=== PATIENT | male | born 1955 | race Caucasian/White ===

== ENCOUNTER → 2016-07-26 | Outpatient (CLI) | payer BC ==
[~2016-07-26] MED LIST: ALPR1TAB3 PO; ALPR2TAB2 PO; ASPCH81X PO; CHOL200027 PO; CHOL4POW6 PO; CLON2TAB3 PO; CYAN10005 SL; CYM60 PO; DIPH-416 PO; DONE1TAB11 PO; FLM4 PO; FLV400 PO; GLUCTAB18 PO; METO25TA3 PO; MULTLIQ26 PO; NXM/40 PO; ONDA8TAB7 PO; OXYC20TA50 PO; POTA1080 PO; PRAZ1CAP10 PO; PRAZ5CAP2 PO; PROM25TA9 PO; ROPI0.5T15 PO; SRQ300 PO; THIA250T3 PO; URC10 PO
--- NOTE | 2016-07-26 12:18 | DIAGNOSTIC IMAGING REPORT ---
KUB CLINICAL HISTORY: Nephrolithiasis FINDINGS: 2 AP supine abdominal radiographs are compared to study dated 07/27/2015 and correlated with abdominal CT dated 01/03/2014. There is a nonobstructed abdominal bowel gas pattern noting mild to moderate colonic fecal retention. Suture material is seen throughout the left upper quadrant. A tiny calculus is suggested projecting over the left kidney. No additional calculi are identified. Atherosclerotic calcification is noted in the abdominal aorta. The skeletal structures are osteopenic. Lumbosacral spondylosis is observed. The bony pelvis appears intact. The heart is enlarged and pacemaker leads are identified. IMPRESSION: 1. Question a tiny nonobstructing left renal calculus. No additional renal calculi are identified on today's examination. 2. Additional findings as above. Electronically signed by: Harman Escudero M.D. 07/26/2016 12:16 PM Dictated Date/Time: 07/26/2016 12:14 PM
== END ==
LOC: C.RAD 11:31
PROVIDERS: ATTEND Urology
DX: N40.1 Benign prostatic hyperplasia with lower urinary tract symptoms (principal); Z12.5 Encounter for screening for malignant neoplasm of prostate; N20.0 Calculus of kidney

== ENCOUNTER → 2016-10-10 | Outpatient (CLI) | payer BC | END | disposition home or self-care (01) | LOC: C.RDSM 16:53 | PROVIDERS: ATTEND Physical Medicine & Rehabilitation Sports Medicine | DX: S89.92XA Unspecified injury of left lower leg, initial encounter (principal); X58.XXXA Exposure to other specified factors, initial encounter ==

== ENCOUNTER 2016-11-27 17:04 | Inpatient (IN) | payer BC, OTHER ==
[~2016-11-27] VITALS: Ht 177.8 cm; Wt 107.6 kg
[~2016-11-27 17:04] MED LIST changes: -CLON2TAB3 PO; -CYM60 PO; -PRAZ5CAP2 PO; -SRQ300 PO; -THIA250T3 PO; -URC10 PO
[2016-11-27] MEDS ORDERED: SODIUM CHLORIDE 0.9% 1000ML 1,000 ML IV STA (17:23)
[2016-11-27 18:01] LABS: BASO % 0.2 %; BASO ABS # 0.04 K/uL (0-0.2); COMPLETE YES; EOS % 1.1 %; HEMATOCRIT 45.2 % (42-52); IG% 0.3 %; LYMPH % 20.9 %; MEAN CELL VOLUME 100.4 fL (80-100); MEAN CORPUSCULAR HEMOGLOBIN 34.4 pg (25-34); MEAN CORPUSCULAR HGB CONC 34.3 g/dl (32-36); MEAN PLATELET VOLUME 9.4 fL (7.4-10.4); MONO % 9.2 %; NEUT % 68.3 %; PLATELET COUNT 231 K/uL (130-400); WHITE BLOOD COUNT 17.25 K/uL (4.8-10.8)
--- NOTE | 2016-11-27 18:05 | DIAGNOSTIC IMAGING REPORT ---
CHEST ONE VIEW PORTABLE CLINICAL HISTORY: 61 years-old Male presenting with EVALUATE WEAKNESS. TECHNIQUE: Portable upright AP view of the chest was obtained. COMPARISON: 01/02/2014. FINDINGS: Left-sided pacer with leads to the right atrium and right ventricular apex. Atherosclerosis of aortic arch. Cardiac silhouette normal in size. Lungs and pleural spaces clear. Deformity of the right lateral seventh rib system with old fracture. Upper abdomen normal. IMPRESSION: 1. No acute cardiopulmonary disease. Electronically signed by: Brooks Granado M.D. 11/27/2016 6:04 PM Dictated Date/Time: 11/27/2016 6:03 PM
[2016-11-27 18:10] LABS: PROTHROMBIN TIME (PATIENT) 11.1 SECONDS (9.0-12.0)
[2016-11-27] MEDS ORDERED: CYM60 PO (18:15)
[2016-11-27] MEDS ORDERED: URC10 PO (18:15)
[2016-11-27] MEDS ORDERED: PRAZ5CAP2 PO (18:15)
[2016-11-27] MEDS ORDERED: THIA250T3 PO (18:16)
[2016-11-27] MEDS ORDERED: CLON2TAB3 PO (18:16)
[2016-11-27] MEDS ORDERED: SRQ300 PO (18:17)
[2016-11-27] MEDS ORDERED: ONDANSETRON 8 MG/54 ML D5W IV STA (18:24)
[2016-11-27] MEDS ORDERED: FENTANYL CITRATE INJ 50 MCG/1 ML 2 ML VIAL IV STA (18:24)
[2016-11-27 18:26] LABS: ALT/SGPT 22 U/L (12-78); BLOOD UREA NITROGEN 31 mg/dl (7-18); BUN/CREATININE RATIO 20.5 (10-20); CALCIUM 9.1 mg/dl (8.5-10.1); CARBON DIOXIDE 26 mmol/L (21-32); CHLORIDE 103 mmol/L (98-107); GLUCOSE 165 mg/dl (70-99); POTASSIUM 4.8 mmol/L (3.5-5.1); SODIUM 136 mmol/L (136-145)
[2016-11-27 18:37] LABS: ALKALINE PHOSPHATASE 102 U/L (45-117); AST/SGOT 17 U/L (15-37)
[2016-11-27 19:11] LABS: URINE APPEARANCE CLEAR (CLEAR); URINE BILIRUBIN NEG (NEG); URINE COLOR DK YELLOW; URINE EPITHELIAL CELL AUTO >30 /lpf (0-5); URINE NITRITE NEG (NEG); URINE SPECIFIC GRAVITY 1.026 (1.000-1.030); UROBILINOGEN NEG (NEG)
[2016-11-27 19:13] LABS: MANUAL MICROSCOPIC REQUIRED? NO; REVIEW REQ? YES
[2016-11-27] MEDS ORDERED: OPTIRAY 320 IV PRN (19:30)
--- NOTE | 2016-11-27 19:33 | DIAGNOSTIC IMAGING REPORT ---
(CHEST FOR PE) ANGIO WITH CLINICAL HISTORY: 61 years-old Male presenting with chest pain, recent travel, hypotensive. TECHNIQUE: Multidetector CT angiography of the chest was performed after administration of intravenous contrast. 3-D volumetric and/or maximum intensity projection (MIP) images were subsequently reconstructed for review. IV contrast: 102 mL of Optiray 320. A dose lowering technique was used consistent with the principles of ALARA (as low as reasonably achievable). COMPARISON: None. CT DOSE (mGy.cm): The estimated cumulative dose is 543.39 mGy.cm. 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 Pulmonary vasculature: The study is adequate for assessment of the pulmonary vascular tree. No filling defect within the pulmonary arteries to suggest embolus. Main pulmonary artery is not enlarged. No flattening of the interventricular septum. No intracardiac intracardiac filling defect. No reflux of contrast into the hepatic veins. Remaining chest: On soft tissue windows, normal thyroid and thoracic inlet. No axillary, supraclavicular, hilar, or mediastinal lymphadenopathy. Atherosclerosis of aortic arch. Normal heart size. Coronary artery calcification. No pericardial or pleural effusion. Intraluminal hyperattenuation at the fundus of the stomach and within the antrum and visualized portion of the duodenal bulb most consistent with intraluminal hemorrhage. Postsurgical changes of Blaine-en-Y gastric bypass noted. On lung windows, minimal bandlike opacities at the lung bases likely atelectasis. Two adjacent solid 3 mm subpleural nodules noted in the right lower lobe (series 4 images 117 and 124). Paraseptal emphysematous suggested along the anterior right upper lobe near the apex. Airways patent. On bone windows, degenerative changes of the thoracic spine. IMPRESSION: 1. No evidence of pulmonary embolus. 2. High density intraluminal contents within the stomach are most concerning for intraluminal hemorrhage. Correlation with nasogastric aspiration could be considered. This may indicate a bleeding ulcer among other etiologies. 3. Two solid 3 mm subpleural nodules in the right lower lobe. Follow-up per Emily Society 2017 recommendations below. Findings were discussed with Dr. Humberto Aguilar at 7:45 PM on 11/27/[address] Granado. Please refer to below summary of Fleischner Society 2017 recommendations for follow-up of incidental CT nodules (H Sonia et al. Guidelines for management of incidental pulmonary nodules detected on CT images: From the Fleischner Society 2017. Radiology 2017; 284: 228-243.) SOLID NODULES Single nodule; size < 6 mm * Low risk patients: No routine follow-up * High risk patients: Optional CT at 12 months Single nodule; size 6-8 mm * Low risk patients: CT at 6-12 months, then consider CT at 18-24 months * High risk patients: CT at 6-12 months, then at 18-24 months Single nodule; size > 8 mm * Either low or high risk patients: Considered CT at 3 months, PET/CT, or tissue sampling Multiple nodules; size < 6 mm * Low risk patients: No routine follow up * High risk patients: Optional CT at 12 months Multiple nodules; size 6-8 mm * Low risk patients: CT at 3-6 months, then consider CT at 18-24 months * High risk patients: CT at 3-6 months, then at 18-24 months Multiple nodules; size > 8 mm * Low risk patients: CT at 3-6 months, then consider at 18-24 months * High risk patients: CT at 3-6 months, then at 18-24 months Note: These guidelines apply to incidental nodules. These guidelines do not apply to patients younger than 35 years, immunocompromised patients, or patients with cancer. * Low risk patients: Minimal or absent history of smoking and/or other known risk factors * High risk patients: History of smoking, exposure to other carcinogens, emphysema, fibrosis, upper lobe location, family history of lung cancer, etc. * If a nodule up to 8 mm is partly solid or is ground glass, further follow-up is required after 24 months to exclude possible slow growing adenocarcinoma. SUBSOLID NODULES Single ground-glass nodule * Nodule size < 6 mm: No routine follow-up * Nodule size > or = 6 mm: CT at 6-12 months to confirm persistence, then CT every 2 years until 5 years Single part-solid nodule * Nodule size < 6 mm: No routine follow-up * Nodules size > or = 6 mm: CT at 3-6 months to confirm persistence. If unchanged and solid component remains < 6 mm, annual CT should be performed for 5 years Multiple nodules * Nodule size < 6 mm: CT at 3-6 months. If stable, consider CT at 2 and 4 years. * Nodules size > or = 6 mm: CT at 3-6 months. Subsequent management based on the most suspicious nodule(s) Electronically signed by: Brooks Granado M.D. 11/27/2016 7:45 PM Dictated Date/Time: 11/27/2016 7:22 PM
[2016-11-27 19:36] LABS: URINE PATH CASTS EPITHELIAL CASTS /lpf (0)
[2016-11-27] MEDS ORDERED: RANITIDINE HCL 50 MG/100 ML D5W IV STA (19:50)
[2016-11-27] MEDS ORDERED: SODIUM CHLORIDE 0.9% 500ML 500 ML IV STA (19:53)
[2016-11-27] MEDS ORDERED: PANTOprazole INJ 80 MG in DEXTROSE 5% 100ML IV SCH (20:00)
[2016-11-27] MEDS ORDERED: PANTOprazole INJ 40 MG in DEXTROSE 5% 100ML IV SCH (20:15)
[2016-11-27] MEDS: HYDROmorphone INJ 0.5 MG/0.5 ML SYR IV PRN ×3 (20:20→23:33)
[2016-11-27] MEDS ORDERED: ONDANSETRON INJ 2 MG/ML 2 ML VIAL IV PRN (20:45)
[2016-11-27] MEDS ORDERED: ALUMINUM/MAGNESIUM/SIMETH (MAALOX MAX) 30 ML UDC PO PRN (20:45)
--- NOTE | 2016-11-27 21:05 | History and Physical ---
History & Physical Date & Time of Service: Nov 27, 2016 at 20:50 Chief Complaint: Dizzy,Sob,Low Bp Primary Care Physician: Sharri Holbrook History of Present Illness Source: patient, family Mr Moore is a 61 yo M s/p gastric bypass with history of 4 GI bleeds at a site near his bypass surgery, who presents with shortness of breath. The pt thought he had pneumonia, and had felt short of breath over the last few days, and was worse over vacation at [place] last week. He has been feeling more tired than usual. He noticed abdominal pain started Monday, which is in the epigastrium, 8/10 severity, without any exacerbating or relieving factors. He denies any changes to his diet and denies having spicy or new foods lately. He has not been taking NSAIDs. He does report about a 3 month history of diarrhea, which has been non-bloody, though on r/v of records this seems to be a chronic issue. He also has a hx of atrial fibrillation and was recently placed on metoprolol. His only blood thinner in his med list is aspirin. Currently, he feels nauseated, and after just receiving pain medications feels somewhat better. 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 Is eager to quit smoking. Smoking Status: Current Every Day Smoker Marital Status: Housing status: lives with family Occupational Status: retired Immunizations History of Influenza Vaccine: N/A Influenza Vaccine Date: Dec 24, 2007 History of Tetanus Vaccine?: Yes History of Pneumococcal: No History of Hepatitis B Vaccine: No Multi-Drug Resistant Organisms History of MDRO: No Allergies Coded Allergies: Penicillins (Verified Allergy, Severe, SWELLING AND RASH OF HANDS; HAS TOLERATED ANCEF & ROCEPHIN, 11/27/16) Home Medications Scheduled Aspirin (Aspirin Chewable), 81 MG PO DAILY Cholecalciferol (Vitamin D-3), 2,000 UNITS PO BID Clonazepam (Klonopin), 2 MG PO BID Cyanocobalamin (Vitamin B-12), 2,500 MCG SL DAILY Donepezil Hydrochloride (Donepezil Hcl), 5 MG PO HS Duloxetine HCl (Duloxetine HCl), 60 MG PO BID Esomeprazole Magnesium (Nexium), 40 MG PO BID Folic Acid (Folic Acid), 800 MCG PO DAILY Glucosamine-Chondroitin (Osteo Bi-Flex Regular Str), 1 TABLET PO DAILY Metoprolol Succ (Toprol Xl) (Toprol-Xl), 25 MG PO DAILY Multiple Vitamins W/ Minerals (Multivitamin & Mineral), 1 DOSE PO DAILY Potassium Citrate (Potassium Citrate), 10 MEQ PO TID Prazosin Hcl (Prazosin), 5 MG PO HS Quetiapine Fumarate (Quetiapine Fumarate), 300 MG PO HS Ropinirole (Requip), 0.5 MG PO HS Thiamine Hcl (Vitamin B-1), 250 MG PO BID Review of Systems See HPI for pertinent positives & negatives. A total of 10 systems reviewed and were otherwise negative. Physical Exam Vital Signs Date Time Temp Pulse Resp B/P (MAP) Pulse Ox O2 Delivery O2 Flow Rate FiO2 11/27/16 20:27 64 12 119/71 97 Room Air 11/27/16 19:31 62 14 144/78 96 Room Air 11/27/16 18:34 63 17 114/66 91 Room Air 11/27/16 17:56 97 Room Air 11/27/16 17:56 68 113/68 80 102/65 85 90/56 11/27/16 17:56 96 Room Air 11/27/16 17:44 69 11/27/16 17:38 73 11/27/16 17:35 97 Room Air 11/27/16 17:12 36.7 69 18 107/74 97 Room Air General Appearance: WD/WN, + mild distress Head: normocephalic, atraumatic Eyes: normal inspection, PERRL ENT: hearing grossly normal Neck: supple, no JVD Respiratory/Chest: lungs clear, normal breath sounds, no respiratory distress Cardiovascular: regular rate, rhythm, no murmur, normal peripheral pulses Abdomen/GI: soft, + tenderness (epigastrium) Back: no CVA tenderness, no muscle spasm, normal range of motion Extremities/Musculoskelatal: no calf tenderness, no pedal edema Neurologic/Psych: alert, normal mood/affect, oriented x 3 Skin: no rash Diagnostics Laboratory Results Results Past 24 Hours Test 11/27/16 17:42 11/27/16 17:52 11/27/16 17:54 11/27/16 18:55 Range/Units White Blood Count 17.25 4.8-10.8 K/uL Red Blood Count 4.50 4.7-6.1 M/uL Hemoglobin 15.5 14.0-18.0 g/dL Hematocrit 45.2 42-52 % Mean Corpuscular Volume 100.4 80-100 fL Mean Corpuscular Hemoglobin 34.4 25-34 pg Mean Corpuscular Hemoglobin Concent 34.3 32-36 g/dl Platelet Count 231 130-400 K/uL Mean Platelet Volume 9.4 7.4-10.4 fL Neutrophils (%) (Auto) 68.3 % Lymphocytes (%) (Auto) 20.9 % Monocytes (%) (Auto) 9.2 % Eosinophils (%) (Auto) 1.1 % Basophils (%) (Auto) 0.2 % Neutrophils # (Auto) 11.79 1.4-6.5 K/uL Lymphocytes # (Auto) 3.60 1.2-3.4 K/uL Monocytes # (Auto) 1.58 0.11-0.59 K/uL Eosinophils # (Auto) 0.19 0-0.5 K/uL Basophils # (Auto) 0.04 0-0.2 K/uL RDW Standard Deviation 48.6 36.4-46.3 fL RDW Coefficient of Variation 13.2 11.5-14.5 % Immature Granulocyte % (Auto) 0.3 % Immature Granulocyte # (Auto) 0.05 0.00-0.02 K/uL Prothrombin Time 11.1 9.0-12.0 SECONDS Prothromb Time International Ratio 1.0 0.9-1.1 Activated Partial Thromboplast Time 26.0 21.0-31.0 SECONDS Partial Thromboplastin Ratio 1.0 Sodium Level 136 136-145 mmol/L Potassium Level 4.8 3.5-5.1 mmol/L Chloride Level 103 98-107 mmol/L Carbon Dioxide Level 26 21-32 mmol/L Anion Gap 7.0 3-11 mmol/L Blood Urea Nitrogen 31 7-18 mg/dl Creatinine 1.50 0.60-1.40 mg/dl Est Creatinine Clear Calc Drug Dose 62.6 ml/min Estimated GFR () 56.6 Estimated GFR (Non- 48.8 BUN/Creatinine Ratio 20.5 10-20 Random Glucose 165 70-99 mg/dl Calcium Level 9.1 8.5-10.1 mg/dl Magnesium Level 2.0 1.8-2.4 mg/dl Total Bilirubin 0.5 0.2-1 mg/dl Direct Bilirubin 0.1 0-0.2 mg/dl Aspartate Amino Transf (AST/SGOT) 17 15-37 U/L Alanine Aminotransferase (ALT/SGPT) 22 12-78 U/L Alkaline Phosphatase 102 45-117 U/L Total Creatine Kinase 118 39-308 U/L Creatine Kinase MB 2.4 0.5-3.6 ng/ml Creatine Kinase MB Ratio 2.0 0-3.0 Troponin I < 0.015 0-0.045 ng/ml Total Protein 7.6 6.4-8.2 gm/dl Albumin 3.6 3.4-5.0 gm/dl Thyroid Stimulating Hormone (TSH) 1.060 0.300-4.500 uIu/ml Bedside Lactic Acid Venous 2.30 0.90-1.70 mmol/L Bedside D-Dimer > 450 0-450 ng/mlFEU Urine Color DK YELLOW Urine Appearance CLEAR CLEAR Urine pH 6.0 4.5-7.5 Urine Specific [place] 1.026 1.000-1.030 Urine Protein NEG NEG Urine Glucose (UA) NEG NEG Urine Ketones TRACE NEG Urine Occult Blood NEG NEG Urine Nitrite NEG NEG Urine Bilirubin NEG NEG Urine Urobilinogen NEG NEG Urine Leukocyte Esterase TRACE NEG Urine WBC (Auto) 1-5 0-5 /hpf Urine RBC (Auto) 0-4 0-4 /hpf Urine Hyaline Casts (Auto) >30 0-5 /lpf Urine Epithelial Cells (Auto) >30 0-5 /lpf Urine Bacteria (Auto) NEG NEG Urine Pathogenic Casts EPITHELIAL CASTS 0 /lpf Microbiology Results 11/27/16 Blood Culture, Received Pending 11/27/16 Blood Culture, Received Pending Diagnostic Radiology CTA: IMPRESSION: 1. No evidence of pulmonary embolus. 2. High density intraluminal contents within the stomach are most concerning for intraluminal hemorrhage. Correlation with nasogastric aspiration could be considered. This may indicate a bleeding ulcer among other etiologies. 3. Two solid 3 mm subpleural nodules in the right lower lobe. Follow-up per Emily Society 2017 recommendations below. CXR normal EKG Atrial-paced rhythm with occasional Premature ventricular complexes Right superior axis deviation Pulmonary disease pattern Abnormal ECG When compared with ECG of 02-JAN-2014 19:28, Premature ventricular complexes are now Present Questionable change in QRS axis T wave inversion no longer evident in Anterior leads QT has shortened Normal EKG, No change from prior EKG Impression Assessment and Plan 61 yo M s/p gastric bypass w/multiple GI bleeds who presents with concern for repeat GI bleed. Acute upper GI bleed - Hemodynamically stable at this time. Will cross match regardless. - CBC in AM. - GI consulted, pt sees Dr Heck. - NPO for EGD tomorrow - Continue Protonix drip - Aspirin on hold Abdominal pain - Continue dilaudid 0.5mg IV q3h Chronic diarrhea - C. Diff / stool culture Leukocytosis - Could be related to GI bleed, will hold off on Abx for now as he does not display evidence of pneumonia - Continue to monitor Shortness of breath - Continuous pulse ox - Duoneb PRN - Smoking cessation consult Anxiety / Depression - Continue home medications (incluidng Clonopin) Vit B12 / Folate / Thiamine deficiency - Multivitamins on hold prior to EGD Pulmonary nodules from CT - Follow up as OP (See guidelines on report) CODE STATUS: Full DISPO: Tele VTE: SCDs Resident Physician Supervision Note: I was present with Dr. Berry during the history and exam. I discussed the case with the resident and agree with the findings and plan as documented in the note. Any exceptions or clarifications are listed here: 61 y/o M Hx Gastric bypass and recurrent GI bleed - developed progressive abdominal pain and SOB - denies hematemesis or hematochezia - sent for a CTA, the results of which are consistent with recurrence of an upper GI bleed OE AAO x 3 S1,2 R CTAB NT, ND No CCE P: Per discussion with GI - pt admitted for AM endoscopy NPO , IV PPi - ASA held Above discussed with pt and resident Documented By: Matt Tucker VTE Prophylaxis VTE Risk Assessment Done? Y/N: Yes Risk Level: Moderate Given or contraindicated: Contraindicated Resident Tracking Resident Involvement: Resident Care Provided Care Provided: Adult Hospital Medicine
[2016-11-27] MEDS ORDERED: METOCLOPRAMIDE HCL INJ 5 MG/ML 2 ML VIAL IV STA (21:11)
[2016-11-27] MEDS ORDERED: HydrALAZINE HCL 20 MG/ML VIAL IV. PRN (22:15)
[2016-11-27] MEDS ORDERED: LORAZEPAM 2 MG/ML 1 ML VIAL IV SCH (22:30)
[2016-11-27 22:31] VITALS: BP 174/78; PULSE 70; TEMP 36.5; O2SAT 98; Ht 177.8 cm; Wt 107.6 kg
[2016-11-27] MEDS: SODIUM CHLOR 0.45% + 20MEQ KCL 1,000 ML IV SCH (23:19)
[2016-11-27] MEDS: FAMOTIDINE IV INJ 20 MG in DEXTROSE 5% 100ML 100 ML IV SCH (23:20)
[2016-11-27] MEDS: DONEPEZIL HCL 5 MG TAB PO SCH (23:20)
[2016-11-27] MEDS: QUETIAPINE FUMARATE 300 MG TAB PO SCH (23:20)
[2016-11-27] MEDS: THIAMINE HCL 100 MG TAB PO SCH (23:20)
[2016-11-27] MEDS: ROPINIROLE HCL 1 MG TAB PO SCH (23:21)
[2016-11-27] MEDS: POTASSIUM CITRATE 10 MEQ TAB PO SCH (23:21)
[2016-11-27] MEDS: DULOXETINE HCL 60 MG CAP PO SCH (23:21)
[2016-11-27] MEDS: PRAZOSIN HCL 1 MG CAP PO SCH (23:33)
[2016-11-27 23:36] VITALS: BP 153/80; PULSE 69; TEMP 36.7; O2SAT 97
[2016-11-28] VITALS (7 sets, daily range): BP systolic 113–152; BP diastolic 61–78; PULSE 75–89; TEMP 36.6–37.2; O2SAT 92–98
[2016-11-28] MEDS ORDERED: NURSING VERBAL MED ORDER ONE
[2016-11-28] MEDS ORDERED: LORAZEPAM INJ 0.5 MG in SYRINGE 0.75 ML IV PRN (00:15)
[2016-11-28] MEDS ORDERED: LORAZEPAM 2 MG/ML 1 ML VIAL IV PRN (00:15)
[2016-11-28] MEDS: CLONAZEPAM 1 MG TAB PO SCH ×3 (00:19→21:33)
[2016-11-28] MEDS: PANTOprazole INJ 40 MG in DEXTROSE 5% 100ML IV SCH ×5 (01:56→21:53)
--- NOTE | 2016-11-28 02:03 | EMERGENCY ROOM VISIT NOTE ---
History Report prepared by Genesis: Catalina Major Under the Supervision of: Dr. Humberto Aguilar M.D. First contact with patient: 17:23 Chief Complaint: SHORTNESS OF BREATH Stated Complaint: DIZZY,SOB,LOW BP History of Present Illness The patient is a 61 year old male who presents to the Emergency Room with complaints of an episode of shortness of breath starting 2 days ago. The patient states that he is also experiencing chest pain, but notes that it is worse with breathing. The patient reports that this feels similar to when he had pneumonia. The patient complains of being diaphoretic and nausea. The patient's notes that [place] and notes that they were at high elevations. She states her tends not to do well with them. Pt denies LOC, headache, fevers, chills, visual changes, neck pain, vomiting, abdominal pain, back pain, melena, hematochezia, urinary symptoms, numbness, weakness, lymphadenopathy, rash, or other complaints. Source of History: patient, spouse/significant other Onset: 2 days ago Position: other (global) Quality: other (similar to previous episode of pneumonia) Timing: other (episode) Modifying Factors (Worsening): breathing Associated Symptoms: + diaphoresis, + chest pain, + nausea Review of Systems See HPI for pertinent positives and negatives. A total of ten systems were reviewed and were otherwise negative. 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,& CEREBRAL INFARCTION W/OUT RES DEFICITS (15) Shortness of breath (16) TIA (transient ischemic attack) Surgical Problems: (1) H/O gastric bypass (2) H/O hernia repair (3) Total knee replacement status Family History Cancer Diabetes mellitus Heart disease Social History Smoking Status: Never Smoker Alcohol Use: none Drug Use: none Marital Status: Housing Status: lives with significant other Occupation Status: retired Current/Historical Medications Scheduled Aspirin (Aspirin Chewable), 81 MG PO DAILY Cholecalciferol (Vitamin D-3), 2,000 UNITS PO BID Clonazepam (Klonopin), 2 MG PO BID Cyanocobalamin (Vitamin B-12), 2,500 MCG SL DAILY Donepezil Hydrochloride (Donepezil Hcl), 5 MG PO HS Duloxetine HCl (Duloxetine HCl), 60 MG PO BID Esomeprazole Magnesium (Nexium), 40 MG PO BID Folic Acid (Folic Acid), 800 MCG PO DAILY Glucosamine-Chondroitin (Osteo Bi-Flex Regular Str), 1 TABLET PO DAILY Metoprolol Succ (Toprol Xl) (Toprol-Xl), 25 MG PO DAILY Multiple Vitamins W/ Minerals (Multivitamin & Mineral), 1 DOSE PO DAILY Potassium Citrate (Potassium Citrate), 10 MEQ PO TID Prazosin Hcl (Prazosin), 5 MG PO HS Quetiapine Fumarate (Quetiapine Fumarate), 300 MG PO HS Ropinirole (Requip), 0.5 MG PO HS Thiamine Hcl (Vitamin B-1), 250 MG PO BID Allergies Coded Allergies: Penicillins (Verified Allergy, Severe, SWELLING AND RASH OF HANDS; HAS TOLERATED ANCEF & ROCEPHIN, 11/27/16) Physical Exam Vital Signs Date Time Temp Pulse Resp B/P (MAP) Pulse Ox O2 Delivery O2 Flow Rate FiO2 11/27/16 22:15 71 17 171/93 91 11/27/16 22:00 64 14 191/91 97 Room Air 11/27/16 21:40 69 11 172/95 97 Room Air 11/27/16 21:13 64 22 158/83 97 Room Air 11/27/16 20:27 64 12 119/71 97 Room Air 11/27/16 19:31 62 14 144/78 96 Room Air 11/27/16 18:34 63 17 114/66 91 Room Air 11/27/16 17:56 97 Room Air 11/27/16 17:56 68 113/68 80 102/65 85 90/56 11/27/16 17:56 96 Room Air 11/27/16 17:44 69 11/27/16 17:38 73 11/27/16 17:35 97 Room Air 11/27/16 17:12 36.7 69 18 107/74 97 Room Air Physical Exam GENERAL: Awake, alert, well-appearing, in no distress HENT: Normocephalic, atraumatic. Oropharynx unremarkable. EYES: Normal conjunctiva. Sclera non-icteric. NECK: Supple. No nuchal rigidity. FROM. No JVD. RESPIRATORY: Clear to auscultation. CARDIAC: Regular rate, normal rhythm. Extremities warm and well perfused. Pulses equal. ABDOMEN: Soft, non-distended. No tenderness to palpation. No rebound or guarding. No masses. RECTAL: Deferred. MUSCULOSKELETAL: Chest examination reveals no tenderness. The back is symmetrical on inspection without obvious abnormality. There is no CVA tenderness to palpation. No joint edema. LOWER EXTREMITIES: Calves are equal size bilaterally and non-tender. No edema. No discoloration. Left leg is shorter than right. NEURO: Normal sensorium. No sensory or motor deficits noted. SKIN: No rash or jaundice noted. Medical Decision & Procedures ER Provider Diagnostic Interpretation: Radiology results as stated below per my review and radiologist interpretation: CHEST ONE VIEW PORTABLE CLINICAL HISTORY: 61 years-old Male presenting with EVALUATE WEAKNESS. TECHNIQUE: Portable upright AP view of the chest was obtained. COMPARISON: 01/02/2014. FINDINGS: Left-sided pacer with leads to the right atrium and right ventricular apex. Atherosclerosis of aortic arch. Cardiac silhouette normal in size. Lungs and pleural spaces clear. Deformity of the right lateral seventh rib system with old fracture. Upper abdomen normal. IMPRESSION: 1. No acute cardiopulmonary disease. Electronically signed by: Brooks Granado M.D. 11/27/2016 6:04 PM Dictated Date/Time: 11/27/2016 6:03 PM (CHEST FOR PE) ANGIO WITH CLINICAL HISTORY: 61 years-old Male presenting with chest pain, recent travel, hypotensive. TECHNIQUE: Multidetector CT angiography of the chest was performed after administration of intravenous contrast. 3-D volumetric and/or maximum intensity projection (MIP) images were subsequently reconstructed for review. IV contrast: 102 mL of Optiray 320. A dose lowering technique was used consistent with the principles of ALARA (as low as reasonably achievable). COMPARISON: None. CT DOSE (mGy.cm): The estimated cumulative dose is 543.39 mGy.cm. FINDINGS: Relationship Advisor topogram: Left-sided pacer with leads to the right atrium and right ventricular apex. Pulmonary vasculature: The study is adequate for assessment of the pulmonary vascular tree. No filling defect within the pulmonary arteries to suggest embolus. Main pulmonary artery is not enlarged. No flattening of the interventricular septum. No intracardiac intracardiac filling defect. No reflux of contrast into the hepatic veins. Remaining chest: On soft tissue windows, normal thyroid and thoracic inlet. No axillary, supraclavicular, hilar, or mediastinal lymphadenopathy. Atherosclerosis of aortic arch. Normal heart size. Coronary artery calcification. No pericardial or pleural effusion. Intraluminal hyperattenuation at the fundus of the stomach and within the antrum and visualized portion of the duodenal bulb most consistent with intraluminal hemorrhage. Postsurgical changes of Blaine-en-Y gastric bypass noted. On lung windows, minimal bandlike opacities at the lung bases likely atelectasis. Two adjacent solid 3 mm subpleural nodules noted in the right lower lobe (series 4 images 117 and 124). Paraseptal emphysematous suggested along the anterior right upper lobe near the apex. Airways patent. On bone windows, degenerative changes of the thoracic spine. IMPRESSION: 1. No evidence of pulmonary embolus. 2. High density intraluminal contents within the stomach are most concerning for intraluminal hemorrhage. Correlation with nasogastric aspiration could be considered. This may indicate a bleeding ulcer among other etiologies. 3. Two solid 3 mm subpleural nodules in the right lower lobe. Follow-up per Emily Society 2017 recommendations below. Findings were discussed with Dr. Humberto Aguilar at 7:45 PM on 11/27/[address] Granado. Please refer to below summary of Fleischner Society 2017 recommendations for follow-up of incidental CT nodules (H Sonia et al. Guidelines for management of incidental pulmonary nodules detected on CT images: From the Fleischner Society 2017. Radiology 2017; 284: 228-243.) SOLID NODULES Single nodule; size < 6 mm * Low risk patients: No routine follow-up * High risk patients: Optional CT at 12 months Single nodule; size 6-8 mm * Low risk patients: CT at 6-12 months, then consider CT at 18-24 months * High risk patients: CT at 6-12 months, then at 18-24 months Single nodule; size > 8 mm * Either low or high risk patients: Considered CT at 3 months, PET/CT, or tissue sampling Multiple nodules; size < 6 mm * Low risk patients: No routine follow up * High risk patients: Optional CT at 12 months Multiple nodules; size 6-8 mm * Low risk patients: CT at 3-6 months, then consider CT at 18-24 months * High risk patients: CT at 3-6 months, then at 18-24 months Multiple nodules; size > 8 mm * Low risk patients: CT at 3-6 months, then consider at 18-24 months * High risk patients: CT at 3-6 months, then at 18-24 months Note: These guidelines apply to incidental nodules. These guidelines do not apply to patients younger than 35 years, immunocompromised patients, or patients with cancer. * Low risk patients: Minimal or absent history of smoking and/or other known risk factors * High risk patients: History of smoking, exposure to other carcinogens, emphysema, fibrosis, upper lobe location, family history of lung cancer, etc. * If a nodule up to 8 mm is partly solid or is ground glass, further follow-up is required after 24 months to exclude possible slow growing adenocarcinoma. SUBSOLID NODULES Single ground-glass nodule * Nodule size < 6 mm: No routine follow-up * Nodule size > or = 6 mm: CT at 6-12 months to confirm persistence, then CT every 2 years until 5 years Single part-solid nodule * Nodule size < 6 mm: No routine follow-up * Nodules size > or = 6 mm: CT at 3-6 months to confirm persistence. If unchanged and solid component remains < 6 mm, annual CT should be performed for 5 years Multiple nodules * Nodule size < 6 mm: CT at 3-6 months. If stable, consider CT at 2 and 4 years. * Nodules size > or = 6 mm: CT at 3-6 months. Subsequent management based on the most suspicious nodule(s) Electronically signed by: Brooks Granado M.D. 11/27/2016 7:45 PM Dictated Date/Time: 11/27/2016 7:22 PM Laboratory Results 11/27/16 17:42 Red Blood Count 4.50, Mean Corpuscular Volume 100.4, Mean Corpuscular Hemoglobin 34.4, Mean Corpuscular Hemoglobin Concent 34.3, Mean Platelet Volume 9.4, Neutrophils (%) (Auto) 68.3, Lymphocytes (%) (Auto) 20.9, Monocytes (%) ( Auto) 9.2, Eosinophils (%) (Auto) 1.1, Basophils (%) (Auto) 0.2, Neutrophils # ( Auto) 11.79, Lymphocytes # (Auto) 3.60, Monocytes # (Auto) 1.58, Eosinophils # ( Auto) 0.19, Basophils # (Auto) 0.04 11/27/16 17:42 Test 11/27/16 17:42 11/27/16 17:52 11/27/16 17:54 11/27/16 18:55 White Blood Count 17.25 K/uL (4.8-10.8) Red Blood Count 4.50 M/uL (4.7-6.1) Hemoglobin 15.5 g/dL (14.0-18.0) Hematocrit 45.2 % (42-52) Mean Corpuscular Volume 100.4 fL (80-100) Mean Corpuscular Hemoglobin 34.4 pg (25-34) Mean Corpuscular Hemoglobin Concent 34.3 g/dl (32-36) Platelet Count 231 K/uL (130-400) Mean Platelet Volume 9.4 fL (7.4-10.4) Neutrophils (%) (Auto) 68.3 % Lymphocytes (%) (Auto) 20.9 % Monocytes (%) (Auto) 9.2 % Eosinophils (%) (Auto) 1.1 % Basophils (%) (Auto) 0.2 % Neutrophils # (Auto) 11.79 K/uL (1.4-6.5) Lymphocytes # (Auto) 3.60 K/uL (1.2-3.4) Monocytes # (Auto) 1.58 K/uL (0.11-0.59) Eosinophils # (Auto) 0.19 K/uL (0-0.5) Basophils # (Auto) 0.04 K/uL (0-0.2) RDW Standard Deviation 48.6 fL (36.4-46.3) RDW Coefficient of Variation 13.2 % (11.5-14.5) Immature Granulocyte % (Auto) 0.3 % Immature Granulocyte # (Auto) 0.05 K/uL (0.00-0.02) Prothrombin Time 11.1 SECONDS (9.0-12.0) Prothromb Time International Ratio 1.0 (0.9-1.1) Activated Partial Thromboplast Time 26.0 SECONDS (21.0-31.0) Partial Thromboplastin Ratio 1.0 Anion Gap 7.0 mmol/L (3-11) Est Creatinine Clear Calc Drug Dose 62.6 ml/min Estimated GFR () 56.6 Estimated GFR (Non- 48.8 BUN/Creatinine Ratio 20.5 (10-20) Calcium Level 9.1 mg/dl (8.5-10.1) Magnesium Level 2.0 mg/dl (1.8-2.4) Total Bilirubin 0.5 mg/dl (0.2-1) Direct Bilirubin 0.1 mg/dl (0-0.2) Aspartate Amino Transf (AST/SGOT) 17 U/L (15-37) Alanine Aminotransferase (ALT/SGPT) 22 U/L (12-78) Alkaline Phosphatase 102 U/L (45-117) Total Creatine Kinase 118 U/L (39-308) Creatine Kinase MB 2.4 ng/ml (0.5-3.6) Creatine Kinase MB Ratio 2.0 (0-3.0) Troponin I < 0.015 ng/ml (0-0.045) Total Protein 7.6 gm/dl (6.4-8.2) Albumin 3.6 gm/dl (3.4-5.0) Thyroid Stimulating Hormone (TSH) 1.060 uIu/ml (0.300-4.500) Bedside Lactic Acid Venous 2.30 mmol/L (0.90-1.70) Bedside D-Dimer > 450 ng/mlFEU (0-450) Urine Color DK YELLOW Urine Appearance CLEAR (CLEAR) Urine pH 6.0 (4.5-7.5) Urine Specific [place] 1.026 (1.000-1.030) Urine Protein NEG (NEG) Urine Glucose (UA) NEG (NEG) Urine Ketones TRACE (NEG) Urine Occult Blood NEG (NEG) Urine Nitrite NEG (NEG) Urine Bilirubin NEG (NEG) Urine Urobilinogen NEG (NEG) Urine Leukocyte Esterase TRACE (NEG) Urine WBC (Auto) 1-5 /hpf (0-5) Urine RBC (Auto) 0-4 /hpf (0-4) Urine Hyaline Casts (Auto) >30 /lpf (0-5) Urine Epithelial Cells (Auto) >30 /lpf (0-5) Urine Bacteria (Auto) NEG (NEG) Urine Pathogenic Casts EPITHELIAL CASTS /lpf (0) Laboratory results reviewed by me Medications Administered Medications (Trade) Dose Ordered Sig/Karissa Route Start Time Stop Time Status Last Admin Dose Admin Sodium Chloride 1,000 ml @ 125 mls/hr Q8H STAT IV 11/27/16 17:23 11/27/16 22:40 DC 11/27/16 17:23 125 MLS/HR Ondansetron HCl (Zofran 8mg Iv) 8 mg NOW STAT IV 11/27/16 18:24 11/27/16 18:25 DC 11/27/16 18:37 8 MG Fentanyl Citrate (Fentanyl Inj) 50 mcg NOW STAT IV 11/27/16 18:24 11/27/16 18:25 DC 11/27/16 18:36 50 MCG Ranitidine HCl (zANTac IV) 50 mg NOW STAT IV 11/27/16 19:50 11/27/16 19:52 DC 11/27/16 21:04 50 MG Hydromorphone HCl (Dilaudid Inj) 0.5 mg Q20M PRN IV 11/27/16 20:00 11/27/16 22:41 DC 11/27/16 21:05 0.5 MG Sodium Chloride 500 ml @ 999 mls/hr Q31M STAT IV 11/27/16 19:53 11/27/16 20:23 DC 11/27/16 20:20 999 MLS/HR Pantoprazole Sodium 80 mg/ Dextrose 120 ml @ 480 mls/hr TODAY@2000 IV 11/27/16 20:00 11/27/16 20:14 DC 11/27/16 20:20 480 MLS/HR Pantoprazole Sodium 40 mg/ Dextrose 100 ml @ 20 mls/hr Q5H IV 11/27/16 20:15 11/28/16 01:14 DC 11/27/16 21:04 20 MLS/HR Clonazepam (Klonopin Tab) 2 mg BID PO 11/27/16 21:00 12/27/16 20:59 Future hold 11/28/16 00:19 2 MG Donepezil HCl (Aricept Tab) 5 mg HS PO 11/27/16 21:00 12/27/16 20:59 11/27/16 23:20 5 MG Duloxetine HCl (Cymbalta Cap) 60 mg BID PO 11/27/16 21:00 12/27/16 20:59 11/27/16 23:21 60 MG Potassium Citrate (Urocit-K Tab) 10 meq TID PO 11/27/16 21:00 12/27/16 20:59 11/27/16 23:21 10 MEQ Quetiapine Fumarate (seroQUEL TAB) 300 mg HS PO 11/27/16 21:00 12/27/16 20:59 11/27/16 23:20 300 MG Ropinirole HCl (Requip Tab) 0.5 mg HS PO 11/27/16 21:00 12/27/16 20:59 11/27/16 23:21 0.5 MG Prazosin HCl (Prazosin) 5 mg HS PO 11/27/16 21:00 12/27/16 20:59 11/27/16 23:33 5 MG Thiamine HCl (Vitamin B-1 Tab) 250 mg BID PO 11/27/16 21:00 12/27/16 20:59 11/27/16 23:20 250 MG Potassium Chloride/Sodium Chloride 1,000 ml @ 125 mls/hr Q8H IV 11/27/16 22:30 11/28/16 22:29 11/27/16 23:19 125 MLS/HR Hydromorphone HCl (Dilaudid Inj) 0.5 mg Q3H PRN IV 11/27/16 21:15 12/11/16 21:14 11/27/16 23:33 0.5 MG Metoclopramide HCl (Reglan Inj) 10 mg NOW STAT IV 11/27/16 21:11 11/27/16 21:12 DC 11/27/16 21:20 10 MG Hydralazine HCl (HydrALAZINE INJ) 10 mg Q6H PRN IV. 11/27/16 22:15 12/27/16 22:14 11/27/16 22:51 10 MG ECG Indication: SOB/dyspnea Rate (beats per minute): 66 Rhythm: other (paced rhythm) Findings: PVC, no acute ischemic change, other (right axis deviation) Comparison ECG Date: Urgent Care EKG Change: Normal sinus, rate at 71, no ectopy, right axis deviation present. ED Course 1722: Ordered NSS 1000 ml @ 125 mls/hr IV. 1726: The patient was evaluated in room C1. A complete history and physical exam was performed. 1823: Ordered Fentanyl Citrate 50 mcg IV, Ondansetron HCl 8 mg IV. 1947: I reevaluated the patient and he is doing okay. 1949: Ordered Ranitidine HCl 50 mg IV, Pantoprazole Sodium 1 ea IV. 1952: Ordered NSS 500 ml @ 999 mls/hr IV. 1954: Discussed the patient's case with Dr. Heck- [facility]. He states that the patient should be admitted. He agrees with the PPI, MPO, and states that he needs to be scoped. 1999: Ordered Pantoprazole Sodium 80 mg/Dextrose 120 ml @ 480 mls/hr IV, Dilaudid Inj 0.5 mg PRN IV Pain. 2002: I updated the patient on his results. 2014: Ordered Pantoprazole Sodium 40 mg/Dextrose 100 ml @ 20 mls/hr IV. 2052: Discussed the patient's case with Dr. Tucker. The patient will be evaluated for further treatment and disposition. : Ordered Reglan Inj 10 mg IV. Medical Decision Triage Nursing notes reviewed. The patient's presentation and history were concerning for chest pain. Etiologies such as cardiac ischemia, aortic dissection, pulmonary embolism, pneumonia, pneumothorax, musculoskeletal, infections, gastrointestinal, as well as others were entertained. The patient was evaluated. He was tender in the epigastrium and also when substernal chest pain. He was given IV fentanyl and normal saline hydration. He was hypotensive at the urgent care and did have orthostatic vital signs that were positive here. The patient underwent the above workup. His white count was elevated at 17,000. The patient had a mild elevation of his lactate. His cardiac markers and hemoglobin were normal. The patient's chemistry panel is unremarkable except for an elevated BUN. On reassessment he was still having pain. He was treated with IV Dilaudid. CT imaging was performed and this revealed that the patient had findings concerning for possible upper GI bleed. The patient was nauseated after this and was given Reglan. He was started on Protonix bolus and drip. The patient was also given Zantac. I did consult with [facility]. I discussed the case with Dr. Heck. He recommended keeping the patient nothing by mouth and admitting him to the hospital. Consultation was made with internal medicine. The patient was evaluated in the Emergency Room for further management. Medication Reconcilliation Current Medication List: was personally reviewed by me Blood Pressure Screening Patient was orthostatic and will be further monitored by the hospitalist. Consults Time Called: 1950 Consulting Physician: Dr. Sury Bull [facility] Returned Call: 1954 Discussed the patient's case with Dr. Sury Bull [facility]. He states that the patient should be admitted. He agrees with the PPI, MPO, and states that he needs to be scoped. Additional Consults: Time Called: 2039 Consulted Physician: Dr. Tucker Returned Call: 2052 Additional Comments: Discussed the patient's case with Dr. Tucker. The patient will be evaluated for further treatment and disposition. Impression Primary Impression: Hypotension Additional Impressions: Epigastric abdominal pain Substernal chest pain Upper gastrointestinal bleed Scribe Attestation The scribe's documentation has been prepared under my direction and personally reviewed by me in its entirety. I confirm that the note above accurately reflects all work, treatment, procedures, and medical decision making performed by me. Departure Information Dispostion Being Evaluated By Hospitalist Referrals Sharri Holbrook (PCP) Patient Instructions My [facility] Problem Qualifiers
[2016-11-28] MEDS: SODIUM CHLOR 0.45% + 20MEQ KCL 1,000 ML IV SCH ×3 (06:36→16:50)
[2016-11-28 07:01] LABS: BASO % 0.1 %; BASO ABS # 0.03 K/uL (0-0.2); COMPLETE YES; EOS % 0.1 %; IG% 0.3 %; LYMPH % 8.7 %; LYMPH ABS # 2.18 K/uL (1.2-3.4); MEAN CELL VOLUME 100.5 fL (80-100); MEAN CORPUSCULAR HEMOGLOBIN 33.7 pg (25-34); MEAN CORPUSCULAR HGB CONC 33.5 g/dl (32-36); MEAN PLATELET VOLUME 8.8 fL (7.4-10.4); MONO % 11.4 %; NEUT % 79.4 %; PLATELET COUNT 192 K/uL (130-400); RED BLOOD COUNT 3.68 M/uL (4.7-6.1); WHITE BLOOD COUNT 24.93 K/uL (4.8-10.8)
[2016-11-28 07:31] LABS: BUN/CREATININE RATIO 26.2 (10-20); CALCIUM 8.2 mg/dl (8.5-10.1); CREATININE 1.5 mg/dl (0.60-1.40); POTASSIUM 4.5 mmol/L (3.5-5.1)
--- NOTE | 2016-11-28 08:51 | Family Medicine Progress Note ---
Progress Note Date of Service Nov 28, 2016. Subjective Pt evaluation today including: conversation w/ patient, physical exam, chart review, lab review, review of studies Found pt sitting in bed comfortably, appears in NAD. Denies any BM here (says last was Sat 16Sep without noted blood). Some nausea, no emesis. Denies present CP, SOB, but says upper abdomen is uncomfortable. No other acute c/o. Constitutional: No fever, No chills Respiratory: No cough, No shortness of breath Cardiovascular: No chest pain, No edema Abdomen: + pain, + nausea, + GI bleeding, No vomiting, No diarrhea Medications Current Inpatient Medications Medications (Trade) Dose Ordered Sig/Karissa Route Start Time Stop Time Status Last Admin Dose Admin Ioversol (Optiray 320) 102 ml UD PRN IV 11/27/16 19:30 12/01/16 19:29 Al Hydrox/Mg Hydrox/Simethicone (Maalox Max Susp) 15 ml Q4H PRN PO 11/27/16 20:45 12/27/16 20:44 Ondansetron HCl (Zofran Inj) 4 mg Q6H PRN IV 11/27/16 20:45 12/27/16 20:44 Clonazepam (Klonopin Tab) 2 mg BID PO 11/27/16 21:00 12/27/16 20:59 Future hold 11/28/16 00:19 2 MG Donepezil HCl (Aricept Tab) 5 mg HS PO 11/27/16 21:00 12/27/16 20:59 11/27/16 23:20 5 MG Duloxetine HCl (Cymbalta Cap) 60 mg BID PO 11/27/16 21:00 12/27/16 20:59 11/27/16 23:21 60 MG Folic Acid (Folvite Tab) 800 mcg DAILY PO 11/28/16 09:00 12/28/16 08:59 Metoprolol Succinate (Toprol Xl Tab) 25 mg DAILY PO 11/28/16 09:00 12/28/16 08:59 Potassium Citrate (Urocit-K Tab) 10 meq TID PO 11/27/16 21:00 12/27/16 20:59 11/27/16 23:21 10 MEQ Quetiapine Fumarate (seroQUEL TAB) 300 mg HS PO 11/27/16 21:00 12/27/16 20:59 11/27/16 23:20 300 MG Ropinirole HCl (Requip Tab) 0.5 mg HS PO 11/27/16 21:00 12/27/16 20:59 11/27/16 23:21 0.5 MG Prazosin HCl (Prazosin) 5 mg HS PO 11/27/16 21:00 12/27/16 20:59 11/27/16 23:33 5 MG Thiamine HCl (Vitamin B-1 Tab) 250 mg BID PO 11/27/16 21:00 12/27/16 20:59 11/27/16 23:20 250 MG Famotidine 20 mg/ Dextrose 102 ml @ 200 mls/hr Q12H IV 11/27/16 23:00 12/27/16 22:59 11/27/16 23:20 200 MLS/HR Potassium Chloride/Sodium Chloride 1,000 ml @ 125 mls/hr Q8H IV 11/27/16 22:30 11/28/16 22:29 11/28/16 06:36 125 MLS/HR Hydromorphone HCl (Dilaudid Inj) 0.5 mg Q3H PRN IV 11/27/16 21:15 12/11/16 21:14 11/27/16 23:33 0.5 MG Hydralazine HCl (HydrALAZINE INJ) 10 mg Q6H PRN IV. 11/27/16 22:15 12/27/16 22:14 11/27/16 22:51 10 MG Pantoprazole Sodium 40 mg/ Dextrose 100 ml @ 20 mls/hr Q5H IV 11/28/16 01:15 12/28/16 01:14 11/28/16 06:37 20 MLS/HR Lorazepam 0.5 mg/ Syringe 1 ml @ 1 mls/min BID PRN IV 11/28/16 00:15 12/28/16 00:14 Lorazepam (Ativan Inj) 0.5 mg BID PRN IV 11/28/16 00:15 12/28/16 00:14 Objective Vital Signs Date Time Temp Pulse Resp B/P (MAP) Pulse Ox O2 Delivery O2 Flow Rate FiO2 11/28/16 08:22 37.0 89 20 142/61 (88) 95 11/28/16 06:40 Nasal Cannula 2.0 11/28/16 04:34 36.7 75 18 113/65 (81) 92 Room Air 11/28/16 04:00 Room Air 11/28/16 00:00 98 Room Air 11/27/16 23:36 36.7 69 16 153/80 (104) 97 Room Air 11/27/16 22:31 36.5 70 18 174/78 98 Room Air 11/27/16 22:15 71 17 171/93 91 11/27/16 22:00 64 14 191/91 97 Room Air 11/27/16 21:40 69 11 172/95 97 Room Air 11/27/16 21:13 64 22 158/83 97 Room Air 11/27/16 20:27 64 12 119/71 97 Room Air 11/27/16 19:31 62 14 144/78 96 Room Air 11/27/16 18:34 63 17 114/66 91 Room Air 11/27/16 17:56 97 Room Air 11/27/16 17:56 68 113/68 80 102/65 85 90/56 11/27/16 17:56 96 Room Air 11/27/16 17:44 69 11/27/16 17:38 73 11/27/16 17:35 97 Room Air 11/27/16 17:12 36.7 69 18 107/74 97 Room Air Physical Exam General Appearance: WD/WN, no apparent distress Respiratory/Chest: lungs clear, normal breath sounds Cardiovascular: regular rate, rhythm, no edema Abdomen: normal bowel sounds, soft, + tenderness (Epigastric and RUQ subj>>obj tender to palpation. Otherwise non-ttp, non-distended.) Extremities: no pedal edema Laboratory Results 11/28/16 06:46 Red Blood Count 3.68, Mean Corpuscular Volume 100.5, Mean Corpuscular Hemoglobin 33.7, Mean Corpuscular Hemoglobin Concent 33.5, Mean Platelet Volume 8.8, Neutrophils (%) (Auto) 79.4, Lymphocytes (%) (Auto) 8.7, Monocytes (%) ( Auto) 11.4, Eosinophils (%) (Auto) 0.1, Basophils (%) (Auto) 0.1, Neutrophils # (Auto) 19.79, Lymphocytes # (Auto) 2.18, Monocytes # (Auto) 2.83, Eosinophils # (Auto) 0.02, Basophils # (Auto) 0.03 11/28/16 06:46 Test 11/27/16 17:42 11/27/16 17:52 11/27/16 17:54 11/27/16 18:55 Prothrombin Time 11.1 SECONDS (9.0-12.0) Prothromb Time International Ratio 1.0 (0.9-1.1) Activated Partial Thromboplast Time 26.0 SECONDS (21.0-31.0) Partial Thromboplastin Ratio 1.0 Magnesium Level 2.0 mg/dl (1.8-2.4) Total Bilirubin 0.5 mg/dl (0.2-1) Direct Bilirubin 0.1 mg/dl (0-0.2) Aspartate Amino Transf (AST/SGOT) 17 U/L (15-37) Alanine Aminotransferase (ALT/SGPT) 22 U/L (12-78) Alkaline Phosphatase 102 U/L (45-117) Total Creatine Kinase 118 U/L (39-308) Creatine Kinase MB 2.4 ng/ml (0.5-3.6) Creatine Kinase MB Ratio 2.0 (0-3.0) Troponin I < 0.015 ng/ml (0-0.045) Total Protein 7.6 gm/dl (6.4-8.2) Albumin 3.6 gm/dl (3.4-5.0) Thyroid Stimulating Hormone (TSH) 1.060 uIu/ml (0.300-4.500) Bedside Lactic Acid Venous 2.30 mmol/L (0.90-1.70) Bedside D-Dimer > 450 ng/mlFEU (0-450) Urine Color DK YELLOW Urine Appearance CLEAR (CLEAR) Urine pH 6.0 (4.5-7.5) Urine Specific [place] 1.026 (1.000-1.030) Urine Protein NEG (NEG) Urine Glucose (UA) NEG (NEG) Urine Ketones TRACE (NEG) Urine Occult Blood NEG (NEG) Urine Nitrite NEG (NEG) Urine Bilirubin NEG (NEG) Urine Urobilinogen NEG (NEG) Urine Leukocyte Esterase TRACE (NEG) Urine WBC (Auto) 1-5 /hpf (0-5) Urine RBC (Auto) 0-4 /hpf (0-4) Urine Hyaline Casts (Auto) >30 /lpf (0-5) Urine Epithelial Cells (Auto) >30 /lpf (0-5) Urine Bacteria (Auto) NEG (NEG) Urine Pathogenic Casts EPITHELIAL CASTS /lpf (0) Test 11/28/16 03:40 11/28/16 06:46 Bedside Glucose 164 mg/dl (70-99) White Blood Count 24.93 K/uL (4.8-10.8) Red Blood Count 3.68 M/uL (4.7-6.1) Hemoglobin 12.4 g/dL (14.0-18.0) Hematocrit 37.0 % (42-52) Mean Corpuscular Volume 100.5 fL (80-100) Mean Corpuscular Hemoglobin 33.7 pg (25-34) Mean Corpuscular Hemoglobin Concent 33.5 g/dl (32-36) Platelet Count 192 K/uL (130-400) Mean Platelet Volume 8.8 fL (7.4-10.4) Neutrophils (%) (Auto) 79.4 % Lymphocytes (%) (Auto) 8.7 % Monocytes (%) (Auto) 11.4 % Eosinophils (%) (Auto) 0.1 % Basophils (%) (Auto) 0.1 % Neutrophils # (Auto) 19.79 K/uL (1.4-6.5) Lymphocytes # (Auto) 2.18 K/uL (1.2-3.4) Monocytes # (Auto) 2.83 K/uL (0.11-0.59) Eosinophils # (Auto) 0.02 K/uL (0-0.5) Basophils # (Auto) 0.03 K/uL (0-0.2) RDW Standard Deviation 48.9 fL (36.4-46.3) RDW Coefficient of Variation 13.4 % (11.5-14.5) Immature Granulocyte % (Auto) 0.3 % Immature Granulocyte # (Auto) 0.08 K/uL (0.00-0.02) Anion Gap 9.0 mmol/L (3-11) Est Creatinine Clear Calc Drug Dose 60.9 ml/min Estimated GFR () 56.6 Estimated GFR (Non- 48.8 BUN/Creatinine Ratio 26.2 (10-20) Calcium Level 8.2 mg/dl (8.5-10.1) Assessment and Plan 61 yo M s/p gastric bypass w/multiple GI bleeds who presents with concern for repeat GI bleed. Acute upper GI bleed - Hemodynamically stable at this time. Will cross match regardless. - GI consulted, pt sees Dr Heck. Plan for endoscopy 18Sep AM. NPO. - Continue Protonix drip - Aspirin on hold [ ] Will check iron, folate, Vit B12. Abdominal pain - Continue dilaudid 0.5mg IV q3h BETY - Up to 1.5, with reference in 2010 being Cr 1.04. No proteinuria but positive for urinary casts on 17Sep UA. - May be prerenal. Tx here with IVF, will recheck. Chronic diarrhea - C. Diff / stool culture Leukocytosis - Could be related to GI bleed, will hold off on Abx for now as he does not display evidence of pneumonia [ ] Will check retic count and peripheral smear as well. - Continue to monitor Shortness of breath - Continuous pulse ox - Duoneb PRN - Smoking cessation consult Anxiety / Depression - Continue home medications (incluidng Clonopin) Vit B12 / Folate / Thiamine deficiency - Multivitamins on hold prior to EGD Pulmonary nodules from CT - Follow up as OP (See guidelines on report) DVT prophy: SCD's Code status: Full code Resident Tracking Resident Involvement: Resident Care Provided Care Provided: Adult Hospital Medicine (inpt rounds) Reviewed: Pt Seen/Exam by Me History continues to have upper abdomen pain. Constitutional: denies: fever Respiratory: negative: short of breath Cardiovascular: denies chest pain General Appearance: no apparent distress Respiratory: lungs clear, no respiratory distress Cardiovascular: regular rate, rhythm Gastrointestinal: normal bowel sounds, soft, tenderness (mild upper abdomen) Neurologic/Psychiatric: alert, oriented x 3 Assessment/Plan Resident Physician Supervision Note: I was present with Dr. Barahona in bedside. I verified the matthews history and physical, reviewed labs and image studies, discussed the case with the resident and agree with the findings and care plan.
[2016-11-28] MEDS: METOPROLOL SUCC 25MG EXT REL TAB PO SCH (08:53)
[2016-11-28] MEDS: DULOXETINE HCL 60 MG CAP PO SCH ×2 (08:53→21:21)
[2016-11-28] MEDS: POTASSIUM CITRATE 10 MEQ TAB PO SCH ×3 (08:53→21:24)
[2016-11-28] MEDS: HYDROmorphone INJ 0.5 MG/0.5 ML SYR IV PRN ×3 (08:54→20:54)
[2016-11-28] MEDS: THIAMINE HCL 100 MG TAB PO SCH ×2 (08:54→21:23)
[2016-11-28] MEDS: FoLIC ACID TAB 400 MCG TAB PO SCH (08:55)
[2016-11-28] MEDS ORDERED: NICOTINE 14 MG/24 HR TDSY TD ONE (09:45)
[2016-11-28] MEDS: FAMOTIDINE IV INJ 20 MG in DEXTROSE 5% 100ML 100 ML IV SCH ×2 (10:37→23:55)
[2016-11-28] MEDS ORDERED: OPTIRAY 320 IV PRN ×2 (11:15→16:30)
[2016-11-28] MEDS ORDERED: SODIUM CHLORIDE 0.9% 1000ML 1,000 ML IV ONE (11:45)
[2016-11-28 12:26] LABS: FERRITIN 220.7 ng/ml (8.0-388.0)
[2016-11-28 12:34] LABS: WHITE BLOOD COUNT 35.7 K/uL (4.8-10.8)
[2016-11-28 14:04] LABS: HEMATOCRIT 34.7 % (42-52)
[2016-11-28 15:53] LABS: AMYLASE 15 U/L (25-115)
[2016-11-28] MEDS: CIPROFLOXACIN / D5W 400 MG in PREMIXED IN D5W 200 ML IV SCH (16:59)
[2016-11-28 18:26] LABS: HEMATOCRIT 31.8 % (42-52)
[2016-11-28 18:48] LABS: BLOOD UREA NITROGEN 32 mg/dl (7-18); BUN/CREATININE RATIO 23.1 (10-20); CALCIUM 8.5 mg/dl (8.5-10.1); CARBON DIOXIDE 23 mmol/L (21-32); CHLORIDE 104 mmol/L (98-107); GLUCOSE 215 mg/dl (70-99); SODIUM 133 mmol/L (136-145)
--- NOTE | 2016-11-28 20:14 | DIAGNOSTIC IMAGING REPORT ---
CT SCAN OF THE ABDOMEN AND PELVIS WITH IV CONTRAST CLINICAL HISTORY: Generalized abdominal pain. COMPARISON STUDY: Abdominal CT dated 01/03/2014. TECHNIQUE: Following the IV administration of 120 cc of Optiray 320, CT scan of the abdomen and pelvis is performed from the lung bases to the proximal femora. Images are reviewed in the axial, sagittal, and coronal planes. IV contrast was administered without complication. A dose lowering technique was utilized adhering to the principles of ALARA. CT DOSE: 1276.06 mGy.cm FINDINGS: Lung bases: The heart is enlarged noting trace pericardial effusion. The coronary arteries are densely calcified. Pacemaker leads are noted. There are small pleural effusions with bibasilar consolidation. Liver: The contrast-enhanced liver is normal in size, contour, and attenuation. There is no intrahepatic biliary ductal dilatation. The hepatic veins and portal veins are patent. Gallbladder: The gallbladder is distended but otherwise normal in appearance. Spleen: Normal in size and attenuation. Pancreas: Moderately atrophic and grossly unremarkable. Adrenal glands: Unremarkable. Kidneys: The contrast enhanced kidneys are atrophic and without hydronephrosis. The kidneys enhance symmetrically. Scattered subcentimeter cortical hypodensities may represent cysts but are too small for definitive characterization. Abdominal vasculature: The abdominal aorta is normal in course and caliber noting advanced atherosclerotic calcification. Stomach and bowel: There is a small hiatal hernia. Postoperative change is seen in the proximal stomach. Postoperative changes also seen in small bowel loops. The stomach is distended and fluid-filled. The duodenum appears edematous, thick-walled, and hyperemic. There is a small amount of fluid around the stomach. No pneumatosis intestinalis is seen. The small bowel loops are normal in caliber. Enteric contrast reaches the right colon. There is moderate diverticulosis of the left colon without CT evidence of acute diverticulitis. Moderate fecal retention is seen in the right colon. The appendix is well-visualized and normal. Peritoneum: There is trace fluid identified along the greater curvature of the stomach and in the left paracolic gutter. No intraperitoneal free air is seen. Lymphadenopathy: None. Pelvic viscera: The prostate gland is diminutive. The bladder is normal as visualized and filled with excreted contrast. Skeletal structures: The skeletal structures are osteopenic. Moderate lumbosacral spondylosis is observed. There is a moderate compression deformity of L2. A hemitransitional right lumbosacral segment is incidentally noted. There are healed right-sided rib fractures. No lytic or blastic lesions are seen. IMPRESSION: 1. There is a long segment of wall thickening and hyperemia identified involving the duodenum. The appearance suggests a nonspecific duodenitis. Clinical correlation will be required. 2. Postoperative change is identified in the proximal stomach as well as involving the small bowel. This may represent a Blaine-en-Y gastric bypass procedure. Correlation with the patient's surgical history will be required. 3. The majority of the stomach is distended and fluid-filled, possibly representing obstruction secondary to duodenal edema. If the patient has had a gastric bypass procedure then the obstruction involves the excluded stomach. Follow-up with the patient's surgeon is recommended as this may require surgical intervention. 4. There is mild stranding and fluid identified around the stomach. Fluid is also seen in the left paracolic gutter. 5. There is no evidence of small bowel obstruction. The small bowel loops are normal in caliber and enteric contrast reaches the colon. 6. There are small pleural effusions with dependent consolidation. This could represent atelectasis versus developing pneumonia. Clinical correlation will be required. 7. Moderate diverticulosis of left colon without CT evidence of acute diverticulitis. 8. Additional findings as above. Electronically signed by: Harman Escudero M.D. 11/28/2016 8:12 PM Dictated Date/Time: 11/28/2016 7:55 PM
--- NOTE | 2016-11-28 20:25 | DIAGNOSTIC IMAGING REPORT ---
ULTRASOUND BILATERAL LOWER EXTREMITY VENOUS CLINICAL HISTORY: Dyspnea. Gastrointestinal bleeding. Clinical concern for deep venous thrombosis. COMPARISON STUDY: No priors. TECHNIQUE: Real-time, grayscale, and color Doppler sonography of the deep veins of the right and left lower extremity was performed from the inguinal crease to the calf. Compression and augmentation were utilized. FINDINGS: There is no sonographic evidence of deep venous thrombosis identified in the right or left lower extremity. The common femoral, superficial femoral, and popliteal veins are patent and normally compressible bilaterally. The greater saphenous vein and the profunda femoris vein at the junction with the common femoral vein are clear in both legs. The visualized calf veins are patent bilaterally. IMPRESSION: There is no sonographic evidence of deep venous thrombosis identified in the right or left lower extremity. Electronically signed by: Harman Escudero M.D. 11/28/2016 8:24 PM Dictated Date/Time: 11/28/2016 8:24 PM
[2016-11-28] MEDS: METRONIDAZOLE / NSS 500 MG in PREMIXED NSS 100 ML IV SCH (21:21)
[2016-11-28] MEDS: DONEPEZIL HCL 5 MG TAB PO SCH (21:21)
[2016-11-28] MEDS: ROPINIROLE HCL 1 MG TAB PO SCH (21:22)
[2016-11-28] MEDS: PRAZOSIN HCL 1 MG CAP PO SCH (21:28)
[2016-11-28] MEDS: QUETIAPINE FUMARATE 300 MG TAB PO SCH (21:28)
[2016-11-29] MEDS: HYDROmorphone INJ 0.5 MG/0.5 ML SYR IV PRN ×4 (00:27→13:48)
[2016-11-29 01:35] LABS: HEMATOCRIT 31.6 % (42-52); MEAN CELL VOLUME 100.3 fL (80-100); MEAN CORPUSCULAR HGB CONC 33.9 g/dl (32-36); MEAN PLATELET VOLUME 9.1 fL (7.4-10.4); PLATELET COUNT 173 K/uL (130-400); RED BLOOD COUNT 3.15 M/uL (4.7-6.1); WHITE BLOOD COUNT 37.79 K/uL (4.8-10.8)
[2016-11-29] MEDS ORDERED: NURSING VERBAL MED ORDER ONE (02:45)
[2016-11-29] MEDS: METRONIDAZOLE / NSS 500 MG in PREMIXED NSS 100 ML IV SCH ×2 (02:53→11:23)
[2016-11-29] MEDS: SODIUM CHLORIDE 0.9% 1000ML 1,000 ML IV SCH ×2 (02:54→11:00)
--- NOTE | 2016-11-29 02:58 | GASTROINTESTINAL CONSULTATION ---
DATE OF CONSULTATION: 11/28/2016 CHIEF COMPLAINT: Abnormal CT imaging with potential GI bleeding, epigastric pain, leukocytosis, diffuse abdominal pain, status post gastric bypass. HISTORY OF PRESENT ILLNESS: Mr. Moore is a 61-year-old white male who our service has been asked to see him regarding possible gastrointestinal hemorrhage of acute nature. Additionally, there is abdominal pain that is both epigastric and lower abdominal in location along with a significant leukocytosis that on admission was 17,000, and now is approximately 35,000. The patient was admitted yesterday. The patient reports that he developed the abdominal pain on Monday evening and was eventually seen in the Emergency Room on Monday. The patient denies any hematemesis, coffee-ground emesis, melena or bright red blood per rectum. The patient is status post gastric bypass in approximately 2003 and in addition approximately 7 years ago had a significant bleed at [facility] that required air transport to [facility] where an apparent bleeding source from the diverted stomach was identified. The details of this are not clear in [facility] records to see how this was addressed at that time. In addition, the patient presented with shortness of breath and elevated D-dimer. The patient denies any NSAID use or aspirin, has not reported any odynophagia or dysphagia; however, has reported some weight gain over the past year. The patient has a chronic history of atrial fibrillation, on metoprolol, but only takes aspirin. There is no chronic use of anticoagulants due to his history of a few GI bleeding events. PAST MEDICAL HISTORY: Significant for depression, diarrhea, gastric bypass, cardiac pacemaker, kidney stones with lithotripsy and TIA. FAMILY HISTORY: Significant for cancer, diabetes, heart disease. SOCIAL HISTORY: The patient denies alcohol use, but is and lives with his family and he smokes 1 pack of cigarettes daily. ALLERGIES: HE IS ALLERGIC TO PENICILLIN. HOME MEDICATIONS: Included aspirin, vitamin D3, clonazepam, B12, donepezil, duloxetine, Nexium 40 mg twice daily, folic acid, glucosamine chondroitin, metoprolol, potassium citrate, prazosin, quetiapine, ropinirole and thiamine. REVIEW OF SYSTEMS: Otherwise noncontributory based on 13-point exam except for mentioned above. He denies dysuria or hematuria, but does report diffuse abdominal pain as well as epigastric pain. There are no significant joint aches. PHYSICAL EXAMINATION: VITAL SIGNS: This afternoon are blood pressure 134/75, heart rate 85, respirations 22, temperature 36.9, 94% on 2 liters. GENERAL: The patient is accompanied by his . He is awake, alert and oriented and lying in bed without significant abdominal discomfort, although appears slightly diaphoretic. He does not report significant abdominal pain. HEENT: The sclerae are anicteric, conjunctiva moist. Oral mucosa moist. NEUROLOGIC: Range of motion is normal. Neurologically he is nonfocal. HEART: Normal S1, S2. LUNGS: Clear to auscultation. ABDOMEN: Soft, tender in the epigastrium and in the lower abdomen, bilaterally. There is no rebound or guarding. I do not hear abdominal bruits. Positive bowel sounds are noted. I do not appreciate hepatosplenomegaly. There are multiple incision sites on the abdomen. EXTREMITIES: With trace to +1 edema bilaterally. RECTAL: Deferred. LABORATORY STUDIES: On admission were showing a white blood cell count that was initially 17.25 with hemoglobin of 15 and platelets of 231. Earlier this morning, his white count had risen to 24.9 and repeat at noon was 35.7, hemoglobin drifted down to 12.4 and this afternoon was 11.5. Platelets remain 192. Laboratory studies are pending from today for serum electrolytes, although on admission was 136, potassium 4.8. This morning on November 28, blood sodium was 137, potassium 3.5, BUN and creatinine are 39 and 1.5. Iron studies are do show evidence of iron deficiency with a serum iron 14; TIBC of 207, which is low, but a ferritin level of 220; this may represent anemia of chronic disease. LFTs were normal, alkaline phosphatase 102, ALT 22, AST 17, total and direct bilirubin 0.5 and 0.1, respectively; albumin is 3.6. IMAGING DATA: The patient underwent a chest x-ray on admission which showed no acute pulmonary disease. He also underwent a CT scan of the thorax because of the D-dimer and shortness of breath and this did not show evidence of a pulmonary embolus. There was high density luminal contents in the stomach that was concerning for the hemorrhage. In its description, it would appear that these high density contents are in the fundus of the stomach as well as the antrum and portion of the duodenal bulb for which the possibility of intraluminal hemorrhage was raised (this apparently is the similar location to prior GI bleed that prompted transfer to [place]). The patient was ordered 2 units of packed red blood cells, although were not transfused. The CT images were reviewed from the CT of the chest. IMPRESSION AND PLAN: I spoke with house staff this afternoon regarding Mr. Moore. Originally, consideration for upper endoscopy was made; however, there have been no reports of a luminal gastrointestinal bleeding, hematemesis, coffee-ground emesis, melena, bright red blood per rectum, clots or maroon stools. The filling material in that is described on the CT of the chest appears to represent contents that may be of bloody origin, but is occurring in the excluded stomach which would not be amenable to upper endoscopy by traditional endoscopes. This may in fact represent a similar location of bleeding for which the patient had been transferred few years ago at [place] where he experienced an acute bleed. The source of the patient's significant leukocytosis today is also unclear. There was no evidence for an obvious urinary tract infection as urinalysis revealed only leukocyte esterase trace positive with trace ketones, but no nitrites or blood, white cells are only 1-5 with red blood cells 0-4. No bacteria identified on the urinalysis. The patient is afebrile. In reviewing all the information, I do not believe that upper endoscopy would be helpful at this time and I believe it would be reasonable to obtain an amylase and lipase to exclude pancreatitis, consider a CT scan of the abdomen and pelvis with particular attention to any possible fistulous connection between the gastric pouch and the surgically excluded stomach remnant. If there is evidence of bleeding that develops or if his hemoglobin continues to drop it may be reasonable to do a tagged red blood cell scan to help get a rough location of where the bleeding may be occurring. Would alston culture, repeat urinalysis and consider Doppler studies of the lower extremities to make sure there is no evidence of a deep vein thrombosis, although CT of the chest did not reveal a PE. Empiric antibiotics with Cipro and Flagyl is reasonable, pending cultures would also check stools for Clostridium difficile. It may be reasonable to have surgery see the patient to exclude any possibility of bowel ischemia, particularly that his lactate level was elevated and there has a rising white count with abdominal pain. Also, a repeat lactate level may be prudent. Further recommendations once the CT scan and Dopplers are known and the results of amylase and lipase are available. Will keep patient n.p.o., IV fluids as needed and monitor CBC for a white count and hemoglobin. Lastly, given the complexity of the patient's prior bleeding site, white count, abdominal pain, it may be reasonable to consider transfer to a referral center as they may have scopes available that may consistently reach the excluded stomach orally by advancing retrograde once the jejunojejunal anastomosis is reached downstream. All questions answered for the patient. Thank you for allowing me to participate in this patient's care. Will follow with you. NAYELY
[2016-11-29 03:00] VITALS: BP 118/73; PULSE 75; TEMP 36.6; O2SAT 96
[2016-11-29] MEDS: PANTOprazole INJ 40 MG in DEXTROSE 5% 100ML IV SCH ×3 (04:51→12:13)
[2016-11-29] MEDS: CIPROFLOXACIN / D5W 400 MG in PREMIXED IN D5W 200 ML IV SCH (04:51)
--- NOTE | 2016-11-29 05:45 | Family Medicine Progress Note ---
Progress Note Date of Service Nov 29, 2016. Assessment and Plan 61 yo M s/p gastric bypass w/multiple GI bleeds who presents with concern for repeat GI bleed. Acute upper GI bleed: Pt has denied melena, BRBRP, or hematemesis thus far. S/ p gastric bypass around 2003 with an episode of GI bleed around 2010. - Hemodynamically stable at this time. Cross matched for two units leukocyte- reduced RBCs as a precaution. - Started on pepcid and protonix drip initially. Placed aspirin on hold. NPO initially as well. - 18Sep GI consulted (appreciate recs). Concern that bleeding may be within excluded portion of stomach (s/p gastric bypass) and resultant difficulty in scope access. Does not believe upper endoscopy would be helpful at time of initial consult. --- Recd empiric abx (cipro and flagyl), stool check for c diff. Keep NPO. If further evidence of bleeding, consider tagged RBC scan. Depending on how sx and labs progress, may warrant transfer to referral center for further care [ see full note for details]. - Started bentyl prn. - Dilaudid q3h prn for pain. - 18Sep CT abdomen/pelvis showed evidence of non-specific duodenitis [see report for full details of other findings]. - 18Sep Venous doppler study showed no sonographic evidence of deep venous thrombosis identified in the right or left lower extremity. Elevated Cr - Up to 1.5, with reference in 2011 being Cr 1.04. No proteinuria but positive for urinary casts on 17Sep UA. - May be prerenal. Tx here with IVF, will recheck. Chronic diarrhea: Per notes, has been going on for at least three months. - Consider stool studies once GI bleeding issue is fully addressed. Leukocytosis: Trending 17 25 35. - Could be related to GI bleed. - 18Sep started on cipro and flagyl for elevated WBC to 35. No reported fevers while inpt thus far. - Absolute retic count 0.07; Retic percentage 1.9%. [ ] Peripheral smear pending. [ ] 17Sep Blood culture x2 pending. [ ] 18Sep Urine culture pending. - Continue to monitor. Shortness of breath - Continuous pulse ox - Duoneb PRN - Smoking cessation consult Anxiety / Depression - Continue home medications (including Klonopin) Vit B12 / Folate / Thiamine deficiency - Multivitamins on hold prior to EGD Pulmonary nodules: Noted on 17Sep CTA chest. Will require outpt follow-up. Please see the radiologists report for guidelines. DVT prophy: SCD's Code status: Full code Will discuss all the above on attending rounds this morning. BIBI, PGY1 [employer] Tr[employer] Resident Involvement: Resident Care Provided Care Provided: Adult Hospital Medicine (inpt rounds)
[2016-11-29 08:00] VITALS: BP 114/68; PULSE 79; TEMP 36.9; O2SAT 94
[2016-11-29 08:30] LABS: HEMATOCRIT 29.3 % (42-52); MEAN CELL VOLUME 100.3 fL (80-100); MEAN CORPUSCULAR HEMOGLOBIN 33.9 pg (25-34); MEAN CORPUSCULAR HGB CONC 33.8 g/dl (32-36); MEAN PLATELET VOLUME 9.1 fL (7.4-10.4); PLATELET COUNT 164 K/uL (130-400); RED BLOOD COUNT 2.92 M/uL (4.7-6.1); WHITE BLOOD COUNT 32.92 K/uL (4.8-10.8)
[2016-11-29] MEDS: CLONAZEPAM 1 MG TAB PO SCH (08:31)
[2016-11-29] MEDS: THIAMINE HCL 100 MG TAB PO SCH (08:32)
[2016-11-29] MEDS: POTASSIUM CITRATE 10 MEQ TAB PO SCH ×2 (08:33→13:49)
[2016-11-29] MEDS: METOPROLOL SUCC 25MG EXT REL TAB PO SCH (08:34)
[2016-11-29] MEDS: FoLIC ACID TAB 400 MCG TAB PO SCH (08:34)
[2016-11-29] MEDS: DULOXETINE HCL 60 MG CAP PO SCH (08:34)
[2016-11-29 08:38] LABS: BUN/CREATININE RATIO 27.5 (10-20); CALCIUM 8.3 mg/dl (8.5-10.1); CREATININE 1.1 mg/dl (0.60-1.40); POTASSIUM 5.2 mmol/L (3.5-5.1)
[2016-11-29 08:47] LABS: BASO % 0.1 %; BASO ABS # 0.02 K/uL (0-0.2); COMPLETE YES; DOHLE BODIES 1+; IG% 0.6 %; LYMPH % 5.3 %; LYMPH ABS # 1.75 K/uL (1.2-3.4); MONO % 6.4 %; NEUT % 87.6 %
--- NOTE | 2016-11-29 08:50 | Surgery Progress Note ---
Surgery Progress Note Date of Service Nov 29, 2016. Subjective see dictated consult Objective Vital Signs: Date Time Temp Pulse Resp B/P (MAP) Pulse Ox O2 Delivery O2 Flow Rate FiO2 11/29/16 08:00 36.9 79 26 114/68 (83) 94 Nasal Cannula 2.0 11/29/16 08:00 Room Air 11/29/16 04:00 Nasal Cannula 2.0 11/29/16 03:00 36.6 75 20 118/73 (88) 96 Nasal Cannula 2.0 11/29/16 00:00 Nasal Cannula 2.0 11/28/16 23:15 36.6 80 18 117/68 (84) 93 Nasal Cannula 2.0 11/28/16 20:03 37.2 75 20 152/77 (102) 93 Room Air 11/28/16 20:00 Nasal Cannula 2.0 11/28/16 15:36 36.9 85 22 134/75 (94) 94 Nasal Cannula 2.0 11/28/16 15:20 Nasal Cannula 2.0 11/28/16 12:00 Room Air 11/28/16 11:46 36.7 89 18 143/78 (99) 95 Laboratory Results: Results Past 24 Hours Test 11/28/16 11:36 11/28/16 13:47 11/28/16 18:16 11/28/16 19:01 Range/Units White Blood Count 35.70 4.8-10.8 K/uL Peripheral Blood Smear Path Consult Absolute Reticulocyte Count 0.07 0.02-0.10 10^6/uL Percent Reticulocyte Count 1.9 0.5-2.0 % Iron Level 14 35-175 mcg/dl Total Iron Binding Capacity 207 250-450 mcg/dl Ferritin 220.7 8.0-388.0 ng/ml Amylase Level 15 25-115 U/L Lipase 80 73-393 U/L Hemoglobin 11.5 11.1 14.0-18.0 g/dL Hematocrit 34.7 31.8 42-52 % Vitamin B12 Level 929 211-911 pg/mL Folate > 24.00 >5.38 ng/mL Sodium Level 133 136-145 mmol/L Potassium Level 5.0 3.5-5.1 mmol/L Chloride Level 104 98-107 mmol/L Carbon Dioxide Level 23 21-32 mmol/L Anion Gap 6.0 3-11 mmol/L Blood Urea Nitrogen 32 7-18 mg/dl Creatinine 1.40 0.60-1.40 mg/dl Est Creatinine Clear Calc Drug Dose 65.2 ml/min Estimated GFR () 61.5 Estimated GFR (Non- 53.1 BUN/Creatinine Ratio 23.1 10-20 Random Glucose 215 70-99 mg/dl Calcium Level 8.5 8.5-10.1 mg/dl Test 11/29/16 00:11 11/29/16 00:42 11/29/16 07:37 Range/Units Lactic Acid Level 3.0 1.8 0.4-2.0 mmol/L White Blood Count 37.79 32.92 4.8-10.8 K/uL Red Blood Count 3.15 2.92 4.7-6.1 M/uL Hemoglobin 10.7 9.9 14.0-18.0 g/dL Hematocrit 31.6 29.3 42-52 % Mean Corpuscular Volume 100.3 100.3 80-100 fL Mean Corpuscular Hemoglobin 34.0 33.9 25-34 pg Mean Corpuscular Hemoglobin Concent 33.9 33.8 32-36 g/dl RDW Standard Deviation 49.1 49.0 36.4-46.3 fL RDW Coefficient of Variation 13.5 13.5 11.5-14.5 % Platelet Count 173 164 130-400 K/uL Mean Platelet Volume 9.1 9.1 7.4-10.4 fL Sodium Level 132 136-145 mmol/L Potassium Level 5.2 3.5-5.1 mmol/L Chloride Level 104 98-107 mmol/L Carbon Dioxide Level 24 21-32 mmol/L Anion Gap 4.0 3-11 mmol/L Blood Urea Nitrogen 30 7-18 mg/dl Creatinine 1.10 0.60-1.40 mg/dl Est Creatinine Clear Calc Drug Dose 84.4 ml/min Estimated GFR () 82.4 Estimated GFR (Non- 71.1 BUN/Creatinine Ratio 27.5 10-20 Random Glucose 139 70-99 mg/dl Calcium Level 8.3 8.5-10.1 mg/dl Microbiology Results 11/29/16 Blood Culture, Received Pending 11/29/16 Blood Culture, Received Pending 11/28/16 Urine Culture, Received Pending Assessment & Plan 11/29/16- consult dictated- some concern for gastric remnant, h/o gastric bypass surgery. Feel transfer to [facility] indicated as pt may need Endoscopy and possible evaluation by gastric bypass surgeons/ gastroenterology.
[2016-11-29] MEDS ORDERED: NICOTINE 14 MG/24 HR TDSY TD SCH (09:00)
--- NOTE | 2016-11-29 10:59 | SURGICAL CONSULTATION ---
DATE OF ADMISSION: 11/27/2016 CHIEF COMPLAINT: GI ischemia. HISTORY OF PRESENT ILLNESS: The patient is a 61-year-old male admitted to the hospital with apparent shortness of breath and then epigastric pain on 11/27/2016. The pain had been going on for 3-4 days. He does have a history of prior gastric bypass with Blaine-en-Y anastomosis in 2003 at [place] and then apparently had had some evidence in the past of GI bleeding related to his gastric bypass. Recently in the hospital, he has been noted with an increasing white blood cell count and some mild increase in the lactic acid with persistent abdominal pain. He was seen by Dr. Reid, who does not feel that endoscopy at this institution would be of help and that he may need evaluation at tertiary care center. His white blood cell count did elevate from 17,000-37,000 with some mild decrease today. His CAT scan of the chest showed no evidence of PE. This was because of an elevated D-dimer. He did undergo CT scan of the abdomen which showed some gastric distention with some evidence of thickened duodenum, possible duodenitis, some filling defects in the area of the stomach which may be related to his bypass surgery. No evidence of any bowel obstruction. His hematocrit has fallen from what appears to be 37 after hydration to 31. PAST MEDICAL HISTORY: He has a significant past history of atrial fibrillation on aspirin only. The gastric bypass, pacemaker, kidney stones, TIA, he is a smoker. OTHER FAMILY AND SOCIAL HISTORY: Noncontributory. ALLERGIES: HE HAS AN ALLERGY TO PENICILLIN. MEDICATIONS: Include aspirin, Klonopin, Toprol-XL, prazosin and Requip. PHYSICAL EXAMINATION: GENERAL: The patient appears to be mildly ill. HEENT: His mucous membranes are very dry. His head is atraumatic. NECK: Supple. LUNGS: Clear. ABDOMEN: Soft. He does have some bowel sounds. He does have some tenderness in the upper abdomen to palpation. Otherwise, negative. He has no diffuse peritonitis. IMAGING DATA: I did review his x-rays and lab studies. ASSESSMENT AND PLAN: A 61-year-old male with persistent epigastric pain and some edematous changes involving the stomach and duodenum with gastric distention of the gastric remnant. He does have persistent pain with elevated white blood cell count. I would be somewhat concerned about the gastric remnant and I do feel the patient will eventually need some sort of an endoscopy which may be somewhat aggressive. I do feel he should be evaluated at a tertiary care center in that he may need advanced endoscopy or intervention from the radiology department.
[2016-11-29 11:15] VITALS: BP 99/62; PULSE 70; TEMP 36.7; O2SAT 95
[2016-11-29] MEDS: FAMOTIDINE IV INJ 20 MG in DEXTROSE 5% 100ML 100 ML IV SCH (11:24)
--- NOTE | 2016-11-29 11:26 | Discharge Instructions ---
Discharge Instructions Date of Service Nov 29, 2016. Admission Reason for Admission: Abdominal Pain;Gi Bleed;Shortness Of Breath Discharge Discharge Diagnosis / Problem: Blaine en Y gastric Bypass; concern for diverted stomach obstruction/bleeding Discharge Goals Goal(s): Therapeutic intervention Activity Recommendations Activity Limitations: as noted below (None until further evaluation) . Instructions / Follow-Up Instructions / Follow-Up You came in with abdominal pain. We are concerned based on CT scanning that you have an obstruction at the site of your gastric bypass surgery. This needs intervention from either a specialist campus wellness coordinator or surgeon. We tried to transfer you to [facility] where you had your original surgery but they do not have bed space at this time. You were accepted to [facility] and will be further evaluated there. Your follow-up care will be determine once you have been evaluated by the physicians at [facility]. It was a pleasure to be involved in your care and we wish you all the best. Current Hospital Diet Patient's current hospital diet: Discharge Diet Recommended Diet: N/A (NPO) Pending Studies Studies pending at discharge: no Medical Emergencies . Who to Call and When: Medical Emergencies: If at any time you feel your situation is an emergency, please call 911 immediately. . Non-Emergent Contact Non-Emergency issues call your: Primary Care Provider Call Non-Emergent contact if: you have any medication questions . . "Provider Documentation" section prepared by Humberto Sanders. . VTE Core Measure Inpt VTE Proph given/why not?: Contraindicated
--- NOTE | 2016-11-29 11:38 | Discharge Summary ---
Discharge Summary Date of Service Nov 29, 2016. (Humberto Sanders MD) Discharge Summary Admission Date: Nov 27, 2016 at 20:48 Discharge Date: Nov 29, 2016 Discharge Disposition: Acute care facility Principal Diagnosis: Remnant stomach obstruction +/- bleeding Immunizations: Have You Had Influenza Vaccine: N/A Influenza Vaccine Date: Dec 24, 2007 History of Tetanus Vaccine?: Yes History of Pneumococcal: No History of Hepatitis B Vaccine: No Procedures: CT SCAN OF THE ABDOMEN AND PELVIS WITH IV CONTRAST CLINICAL HISTORY: Generalized abdominal pain. COMPARISON STUDY: Abdominal CT dated 01/03/2014. TECHNIQUE: Following the IV administration of 120 cc of Optiray 320, CT scan of the abdomen and pelvis is performed from the lung bases to the proximal femora. Images are reviewed in the axial, sagittal, and coronal planes. IV contrast was administered without complication. A dose lowering technique was utilized adhering to the principles of ALARA. CT DOSE: 1276.06 mGy.cm FINDINGS: Lung bases: The heart is enlarged noting trace pericardial effusion. The coronary arteries are densely calcified. Pacemaker leads are noted. There are small pleural effusions with bibasilar consolidation. Liver: The contrast-enhanced liver is normal in size, contour, and attenuation. There is no intrahepatic biliary ductal dilatation. The hepatic veins and portal veins are patent. Gallbladder: The gallbladder is distended but otherwise normal in appearance. Spleen: Normal in size and attenuation. Pancreas: Moderately atrophic and grossly unremarkable. Adrenal glands: Unremarkable. Kidneys: The contrast enhanced kidneys are atrophic and without hydronephrosis. The kidneys enhance symmetrically. Scattered subcentimeter cortical hypodensities may represent cysts but are too small for definitive characterization. Abdominal vasculature: The abdominal aorta is normal in course and caliber noting advanced atherosclerotic calcification. Stomach and bowel: There is a small hiatal hernia. Postoperative change is seen in the proximal stomach. Postoperative changes also seen in small bowel loops. The stomach is distended and fluid-filled. The duodenum appears edematous, thick-walled, and hyperemic. There is a small amount of fluid around the stomach. No pneumatosis intestinalis is seen. The small bowel loops are normal in caliber. Enteric contrast reaches the right colon. There is moderate diverticulosis of the left colon without CT evidence of acute diverticulitis. Moderate fecal retention is seen in the right colon. The appendix is well-visualized and normal. Peritoneum: There is trace fluid identified along the greater curvature of the stomach and in the left paracolic gutter. No intraperitoneal free air is seen. Lymphadenopathy: None. Pelvic viscera: The prostate gland is diminutive. The bladder is normal as visualized and filled with excreted contrast. Skeletal structures: The skeletal structures are osteopenic. Moderate lumbosacral spondylosis is observed. There is a moderate compression deformity of L2. A hemitransitional right lumbosacral segment is incidentally noted. There are healed right-sided rib fractures. No lytic or blastic lesions are seen. IMPRESSION: 1. There is a long segment of wall thickening and hyperemia identified involving the duodenum. The appearance suggests a nonspecific duodenitis. Clinical correlation will be required. 2. Postoperative change is identified in the proximal stomach as well as involving the small bowel. This may represent a Blaine-en-Y gastric bypass procedure. Correlation with the patient's surgical history will be required. 3. The majority of the stomach is distended and fluid-filled, possibly representing obstruction secondary to duodenal edema. If the patient has had a gastric bypass procedure then the obstruction involves the excluded stomach. Follow-up with the patient's surgeon is recommended as this may require surgical intervention. 4. There is mild stranding and fluid identified around the stomach. Fluid is also seen in the left paracolic gutter. 5. There is no evidence of small bowel obstruction. The small bowel loops are normal in caliber and enteric contrast reaches the colon. 6. There are small pleural effusions with dependent consolidation. This could represent atelectasis versus developing pneumonia. Clinical correlation will be required. 7. Moderate diverticulosis of left colon without CT evidence of acute diverticulitis. 8. Additional findings as above. Electronically signed by: Harman Escudero M.D. 11/28/2016 8:12 PM Dictated Date/Time: 11/28/2016 7:55 PM The status of this report is Signed. Draft = Not yet reviewed or approved by Radiologist. Signed = Reviewed and approved by Radiologist. (CHEST FOR PE) ANGIO WITH CLINICAL HISTORY: 61 years-old Male presenting with chest pain, recent travel, hypotensive. TECHNIQUE: Multidetector CT angiography of the chest was performed after administration of intravenous contrast. 3-D volumetric and/or maximum intensity projection (MIP) images were subsequently reconstructed for review. IV contrast: 102 mL of Optiray 320. A dose lowering technique was used consistent with the principles of ALARA (as low as reasonably achievable). COMPARISON: None. CT DOSE (mGy.cm): The estimated cumulative dose is 543.39 mGy.cm. FINDINGS: Shake Packer topogram: Left-sided pacer with leads to the right atrium and right ventricular apex. Pulmonary vasculature: The study is adequate for assessment of the pulmonary vascular tree. No filling defect within the pulmonary arteries to suggest embolus. Main pulmonary artery is not enlarged. No flattening of the interventricular septum. No intracardiac intracardiac filling defect. No reflux of contrast into the hepatic veins. Remaining chest: On soft tissue windows, normal thyroid and thoracic inlet. No axillary, supraclavicular, hilar, or mediastinal lymphadenopathy. Atherosclerosis of aortic arch. Normal heart size. Coronary artery calcification. No pericardial or pleural effusion. Intraluminal hyperattenuation at the fundus of the stomach and within the antrum and visualized portion of the duodenal bulb most consistent with intraluminal hemorrhage. Postsurgical changes of Blaine-en-Y gastric bypass noted. On lung windows, minimal bandlike opacities at the lung bases likely atelectasis. Two adjacent solid 3 mm subpleural nodules noted in the right lower lobe (series 4 images 117 and 124). Paraseptal emphysematous suggested along the anterior right upper lobe near the apex. Airways patent. On bone windows, degenerative changes of the thoracic spine. IMPRESSION: 1. No evidence of pulmonary embolus. 2. High density intraluminal contents within the stomach are most concerning for intraluminal hemorrhage. Correlation with nasogastric aspiration could be considered. This may indicate a bleeding ulcer among other etiologies. 3. Two solid 3 mm subpleural nodules in the right lower lobe. Follow-up per Emily Society 2017 recommendations below. Findings were discussed with Dr. Humberto Aguilar at 7:45 PM on 11/27/[address] Granado. Please refer to below summary of Fleischner Society 2017 recommendations for follow-up of incidental CT nodules (Pj Scott et al. Guidelines for management of incidental pulmonary nodules detected on CT images: From the Fleischner Society 2017. Radiology 2017; 284: 228-243.) SOLID NODULES Single nodule; size < 6 mm * Low risk patients: No routine follow-up * High risk patients: Optional CT at 12 months Single nodule; size 6-8 mm * Low risk patients: CT at 6-12 months, then consider CT at 18-24 months * High risk patients: CT at 6-12 months, then at 18-24 months Single nodule; size > 8 mm * Either low or high risk patients: Considered CT at 3 months, PET/CT, or tissue sampling Multiple nodules; size < 6 mm * Low risk patients: No routine follow up * High risk patients: Optional CT at 12 months Multiple nodules; size 6-8 mm * Low risk patients: CT at 3-6 months, then consider CT at 18-24 months * High risk patients: CT at 3-6 months, then at 18-24 months Multiple nodules; size > 8 mm * Low risk patients: CT at 3-6 months, then consider at 18-24 months * High risk patients: CT at 3-6 months, then at 18-24 months Note: These guidelines apply to incidental nodules. These guidelines do not apply to patients younger than 35 years, immunocompromised patients, or patients with cancer. * Low risk patients: Minimal or absent history of smoking and/or other known risk factors * High risk patients: History of smoking, exposure to other carcinogens, emphysema, fibrosis, upper lobe location, family history of lung cancer, etc. * If a nodule up to 8 mm is partly solid or is ground glass, further follow-up is required after 24 months to exclude possible slow growing adenocarcinoma. SUBSOLID NODULES Single ground-glass nodule * Nodule size < 6 mm: No routine follow-up * Nodule size > or = 6 mm: CT at 6-12 months to confirm persistence, then CT every 2 years until 5 years Single part-solid nodule * Nodule size < 6 mm: No routine follow-up * Nodules size > or = 6 mm: CT at 3-6 months to confirm persistence. If unchanged and solid component remains < 6 mm, annual CT should be performed for 5 years Multiple nodules * Nodule size < 6 mm: CT at 3-6 months. If stable, consider CT at 2 and 4 years. * Nodules size > or = 6 mm: CT at 3-6 months. Subsequent management based on the most suspicious nodule(s) <AttendingPhy>Fley Bunn M.D.</AttendingPhy> <FamilyPhy>aHris Yarbrough DO</FamilyPhy> <PrimaryPhy>Sharri Holbrook</PrimaryPhy> <UnitNumber> [id number]</UnitNumber> < Consultations: Gastroenterology General Surgery (Humberto Sanders MD) Medication Reconciliation Discontinued Medications: Aspirin (Aspirin Chewable) 81 Mg Chew 81 MG PO DAILY Cholecalciferol (Vitamin D-3) 2,000 Unit Tab 2000 UNITS PO BID Clonazepam (Klonopin) 2 Mg Tab 2 MG PO BID, #60 Cyanocobalamin (Vitamin B-12) 1,000 Mcg Tab 2500 MCG SL DAILY, TAB Donepezil Hydrochloride (Donepezil Hcl) 5 Mg Tab 5 MG PO HS Duloxetine HCl (Duloxetine HCl) 60 Mg Cap 60 MG PO BID, #180 Esomeprazole Magnesium (Nexium) 40 Mg Capcr 40 MG PO BID Folic Acid (Folic Acid) 400 Mcg Tab 800 MCG PO DAILY Glucosamine-Chondroitin (Osteo Bi-Flex Regular Str) 1 Tab Tab 1 TABLET PO DAILY Metoprolol Succ (Toprol Xl) (Toprol-Xl) 25 Mg Tabcr 25 MG PO DAILY, #30 TAB Multiple Vitamins W/ Minerals (Multivitamin & Mineral) 1 Liq Liq 1 DOSE PO DAILY Potassium Citrate (Potassium Citrate) 10 Meq Tab 10 MEQ PO TID Prazosin Hcl (Prazosin) 5 Mg Cap 5 MG PO HS, CAP Quetiapine Fumarate (Quetiapine Fumarate) 300 Mg Tab 300 MG PO HS, #90 Ropinirole (Requip) 0.5 Mg Tab 0.5 MG PO HS, 0 Refills Thiamine Hcl (Vitamin B-1) 250 Mg Tab 250 MG PO BID Discharge Exam A 10 point review of systems was negative unless stated in hospital course Physical Exam: General Appearance: WD/WN, no apparent distress Eyes: normal inspection, EOMI ENT: normal ENT inspection, hearing grossly normal, pharynx normal Neck: supple, no adenopathy, no JVD Respiratory/Chest: lungs clear, no respiratory distress Cardiovascular: regular rate, rhythm, no gallop, no murmur Abdomen / GI: normal bowel sounds, non tender, soft Extremities: no calf tenderness, no pedal edema Neurologic/Psychiatric: alert, normal mood/affect, oriented x 3 Skin: normal color, warm/dry, no rash Lymphatic: no adenopathy (Humberto Sanders MD) Review of Systems: Constitutional: No fever Respiratory: No shortness of breath Cardiovascular: No chest pain Abdomen: + pain Physical Exam: General Appearance: no apparent distress Respiratory/Chest: lungs clear, no respiratory distress Cardiovascular: regular rate, rhythm Abdomen / GI: soft Neurologic/Psychiatric: alert, oriented x 3 Skin: warm/dry (Fely Bunn M.D.) Hospital Course 61 year old male presented on the evening of 11/27/16 with complaints of generalized abdominal pain, worse in the epigastric area for 2 days. He notes a history of Blaine-en-Y gastric bypass in 2003 and [facility]. There is also history of GI bleeding within the remnant stomach around 2010, though we do not have the records for this or how it was managed. On arrival, patient had generalized abdominal tenderness, worse in the epigastric area. - D-dimer in the ED was positive so CTPA was ordered. As report indicates, there was concern for possible blood in the remnant stomach. Incidental lung nodule was found, which requires outpatient follow-up. - WBC on arrival was 17 and trended upwards to maximum of 37 - Lactate was 2.2 on arrival and peaked at 3.0 - Hb on arrival was 15, which has progressively decreased to 9.9 at the time of discharge. - Follow-up dedicated abdominal/pelvic CT with IV and oral contrast reports, duodenitis with distension of remnant stomach concerning for possible obstruction. He has been kept NPO with IV fluids; he was started on empiric GI antibiotic coverage with IV Cipro/Flagyl Seen by GI who recommended need for possible balloon endoscopy, which is not available at [facility] Seen by general surgery who recommends evaluation for balloon endoscopy and/or exploration by bypass surgeon. Attempted to transfer to [facility], but they are currently at capacity Discussed the case with Dr. Matt Chapa, surgeon and [facility], who will accept the patient for further evaluation/management. Total Time Spent: Greater than 30 minutes This includes examination of the patient, discharge planning, medication reconciliation, and communication with other providers. (Humberto Sanders MD) Resident Physician Supervision Note: I was present with Dr. Sanders in bedside. I verified the matthews history and physical, reviewed labs and image studies, discussed the case with the resident and agree with the findings and care plan. Total Time Spent: Greater than 30 minutes (35) (Fely Bunn M.D.) Discharge Instructions Please refer to the electronic Patient Visit Report (Discharge Instructions) for additional information. (uHmberto Sanders MD) Additional Copies To Sharri Holbrook.
[2016-11-29 12:53] LABS: HEMATOCRIT 28.8 % (42-52)
[2016-11-29 15:40] VITALS: BP 99/62; PULSE 70; TEMP 36.7; O2SAT 95
== END 2016-11-29 16:56 | disposition other institution, planned readmission (95) | DRG 379 ==
LOC: C.EDB 17:06 → C.2T 20:48 → ENRESERV 21:24 → UNDOADMIN 22:30 → C.2T 22:30
PROVIDERS: ADMIT Internal Medicine; ATTEND Family Medicine
DX: K92.2 Gastrointestinal hemorrhage, unspecified (principal); F41.9 Anxiety disorder, unspecified; I50.9 Heart failure, unspecified; F32.9 Major depressive disorder, single episode, unspecified; Z98.84 Bariatric surgery status; I51.9 Heart disease, unspecified; Z95.0 Presence of cardiac pacemaker; Z79.82 Long term (current) use of aspirin; I95.9 Hypotension, unspecified; R19.7 Diarrhea, unspecified; I48.91 Unspecified atrial fibrillation; Z96.653 Presence of artificial knee joint, bilateral; Z86.73 Personal history of transient ischemic attack (TIA), and cerebral infarction without residual deficits; Z83.3 Family history of diabetes mellitus; Z80.9 Family history of malignant neoplasm, unspecified; Z82.49 Family history of ischemic heart disease and other diseases of the circulatory system

== ENCOUNTER → 2017-03-21 | Outpatient (CLI) | payer BC, OTHER ==
[2017-03-21 18:28] LABS: BLOOD UREA NITROGEN 24 mg/dl (7-18); CALCIUM 9.4 mg/dl (8.5-10.1); CARBON DIOXIDE 31 mmol/L (21-32); CREATININE 1.31 mg/dl (0.60-1.40); GLUCOSE 111 mg/dl (70-99); POTASSIUM 4.4 mmol/L (3.5-5.1); SODIUM 139 mmol/L (136-145)
== END | disposition home or self-care (01) ==
LOC: C.LABMFLN 14:44
PROVIDERS: ATTEND Physician Assistant
DX: I95.9 Hypotension, unspecified (principal)

== ENCOUNTER → 2017-03-29 | Outpatient (CLI) | payer BC, OTHER ==
[2017-03-29 12:25] LABS: BASO % 0.3 %; BASO ABS # 0.04 K/uL (0-0.2); EOS % 3.2 %; EOS ABS # 0.37 K/uL (0-0.5); HEMATOCRIT 41.7 % (42-52); HEMOGLOBIN 13.3 g/dL (14.0-18.0); IG# 0.02 K/uL (0.00-0.02); LYMPH % 29.8 %; LYMPH ABS # 3.44 K/uL (1.2-3.4); MEAN CORPUSCULAR HEMOGLOBIN 30.9 pg (25-34); MEAN CORPUSCULAR HGB CONC 31.9 g/dl (32-36); MEAN PLATELET VOLUME 9.5 fL (7.4-10.4); MONO % 10.2 %; MONO ABS # 1.18 K/uL (0.11-0.59); NEUT % 56.3 %; NEUT ABS # 6.49 K/uL (1.4-6.5); PLATELET COUNT 307 K/uL (130-400); RED CELL DISTRIBUTION WIDTH CV 17.3 % (11.5-14.5); RED CELL DISTRIBUTION WIDTH SD 61.5 fL (36.4-46.3); WHITE BLOOD COUNT 11.54 K/uL (4.8-10.8)
[2017-03-29 12:30] LABS: INR 1.1 (0.9-1.1)
== END | disposition home or self-care (01) ==
LOC: C.LABMFLN 09:25
PROVIDERS: ATTEND Internal Medicine Cardiovascular Disease
DX: Z01.812 Encounter for preprocedural laboratory examination (principal); K05.10 Chronic gingivitis, plaque induced; K05.329 Chronic periodontitis, generalized, unspecified severity

== ENCOUNTER 2017-05-04 10:54 | Inpatient (IN) | payer BC, OTHER ==
[~2017-05-04] VITALS: Ht 177.8 cm; Wt 90.3 kg
[2017-05-04] VITALS (21 sets, daily range): BP systolic 79–96; BP diastolic 48–56; PULSE 60–62; TEMP 36.4; O2SAT 94–100; BMI 27.5
[2017-05-04] MEDS ORDERED: SODIUM CHLORIDE 0.9% 1000ML 1,000 ML IV STA ×2 (11:30→14:38)
[2017-05-04] MEDS ORDERED: SODIUM CHLORIDE 0.9% 1000ML 2,000 ML IV STA (11:30)
[2017-05-04 12:09] LABS: BASO % 0.6 %; BASO ABS # 0.06 K/uL (0-0.2); EOS % 3.4 %; EOS ABS # 0.35 K/uL (0-0.5); HEMATOCRIT 39.2 % (42-52); HEMOGLOBIN 13.3 g/dL (14.0-18.0); IG# 0.02 K/uL (0.00-0.02); LYMPH % 32.8 %; LYMPH ABS # 3.38 K/uL (1.2-3.4); MEAN CELL VOLUME 95.6 fL (80-100); MEAN CORPUSCULAR HEMOGLOBIN 32.4 pg (25-34); MEAN CORPUSCULAR HGB CONC 33.9 g/dl (32-36); MEAN PLATELET VOLUME 9.1 fL (7.4-10.4); MONO % 12.4 %; MONO ABS # 1.28 K/uL (0.11-0.59); NEUT % 50.6 %; NEUT ABS # 5.23 K/uL (1.4-6.5); PLATELET COUNT 225 K/uL (130-400); RED CELL DISTRIBUTION WIDTH CV 14.8 % (11.5-14.5); RED CELL DISTRIBUTION WIDTH SD 51.6 fL (36.4-46.3); WHITE BLOOD COUNT 10.32 K/uL (4.8-10.8)
[2017-05-04] MEDS ORDERED: CALCIUM GLUCONATE 10% 10 ML VIAL IV STA (12:09)
[2017-05-04] MEDS ORDERED: NovoLIN-R INSULIN PER UNIT CHARGE IV STA (12:09)
[2017-05-04] MEDS ORDERED: SODIUM BICARB 8.4% INJ 50 MEQ/50 ML SYR IV STA (12:09)
--- NOTE | 2017-05-04 12:11 | DIAGNOSTIC IMAGING REPORT ---
CHEST ONE VIEW PORTABLE CLINICAL HISTORY: fever sepsis COMPARISON STUDY: 11/27/2016 FINDINGS: Minimal parenchymal infiltrate left lung base. Lungs otherwise appear clear. Heart top normal in terms of size. Several old right rib fractures. Diaphragms are smooth. IMPRESSION: Small minimal parenchymal infiltrate left lung base. The above report was generated using voice recognition software. It may contain grammatical, syntax or spelling errors. Electronically signed by: Troy Tolliver M.D. 05/04/2017 12:10 PM Dictated Date/Time: 05/04/2017 12:09 PM
[2017-05-04] MEDS ORDERED: DEXTROSE 50% 50 ML SYR IV ONE (12:15)
[2017-05-04 12:17] LABS: INR 3.3 (0.9-1.1)
[2017-05-04] MEDS ORDERED: LEVAQUIN 750MG / 150ML D5W IV STA (12:19)
[2017-05-04 12:20] LABS: ISTAT CREATININE 6.2 mg/dl (0.6-1.3); ISTAT IONIZED CALCIUM 1.21 mmol/l (1.12-1.32); ISTAT POTASSIUM 6.8 mEq/L (3.3-5.0)
[2017-05-04 12:45] LABS: ALBUMIN 3.8 gm/dl (3.4-5.0); ALKALINE PHOSPHATASE 107 U/L (45-117); ALT/SGPT 25 U/L (12-78); AST/SGOT 22 U/L (15-37); BLOOD UREA NITROGEN 64 mg/dl (7-18); CALCIUM 9.5 mg/dl (8.5-10.1); CARBON DIOXIDE 23 mmol/L (21-32); CKMB 0.9 ng/ml (0.5-3.6); CREATININE 5.86 mg/dl (0.60-1.40); GLUCOSE 104 mg/dl (70-99); POTASSIUM 6.8 mmol/L (3.5-5.1); SODIUM 135 mmol/L (136-145); TOTAL PROTEIN 8.4 gm/dl (6.4-8.2)
[2017-05-04] MEDS ORDERED: ROPI0.5T PO (12:51)
[2017-05-04] MEDS ORDERED: SPR25 PO (12:51)
[2017-05-04] MEDS ORDERED: CMD/1 PO (12:51)
[2017-05-04] MEDS ORDERED: NTRGSL/4 UT (12:51)
[2017-05-04] MEDS ORDERED: ARC5 PO (12:51)
[2017-05-04] MEDS ORDERED: POTA1080 PO (12:51)
[2017-05-04] MEDS ORDERED: CYAN1TAB PO (12:51)
[2017-05-04] MEDS ORDERED: ATOR-26 PO (12:51)
[2017-05-04] MEDS ORDERED: METO50TA8 PO (12:51)
[2017-05-04] MEDS ORDERED: PANT40TA2 PO (12:51)
[2017-05-04] MEDS ORDERED: ASPI81TA28 PO (12:51)
[2017-05-04] MEDS ORDERED: LSX20 PO (12:51)
[2017-05-04] MEDS ORDERED: ATR25 PO (12:51)
[2017-05-04] MEDS ORDERED: CYM60 PO (12:51)
[2017-05-04] MEDS ORDERED: LSN5 PO (12:51)
[2017-05-04] MEDS ORDERED: THIA100T11 PO (12:51)
[2017-05-04] MEDS ORDERED: CLON2TAB3 PO (12:51)
--- NOTE | 2017-05-04 13:22 | DIAGNOSTIC IMAGING REPORT ---
HEAD WITHOUT CONTRAST (CT) CT DOSE: 788.63 mGycm HISTORY: Trauma fall TECHNIQUE: Multiaxial CT images of the head were performed without the use of intravenous contrast. A dose lowering technique was utilized adhering to the principles of ALARA. Comparison: 12/17/2012 FINDINGS: subacute to chronic right superior parietal infarct. This measures approximately 4.3 x 3.3 x 4.5 cm. No evidence for acute intracranial hemorrhage. His low density would indicate that this is subacute to chronic. Was not present on the prior study however. There is no midline shift. Moderate chronic small vessel change throughout both cerebral hemispheres. There is a smaller right posterior frontal infarct measuring 1.5 cm at maximum. Impression: 1. Subacute to chronic right posterior parietal and posterior right frontal infarct. 2. No acute hemorrhage. 3. Although suggestive of subacute to chronic findings, these infarcts were not present on the prior study of 2012 The above report was generated using voice recognition software. It may contain grammatical, syntax or spelling errors. Electronically signed by: Troy Tolliver M.D. 05/04/2017 1:20 PM Dictated Date/Time: 05/04/2017 1:17 PM
--- NOTE | 2017-05-04 13:25 | DIAGNOSTIC IMAGING REPORT ---
CT SCAN OF THE ABDOMEN AND PELVIS WITHOUT CONTRAST CLINICAL HISTORY: Generalized abdominal pain. Hypotension. COMPARISON STUDY: 11/28/2016 TECHNIQUE: CT scan of the abdomen and pelvis was performed from the lung bases to the proximal femurs. Images are reviewed in the axial, sagittal, and coronal planes. IV contrast was not administered for this examination. A dose lowering technique was utilized adhering to the principles of ALARA. CT DOSE: 951.22 mGycm FINDINGS: Lower chest: Basilar opacities are likely atelectatic. Liver: The unenhanced liver is normal in size, contour, and attenuation. There is no intrahepatic biliary ductal dilatation. Gallbladder: Unremarkable. Spleen: Normal in size and attenuation. Pancreas: Unremarkable. Adrenal glands: Unremarkable. Kidneys: There is mild fullness of each renal pelvis. There is no significant ureteral dilatation. No ureteral or bladder calculi are evident. Bowel: Postsurgical changes involve the stomach. There are no transition zones indicate bowel obstruction. There is colonic diverticulosis. There are no acute peridiverticular inflammatory changes. The appendix appears normal. Peritoneum: There is no intraperitoneal free air or abdominal ascites. Vasculature: There is no evidence of abdominal aortic aneurysm. There are diffuse atheromatous changes present. 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 Adenopathy: None. Pelvic viscera: There is a joint fluid catheter. Air within the bladder is felt to be iatrogenic Skeletal structures: No destructive osseous lesions are seen. IMPRESSION: 1. No evidence of bowel obstruction. No evidence of free air 2. No renal, ureteral, or bladder calculi identified 3. Diverticulosis. No evidence of acute diverticulitis 4. Normal appendix 5. Postsurgical changes of a gastric bypass and Blaine-en-Y anastomosis Electronically signed by: Phil Deshpande M.D. 05/04/2017 1:24 PM Dictated Date/Time: 05/04/2017 1:18 PM
[2017-05-04] MEDS ORDERED: ACETAMINOPHEN 500 MG TAB PO STA (14:38)
[2017-05-04 15:02] LABS: BLOOD UREA NITROGEN 61 mg/dl (7-18); CALCIUM 9.8 mg/dl (8.5-10.1); CREATININE 5.03 mg/dl (0.60-1.40); GLUCOSE 132 mg/dl (70-99)
[2017-05-04 15:05] LABS: SODIUM 143 mmol/L (136-145)
[2017-05-04] MEDS ORDERED: ICU PROTOCOL FOR HYPERGLYCEMIA PRN (15:30)
[2017-05-04] MEDS ORDERED: MoRPHine SULFATE 4 MG/ML 1 ML CARP\\VIAL IV PRN (15:30)
[2017-05-04] MEDS ORDERED: ACETAMINOPHEN 325 MG TAB PO PRN (15:30)
[2017-05-04] MEDS ORDERED: HEPARIN SOD 5000 UNIT/0.5 ML CARP SQ SCH (15:30)
--- NOTE | 2017-05-04 16:46 | History and Physical ---
History & Physical Date & Time of Service: May 04, 2017 at 15:54 Chief Complaint: Diarrhea,Low Bp, Cant Eat Soild Foods Primary Care Physician: Sharri Holbrook History of Present Illness Source: patient, family 62 y/o M Hx gastric bypass, multiple GI bleeds, chronic AF, pacer, recent CVA with residual L sided weakness, CAD - recent NM following his CVA. Presents with lightheadedness and hypotension. He has had diarrhea for several weeks. He also states his PO intake has been poor as he is awaiting a set of dentures. Over the past week he has become lightheaded and had fallen multiple times. He fell again today and it was noted by family that he had a blood pressure in the 70s. He had resisted coming to the hospital earlier in the week but finally acquiesced. The pt was markedly hypotensive in the ER. Initial labs are notable for acute renal failure and severe hyperkalemia. An EKG revealed ST elevations. The pt denies CP, SOB, N/V or fevers. He is producing a small amount of urine. Past Medical/Surgical History 1) Gastric bypass 2) Multiple upper GI bleeds 3) Chronic AF 4) Pacer 5) CVA 11/27 6) CAD - NM 11/27 - this may have been clinically of minimal significance - per the pt's family member, he was unable to recieve proper treatment for this as he had a concomitant upper GI bleed 7) Renal calculi 8) Aortic plaque - grade 4 9) Smoker Family History Cancer Diabetes mellitus Heart disease Social History Smoker - one pack daily until recently Smoking Status: Current Every Day Smoker Drug Use: none Marital Status: Housing status: lives with family Occupational Status: retired Immunizations History of Influenza Vaccine: N/A Influenza Vaccine Date: Dec 24, 2007 History of Tetanus Vaccine?: Yes History of Pneumococcal: No History of Hepatitis B Vaccine: No Multi-Drug Resistant Organisms History of MDRO: No Allergies Coded Allergies: Penicillins (Verified Allergy, Severe, SWELLING AND RASH OF HANDS; HAS TOLERATED ANCEF & ROCEPHIN, 05/04/17) Home Medications Scheduled Aspirin (Aspirin Ec), 81 MG PO DAILY Atorvastatin (Lipitor), 1 TAB PO DAILY Clonazepam (Klonopin), 1 TAB PO BID Cyanocobalamin (B-12), 1 TAB PO DAILY Donepezil HCl (Donepezil HCl), 1 TAB PO HS Duloxetine HCl (Duloxetine HCl), 2 CAP PO DAILY Furosemide (Furosemide), 1 TAB PO DAILY Hydroxyzine HCl (Hydroxyzine HCl), 1 TAB PO TID Lisinopril (Lisinopril), 1 TAB PO DAILY Metoprolol Succ (Toprol Xl) (Toprol-Xl), 1 TAB PO DAILY Nitroglycerin (Nitrostat), 0.4 MG UT PRN Pantoprazole (Pantoprazole Sodium), 1 TAB PO BID Potassium Citrate (Alkalinizer (Potassium Citrate ER), 1 TAB PO TID Ropinirole Hydrochloride (Requip), 1 TAB PO HS Spironolactone (Spironolactone), 0.5 TAB PO DAILY Thiamine Hcl (Vitamin B-1), 100 MG PO DAILY Warfarin Sod (Warfarin Sodium), 1 TAB PO HS Review of Systems Constitutional: + weakness, + fatigue, + problem reported (hypotension reported ), No fever, No chills, No sweats Eyes: No worsening of vision ENT: No hearing loss, No unusual epistaxis, No nasal symptoms Respiratory: No cough, No sputum, No wheezing, No shortness of breath Cardiovascular: No chest pain, No orthopnea, No PND Abdomen: + diarrhea (6 (+) week), No pain, No vomiting Musculoskeletal: No joint pain Genitourinary - Male: No hematuria, No dysuria Neurologic: + balance problems, No memory loss, No paralysis, No weakness Psychiatric: No depression symptoms Endocrine: + fatigue Hematologic / Lymphatic: No abnormal bleeding/bruising Integumentary: No rash Allergic / Immunologic: No environmental allergies Physical Exam Vital Signs Date Time Temp Pulse Resp B/P (MAP) Pulse Ox O2 Delivery O2 Flow Rate FiO2 05/04/17 14:53 62 20 96/57 98 Room Air 05/04/17 14:17 60 18 91/46 98 Room Air 05/04/17 13:22 62 20 104/52 98 Room Air 05/04/17 12:48 60 20 110/59 96 Room Air 05/04/17 11:44 62 18 91/53 96 05/04/17 11:28 61 05/04/17 11:18 36.6 60 18 79/47 99 Room Air General Appearance: + pertinent finding (Overweight, middle-aged male in no distress) Head: normocephalic Eyes: normal inspection ENT: normal ENT inspection, pharynx normal Neck: supple, no JVD Respiratory/Chest: chest non-tender, lungs clear, normal breath sounds Abdomen/GI: normal bowel sounds, non tender, soft Back: normal inspection, no CVA tenderness Extremities/Musculoskelatal: normal inspection, no calf tenderness, normal capillary refill 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, no motor/sensory deficits, + pertinent finding (L sided weakness which is chronic) Skin: normal color Diagnostics Laboratory Results Results Past 24 Hours Test 05/04/17 12:00 05/04/17 12:05 05/04/17 12:08 05/04/17 12:25 Range/Units White Blood Count 10.32 4.8-10.8 K/uL Red Blood Count 4.10 4.7-6.1 M/uL Hemoglobin 13.3 14.0-18.0 g/dL Hematocrit 39.2 42-52 % Mean Corpuscular Volume 95.6 80-100 fL Mean Corpuscular Hemoglobin 32.4 25-34 pg Mean Corpuscular Hemoglobin Concent 33.9 32-36 g/dl Platelet Count 225 130-400 K/uL Mean Platelet Volume 9.1 7.4-10.4 fL Neutrophils (%) (Auto) 50.6 % Lymphocytes (%) (Auto) 32.8 % Monocytes (%) (Auto) 12.4 % Eosinophils (%) (Auto) 3.4 % Basophils (%) (Auto) 0.6 % Neutrophils # (Auto) 5.23 1.4-6.5 K/uL Lymphocytes # (Auto) 3.38 1.2-3.4 K/uL Monocytes # (Auto) 1.28 0.11-0.59 K/uL Eosinophils # (Auto) 0.35 0-0.5 K/uL Basophils # (Auto) 0.06 0-0.2 K/uL RDW Standard Deviation 51.6 36.4-46.3 fL RDW Coefficient of Variation 14.8 11.5-14.5 % Immature Granulocyte % (Auto) 0.2 % Immature Granulocyte # (Auto) 0.02 0.00-0.02 K/uL Prothrombin Time 33.6 9.0-12.0 SECONDS Prothromb Time International Ratio 3.3 0.9-1.1 Sodium Level 135 136-145 mmol/L Potassium Level 6.8 3.5-5.1 mmol/L Chloride Level 106 98-107 mmol/L Carbon Dioxide Level 23 21-32 mmol/L Anion Gap 6.0 14.0 16-25 mmol/L Blood Urea Nitrogen 64 7-18 mg/dl Creatinine 5.86 0.60-1.40 mg/dl Est Creatinine Clear Calc Drug Dose 13.1 ml/min Estimated GFR () 10.8 Estimated GFR (Non- 9.3 BUN/Creatinine Ratio 10.8 10-20 Random Glucose 104 70-99 mg/dl Calcium Level 9.5 8.5-10.1 mg/dl Magnesium Level 2.3 1.8-2.4 mg/dl Total Bilirubin 0.5 0.2-1 mg/dl Direct Bilirubin 0.2 0-0.2 mg/dl Aspartate Amino Transf (AST/SGOT) 22 15-37 U/L Alanine Aminotransferase (ALT/SGPT) 25 12-78 U/L Alkaline Phosphatase 107 45-117 U/L Total Creatine Kinase 60 39-308 U/L Creatine Kinase MB 0.9 0.5-3.6 ng/ml Creatine Kinase MB Ratio 1.5 0-3.0 Troponin I < 0.015 0-0.045 ng/ml Total Protein 8.4 6.4-8.2 gm/dl Albumin 3.8 3.4-5.0 gm/dl Bedside Lactic Acid Venous 0.76 0.90-1.70 mmol/L Bedside Hemoglobin 13.3 14.0-18.0 g/dl Bedside Hematocrit 39 42-52 % Bedside Sodium 137 135-144 mEq/L Bedside Potassium 6.8 3.3-5.0 mEq/L Bedside Chloride 108 101-112 mEq/L Bedside Total CO2 23 24-31 mEq/l Bedside Blood Urea Nitrogen 59 7-18 mg/dl Bedside Creatinine 6.2 0.6-1.3 mg/dl Bedside Glucose (other) 106 70-99 mg/dl Bedside Ionized Calcium (K[place]) 1.21 1.12-1.32 mmol/l Urine Color YELLOW Urine Appearance CLEAR CLEAR Urine pH 6.0 4.5-7.5 Urine Specific [place] 1.009 1.000-1.030 Urine Protein NEG NEG Urine Glucose (UA) NEG NEG Urine Ketones NEG NEG Urine Occult Blood 2+ NEG Urine Nitrite NEG NEG Urine Bilirubin NEG NEG Urine Urobilinogen NEG NEG Urine Leukocyte Esterase NEG NEG Urine WBC (Auto) 1-5 0-5 /hpf Urine RBC (Auto) 0-4 0-4 /hpf Urine Hyaline Casts (Auto) 10-30 0-5 /lpf Urine Epithelial Cells (Auto) 10-20 0-5 /lpf Urine Bacteria (Auto) NEG NEG Urine Pathogenic Casts 1-5 GRANULAR CASTS 0 /lpf Test 05/04/17 13:23 Range/Units Venous Blood pH 7.31 7.36-7.41 Venous Blood Partial Pressure CO2 55 38.0-50.0 mmHg Venous Blood Partial Pressure O2 17 mmHg Venous Blood HCO3 27 mmol/L Venous Blood Oxygen Saturation < 60.0 % Venous Blood Base Excess -0.4 mEq/L Sodium Level 143 136-145 mmol/L Potassium Level 5.0 3.5-5.1 mmol/L Chloride Level 110 98-107 mmol/L Carbon Dioxide Level 21-32 mmol/L Anion Gap 3-11 mmol/L Blood Urea Nitrogen 61 7-18 mg/dl Creatinine 5.03 0.60-1.40 mg/dl Est Creatinine Clear Calc Drug Dose 15.3 ml/min Estimated GFR () 13.0 Estimated GFR (Non- 11.2 BUN/Creatinine Ratio 12.3 10-20 Random Glucose 132 70-99 mg/dl Calcium Level 9.8 8.5-10.1 mg/dl Microbiology Results 05/04/17 Blood Culture, Received Pending 05/04/17 Blood Culture, Received Pending 05/04/17 Urine Culture, Received Pending EKG atrial pacing - initial EKG with minimal elevations in lat leads - resolved on subsequent with correction of K Impression Assessment and Plan 62 y/o M Hx gastric bypass, multiple GI bleeds, chronic AF, pacer, recent CVA with residual L sided weakness, CAD - recent NM following his CVA. Presents with lightheadedness and hypotension. He has had diarrhea for several weeks. He also states his PO intake has been poor as he is awaiting a set of dentures. Over the past week he has become lightheaded and had fallen multiple times. He fell again today and it was noted by family that he had a blood pressure in the 70s. He had resisted coming to the hospital earlier in the week but finally acquiesced. The pt was markedly hypotensive in the ER. Initial labs are notable for acute renal failure and severe hyperkalemia. An EKG revealed ST elevations. The pt denies CP, SOB, N/V or fevers. He is producing a small amount of urine. 1) ARF with hyperkalemia - K was normalized following IVF and additional treatment provided on the ER. Creat remains markedly elevated. This is likely pre-renal and possible also due to ATN owing to hypotension. Pt is admitted to the ICU, aggressive hydration is provided. Nephrology consulted. 2) Hypotension - BP persists in low 80s following 2 L IVF - will continue IVF - he is asymptomatic and has gradually improved. We do not have any evidence of sepsis. 3) ST elevation - attributed to HyperK and hypotension - we will trend troponin - he is anticoagulated and takes daily ASA, Statin, B isamar 4) AF - pt is anticoagulated with Coumadin - Rate is normally paced - cont Metoprolol. 5) Recent CVA - cont ASA, Statin. PT/OT when acute condition improves. 6) Diarrhea - obtain stool cultures. Full code - Coumadin prophylaxis - total time for this admit including review of labs, meds, imaging, records, EKG - discussion with pt and ER attending - 50 min inc critical care time. Level of Care Critical Care Resuscitation Status FULL RESUSCITATION VTE Prophylaxis VTE Risk Assessment Done? Y/N: Yes Risk Level: Moderate Given or contraindicated: Warfarin (Coumadin)
--- NOTE | 2017-05-04 17:04 | EMERGENCY ROOM VISIT NOTE ---
History Report prepared by Louannibulises: Yusef Lopez Under the Supervision of: Dr. Michael Boone D.O. First contact with patient: 11:19 Chief Complaint: HYPOTENSION Stated Complaint: DIARRHEA,LOW BP, CANT EAT SOILD FOODS History of Present Illness The patient is a 62 year old male who presents to the Emergency Room with complaints of constant hypotension beginning today. The patient's family found the patient's systolic blood pressure to be 72/64 today. The patient has a history of gastric bypass. He also complains of diarrhea and runny nose. His diarrhea began six weeks ago. The patient estimates 7-8 episodes of diarrhea per day. He is on medication for hypertension. He took his medication today as normal. Pt denies headache, change in vision, fevers, chest pain, shortness of breath, nausea, vomiting, pain with urination, and melena. The patient has a pacemaker in place. He reports multiple falls within the past few weeks, but has not hit his head (most fall recent was yesterday). He denies recent antibiotic use. Source of History: patient Onset: Today Symptom Intensity: Blood pressure of 72/64 Quality: other (hypotension) Timing: constant Associated Symptoms: + diarrhea (x6 weeks), No fevers, No headache, No chest pain, No SOB, No nausea, No vomiting, No urinary symptoms Note: Additional symptoms: runny nose. Review of Systems See HPI for pertinent positives & negatives. A total of 10 systems reviewed and were otherwise negative. Past Medical & Surgical Medical Problems: (1) Abdominal pain (2) Acute renal failure (3) Anxiety (4) CHF (congestive heart failure) (5) Depression (6) Diarrhea (7) gastric bypass (8) Heart disease (9) Hx of blood clots (10) Hyperkalemia (11) Implantation of cardiac pacemaker (12) Kidney stone (13) Kidney stones (14) Lithotripsy (15) Pacemaker (16) PERSONAL HX OF TIA,& CEREBRAL INFARCTION W/OUT RES DEFICITS (17) Shortness of breath (18) TIA (transient ischemic attack) Surgical Problems: (1) H/O gastric bypass (2) H/O hernia repair (3) Total knee replacement status Family History Cancer Diabetes mellitus Heart disease Social History Smoking Status: Never Smoker Alcohol Use: none Drug Use: none Marital Status: Housing Status: lives with significant other Occupation Status: retired Current/Historical Medications Scheduled Aspirin (Aspirin Ec), 81 MG PO DAILY Atorvastatin (Lipitor), 1 TAB PO DAILY Clonazepam (Klonopin), 1 TAB PO BID Cyanocobalamin (B-12), 1 TAB PO DAILY Donepezil HCl (Donepezil HCl), 1 TAB PO HS Duloxetine HCl (Duloxetine HCl), 2 CAP PO DAILY Furosemide (Furosemide), 1 TAB PO DAILY Hydroxyzine HCl (Hydroxyzine HCl), 1 TAB PO TID Lisinopril (Lisinopril), 1 TAB PO DAILY Metoprolol Succ (Toprol Xl) (Toprol-Xl), 1 TAB PO DAILY Nitroglycerin (Nitrostat), 0.4 MG UT PRN Pantoprazole (Pantoprazole Sodium), 1 TAB PO BID Potassium Citrate (Alkalinizer (Potassium Citrate ER), 1 TAB PO TID Ropinirole Hydrochloride (Requip), 1 TAB PO HS Spironolactone (Spironolactone), 0.5 TAB PO DAILY Thiamine Hcl (Vitamin B-1), 100 MG PO DAILY Warfarin Sod (Warfarin Sodium), 1 TAB PO HS Allergies Coded Allergies: Penicillins (Verified Allergy, Severe, SWELLING AND RASH OF HANDS; HAS TOLERATED ANCEF & ROCEPHIN, 05/04/17) Physical Exam Vital Signs Date Time Temp Pulse Resp B/P (MAP) Pulse Ox O2 Delivery O2 Flow Rate FiO2 05/04/17 15:59 62 18 95/64 98 Room Air 05/04/17 14:53 62 20 96/57 98 Room Air 05/04/17 14:17 60 18 91/46 98 Room Air 05/04/17 13:22 62 20 104/52 98 Room Air 05/04/17 12:48 60 20 110/59 96 Room Air 05/04/17 11:44 62 18 91/53 96 05/04/17 11:28 61 05/04/17 11:18 36.6 60 18 79/47 99 Room Air Physical Exam GENERAL: Sitting up in bed, alert, ill-appearing, lethargic, significant distress, non-toxic EYE EXAM: normal conjunctiva. PERRL and EOM's grossly intact. OROPHARYNX: no exudate, no erythema, lips, buccal mucosa, and tongue normal and mucous membranes are moist NECK: supple, no nuchal rigidity, no adenopathy, non-tender LUNGS: Clear to auscultation. Normal chest wall mechanics HEART: no murmurs, S1 normal and S2 normal CHEST: Pacemaker in left upper chest-wall. ABDOMEN: abdomen soft, non-tender, normo-active bowel sounds, no masses, no rebound or guarding. BACK: Back is symmetrical on inspection and there is no deformity, no midline tenderness, no CVA tenderness. SKIN: no rashes and no bruising UPPER EXTREMITIES: upper extremities are grossly normal. LOWER EXTREMITIES: No pitting edema. NEURO EXAM: Normal sensorium, cranial nerves II-XII grossly intact, normal speech, no gross weakness of arms, no gross weakness of legs. Medical Decision & Procedures ER Provider Diagnostic Interpretation: Radiology results as stated below per my review and the radiologist's interpretation: CHEST ONE VIEW PORTABLE FINDINGS: Minimal parenchymal infiltrate left lung base. Lungs otherwise appear clear. Heart top normal in terms of size. Several old right rib fractures. Diaphragms are smooth. IMPRESSION: Small minimal parenchymal infiltrate left lung base. The above report was generated using voice recognition software. It may contain grammatical, syntax or spelling errors. Electronically signed by: Troy Tolliver M.D. 05/04/2017 12:[address] SCAN OF THE ABDOMEN AND PELVIS WITHOUT CONTRAST FINDINGS: Lower chest: Basilar opacities are likely atelectatic. Liver: The unenhanced liver is normal in size, contour, and attenuation. There is no intrahepatic biliary ductal dilatation. Gallbladder: Unremarkable. Spleen: Normal in size and attenuation. Pancreas: Unremarkable. Adrenal glands: Unremarkable. Kidneys: There is mild fullness of each renal pelvis. There is no significant ureteral dilatation. No ureteral or bladder calculi are evident. Bowel: Postsurgical changes involve the stomach. There are no transition zones indicate bowel obstruction. There is colonic diverticulosis. There are no acute peridiverticular inflammatory changes. The appendix appears normal. Peritoneum: There is no intraperitoneal free air or abdominal ascites. Vasculature: There is no evidence of abdominal aortic aneurysm. There are diffuse atheromatous changes present. 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 Adenopathy: None. Pelvic viscera: There is a joint fluid catheter. Air within the bladder is felt to be iatrogenic Skeletal structures: No destructive osseous lesions are seen. IMPRESSION: 1. No evidence of bowel obstruction. No evidence of free air 2. No renal, ureteral, or bladder calculi identified 3. Diverticulosis. No evidence of acute diverticulitis 4. Normal appendix 5. Postsurgical changes of a gastric bypass and Blaine-en-Y anastomosis Electronically signed by: Phil Deshpande M.D. 05/04/2017 1:24 PM HEAD WITHOUT CONTRAST (CT) FINDINGS: subacute to chronic right superior parietal infarct. This measures approximately 4.3 x 3.3 x 4.5 cm. No evidence for acute intracranial hemorrhage. His low density would indicate that this is subacute to chronic. Was not present on the prior study however. There is no midline shift. Moderate chronic small vessel change throughout both cerebral hemispheres. There is a smaller right posterior frontal infarct measuring 1.5 cm at maximum. Impression: 1. Subacute to chronic right posterior parietal and posterior right frontal infarct. 2. No acute hemorrhage. 3. Although suggestive of subacute to chronic findings, these infarcts were not present on the prior study of 2012 The above report was generated using voice recognition software. It may contain grammatical, syntax or spelling errors. Electronically signed by: Troy Tolliver M.D. 05/04/2017 1:20 PM Laboratory Results 05/04/17 12:00 Red Blood Count 4.10, Mean Corpuscular Volume 95.6, Mean Corpuscular Hemoglobin 32.4, Mean Corpuscular Hemoglobin Concent 33.9, Mean Platelet Volume 9.1, Neutrophils (%) (Auto) 50.6, Lymphocytes (%) (Auto) 32.8, Monocytes (%) (Auto) 12.4, Eosinophils (%) (Auto) 3.4, Basophils (%) (Auto) 0.6, Neutrophils # (Auto ) 5.23, Lymphocytes # (Auto) 3.38, Monocytes # (Auto) 1.28, Eosinophils # (Auto ) 0.35, Basophils # (Auto) 0.06 05/04/17 13:23 Test 05/04/17 12:00 05/04/17 12:05 05/04/17 12:08 05/04/17 12:25 White Blood Count 10.32 K/uL (4.8-10.8) Red Blood Count 4.10 M/uL (4.7-6.1) Hemoglobin 13.3 g/dL (14.0-18.0) Hematocrit 39.2 % (42-52) Mean Corpuscular Volume 95.6 fL (80-100) Mean Corpuscular Hemoglobin 32.4 pg (25-34) Mean Corpuscular Hemoglobin Concent 33.9 g/dl (32-36) Platelet Count 225 K/uL (130-400) Mean Platelet Volume 9.1 fL (7.4-10.4) Neutrophils (%) (Auto) 50.6 % Lymphocytes (%) (Auto) 32.8 % Monocytes (%) (Auto) 12.4 % Eosinophils (%) (Auto) 3.4 % Basophils (%) (Auto) 0.6 % Neutrophils # (Auto) 5.23 K/uL (1.4-6.5) Lymphocytes # (Auto) 3.38 K/uL (1.2-3.4) Monocytes # (Auto) 1.28 K/uL (0.11-0.59) Eosinophils # (Auto) 0.35 K/uL (0-0.5) Basophils # (Auto) 0.06 K/uL (0-0.2) RDW Standard Deviation 51.6 fL (36.4-46.3) RDW Coefficient of Variation 14.8 % (11.5-14.5) Immature Granulocyte % (Auto) 0.2 % Immature Granulocyte # (Auto) 0.02 K/uL (0.00-0.02) Prothrombin Time 33.6 SECONDS (9.0-12.0) Prothromb Time International Ratio 3.3 (0.9-1.1) Magnesium Level 2.3 mg/dl (1.8-2.4) Total Bilirubin 0.5 mg/dl (0.2-1) Direct Bilirubin 0.2 mg/dl (0-0.2) Aspartate Amino Transf (AST/SGOT) 22 U/L (15-37) Alanine Aminotransferase (ALT/SGPT) 25 U/L (12-78) Alkaline Phosphatase 107 U/L (45-117) Total Creatine Kinase 60 U/L (39-308) Creatine Kinase MB 0.9 ng/ml (0.5-3.6) Creatine Kinase MB Ratio 1.5 (0-3.0) Troponin I < 0.015 ng/ml (0-0.045) Total Protein 8.4 gm/dl (6.4-8.2) Albumin 3.8 gm/dl (3.4-5.0) Bedside Lactic Acid Venous 0.76 mmol/L (0.90-1.70) Bedside Hemoglobin 13.3 g/dl (14.0-18.0) Bedside Hematocrit 39 % (42-52) Bedside Sodium 137 mEq/L (135-144) Bedside Potassium 6.8 mEq/L (3.3-5.0) Bedside Chloride 108 mEq/L (101-112) Bedside Total CO2 23 mEq/l (24-31) Bedside Blood Urea Nitrogen 59 mg/dl (7-18) Bedside Creatinine 6.2 mg/dl (0.6-1.3) Bedside Glucose (other) 106 mg/dl (70-99) Bedside Ionized Calcium (Kory) 1.21 mmol/l (1.12-1.32) Urine Color YELLOW Urine Appearance CLEAR (CLEAR) Urine pH 6.0 (4.5-7.5) Urine Specific [place] 1.009 (1.000-1.030) Urine Protein NEG (NEG) Urine Glucose (UA) NEG (NEG) Urine Ketones NEG (NEG) Urine Occult Blood 2+ (NEG) Urine Nitrite NEG (NEG) Urine Bilirubin NEG (NEG) Urine Urobilinogen NEG (NEG) Urine Leukocyte Esterase NEG (NEG) Urine WBC (Auto) 1-5 /hpf (0-5) Urine RBC (Auto) 0-4 /hpf (0-4) Urine Hyaline Casts (Auto) 10-30 /lpf (0-5) Urine Epithelial Cells (Auto) 10-20 /lpf (0-5) Urine Bacteria (Auto) NEG (NEG) Urine Pathogenic Casts 1-5 GRANULAR CASTS /lpf (0) Test 05/04/17 13:23 Venous Blood pH 7.31 (7.36-7.41) Venous Blood Partial Pressure CO2 55 mmHg (38.0-50.0) Venous Blood Partial Pressure O2 17 mmHg Venous Blood HCO3 27 mmol/L Venous Blood Oxygen Saturation < 60.0 % Venous Blood Base Excess -0.4 mEq/L Anion Gap mmol/L (3-11) Est Creatinine Clear Calc Drug Dose 15.3 ml/min Estimated GFR () 13.0 Estimated GFR (Non- 11.2 BUN/Creatinine Ratio 12.3 (10-20) Calcium Level 9.8 mg/dl (8.5-10.1) Laboratory results per my review. Medications Administered Medications (Trade) Dose Ordered Sig/Karissa Route Start Time Stop Time Status Last Admin Dose Admin Sodium Chloride 2,000 ml @ 999 mls/hr Q2H1M STAT IV 05/04/17 11:30 05/04/17 13:30 DC 05/04/17 11:40 999 MLS/HR Sodium Chloride 1,000 ml @ 999 mls/hr Q1H1M STAT IV 05/04/17 11:30 05/04/17 12:30 DC 05/04/17 12:02 999 MLS/HR Sodium Bicarbonate (Sodium Bicarbonate 8.4% Inj) 150 ml NOW STAT IV 05/04/17 12:09 05/04/17 12:12 DC 05/04/17 12:33 150 ML Insulin Human Regular (novoLIN-R U-100 PER UNIT) 10 units NOW STAT IV 05/04/17 12:09 05/04/17 12:12 DC 05/04/17 12:09 10 UNITS Dextrose (Dextrose 50% 50ML Syringe) 50 ml NOW ONCE IV 05/04/17 12:15 05/04/17 12:16 DC 05/04/17 12:33 50 ML Calcium Gluconate (Calcium Gluconate 10%) 2,000 mg NOW STAT IV 05/04/17 12:09 05/04/17 12:12 DC 05/04/17 12:33 2,000 MG Levofloxacin (Levaquin / D5W) 750 mg NOW STAT IV 05/04/17 12:19 05/04/17 12:20 DC 05/04/17 12:32 750 MG Sodium Chloride 1,000 ml @ 999 mls/hr Q1H1M STAT IV 05/04/17 14:38 05/04/17 15:38 DC 05/04/17 14:38 999 MLS/HR Acetaminophen (Tylenol Tab) 1,000 mg NOW STAT PO 05/04/17 14:38 05/04/17 14:39 DC 05/04/17 14:52 1,000 MG ECG Per My Interpretation Indication: other (hypotension) Rate (beats per minute): 67 Rhythm: other (Atrial paced) Findings: Q waves (Septal, inferior), ST elevation (mild, V4), other (Low voltage) Comparison ECG Date: 11/27/2016 Change: ST elevations are new. Repeat ECG shows an atrial paced rhythm with a rate of 60 bpm. Low voltage. Inferior Q-waves present. New T-wave inversion in the lateral leads. Slight increase in elevations in the anterior leads. ED Course ED COURSE: Vital signs were reviewed and showed hypotension The patients medical record was reviewed The above diagnostic studies were performed and reviewed. ED treatments and interventions as stated above. 1123: The patient was evaluated in room C12B. A complete history and physical examination was performed. 1130: Ordered Sodium Chloride 1000 ml @ 999 mls/hr IV, Sodium Chloride 2000 ml @ 999 mls/hr IV. 1209: Ordered Calcium Gluconate 10% 2000 mg IV, Novolin-R U-100 per unit 10 units IV, Sodium Bicarbonate 8.4% 150 mL IV. 1215: Ordered Dextrose 50% 50 mL IV. 1219: Ordered Levaquin / D5W 750 mg IV. 1222: I reassessed the patient. His systolic blood pressure has increased to the low 100's. He notes that he is a full code. 1308: The patient has made 700 mL of urine. I checked on him, and he is at CT. 1400: Upon reevaluation, the patient is resting comfortably. I discussed my findings with the patient and he understands and agrees with the treatment plan. Based on the patients age, coexisting illnesses, exam and lab findings the decision to treat as an inpatient was made. The patient remained stable while under my care. The patient will be evaluated for further management. Medical Decision Differential diagnosis includes etiologies such as sepsis, UTI, pneumonia, metabolic, electrolyte abnormalities, cardiac sources, intracerebral event, toxicologic, neurologic, as well as others were entertained. Patient is a 62-year-old male who presents to ER has been having persistent diarrhea for the past 6 weeks. He is going 7-8 times per day. He has no chest pain or shortness of breath. CBC was unremarkable. BNP/i-STAT shows a potassium of 6.8 and a creatinine of 6. LFTs, bilirubin and troponin were unremarkable. EKG shows slight ST segment elevations in the anterior leads. INR was therapeutic. PH 7.3. UA was unremarkable. Saunders was placed. With his initial presentation and systolic pressures in the 50s to IVs were established. Patient was given 3 L normal saline. He was given IV antibiotics with chest x-ray suggesting an infiltrate. CT of the head suggested a stroke. CT of abdomen pelvis was unremarkable. I did discuss with cardiology versus the ST segment changes which were dynamic and worsening throughout the stay in the ER. For now we will continue medical management as he is intermittently hypotensive. Did discuss with the conductor/brakeman who accepted the patient. Also discussed the patient with internal medicine and nephrology. Nephrology agrees that since the patient is making urine and put out 700 mL's in the ER that that he can be medically managed. I do believe that the majority of this is secondary to ischii from hypotension and dehydration. Medication Reconcilliation Current Medication List: was personally reviewed by me Blood Pressure Screening Patient's blood pressure: Low blood pressure Blood pressure disposition: Did not require urgent referral Consults Time Called: 1224 Consulting Physician: Dr. Miller - Nephrology Returned Call: 1230 I reviewed the patient's case with Dr. Miller. He agrees with the treatment plan. Additional Consults: Time Called: 1350 Consulted Physician: Dr. Tucker - [facility] Hospitalist Returned Call: 1405 Additional Comments: I reviewed the patient's case with Dr. Tucker. [facility] will evaluate the patient for further management. Time Called: 1440 Consulted Physician: Dr. Rodriguez - Cardiology Returned Call: 1445 Additional Comments: I reviewed the patient's case with Dr. Rodriguez. He will examine the patient's ECG and laboratory results. 1452: Dr. Rodriguez recommends continued medical intervention, and does not believe the patient meets criteria for STEMI at this time. CALL: 1445 Consulting Physician: Dr. Coronado - Formula Room Worker. Return Call: 1450 -- Reviewed the patient's case. The patient will be evaluated for further management in the ICU. Impression Primary Impression: Acute renal failure Additional Impressions: CVA (cerebral vascular accident) Hyperkalemia Pneumonia Metabolic acidosis Critical Care I have personally spent 75 minutes of critical care time in the direct management of this patient. This includes bedside care, interpretation of diagnostic studies, and testing, discussion with consultants, patient, and family members, and other required patient management activities. This 75 minutes is in excess of all separately billable procedures. Scribe Attestation The scribe's documentation has been prepared under my direction and personally reviewed by me in its entirety. I confirm that the note above accurately reflects all work, treatment, procedures, and medical decision making performed by me. Departure Information Dispostion Being Evaluated By Hospitalist Referrals Sharri Holbrook (PCP) Patient Instructions [facility] Problem Qualifiers Primary Impression: Acute renal failure Acute renal failure type: unspecified Qualified Codes: N17.9 - Acute kidney failure, unspecified Additional Impressions: CVA (cerebral vascular accident) CVA mechanism: unspecified Qualified Codes: I63.9 - Cerebral infarction, unspecified Pneumonia Pneumonia type: due to unspecified organism Laterality: unspecified laterality Lung location: unspecified part of lung Qualified Codes: J18.9 - Pneumonia, unspecified organism
--- NOTE | 2017-05-04 17:27 | Nephrology Consultation ---
Nephrology Consultation Date & Providers Date of Consultation: May 04, 2017. Primary Care Provider: Sharri Holbrook Referring Provider: Reason for Consultation BETY, hyperkalemia History of Present Illness Mr. Memo Moore is a 62-year-old male who presented to the ED at [facility] today with several weeks of diarrhea, decreased appetite, poor oral intake. He was experiencing lightheadedness and had fallen multiple times. He described symptomatic orthostasis as well as notable hypotension. Family had recorded a BP of 70 mmHg systolic. Medical history is notable for a history of gastric bypass, dementia, dyslipidemia, history of GI bleed, atrial fibrillation with SSS and pacer placement, history of CVA and CAD. Meom has some residual left sided weakness from prior CVA. On presentation, the patient was markedly hypotensive. Blood pressure improved with IVF. Laboratory studies were notable for profound hyperkalemia and BETY. Baseline creatinine has been 1.1-1.5 mg/dL. Initial EKG reported possible ST elevations in the lateral leads. Repeat EKG reported improvement. The patient was seen and evaluated in the ICU this afternoon. I discussed the case with the ER attending physician earlier today. The patient is making urine. Saunders was placed in the ED. There is early evidence of improvement in both serum creatinine and serum potassium. Home medications included potassium citrate, lisinopril and furosemide. Past Medical/Surgical History Medical: Coronary artery disease Atrial fibrillation, SSS with pacer History of nephrolithiasis BPH History of CVA with residual left sided weakness History GI bleed Hypertension (1) H/O gastric bypass (2) Total knee replacement status (3) H/O hernia repair Allergies Coded Allergies: Penicillins (Verified Allergy, Severe, SWELLING AND RASH OF HANDS; HAS TOLERATED ANCEF & ROCEPHIN, 05/04/17) Inpatient Medications Current Inpatient Medications Medications (Trade) Dose Ordered Sig/Karissa Route Start Time Stop Time Status Last Admin Dose Admin Acetaminophen (Tylenol Tab) 650 mg Q4H PRN PO 05/04/17 15:30 06/03/17 15:29 Morphine Sulfate (MoRPHine SULFATE INJ) 4 mg Q2H PRN IV 05/04/17 15:30 05/18/17 15:29 Miscellaneous Information (Icu Protocol For Hyperglycemia) 1 ea PRN PRN N/A 05/04/17 15:30 05/06/17 15:29 Aspirin (Ecotrin Tab) 81 mg DAILY PO 05/05/17 09:00 06/04/17 08:59 Atorvastatin Calcium (Lipitor Tab) 80 mg DAILY PO 05/05/17 09:00 06/04/17 08:59 Clonazepam (Klonopin Tab) 2 mg BID PO 05/04/17 21:00 06/03/17 20:59 Donepezil HCl (Aricept Tab) 5 mg HS PO 05/04/17 21:00 06/03/17 20:59 Duloxetine HCl (Cymbalta Cap) 120 mg DAILY PO 05/05/17 09:00 06/04/17 08:59 Hydroxyzine HCl (Vistaril Tab) 25 mg TID PO 05/04/17 21:00 06/03/17 20:59 Pantoprazole Sodium (Protonix Tab) 40 mg BID PO 05/04/17 21:00 06/03/17 20:59 Ropinirole HCl (Requip Tab) 0.5 mg HS PO 05/04/17 21:00 06/03/17 20:59 Thiamine HCl (Vitamin B-1 Tab) 100 mg DAILY PO 05/05/17 09:00 06/04/17 08:59 Warfarin Sodium (Coumadin Tab) 1 mg HS PO 05/04/17 21:00 06/03/17 20:59 Sodium Chloride 1,000 ml @ 200 mls/hr Q5H IV 05/04/17 15:45 06/03/17 15:44 Family History Cancer Diabetes mellitus Heart disease Social History Smoking Status: Never Smoker Drug Use: none Marital Status: Housing Status: lives with family Occupation: retired Review of Systems A complete review of systems was performed. Pertinent positives are noted above. All other systems are negative. Physical Exam Date Time Temp Pulse Resp B/P (MAP) Pulse Ox O2 Delivery O2 Flow Rate FiO2 05/04/17 15:59 62 18 95/64 98 Room Air 05/04/17 14:53 62 20 96/57 98 Room Air 05/04/17 14:17 60 18 91/46 98 Room Air 05/04/17 13:22 62 20 104/52 98 Room Air 05/04/17 12:48 60 20 110/59 96 Room Air 05/04/17 11:44 62 18 91/53 96 05/04/17 11:28 61 05/04/17 11:18 36.6 60 18 79/47 99 Room Air General Appearance: no apparent distress Head: normocephalic, atraumatic Eyes: normal inspection, sclerae normal ENT: normal ENT inspection, pharynx normal Neck: supple, no JVD Respiratory/Chest: lungs clear, normal breath sounds, no respiratory distress, no accessory muscle use Cardiovascular: regular rate, rhythm, no gallop, no murmur Abdomen/GI: non tender, soft Genitourinary - Male: + pertinent finding (Saunders intact) Back: no CVA tenderness Extremities/Musculoskelatal: normal inspection, no pedal edema Neurologic/Psych: alert Skin: normal color Laboratory Results Last 24 Hours Test 05/04/17 12:00 05/04/17 12:05 05/04/17 12:08 05/04/17 12:25 White Blood Count 10.32 K/uL Red Blood Count 4.10 M/uL Hemoglobin 13.3 g/dL Hematocrit 39.2 % Mean Corpuscular Volume 95.6 fL Mean Corpuscular Hemoglobin 32.4 pg Mean Corpuscular Hemoglobin Concent 33.9 g/dl Platelet Count 225 K/uL Mean Platelet Volume 9.1 fL Neutrophils (%) (Auto) 50.6 % Lymphocytes (%) (Auto) 32.8 % Monocytes (%) (Auto) 12.4 % Eosinophils (%) (Auto) 3.4 % Basophils (%) (Auto) 0.6 % Neutrophils # (Auto) 5.23 K/uL Lymphocytes # (Auto) 3.38 K/uL Monocytes # (Auto) 1.28 K/uL Eosinophils # (Auto) 0.35 K/uL Basophils # (Auto) 0.06 K/uL RDW Standard Deviation 51.6 fL RDW Coefficient of Variation 14.8 % Immature Granulocyte % (Auto) 0.2 % Immature Granulocyte # (Auto) 0.02 K/uL Prothrombin Time 33.6 SECONDS Prothromb Time International Ratio 3.3 Sodium Level 135 mmol/L Potassium Level 6.8 mmol/L Chloride Level 106 mmol/L Carbon Dioxide Level 23 mmol/L Anion Gap 6.0 mmol/L 14.0 mmol/L Blood Urea Nitrogen 64 mg/dl Creatinine 5.86 mg/dl Est Creatinine Clear Calc Drug Dose 13.1 ml/min Estimated GFR () 10.8 Estimated GFR (Non- 9.3 BUN/Creatinine Ratio 10.8 Random Glucose 104 mg/dl Calcium Level 9.5 mg/dl Magnesium Level 2.3 mg/dl Total Bilirubin 0.5 mg/dl Direct Bilirubin 0.2 mg/dl Aspartate Amino Transf (AST/SGOT) 22 U/L Alanine Aminotransferase (ALT/SGPT) 25 U/L Alkaline Phosphatase 107 U/L Total Creatine Kinase 60 U/L Creatine Kinase MB 0.9 ng/ml Creatine Kinase MB Ratio 1.5 Troponin I < 0.015 ng/ml Total Protein 8.4 gm/dl Albumin 3.8 gm/dl Bedside Lactic Acid Venous 0.76 mmol/L Bedside Hemoglobin 13.3 g/dl Bedside Hematocrit 39 % Bedside Sodium 137 mEq/L Bedside Potassium 6.8 mEq/L Bedside Chloride 108 mEq/L Bedside Total CO2 23 mEq/l Bedside Blood Urea Nitrogen 59 mg/dl Bedside Creatinine 6.2 mg/dl Bedside Glucose (other) 106 mg/dl Bedside Ionized Calcium (Kory) 1.21 mmol/l Urine Color YELLOW Urine Appearance CLEAR Urine pH 6.0 Urine Specific [place] 1.009 Urine Protein NEG Urine Glucose (UA) NEG Urine Ketones NEG Urine Occult Blood 2+ Urine Nitrite NEG Urine Bilirubin NEG Urine Urobilinogen NEG Urine Leukocyte Esterase NEG Urine WBC (Auto) 1-5 /hpf Urine RBC (Auto) 0-4 /hpf Urine Hyaline Casts (Auto) 10-30 /lpf Urine Epithelial Cells (Auto) 10-20 /lpf Urine Bacteria (Auto) NEG Urine Pathogenic Casts 1-5 GRANULAR CASTS /lpf Test 05/04/17 13:23 Venous Blood pH 7.31 Venous Blood Partial Pressure CO2 55 mmHg Venous Blood Partial Pressure O2 17 mmHg Venous Blood HCO3 27 mmol/L Venous Blood Oxygen Saturation < 60.0 % Venous Blood Base Excess -0.4 mEq/L Sodium Level 143 mmol/L Potassium Level 5.0 mmol/L Chloride Level 110 mmol/L Carbon Dioxide Level mmol/L Anion Gap mmol/L Blood Urea Nitrogen 61 mg/dl Creatinine 5.03 mg/dl Est Creatinine Clear Calc Drug Dose 15.3 ml/min Estimated GFR () 13.0 Estimated GFR (Non- 11.2 BUN/Creatinine Ratio 12.3 Random Glucose 132 mg/dl Calcium Level 9.8 mg/dl Impression (1) Hyperkalemia (2) Acute renal failure (3) Diarrhea (4) Heart disease (5) Kidney stones Mr. Moore is a 62-year-old male with CAD, history of CVA with residual left sided weakness, history of gastric bypass surgery, BPH, history of nephrolithiasis, history of GI bleed, atrial fibrillation with SSS and pacer who was admitted with hypotension, acute kidney injury and severe hyperkalemia with EKG changes. He presented with poor oral intake, diarrhea and symptomatic hypotension. BP is improving with IVF. Serum potassium improving with treatment. Saunders is draining clear urine. UA bland with granular and hyaline cast on microscopy. CT scan did not show obstruction. There is mild dilation of BL renal collecting systems. BETY is consistent with prerenal azotemia and ATN. ATN likely secondary to hypotension/decreased EAV with TEVIN use. Hyperkalemia associated with oral K citrate. There is no current or recent evidence of stone disease. Evaluation for etiology of diarrhea is ongoing. The patient is being monitored in the ICU. Recommendations Acute kidney injury: -- BP improving -- Document I/O's -- Maintain Saunders to gravity -- Monitor metabolic profile Q 4-6 hours -- Renal diet -- Medications are currently appropriately dosed for renal function Hyperkalemia: -- Tele monitor -- Patient received calcium gluconate -- Improving -- K citrate DC'd Hypotension: -- Infectious evaluation, including evaluation for etiology of diarrhea is ongoing -- Improving with IVF -- MAP goal >65
[2017-05-04] MEDS: SODIUM CHLORIDE 0.9% 1000ML 1,000 ML IV SCH ×2 (18:24→23:25)
[2017-05-04 18:32] LABS: CALCIUM 8.6 mg/dl (8.5-10.1); CREATININE 4.4 mg/dl (0.60-1.40); POTASSIUM 5.1 mmol/L (3.5-5.1)
--- NOTE | 2017-05-04 18:53 | Critical Care Consultation ---
Critical Care Consultation Date of Consultation: May 04, 2017. Attending Physician: Matt Tucker M.D. Reason for Consultation: Acute kidney insufficiency with hyperkalemia. History of Present Illness This is 62-year-old gentleman with a history of coronary artery disease status post DC in November 2016, CVA also in November 2016, history of chronic kidney disease, dementia, GI bleed, chronic A. fib, presented to the hospital with 1 week of watery diarrhea but no abdominal pain no hematochezia and no melena. No nausea or vomiting reported. The patient was taking Lasix as well as potassium supplement in addition. He started feeling imbalanced for the past week and his finally decided to bring him to the ER. In the emergency room the patient underwent a workup which revealed acute kidney insufficiency with hyperkalemia that appeared to be due. His baseline creatinine 1.4 and currently is almost 7. His potassium was 7 and treated accordingly. His potassium level dropped down over the day to 4.4. The patient was not anuric, but was in fact having polyuria. According to the patient, he does have history of urolithiasis and followed by urology, and his urine output has been more frequent and usual. He noted that he does have polyuria. The patient appeared to be dry on arrival, with dry mucosa. He was started on IV fluid and received 4 L in the ER, started on 200 mL of normal saline at the present time and had a Saunders catheter in place. He put out 450 mL for the past hour. His potassium has been also corrected and BUN/creatinine start slowly going down. The patient denies any pain, no evidence of GI bleeding and his hematocrit has been stable. Past Medical/Surgical History Coronary artery disease, CVA, A. fib, multiple GI bleed episode, urolithiasis, chronic kidney disease, dementia, hyperlipidemia. Family History Cancer Diabetes mellitus Heart disease Social History The patient is nonsmoker currently, does not have any industrial exposure. Smoking Status: Never Smoker Drug Use: none Marital Status: Housing Status: lives with significant other Occupation Status: retired Allergies Coded Allergies: Penicillins (Verified Allergy, Severe, SWELLING AND RASH OF HANDS; HAS TOLERATED ANCEF & ROCEPHIN, 05/04/17) Home Medications Scheduled Aspirin (Aspirin Ec), 81 MG PO DAILY Atorvastatin (Lipitor), 1 TAB PO DAILY Clonazepam (Klonopin), 1 TAB PO BID Cyanocobalamin (B-12), 1 TAB PO DAILY Donepezil HCl (Donepezil HCl), 1 TAB PO HS Duloxetine HCl (Duloxetine HCl), 2 CAP PO DAILY Furosemide (Furosemide), 1 TAB PO DAILY Hydroxyzine HCl (Hydroxyzine HCl), 1 TAB PO TID Lisinopril (Lisinopril), 1 TAB PO DAILY Metoprolol Succ (Toprol Xl) (Toprol-Xl), 1 TAB PO DAILY Nitroglycerin (Nitrostat), 0.4 MG UT PRN Pantoprazole (Pantoprazole Sodium), 1 TAB PO BID Potassium Citrate (Alkalinizer (Potassium Citrate ER), 1 TAB PO TID Ropinirole Hydrochloride (Requip), 1 TAB PO HS Spironolactone (Spironolactone), 0.5 TAB PO DAILY Thiamine Hcl (Vitamin B-1), 100 MG PO DAILY Warfarin Sod (Warfarin Sodium), 1 TAB PO HS Current Inpatient Medications Current Inpatient Medications Medications (Trade) Dose Ordered Sig/Akrissa Route Start Time Stop Time Status Last Admin Dose Admin Acetaminophen (Tylenol Tab) 650 mg Q4H PRN PO 05/04/17 15:30 06/03/17 15:29 Miscellaneous Information (Icu Protocol For Hyperglycemia) 1 ea PRN PRN N/A 05/04/17 15:30 05/06/17 15:29 Aspirin (Ecotrin Tab) 81 mg DAILY PO 05/05/17 09:00 06/04/17 08:59 Atorvastatin Calcium (Lipitor Tab) 80 mg DAILY PO 05/05/17 09:00 06/04/17 08:59 Clonazepam (Klonopin Tab) 2 mg BID PO 05/04/17 21:00 06/03/17 20:59 Donepezil HCl (Aricept Tab) 5 mg HS PO 05/04/17 21:00 06/03/17 20:59 Hydroxyzine HCl (Vistaril Tab) 25 mg TID PO 05/04/17 21:00 06/03/17 20:59 Pantoprazole Sodium (Protonix Tab) 40 mg BID PO 05/04/17 21:00 06/03/17 20:59 Ropinirole HCl (Requip Tab) 0.5 mg HS PO 05/04/17 21:00 06/03/17 20:59 Thiamine HCl (Vitamin B-1 Tab) 100 mg DAILY PO 05/05/17 09:00 06/04/17 08:59 Warfarin Sodium (Coumadin Tab) 1 mg HS PO 05/04/17 21:00 06/03/17 20:59 Sodium Chloride 1,000 ml @ 200 mls/hr Q5H IV 05/04/17 15:45 06/03/17 15:44 05/04/17 18:24 200 MLS/HR Review of Systems Constitutional: No fever, No chills, No sweats, No weight loss, No weakness, No fatigue, No problem reported Eyes: No worsening of vision, No eye pain, No redness, No discharge, No diplopia, No problem reported ENT: No hearing loss, No unusual epistaxis, No nasal symptoms, No sore throat, No tinnitus, No dental problems, No trouble swallowing, No problem reported Respiratory: No cough, No sputum, No wheezing, No shortness of breath, No dyspnea on exertion, No dyspnea at rest, No hemoptysis, No problem reported Cardiovascular: No chest pain, No orthopnea, No PND, No edema, No claudication , No palpitations, No problem reported Abdomen: + diarrhea Genitourinary - Male: + urinary frequency, + urinary urgency Neurologic: No memory loss, No paralysis, No weakness, No numbness/tingling, No vertigo, No balance problems, No problem reported Psychiatric: No depression symptoms, No anhedonism, No anxiety, No insomnia, No substance abuse, No problem reported Physical Exam Date Time Temp Pulse Resp B/P (MAP) Pulse Ox O2 Delivery O2 Flow Rate FiO2 05/04/17 16:54 36.4 62 18 96/56 96 Room Air 05/04/17 15:59 62 18 95/64 98 Room Air 05/04/17 14:53 62 20 96/57 98 Room Air 05/04/17 14:17 60 18 91/46 98 Room Air 05/04/17 13:22 62 20 104/52 98 Room Air 05/04/17 12:48 60 20 110/59 96 Room Air 05/04/17 11:44 62 18 91/53 96 05/04/17 11:28 61 05/04/17 11:18 36.6 60 18 79/47 99 Room Air General Appearance: no apparent distress Head: normocephalic Eyes: PERRLA, EOMI ENT: other (dry mucosa) Respiratory: breath sounds normal, clear to auscultation Cardiovasular: regular rate/rhythm, normal S1S2, no M/G/R, no murmur, other ( left subclavian pacemaker) Abdomen: non tender, no guarding Back: no CVA tenderness Lower Extremities: no edema Neuro: alert, normal motor exam, normal sensation Psychiatric: normal affect Laboratory Results Last 24 Hours Test 05/04/17 12:00 05/04/17 12:05 05/04/17 12:08 05/04/17 12:25 White Blood Count 10.32 K/uL Red Blood Count 4.10 M/uL Hemoglobin 13.3 g/dL Hematocrit 39.2 % Mean Corpuscular Volume 95.6 fL Mean Corpuscular Hemoglobin 32.4 pg Mean Corpuscular Hemoglobin Concent 33.9 g/dl Platelet Count 225 K/uL Mean Platelet Volume 9.1 fL Neutrophils (%) (Auto) 50.6 % Lymphocytes (%) (Auto) 32.8 % Monocytes (%) (Auto) 12.4 % Eosinophils (%) (Auto) 3.4 % Basophils (%) (Auto) 0.6 % Neutrophils # (Auto) 5.23 K/uL Lymphocytes # (Auto) 3.38 K/uL Monocytes # (Auto) 1.28 K/uL Eosinophils # (Auto) 0.35 K/uL Basophils # (Auto) 0.06 K/uL RDW Standard Deviation 51.6 fL RDW Coefficient of Variation 14.8 % Immature Granulocyte % (Auto) 0.2 % Immature Granulocyte # (Auto) 0.02 K/uL Prothrombin Time 33.6 SECONDS Prothromb Time International Ratio 3.3 Sodium Level 135 mmol/L Potassium Level 6.8 mmol/L Chloride Level 106 mmol/L Carbon Dioxide Level 23 mmol/L Anion Gap 6.0 mmol/L 14.0 mmol/L Blood Urea Nitrogen 64 mg/dl Creatinine 5.86 mg/dl Est Creatinine Clear Calc Drug Dose 13.1 ml/min Estimated GFR () 10.8 Estimated GFR (Non- 9.3 BUN/Creatinine Ratio 10.8 Random Glucose 104 mg/dl Calcium Level 9.5 mg/dl Magnesium Level 2.3 mg/dl Total Bilirubin 0.5 mg/dl Direct Bilirubin 0.2 mg/dl Aspartate Amino Transf (AST/SGOT) 22 U/L Alanine Aminotransferase (ALT/SGPT) 25 U/L Alkaline Phosphatase 107 U/L Total Creatine Kinase 60 U/L Creatine Kinase MB 0.9 ng/ml Creatine Kinase MB Ratio 1.5 Troponin I < 0.015 ng/ml Total Protein 8.4 gm/dl Albumin 3.8 gm/dl Bedside Lactic Acid Venous 0.76 mmol/L Bedside Hemoglobin 13.3 g/dl Bedside Hematocrit 39 % Bedside Sodium 137 mEq/L Bedside Potassium 6.8 mEq/L Bedside Chloride 108 mEq/L Bedside Total CO2 23 mEq/l Bedside Blood Urea Nitrogen 59 mg/dl Bedside Creatinine 6.2 mg/dl Bedside Glucose (other) 106 mg/dl Bedside Ionized Calcium (Kory) 1.21 mmol/l Urine Color YELLOW Urine Appearance CLEAR Urine pH 6.0 Urine Specific [place] 1.009 Urine Protein NEG Urine Glucose (UA) NEG Urine Ketones NEG Urine Occult Blood 2+ Urine Nitrite NEG Urine Bilirubin NEG Urine Urobilinogen NEG Urine Leukocyte Esterase NEG Urine WBC (Auto) 1-5 /hpf Urine RBC (Auto) 0-4 /hpf Urine Hyaline Casts (Auto) 10-30 /lpf Urine Epithelial Cells (Auto) 10-20 /lpf Urine Bacteria (Auto) NEG Urine Pathogenic Casts 1-5 GRANULAR CASTS /lpf Test 05/04/17 13:23 05/04/17 17:55 Venous Blood pH 7.31 Venous Blood Partial Pressure CO2 55 mmHg Venous Blood Partial Pressure O2 17 mmHg Venous Blood HCO3 27 mmol/L Venous Blood Oxygen Saturation < 60.0 % Venous Blood Base Excess -0.4 mEq/L Sodium Level 143 mmol/L 141 mmol/L Potassium Level 5.0 mmol/L 5.1 mmol/L Chloride Level 110 mmol/L 110 mmol/L Carbon Dioxide Level mmol/L 25 mmol/L Anion Gap mmol/L 6.0 mmol/L Blood Urea Nitrogen 61 mg/dl 54 mg/dl Creatinine 5.03 mg/dl 4.40 mg/dl Est Creatinine Clear Calc Drug Dose 15.3 ml/min 17.5 ml/min Estimated GFR () 13.0 15.3 Estimated GFR (Non- 11.2 13.2 BUN/Creatinine Ratio 12.3 12.3 Random Glucose 132 mg/dl 197 mg/dl Calcium Level 9.8 mg/dl 8.6 mg/dl Diagnostic Results UA is positive sediment, no WBC, labs were reviewed personally, abdominal ultrasound is pending. Medications were adjusted personally. Assessment & Plan #1 prerenal acute kidney insufficiency. Likely related to dehydration from diarrhea, the use of Lasix. #2 hyperkalemia secondary to above as well as potassium supplement. #3 history of urolithiasis does not appear to have hydronephrosis at the moment. #4 chronic A. fib, on Coumadin. #5 coronary artery disease, CVA recently. #6 history of GI bleed. Plan: #[address] Bañuelos input. #2 IV fluid with normal saline. #3 check potassium in the morning, his current potassium has been corrected. #4 watch for excessive urine output and match the IV fluid with the urine output. #5 obtain C. difficile antigen.. As the patient being in the hospital recently and now with diarrhea. #6 stop duloxetine, renally excreted. #7 continue the rest of his medications. #8 GI and DVT prophylaxis. #9 oral intake, avoid citrus juice. #10 and this CODE STATUS. #11 discussed with the patient and at the bedside, discussed with the staff also, critical care time was 45 minutes.
[2017-05-04] MEDS: WARFARIN SOD 1 MG TAB PO SCH (20:49)
[2017-05-04] MEDS: DONEPEZIL HCL 5 MG TAB PO SCH (20:50)
[2017-05-04] MEDS: hydrOXYzine HCL 25 MG TAB PO SCH (20:50)
[2017-05-04] MEDS: PANTOprazole SOD 40 MG TAB PO SCH (20:50)
[2017-05-04] MEDS: ROPINIROLE HCL 1 MG TAB PO SCH (20:51)
[2017-05-04] MEDS: CLONAZEPAM 1 MG TAB PO SCH (20:55)
[2017-05-04 22:32] LABS: CALCIUM 8.7 mg/dl (8.5-10.1); CREATININE 4.02 mg/dl (0.60-1.40); PHOSPHORUS 4.4 mg/dl (2.5-4.9); POTASSIUM 5.7 mmol/L (3.5-5.1)
[2017-05-05] VITALS (39 sets, daily range): BP systolic 73–113; BP diastolic 43–68; PULSE 57–64; TEMP 36.4–37; O2SAT 73–100; Ht 177.8 cm; Wt 90.3 kg
[2017-05-05] MEDS ORDERED: CALCIUM GLUCONATE 10% 1,000 MG in SODIUM CHLORIDE 0.9% 50ML 50 ML IV STA (01:18)
[2017-05-05 02:15] LABS: BASO % 0.3 %; BASO ABS # 0.03 K/uL (0-0.2); EOS % 2.6 %; HEMATOCRIT 34.5 % (42-52); HEMOGLOBIN 11.4 g/dL (14.0-18.0); IG# 0.01 K/uL (0.00-0.02); LYMPH % 28.6 %; LYMPH ABS # 3.25 K/uL (1.2-3.4); MEAN CELL VOLUME 96.1 fL (80-100); MEAN CORPUSCULAR HEMOGLOBIN 31.8 pg (25-34); MONO ABS # 1.25 K/uL (0.11-0.59); NEUT % 57.4 %; NEUT ABS # 6.54 K/uL (1.4-6.5); PLATELET COUNT 198 K/uL (130-400); RED CELL DISTRIBUTION WIDTH CV 14.7 % (11.5-14.5); RED CELL DISTRIBUTION WIDTH SD 51.1 fL (36.4-46.3); WHITE BLOOD COUNT 11.38 K/uL (4.8-10.8)
[2017-05-05] MEDS ORDERED: ALBUMIN HUMAN 5% 12.5 GM/250 ML VIAL IV STA (02:45)
[2017-05-05] MEDS ORDERED: NURSING VERBAL MED ORDER ONE (02:45)
[2017-05-05 02:52] LABS: ALBUMIN 2.9 gm/dl (3.4-5.0); CALCIUM 8.8 mg/dl (8.5-10.1); CREATININE 3.55 mg/dl (0.60-1.40); POTASSIUM 5.7 mmol/L (3.5-5.1); TOTAL PROTEIN 6.9 gm/dl (6.4-8.2)
[2017-05-05] MEDS: SODIUM CHLORIDE 0.9% 1000ML 1,000 ML IV SCH ×5 (04:31→21:53)
[2017-05-05] MEDS: ALBUMIN HUMAN 5% 12.5 GM/250 ML VIAL IV SCH ×4 (05:57→23:37)
[2017-05-05] MEDS ORDERED: SODIUM POLYST. SULF SUSP 15G/60ML PO STA (08:28)
[2017-05-05 08:42] LABS: INR 4.2 (0.9-1.1)
[2017-05-05] MEDS: THIAMINE HCL 100 MG TAB PO SCH (08:53)
[2017-05-05] MEDS: hydrOXYzine HCL 25 MG TAB PO SCH ×3 (08:53→20:32)
[2017-05-05] MEDS: ATORVASTATIN 40 MG TAB PO SCH (08:53)
[2017-05-05] MEDS: PANTOprazole SOD 40 MG TAB PO SCH ×2 (08:53→20:32)
[2017-05-05] MEDS: CLONAZEPAM 1 MG TAB PO SCH ×2 (08:55→20:30)
[2017-05-05] MEDS ORDERED: DULOXETINE HCL 60 MG CAP PO SCH (09:00)
[2017-05-05] MEDS ORDERED: ASPIRIN 81 MG ECTAB PO SCH (09:00)
[2017-05-05] MEDS: MAGNESIUM OXIDE 400 MG TAB PO SCH ×2 (09:30→20:32)
[2017-05-05] MEDS: WARFARIN SOD 1 MG TAB PO SCH (09:34)
--- NOTE | 2017-05-05 09:49 | Nephrology Progress Note ---
Nephrology Progress Note Date of Service May 05, 2017. Chief Complaint BETY, hyperkalemia Subjective No acute events overnight. Memo feels well this morning. He denies shortness of breath. No chest pain or palpitations. He had one loose stool overnight. Saunders is draining clear yellow urine. No fevers or chills. Review of Systems A complete review of systems was performed. Pertinent positives are noted above. All other systems are negative. Vital Signs Last 8 Hrs Date Time Temp Pulse Resp B/P (MAP) Pulse Ox O2 Delivery O2 Flow Rate FiO2 05/05/17 07:30 36.6 62 16 98/68 (78) 100 Nasal Cannula 2.0 05/05/17 07:30 Nasal Cannula 2.0 05/05/17 06:33 60 16 101/56 (71) 100 05/05/17 06:31 60 13 104/53 (70) 96 05/05/17 06:15 64 19 106/53 (70) 99 Nasal Cannula 2.0 05/05/17 05:31 60 16 87/46 (60) 99 05/05/17 05:01 60 13 81/49 (60) 99 05/05/17 04:31 60 16 80/43 (55) 99 05/05/17 04:01 36.5 60 17 79/44 (56) 98 Nasal Cannula 2.0 05/05/17 04:00 Nasal Cannula 2.0 05/05/17 03:39 60 13 91/44 (60) 99 05/05/17 03:01 60 16 79/46 (57) 99 05/05/17 02:31 60 17 82/45 (57) 99 05/05/17 02:10 60 21 94/49 (64) 100 Nasal Cannula 2.0 Last Recorded Weight Weight (Kilograms): 85.300 Physical Exam General Appearance: WD/WN, no apparent distress Head: normocephalic, atraumatic Eyes: normal inspection, sclerae normal ENT: normal ENT inspection, pharynx normal, + pertinent finding (oral mucosa slightly dry) Neck: supple, no JVD Respiratory/Chest: lungs clear, no respiratory distress, no accessory muscle use Cardiovascular: regular rate, rhythm, no JVD, + bradycardia Abdomen/GI: non tender, soft Genitourinary - Male: + pertinent finding (Saunders draining clear yellow urine) Extremities/Musculoskelatal: normal inspection, no pedal edema Neurologic/Psych: alert, normal mood/affect Family History Cancer Diabetes mellitus Heart disease Social History Smoking Status: Current every day smoker Drug Use: none Marital Status: Housing Status: lives with family Occupation: retired Laboratory Results Past 24 Hours 05/04/17 12:00 Red Blood Count 4.10, Mean Corpuscular Volume 95.6, Mean Corpuscular Hemoglobin 32.4, Mean Corpuscular Hemoglobin Concent 33.9, Mean Platelet Volume 9.1, Neutrophils (%) (Auto) 50.6, Lymphocytes (%) (Auto) 32.8, Monocytes (%) (Auto) 12.4, Eosinophils (%) (Auto) 3.4, Basophils (%) (Auto) 0.6, Neutrophils # (Auto ) 5.23, Lymphocytes # (Auto) 3.38, Monocytes # (Auto) 1.28, Eosinophils # (Auto ) 0.35, Basophils # (Auto) 0.06 05/05/17 01:59 Red Blood Count 3.59, Mean Corpuscular Volume 96.1, Mean Corpuscular Hemoglobin 31.8, Mean Corpuscular Hemoglobin Concent 33.0, Mean Platelet Volume 9.0, Neutrophils (%) (Auto) 57.4, Lymphocytes (%) (Auto) 28.6, Monocytes (%) (Auto) 11.0, Eosinophils (%) (Auto) 2.6, Basophils (%) (Auto) 0.3, Neutrophils # (Auto ) 6.54, Lymphocytes # (Auto) 3.25, Monocytes # (Auto) 1.25, Eosinophils # (Auto ) 0.30, Basophils # (Auto) 0.03 05/04/17 12:00 05/04/17 13:23 05/04/17 17:55 05/04/17 21:51 05/05/17 01:59 Test 05/04/17 12:00 05/04/17 12:05 05/04/17 12:08 05/04/17 12:25 White Blood Count 10.32 K/uL (4.8-10.8) Red Blood Count 4.10 M/uL (4.7-6.1) Hemoglobin 13.3 g/dL (14.0-18.0) Hematocrit 39.2 % (42-52) Mean Corpuscular Volume 95.6 fL (80-100) Mean Corpuscular Hemoglobin 32.4 pg (25-34) Mean Corpuscular Hemoglobin Concent 33.9 g/dl (32-36) Platelet Count 225 K/uL (130-400) Mean Platelet Volume 9.1 fL (7.4-10.4) Neutrophils (%) (Auto) 50.6 % Lymphocytes (%) (Auto) 32.8 % Monocytes (%) (Auto) 12.4 % Eosinophils (%) (Auto) 3.4 % Basophils (%) (Auto) 0.6 % Neutrophils # (Auto) 5.23 K/uL (1.4-6.5) Lymphocytes # (Auto) 3.38 K/uL (1.2-3.4) Monocytes # (Auto) 1.28 K/uL (0.11-0.59) Eosinophils # (Auto) 0.35 K/uL (0-0.5) Basophils # (Auto) 0.06 K/uL (0-0.2) RDW Standard Deviation 51.6 fL (36.4-46.3) RDW Coefficient of Variation 14.8 % (11.5-14.5) Immature Granulocyte % (Auto) 0.2 % Immature Granulocyte # (Auto) 0.02 K/uL (0.00-0.02) Prothrombin Time 33.6 SECONDS (9.0-12.0) Prothromb Time International Ratio 3.3 (0.9-1.1) Anion Gap 6.0 mmol/L (3-11) 14.0 mmol/L (16-25) Est Creatinine Clear Calc Drug Dose 13.1 ml/min Estimated GFR () 10.8 Estimated GFR (Non- 9.3 BUN/Creatinine Ratio 10.8 (10-20) Calcium Level 9.5 mg/dl (8.5-10.1) Magnesium Level 2.3 mg/dl (1.8-2.4) Total Bilirubin 0.5 mg/dl (0.2-1) Direct Bilirubin 0.2 mg/dl (0-0.2) Aspartate Amino Transf (AST/SGOT) 22 U/L (15-37) Alanine Aminotransferase (ALT/SGPT) 25 U/L (12-78) Alkaline Phosphatase 107 U/L (45-117) Total Creatine Kinase 60 U/L (39-308) Creatine Kinase MB 0.9 ng/ml (0.5-3.6) Creatine Kinase MB Ratio 1.5 (0-3.0) Troponin I < 0.015 ng/ml (0-0.045) Total Protein 8.4 gm/dl (6.4-8.2) Albumin 3.8 gm/dl (3.4-5.0) Bedside Lactic Acid Venous 0.76 mmol/L (0.90-1.70) Bedside Hemoglobin 13.3 g/dl (14.0-18.0) Bedside Hematocrit 39 % (42-52) Bedside Sodium 137 mEq/L (135-144) Bedside Potassium 6.8 mEq/L (3.3-5.0) Bedside Chloride 108 mEq/L (101-112) Bedside Total CO2 23 mEq/l (24-31) Bedside Blood Urea Nitrogen 59 mg/dl (7-18) Bedside Creatinine 6.2 mg/dl (0.6-1.3) Bedside Glucose (other) 106 mg/dl (70-99) Bedside Ionized Calcium (K[place]) 1.21 mmol/l (1.12-1.32) Urine Color YELLOW Urine Appearance CLEAR (CLEAR) Urine pH 6.0 (4.5-7.5) Urine Specific [place] 1.009 (1.000-1.030) Urine Protein NEG (NEG) Urine Glucose (UA) NEG (NEG) Urine Ketones NEG (NEG) Urine Occult Blood 2+ (NEG) Urine Nitrite NEG (NEG) Urine Bilirubin NEG (NEG) Urine Urobilinogen NEG (NEG) Urine Leukocyte Esterase NEG (NEG) Urine WBC (Auto) 1-5 /hpf (0-5) Urine RBC (Auto) 0-4 /hpf (0-4) Urine Hyaline Casts (Auto) 10-30 /lpf (0-5) Urine Epithelial Cells (Auto) 10-20 /lpf (0-5) Urine Bacteria (Auto) NEG (NEG) Urine Pathogenic Casts 1-5 GRANULAR CASTS /lpf (0) Test 05/04/17 13:23 05/04/17 17:55 05/04/17 18:04 05/04/17 21:51 Venous Blood pH 7.31 (7.36-7.41) Venous Blood Partial Pressure CO2 55 mmHg (38.0-50.0) Venous Blood Partial Pressure O2 17 mmHg Venous Blood HCO3 27 mmol/L Venous Blood Oxygen Saturation < 60.0 % Venous Blood Base Excess -0.4 mEq/L Anion Gap mmol/L (3-11) 6.0 mmol/L (3-11) 4.0 mmol/L (3-11) Est Creatinine Clear Calc Drug Dose 15.3 ml/min 17.5 ml/min 19.2 ml/min Estimated GFR () 13.0 15.3 17.1 Estimated GFR (Non- 11.2 13.2 14.7 BUN/Creatinine Ratio 12.3 (10-20) 12.3 (10-20) 12.4 (10-20) Calcium Level 9.8 mg/dl (8.5-10.1) 8.6 mg/dl (8.5-10.1) 8.7 mg/dl (8.5-10.1) Bedside Glucose 167 mg/dl (70-99) Phosphorus Level 4.4 mg/dl (2.5-4.9) Albumin 3.0 gm/dl (3.4-5.0) Test 05/04/17 23:38 05/05/17 01:59 05/05/17 08:08 05/05/17 09:18 Ionized Calcium 1.18 mmol/l (1.12-1.32) 1.19 mmol/l (1.12-1.32) White Blood Count 11.38 K/uL (4.8-10.8) Red Blood Count 3.59 M/uL (4.7-6.1) Hemoglobin 11.4 g/dL (14.0-18.0) Hematocrit 34.5 % (42-52) Mean Corpuscular Volume 96.1 fL (80-100) Mean Corpuscular Hemoglobin 31.8 pg (25-34) Mean Corpuscular Hemoglobin Concent 33.0 g/dl (32-36) Platelet Count 198 K/uL (130-400) Mean Platelet Volume 9.0 fL (7.4-10.4) Neutrophils (%) (Auto) 57.4 % Lymphocytes (%) (Auto) 28.6 % Monocytes (%) (Auto) 11.0 % Eosinophils (%) (Auto) 2.6 % Basophils (%) (Auto) 0.3 % Neutrophils # (Auto) 6.54 K/uL (1.4-6.5) Lymphocytes # (Auto) 3.25 K/uL (1.2-3.4) Monocytes # (Auto) 1.25 K/uL (0.11-0.59) Eosinophils # (Auto) 0.30 K/uL (0-0.5) Basophils # (Auto) 0.03 K/uL (0-0.2) RDW Standard Deviation 51.1 fL (36.4-46.3) RDW Coefficient of Variation 14.7 % (11.5-14.5) Immature Granulocyte % (Auto) 0.1 % Immature Granulocyte # (Auto) 0.01 K/uL (0.00-0.02) Anion Gap 3.0 mmol/L (3-11) Est Creatinine Clear Calc Drug Dose 21.7 ml/min Estimated GFR () 19.8 Estimated GFR (Non- 17.1 BUN/Creatinine Ratio 13.6 (10-20) Calcium Level 8.8 mg/dl (8.5-10.1) Phosphorus Level 4.0 mg/dl (2.5-4.9) Magnesium Level 1.6 mg/dl (1.8-2.4) Total Bilirubin 0.6 mg/dl (0.2-1) Direct Bilirubin 0.2 mg/dl (0-0.2) Aspartate Amino Transf (AST/SGOT) 16 U/L (15-37) Alanine Aminotransferase (ALT/SGPT) 22 U/L (12-78) Alkaline Phosphatase 91 U/L (45-117) Total Protein 6.9 gm/dl (6.4-8.2) Albumin 2.9 gm/dl (3.4-5.0) Prothrombin Time 43.1 SECONDS (9.0-12.0) Prothromb Time International Ratio 4.2 (0.9-1.1) Date/Time Source Procedure Growth Status 05/04/17 16:20 Nasal MRSA DNA Surveillance Screen - Final Specimen Negative for MRSA by DNA Probe Complete Allergies Coded Allergies: Penicillins (Verified Allergy, Severe, SWELLING AND RASH OF HANDS; HAS TOLERATED ANCEF & ROCEPHIN, 05/04/17) Medications Current Inpatient Medications Medications (Trade) Dose Ordered Sig/Karissa Route Start Time Stop Time Status Last Admin Dose Admin Acetaminophen (Tylenol Tab) 650 mg Q4H PRN PO 05/04/17 15:30 06/03/17 15:29 Miscellaneous Information (Icu Protocol For Hyperglycemia) 1 ea PRN PRN N/A 05/04/17 15:30 05/06/17 15:29 Aspirin (Ecotrin Tab) 81 mg DAILY PO 05/05/17 09:00 06/04/17 08:59 Future Hold Atorvastatin Calcium (Lipitor Tab) 80 mg DAILY PO 05/05/17 09:00 06/04/17 08:59 05/05/17 08:53 80 MG Clonazepam (Klonopin Tab) 2 mg BID PO 05/04/17 21:00 06/03/17 20:59 05/05/17 08:55 2 MG Donepezil HCl (Aricept Tab) 5 mg HS PO 05/04/17 21:00 06/03/17 20:59 05/04/17 20:50 5 MG Hydroxyzine HCl (Vistaril Tab) 25 mg TID PO 05/04/17 21:00 06/03/17 20:59 05/05/17 08:53 25 MG Pantoprazole Sodium (Protonix Tab) 40 mg BID PO 05/04/17 21:00 06/03/17 20:59 05/05/17 08:53 40 MG Ropinirole HCl (Requip Tab) 0.5 mg HS PO 05/04/17 21:00 06/03/17 20:59 05/04/17 20:51 0.5 MG Thiamine HCl (Vitamin B-1 Tab) 100 mg DAILY PO 05/05/17 09:00 06/04/17 08:59 05/05/17 08:53 100 MG Warfarin Sodium (Coumadin Tab) 1 mg HS PO 05/04/17 21:00 06/03/17 20:59 05/04/17 20:49 1 MG Sodium Chloride 1,000 ml @ 200 mls/hr Q5H IV 05/04/17 15:45 06/03/17 15:44 05/05/17 08:40 200 MLS/HR Albumin Human (Albumin 5%) 12.5 gm Q6 IV 05/05/17 06:00 05/08/17 05:59 05/05/17 05:57 12.5 GM Magnesium Oxide (Mag-Ox Tab) 800 mg BID PO 05/05/17 09:00 05/05/17 21:01 05/05/17 09:30 800 MG Impression (1) Hyperkalemia (2) Acute renal failure (3) Diarrhea (4) Heart disease (5) Kidney stones Mr. 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 He presented with poor oral intake, diarrhea and symptomatic hypotension. BP is improving with IVF. Chronic hypotension is noted at baseline. Serum potassium slightly improved with treatment but remains elevated. Saunders is draining clear urine. UA bland with granular and hyaline cast on microscopy. CT scan did not show obstruction. There is mild dilation of BL renal collecting systems. Bilateral dilation may be suggestive of some chronic retention associated with BPH. I would maintain Saunders catheter as this time during renal recovery. BETY is consistent with prerenal azotemia and ATN. ATN likely secondary to hypotension/decreased EAV (volume mediated in setting of diarrhea and diuretic use with decreased oral intake) complicated by TEVIN use. Hyperkalemia associated with oral K citrate. There is no current or recent evidence of stone disease. Evaluation for etiology of diarrhea is ongoing. The patient is being monitored in the ICU. Recommendations Acute kidney injury: -- Improving serum creatinine -- Urine output appropriate -- Document I/O's -- Maintain Saunders to gravity -- Monitor metabolic profile Q 6-8 hours: repeat pending -- Renal diet -- Medications are currently appropriately dosed for renal function -- No current indication for HOME INSURANCE AGENT Hyperkalemia: -- Tele monitor: no concerning changes at this time -- If K remains > 5.5, would be reasonable to provide another 1 gm of calcium gluconate -- K citrate DC'd -- Repeat level pending -- Hold Kayexalate for now Hypotension: -- Improving -- Continue NSS @ 200 ml/hr for an additional liter and consider reducing to 125 ml/hr -- Infectious evaluation, including stool, blood and urine cultures pending -- MAP goal >65 Plan of care was discussed with Dr. Yarbrough and Dr. Coronado this morning.
[2017-05-05 10:07] LABS: ALBUMIN 3.1 gm/dl (3.4-5.0); CALCIUM 8.7 mg/dl (8.5-10.1); CREATININE 2.87 mg/dl (0.60-1.40); PHOSPHORUS 3.1 mg/dl (2.5-4.9); POTASSIUM 5.6 mmol/L (3.5-5.1)
--- NOTE | 2017-05-05 10:13 | CARDIOLOGY CONSULTATION ---
DATE OF CONSULTATION: 05/05/2017 REQUESTING: Dr. Matt Tucker. AIRFREIGHT LOADING SUPERVISOR: Haris Yarbrough DO, [facility] Cardiology. REASON FOR CONSULTATION: The patient with acute renal failure and a history of ischemic cardiomyopathy, question recurrent acute coronary syndrome. Dear Dr. Tucker, it was my pleasure to see Memo today in consultation in room #107 in the intensive care unit. As you know, he was admitted with a week plus of diarrhea and had remained on his diuretics. He presented with lightheadedness and dizziness, hypotension, hyperkalemia and acute renal failure. He has been receiving aggressive IV fluid hydration with improvement of both his potassium and his creatinine. His blood pressure remains on the low side, although he remains asymptomatic currently. He denies any chest pain, chest pressure, chest heaviness. He denies any current lightheadedness or dizziness. He notes last week before he came in, he had some falls, likely attributed to lightheadedness and dizziness. He denies any shortness of breath, chest pain or chest pressure. Denies any palpitations, presyncope, syncope, lower extremity edema, cough, fevers, chills, or sweats. He notes his grandchildren had the flu recently. He has not had any other sick contacts. He has had no bloody diarrhea, bleeding, dark stools, black stools. He has not been coughing up any blood. He does have underlying memory issues. The rest of systems otherwise negative. PAST MEDICAL HISTORY: 1. Extensive GI bleed - Fall of 2016. 2. Subsequent stroke with an acute right MCA stroke affecting his left side at [facility] in Fall 2016. 3. LAD anterior wall infarction, treated medically with mild left ventricular dysfunction which is an improvement over his EF in the fall with an LVEF March 2017 of 50%. 4. Chronic mural apical thrombus. 5. Chronic systolic heart failure. 6. History or cardiac tamponade, status post pericardial window - Fall 2016. 7. History of extensive GI bleeds in the past, currently on Coumadin for his LV thrombus. 8. Status post dual chamber pacemaker secondary to bradycardia. 9. History of recurrent syncope, which has resolved. 10. History of prior TIA. 11. History of tobacco abuse. 12. History of gastric bypass. 13. History of multiinfarct dementia. ALLERGIES: PENICILLIN AND AMPICILLIN. SOCIAL HISTORY: He is retired on disability from [employer]. 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 He is . FAMILY HISTORY: Noncontributory. MEDICATIONS: Reviewed in electronic medical record. PHYSICAL EXAMINATION: GENERAL: He is awake, alert, oriented x3. He looks chronically ill. VITAL SIGNS: His heart rate is 62, respirations 16, blood pressure 98/68, and his pulse ox is 100% on 2 liters. NECK: 2+ carotid upstrokes. No evidence of carotid bruits. Jugular venous pressure appeared normal, was not elevated. HEENT: Sclerae is anicteric. His hearing is normal. LUNGS: Clear to auscultation bilaterally. No rales, rhonchi or wheezing. HEART: Regular rate and rhythm. No appreciable murmurs, rubs or gallops. ABDOMEN: Soft, nontender, nondistended, positive bowel sounds. EXTREMITIES: No clubbing, cyanosis or edema. PSYCHIATRIC: His affect appeared appropriate. NEUROLOGIC: He is awake, alert and oriented x3. DIAGNOSTIC STUDIES: Labs - His initial troponin was negative with a creatinine of 5.86 and a potassium of 6.8. Sodium 144, potassium 5.7, BUN 48, creatinine 3.55 this morning, magnesium 1.6. His albumin is 2.9. INR 4.2. White count 11.38, hemoglobin 11.4 with a platelet count of 198. EKG atrial paced anterior infarct and inferior infarcts, age indeterminate, low voltage QRS, chronic ST elevation consistent with aneurysmal formation. Echocardiogram at [place] 04/04/2017 - EF 50%, akinesis and aneurysmal formation at the LV apex, distal anterior wall, distal anterior septal wall, distal inferior septal wall and the distal inferior wall, chronic appearing mural thrombus in the LV apex, mildly reduced left ventricular systolic function, type 1 diastolic dysfunction, dilated right ventricle with moderate RV dysfunction, no significant valvular heart disease. IMPRESSION: 1. Chronic changes of a previous anterior and inferior myocardial infarction in Fall 2016. 2. No evidence of acute coronary syndrome with chronic ST elevation on his echocardiogram consistent with aneurysmal formation. 3. Mild left ventricular dysfunction secondary to ischemic cardiomyopathy. 4. Extensive left anterior descending coronary artery infarct, treated medically Fall 2016. 5. Stroke involving the right middle cerebral artery territory - Fall 2016. 6. History of extensive gastrointestinal bleeds. 7. Status post dual chamber pacemaker secondary to bradycardia. 8. Acute kidney injury on chronic kidney disease secondary to excessive dehydration and the use of diuretics. From a cardiac standpoint, he is stable. His blood pressure is slightly low. He is receiving IV fluids, he is to be rehydrated. His creatinine is improving and his potassium is stable at this point. We will have to watch long-term that he does not have any heart failure signs or symptoms, although his ejection fraction has improved from 35% to 50%. His EKG changes are chronic and related to his underlying aneurysm. In addition, given his mural thrombus, he should remain on anticoagulation if at all possible with a goal INR of 2-3. All of this was discussed with the ICU team as well as the associate business analyst attending. Thank you for allowing us to participate in his care.
--- NOTE | 2017-05-05 16:12 | Progress Note ---
Subjective Date of Service: May 05, 2017. Subjective Pt evaluation today including: conversation w/ patient, physical exam, lab review, review of studies, conversation w/ economics consultant, review of inpatient medication list Pain: no pain PO Intake: clears Voiding: piña catheter in place patient feeling better only two small, loose stools, no blood seen no abdominal pain, no vomiting labs reviewed, Cr down to 2.7, K coming down but still slightly high stool cultures and c diff negative discussed with critical care and Dr. Miller and Dr. Yarbrough Problem List Medical Problems: (1) CVA (cerebral vascular accident) Status: Acute (2) Epigastric abdominal pain Status: Acute (3) Hypotension Status: Acute (4) Metabolic acidosis Status: Acute (5) Pneumonia Status: Acute (6) Substernal chest pain Status: Acute (7) Upper gastrointestinal bleed Status: Acute Review of Systems Constitutional: + weakness, + fatigue Abdomen: + diarrhea All Other Systems: Reviewed and Negative Medications Current Inpatient Medications Medications (Trade) Dose Ordered Sig/Karissa Route Start Time Stop Time Status Last Admin Dose Admin Acetaminophen (Tylenol Tab) 650 mg Q4H PRN PO 05/04/17 15:30 06/03/17 15:29 Miscellaneous Information ([facility] Protocol For Hyperglycemia) 1 ea PRN PRN N/A 05/04/17 15:30 05/06/17 15:29 Aspirin (Ecotrin Tab) 81 mg DAILY PO 05/05/17 09:00 06/04/17 08:59 Future Hold Atorvastatin Calcium (Lipitor Tab) 80 mg DAILY PO 05/05/17 09:00 06/04/17 08:59 05/05/17 08:53 80 MG Clonazepam (Klonopin Tab) 2 mg BID PO 05/04/17 21:00 06/03/17 20:59 05/05/17 08:55 2 MG Donepezil HCl (Aricept Tab) 5 mg HS PO 05/04/17 21:00 06/03/17 20:59 05/04/17 20:50 5 MG Hydroxyzine HCl (Vistaril Tab) 25 mg TID PO 05/04/17 21:00 06/03/17 20:59 05/05/17 08:53 25 MG Pantoprazole Sodium (Protonix Tab) 40 mg BID PO 05/04/17 21:00 06/03/17 20:59 05/05/17 08:53 40 MG Ropinirole HCl (Requip Tab) 0.5 mg HS PO 05/04/17 21:00 06/03/17 20:59 05/04/17 20:51 0.5 MG Thiamine HCl (Vitamin B-1 Tab) 100 mg DAILY PO 05/05/17 09:00 06/04/17 08:59 05/05/17 08:53 100 MG Warfarin Sodium (Coumadin Tab) 1 mg HS PO 05/04/17 21:00 06/03/17 20:59 Future Hold 05/04/17 20:49 1 MG Sodium Chloride 1,000 ml @ 200 mls/hr Q5H IV 05/04/17 15:45 06/03/17 15:44 05/05/17 11:48 200 MLS/HR Albumin Human (Albumin 5%) 12.5 gm Q6 IV 05/05/17 06:00 05/08/17 05:59 05/05/17 11:49 12.5 GM Magnesium Oxide (Mag-Ox Tab) 800 mg BID PO 05/05/17 09:00 05/05/17 21:01 05/05/17 09:30 800 MG Objective Vital Signs Date Time Temp Pulse Resp B/P (MAP) Pulse Ox O2 Delivery O2 Flow Rate FiO2 05/05/17 13:47 36.4 60 16 89/46 (60) 100 Nasal Cannula 2.0 05/05/17 11:31 63 17 101/60 (74) 100 05/05/17 11:30 Nasal Cannula 2.0 05/05/17 11:30 36.4 60 16 101/68 (79) 100 Nasal Cannula 2.0 05/05/17 11:01 62 18 105/58 (74) 100 05/05/17 11:00 64 15 100 05/05/17 10:31 63 22 94/57 (69) 100 05/05/17 10:01 60 20 86/48 (61) 100 05/05/17 10:00 60 23 100 05/05/17 09:31 61 13 98/57 (71) 100 05/05/17 09:01 57 17 85/56 (66) 73 05/05/17 09:00 60 15 92 05/05/17 08:31 60 14 90/54 (66) 100 05/05/17 08:06 60 21 84/45 (58) 97 05/05/17 08:05 60 16 76/47 (57) 05/05/17 08:01 60 17 80/44 (56) 05/05/17 08:00 60 17 99 05/05/17 08:00 Nasal Cannula 05/05/17 07:31 61 18 98/68 (78) 91 05/05/17 07:30 36.6 62 16 98/68 (78) 100 Nasal Cannula 2.0 05/05/17 07:30 Nasal Cannula 2.0 05/05/17 07:01 60 16 88/51 (63) 05/05/17 07:00 60 18 99 05/05/17 06:33 60 16 101/56 (71) 100 05/05/17 06:31 60 13 104/53 (70) 96 05/05/17 06:15 64 19 106/53 (70) 99 Nasal Cannula 2.0 05/05/17 05:31 60 16 87/46 (60) 99 05/05/17 05:01 60 13 81/49 (60) 99 05/05/17 04:31 60 16 80/43 (55) 99 05/05/17 04:01 36.5 60 17 79/44 (56) 98 Nasal Cannula 2.0 05/05/17 04:00 Nasal Cannula 2.0 05/05/17 03:39 60 13 91/44 (60) 99 05/05/17 03:01 60 16 79/46 (57) 99 05/05/17 02:31 60 17 82/45 (57) 99 05/05/17 02:10 60 21 94/49 (64) 100 Nasal Cannula 2.0 05/05/17 01:31 60 18 85/43 (57) 99 05/05/17 01:01 60 18 73/47 (56) 99 05/05/17 00:31 60 16 82/45 (57) 99 Nasal Cannula 2.0 05/05/17 00:01 36.6 60 15 83/49 (60) 100 Nasal Cannula 2.0 05/04/17 23:59 Nasal Cannula 2.0 05/04/17 23:27 60 21 92/53 (66) 100 Nasal Cannula 2.0 05/04/17 22:31 60 14 79/50 (60) 99 05/04/17 22:30 60 25 100 05/04/17 22:17 62 19 95/53 (67) 99 05/04/17 22:00 60 13 100 Nasal Cannula 2.0 05/04/17 21:30 60 15 100 05/04/17 21:26 60 16 88/48 (61) 100 05/04/17 21:00 60 17 99 05/04/17 20:30 60 16 100 05/04/17 20:15 Nasal Cannula 2.0 05/04/17 20:00 60 16 100 05/04/17 19:30 36.4 60 17 100 Nasal Cannula 3.0 05/04/17 19:00 60 18 100 05/04/17 18:30 60 18 94 05/04/17 18:06 60 15 88/48 (61) 96 05/04/17 18:00 60 15 96 05/04/17 17:30 60 14 96 05/04/17 17:00 60 15 96 05/04/17 16:54 36.4 62 18 96/56 96 Room Air 05/04/17 16:30 60 16 Physical Exam General Appearance: WD/WN, no apparent distress Eyes: normal inspection, EOMI, sclerae normal ENT: normal ENT inspection, hearing grossly normal, pharynx normal Neck: supple, no adenopathy, no JVD, trachea midline Respiratory/Chest: chest non-tender, lungs clear, normal breath sounds, no respiratory distress, no accessory muscle use Cardiovascular: regular rate, rhythm (paced), no edema, no gallop, no JVD, no murmur Abdomen: normal bowel sounds, non tender, soft, no organomegaly Extremities: normal range of motion, non-tender, normal inspection, no pedal edema, no calf tenderness, pelvis stable Neurologic/Psychiatric: card feeder II-XII nml as tested, alert, normal mood/affect, oriented x 3, + motor weakness (slightly weak on left, 4+ out of 5) Skin: normal color, warm/dry, no rash Lymphatic: no adenopathy Laboratory Results Last 24 Hours Test 05/04/17 17:55 05/04/17 18:04 05/04/17 21:51 05/04/17 23:38 Sodium Level 141 mmol/L 143 mmol/L Potassium Level 5.1 mmol/L 5.7 mmol/L Chloride Level 110 mmol/L 111 mmol/L Carbon Dioxide Level 25 mmol/L 28 mmol/L Anion Gap 6.0 mmol/L 4.0 mmol/L Blood Urea Nitrogen 54 mg/dl 50 mg/dl Creatinine 4.40 mg/dl 4.02 mg/dl Est Creatinine Clear Calc Drug Dose 17.5 ml/min 19.2 ml/min Estimated GFR () 15.3 17.1 Estimated GFR (Non- 13.2 14.7 BUN/Creatinine Ratio 12.3 12.4 Random Glucose 197 mg/dl 92 mg/dl Calcium Level 8.6 mg/dl 8.7 mg/dl Bedside Glucose 167 mg/dl Phosphorus Level 4.4 mg/dl Albumin 3.0 gm/dl Ionized Calcium 1.18 mmol/l Test 05/05/17 01:59 05/05/17 08:08 05/05/17 09:39 White Blood Count 11.38 K/uL Red Blood Count 3.59 M/uL Hemoglobin 11.4 g/dL Hematocrit 34.5 % Mean Corpuscular Volume 96.1 fL Mean Corpuscular Hemoglobin 31.8 pg Mean Corpuscular Hemoglobin Concent 33.0 g/dl Platelet Count 198 K/uL Mean Platelet Volume 9.0 fL Neutrophils (%) (Auto) 57.4 % Lymphocytes (%) (Auto) 28.6 % Monocytes (%) (Auto) 11.0 % Eosinophils (%) (Auto) 2.6 % Basophils (%) (Auto) 0.3 % Neutrophils # (Auto) 6.54 K/uL Lymphocytes # (Auto) 3.25 K/uL Monocytes # (Auto) 1.25 K/uL Eosinophils # (Auto) 0.30 K/uL Basophils # (Auto) 0.03 K/uL RDW Standard Deviation 51.1 fL RDW Coefficient of Variation 14.7 % Immature Granulocyte % (Auto) 0.1 % Immature Granulocyte # (Auto) 0.01 K/uL Sodium Level 144 mmol/L 143 mmol/L Potassium Level 5.7 mmol/L 5.6 mmol/L Chloride Level 114 mmol/L 114 mmol/L Carbon Dioxide Level 27 mmol/L 25 mmol/L Anion Gap 3.0 mmol/L 4.0 mmol/L Blood Urea Nitrogen 48 mg/dl 38 mg/dl Creatinine 3.55 mg/dl 2.87 mg/dl Est Creatinine Clear Calc Drug Dose 21.7 ml/min 26.8 ml/min Estimated GFR () 19.8 25.7 Estimated GFR (Non- 17.1 22.1 BUN/Creatinine Ratio 13.6 13.2 Random Glucose 83 mg/dl 105 mg/dl Calcium Level 8.8 mg/dl 8.7 mg/dl Ionized Calcium 1.19 mmol/l Phosphorus Level 4.0 mg/dl 3.1 mg/dl Magnesium Level 1.6 mg/dl Total Bilirubin 0.6 mg/dl Direct Bilirubin 0.2 mg/dl Aspartate Amino Transf (AST/SGOT) 16 U/L Alanine Aminotransferase (ALT/SGPT) 22 U/L Alkaline Phosphatase 91 U/L Total Protein 6.9 gm/dl Albumin 2.9 gm/dl 3.1 gm/dl Prothrombin Time 43.1 SECONDS Prothromb Time International Ratio 4.2 Assessment and Plan BETY, prerenal azotemia, possible component of ATN Cr responding well to IV fluids, Cr down to 2.7, increased UO holding nephrotoxins (was on Lasix and lisinopril) nephrology following Hyperkalemia coming down with typical measures continue fluids Kayexalate at discretion of nephrology no arrhythmias Hypotension due to profound dehydration, no evidence of shock BP now preserved after aggressive fluids per cardiology, pressures typically low normal in the office Afib: paced rhythm continue metoprolol, on Coumadin Diarrhea: two loose stools today cultures, c diff negative given that it has been over a month (per patient) would wonder about IBD, malabsorption? would consider GI consult once renal issues resolved transfer to tele
--- NOTE | 2017-05-05 18:08 | Critical Care Progress Note ---
Critical Care Progress Note Date of Service May 05, 2017. Attending Dr. Coronado Subjective The patient feels better, denies any nausea or vomiting, no diarrhea reported, no abdominal pain, he is tolerating oral intake. No events overnight. His blood pressure was borderline normal and required 1 dose of albumin by my colleague. Objective Physical exam on 05/05/2017, the patient appears to improve mental status, no shortness of breath, vital signs are stable, O2 saturation 95% on room air, S1- S2 regular rate and rhythm, lungs with distant breath sounds bilaterally, abdomen is soft and benign, trace edema in the periphery. His labs were reviewed which showed hyperkalemia, improving BUN/creatinine and creatinine, and INR has been elevated at 4.4 although Coumadin has been on hold. Assessment & Plan #1 acute kidney insufficiency, prerenal responding to IV fluid. #2 hypotension due to above. Responding to IV fluid and albumin. #3 chronic A. fib, on Coumadin with coagulopathy and INR of 4.4. 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 #6 diarrhea, could be mechanical due to his previous gastric bypass, no evidence of infectious process. Plan: #1 continue with IV hydration. #[address] Bañuelos input from nephrology. #3 Kayexalate was given due to potassium 5.7 persistently. #4 no evidence of cardiac arrhythmia, however the patient does have a pacemaker and he is currently paced. #5 magnesium has been repleted. #6 urine output seems adequate. #7 hold Coumadin. #8 GI prophylaxis. #9 discussed the case with the staff on rounds, appreciate pharmacy input in this case. #10 appreciate the hospitalist service accepting this patient to regular floor. Agree with the transfer. #11 addressed the CODE STATUS as it has not been addressed yet by the patient and his , both are undecided. CCT 35 minutes. Data Medications: Current Inpatient Medications Medications (Trade) Dose Ordered Sig/Karisas Route Start Time Stop Time Status Last Admin Dose Admin Acetaminophen (Tylenol Tab) 650 mg Q4H PRN PO 05/04/17 15:30 06/03/17 15:29 Miscellaneous Information ([facility] Protocol For Hyperglycemia) 1 ea PRN PRN N/A 05/04/17 15:30 05/06/17 15:29 Aspirin (Ecotrin Tab) 81 mg DAILY PO 05/05/17 09:00 06/04/17 08:59 Future Hold Atorvastatin Calcium (Lipitor Tab) 80 mg DAILY PO 05/05/17 09:00 06/04/17 08:59 05/05/17 08:53 80 MG Clonazepam (Klonopin Tab) 2 mg BID PO 05/04/17 21:00 06/03/17 20:59 05/05/17 08:55 2 MG Donepezil HCl (Aricept Tab) 5 mg HS PO 05/04/17 21:00 06/03/17 20:59 05/04/17 20:50 5 MG Hydroxyzine HCl (Vistaril Tab) 25 mg TID PO 05/04/17 21:00 06/03/17 20:59 05/05/17 16:35 25 MG Pantoprazole Sodium (Protonix Tab) 40 mg BID PO 05/04/17 21:00 06/03/17 20:59 05/05/17 08:53 40 MG Ropinirole HCl (Requip Tab) 0.5 mg HS PO 05/04/17 21:00 06/03/17 20:59 05/04/17 20:51 0.5 MG Thiamine HCl (Vitamin B-1 Tab) 100 mg DAILY PO 05/05/17 09:00 06/04/17 08:59 05/05/17 08:53 100 MG Warfarin Sodium (Coumadin Tab) 1 mg HS PO 05/04/17 21:00 06/03/17 20:59 Future Hold 05/04/17 20:49 1 MG Sodium Chloride 1,000 ml @ 200 mls/hr Q5H IV 05/04/17 15:45 06/03/17 15:44 05/05/17 16:35 200 MLS/HR Albumin Human (Albumin 5%) 12.5 gm Q6 IV 05/05/17 06:00 05/08/17 05:59 05/05/17 11:49 12.5 GM Magnesium Oxide (Mag-Ox Tab) 800 mg BID PO 05/05/17 09:00 05/05/17 21:01 05/05/17 09:30 800 MG I & O: 24-Hour Column 05/06/17 08:00 Intake Total 2127 ml Output Total 900 ml Balance 1227 ml Vital Signs: Date Time Temp Pulse Resp B/P (MAP) Pulse Ox O2 Delivery O2 Flow Rate FiO2 05/05/17 16:00 Nasal Cannula 2.0 05/05/17 16:00 36.4 60 16 99/63 (75) 100 Nasal Cannula 2.0 05/05/17 13:47 36.4 60 16 89/46 (60) 100 Nasal Cannula 2.0 05/05/17 11:31 63 17 101/60 (74) 100 05/05/17 11:30 Nasal Cannula 2.0 05/05/17 11:30 36.4 60 16 101/68 (79) 100 Nasal Cannula 2.0 05/05/17 11:01 62 18 105/58 (74) 100 05/05/17 11:00 64 15 100 05/05/17 10:31 63 22 94/57 (69) 100 05/05/17 10:01 60 20 86/48 (61) 100 05/05/17 10:00 60 23 100 05/05/17 09:31 61 13 98/57 (71) 100 05/05/17 09:01 57 17 85/56 (66) 73 05/05/17 09:00 60 15 92 05/05/17 08:31 60 14 90/54 (66) 100 05/05/17 08:06 60 21 84/45 (58) 97 05/05/17 08:05 60 16 76/47 (57) 05/05/17 08:01 60 17 80/44 (56) 05/05/17 08:00 60 17 99 05/05/17 08:00 Nasal Cannula 05/05/17 07:31 61 18 98/68 (78) 91 05/05/17 07:30 36.6 62 16 98/68 (78) 100 Nasal Cannula 2.0 05/05/17 07:30 Nasal Cannula 2.0 05/05/17 07:01 60 16 88/51 (63) 05/05/17 07:00 60 18 99 05/05/17 06:33 60 16 101/56 (71) 100 05/05/17 06:31 60 13 104/53 (70) 96 05/05/17 06:15 64 19 106/53 (70) 99 Nasal Cannula 2.0 2/23/18 05:31 60 16 87/46 (60) 99 05/05/17 05:01 60 13 81/49 (60) 99 05/05/17 04:31 60 16 80/43 (55) 99 05/05/17 04:01 36.5 60 17 79/44 (56) 98 Nasal Cannula 2.0 05/05/17 04:00 Nasal Cannula 2.0 05/05/17 03:39 60 13 91/44 (60) 99 05/05/17 03:01 60 16 79/46 (57) 99 05/05/17 02:31 60 17 82/45 (57) 99 05/05/17 02:10 60 21 94/49 (64) 100 Nasal Cannula 2.0 05/05/17 01:31 60 18 85/43 (57) 99 05/05/17 01:01 60 18 73/47 (56) 99 05/05/17 00:31 60 16 82/45 (57) 99 Nasal Cannula 2.0 05/05/17 00:01 36.6 60 15 83/49 (60) 100 Nasal Cannula 2.0 05/04/17 23:59 Nasal Cannula 2.0 05/04/17 23:27 60 21 92/53 (66) 100 Nasal Cannula 2.0 05/04/17 22:31 60 14 79/50 (60) 99 05/04/17 22:30 60 25 100 05/04/17 22:17 62 19 95/53 (67) 99 05/04/17 22:00 60 13 100 Nasal Cannula 2.0 05/04/17 21:30 60 15 100 05/04/17 21:26 60 16 88/48 (61) 100 05/04/17 21:00 60 17 99 05/04/17 20:30 60 16 100 05/04/17 20:15 Nasal Cannula 2.0 05/04/17 20:00 60 16 100 05/04/17 19:30 36.4 60 17 100 Nasal Cannula 3.0 05/04/17 19:00 60 18 100 05/04/17 18:30 60 18 94 05/04/17 18:06 60 15 88/48 (61) 96 Laboratory Results: Last 24 Hours Test 05/04/17 21:51 05/04/17 23:38 05/05/17 01:59 05/05/17 08:08 Sodium Level 143 mmol/L 144 mmol/L Potassium Level 5.7 mmol/L 5.7 mmol/L Chloride Level 111 mmol/L 114 mmol/L Carbon Dioxide Level 28 mmol/L 27 mmol/L Anion Gap 4.0 mmol/L 3.0 mmol/L Blood Urea Nitrogen 50 mg/dl 48 mg/dl Creatinine 4.02 mg/dl 3.55 mg/dl Est Creatinine Clear Calc Drug Dose 19.2 ml/min 21.7 ml/min Estimated GFR () 17.1 19.8 Estimated GFR (Non- 14.7 17.1 BUN/Creatinine Ratio 12.4 13.6 Random Glucose 92 mg/dl 83 mg/dl Calcium Level 8.7 mg/dl 8.8 mg/dl Phosphorus Level 4.4 mg/dl 4.0 mg/dl Albumin 3.0 gm/dl 2.9 gm/dl Ionized Calcium 1.18 mmol/l 1.19 mmol/l White Blood Count 11.38 K/uL Red Blood Count 3.59 M/uL Hemoglobin 11.4 g/dL Hematocrit 34.5 % Mean Corpuscular Volume 96.1 fL Mean Corpuscular Hemoglobin 31.8 pg Mean Corpuscular Hemoglobin Concent 33.0 g/dl Platelet Count 198 K/uL Mean Platelet Volume 9.0 fL Neutrophils (%) (Auto) 57.4 % Lymphocytes (%) (Auto) 28.6 % Monocytes (%) (Auto) 11.0 % Eosinophils (%) (Auto) 2.6 % Basophils (%) (Auto) 0.3 % Neutrophils # (Auto) 6.54 K/uL Lymphocytes # (Auto) 3.25 K/uL Monocytes # (Auto) 1.25 K/uL Eosinophils # (Auto) 0.30 K/uL Basophils # (Auto) 0.03 K/uL RDW Standard Deviation 51.1 fL RDW Coefficient of Variation 14.7 % Immature Granulocyte % (Auto) 0.1 % Immature Granulocyte # (Auto) 0.01 K/uL Magnesium Level 1.6 mg/dl Total Bilirubin 0.6 mg/dl Direct Bilirubin 0.2 mg/dl Aspartate Amino Transf (AST/SGOT) 16 U/L Alanine Aminotransferase (ALT/SGPT) 22 U/L Alkaline Phosphatase 91 U/L Total Protein 6.9 gm/dl Prothrombin Time 43.1 SECONDS Prothromb Time International Ratio 4.2 Test 05/05/17 09:39 05/05/17 10:59 Sodium Level 143 mmol/L Potassium Level 5.6 mmol/L Chloride Level 114 mmol/L Carbon Dioxide Level 25 mmol/L Anion Gap 4.0 mmol/L Blood Urea Nitrogen 38 mg/dl Creatinine 2.87 mg/dl Est Creatinine Clear Calc Drug Dose 26.8 ml/min Estimated GFR () 25.7 Estimated GFR (Non- 22.1 BUN/Creatinine Ratio 13.2 Random Glucose 105 mg/dl Calcium Level 8.7 mg/dl Phosphorus Level 3.1 mg/dl Albumin 3.1 gm/dl Bedside Glucose 99 mg/dl
[2017-05-05 19:33] LABS: ALBUMIN 3.3 gm/dl (3.4-5.0); CALCIUM 8.1 mg/dl (8.5-10.1); CREATININE 2.29 mg/dl (0.60-1.40); PHOSPHORUS 2.7 mg/dl (2.5-4.9); POTASSIUM 4.5 mmol/L (3.5-5.1)
[2017-05-05] MEDS: DONEPEZIL HCL 5 MG TAB PO SCH (20:32)
[2017-05-05] MEDS: ROPINIROLE HCL 1 MG TAB PO SCH (20:33)
[2017-05-06] VITALS (7 sets, daily range): BP systolic 95–114; BP diastolic 49–69; PULSE 60–68; TEMP 36.4–37.3; O2SAT 91–98
[2017-05-06] MEDS: ALBUMIN HUMAN 5% 12.5 GM/250 ML VIAL IV SCH ×4 (05:34→23:43)
[2017-05-06] MEDS: SODIUM CHLORIDE 0.9% 1000ML 1,000 ML IV SCH (05:35)
[2017-05-06] MEDS: hydrOXYzine HCL 25 MG TAB PO SCH ×4 (08:10→21:16)
[2017-05-06] MEDS: THIAMINE HCL 100 MG TAB PO SCH (08:10)
[2017-05-06] MEDS: PANTOprazole SOD 40 MG TAB PO SCH ×2 (08:10→21:16)
[2017-05-06] MEDS: ATORVASTATIN 40 MG TAB PO SCH (08:10)
[2017-05-06] MEDS: CLONAZEPAM 1 MG TAB PO SCH ×2 (08:12→21:14)
[2017-05-06 08:58] LABS: BASO % 0.3 %; BASO ABS # 0.03 K/uL (0-0.2); EOS % 3.6 %; EOS ABS # 0.36 K/uL (0-0.5); HEMATOCRIT 28.6 % (42-52); HEMOGLOBIN 9.4 g/dL (14.0-18.0); IG# 0.02 K/uL (0.00-0.02); LYMPH % 31.4 %; LYMPH ABS # 3.15 K/uL (1.2-3.4); MEAN CELL VOLUME 97.3 fL (80-100); MEAN CORPUSCULAR HGB CONC 32.9 g/dl (32-36); MEAN PLATELET VOLUME 9.1 fL (7.4-10.4); MONO % 10.5 %; MONO ABS # 1.05 K/uL (0.11-0.59); NEUT ABS # 5.43 K/uL (1.4-6.5); PLATELET COUNT 163 K/uL (130-400); RED CELL DISTRIBUTION WIDTH CV 14.6 % (11.5-14.5); RED CELL DISTRIBUTION WIDTH SD 51.7 fL (36.4-46.3); WHITE BLOOD COUNT 10.04 K/uL (4.8-10.8)
[2017-05-06 09:07] LABS: INR 2.7 (0.9-1.1)
[2017-05-06 09:30] LABS: ALBUMIN 3.4 gm/dl (3.4-5.0); CALCIUM 8.3 mg/dl (8.5-10.1); CREATININE 1.78 mg/dl (0.60-1.40); POTASSIUM 4.4 mmol/L (3.5-5.1)
[2017-05-06 09:33] LABS: TOTAL PROTEIN 6.2 gm/dl (6.4-8.2)
[2017-05-06] MEDS ORDERED: LOPERAMIDE HCL 2 MG CAP PO PRN (10:00)
--- NOTE | 2017-05-06 11:42 | Nephrology Progress Note ---
Nephrology Progress Note Date of Service May 06, 2017. Chief Complaint BETY, dehydration, BPH Subjective Mr. Moore was seen & examined in his hospital room this morning. He reports continued diarrhea. He currently denies flank pain, angina or uremic symptoms Review of Systems Constitutional: No fever Cardiovascular: No chest pain Respiratory: No dyspnea at rest Abdomen: + diarrhea Extremities: No leg edema A complete review of systems was performed. Pertinent positives are noted above. All other systems are negative. Vital Signs Last 8 Hrs Date Time Temp Pulse Resp B/P (MAP) Pulse Ox O2 Delivery O2 Flow Rate FiO2 05/06/17 08:00 Room Air 05/06/17 07:39 36.4 63 18 95/54 (68) 96 Room Air 05/06/17 05:54 106/53 (70) 05/06/17 05:30 98/53 (68) 05/06/17 04:00 Room Air 05/06/17 03:51 37.3 61 18 103/49 (67) 91 Room Air Last Recorded Weight Weight (Kilograms): 88.800 Physical Exam General Appearance: no apparent distress Head: normocephalic, atraumatic Eyes: PERRL, EOMI Neck: no adenopathy Respiratory/Chest: lungs clear, no respiratory distress Cardiovascular: regular rate, rhythm Abdomen/GI: normal bowel sounds, non tender, soft Genitourinary - Male: + pertinent finding (piña catheter draining clear yellow urine) Extremities/Musculoskelatal: no pedal edema Neurologic/Psych: alert, oriented x 3 Family History Cancer Diabetes mellitus Heart disease Social History Smoking Status: Current every day smoker Drug Use: none Marital Status: Housing Status: lives with family Occupation: retired Laboratory Results Past 24 Hours 05/06/17 08:35 Red Blood Count 2.94, Mean Corpuscular Volume 97.3, Mean Corpuscular Hemoglobin 32.0, Mean Corpuscular Hemoglobin Concent 32.9, Mean Platelet Volume 9.1, Neutrophils (%) (Auto) 54.0, Lymphocytes (%) (Auto) 31.4, Monocytes (%) (Auto) 10.5, Eosinophils (%) (Auto) 3.6, Basophils (%) (Auto) 0.3, Neutrophils # (Auto ) 5.43, Lymphocytes # (Auto) 3.15, Monocytes # (Auto) 1.05, Eosinophils # (Auto ) 0.36, Basophils # (Auto) 0.03 05/05/17 19:02 05/06/17 08:35 Test 05/05/17 19:02 05/06/17 08:35 Anion Gap 2.0 mmol/L (3-11) 5.0 mmol/L (3-11) Est Creatinine Clear Calc Drug Dose 33.6 ml/min 47.0 ml/min Estimated GFR () 33.7 45.7 Estimated GFR (Non- 29.1 39.4 BUN/Creatinine Ratio 13.1 (10-20) 12.0 (10-20) Calcium Level 8.1 mg/dl (8.5-10.1) 8.3 mg/dl (8.5-10.1) Phosphorus Level 2.7 mg/dl (2.5-4.9) Albumin 3.3 gm/dl (3.4-5.0) 3.4 gm/dl (3.4-5.0) White Blood Count 10.04 K/uL (4.8-10.8) Red Blood Count 2.94 M/uL (4.7-6.1) Hemoglobin 9.4 g/dL (14.0-18.0) Hematocrit 28.6 % (42-52) Mean Corpuscular Volume 97.3 fL (80-100) Mean Corpuscular Hemoglobin 32.0 pg (25-34) Mean Corpuscular Hemoglobin Concent 32.9 g/dl (32-36) Platelet Count 163 K/uL (130-400) Mean Platelet Volume 9.1 fL (7.4-10.4) Neutrophils (%) (Auto) 54.0 % Lymphocytes (%) (Auto) 31.4 % Monocytes (%) (Auto) 10.5 % Eosinophils (%) (Auto) 3.6 % Basophils (%) (Auto) 0.3 % Neutrophils # (Auto) 5.43 K/uL (1.4-6.5) Lymphocytes # (Auto) 3.15 K/uL (1.2-3.4) Monocytes # (Auto) 1.05 K/uL (0.11-0.59) Eosinophils # (Auto) 0.36 K/uL (0-0.5) Basophils # (Auto) 0.03 K/uL (0-0.2) RDW Standard Deviation 51.7 fL (36.4-46.3) RDW Coefficient of Variation 14.6 % (11.5-14.5) Immature Granulocyte % (Auto) 0.2 % Immature Granulocyte # (Auto) 0.02 K/uL (0.00-0.02) Prothrombin Time 28.1 SECONDS (9.0-12.0) Prothromb Time International Ratio 2.7 (0.9-1.1) Magnesium Level 1.4 mg/dl (1.8-2.4) Total Bilirubin 0.7 mg/dl (0.2-1) Direct Bilirubin 0.2 mg/dl (0-0.2) Aspartate Amino Transf (AST/SGOT) 10 U/L (15-37) Alanine Aminotransferase (ALT/SGPT) 15 U/L (12-78) Alkaline Phosphatase 73 U/L (45-117) Total Protein 6.2 gm/dl (6.4-8.2) Allergies Coded Allergies: Penicillins (Verified Allergy, Severe, SWELLING AND RASH OF HANDS; HAS TOLERATED ANCEF & ROCEPHIN, 05/04/17) Medications Current Inpatient Medications Medications (Trade) Dose Ordered Sig/Karissa Route Start Time Stop Time Status Last Admin Dose Admin Acetaminophen (Tylenol Tab) 650 mg Q4H PRN PO 05/04/17 15:30 06/03/17 15:29 Miscellaneous Information ([facility] Protocol For Hyperglycemia) 1 ea PRN PRN N/A 05/04/17 15:30 05/06/17 15:29 Aspirin (Ecotrin Tab) 81 mg DAILY PO 05/05/17 09:00 06/04/17 08:59 Future Hold Atorvastatin Calcium (Lipitor Tab) 80 mg DAILY PO 05/05/17 09:00 06/04/17 08:59 05/06/17 08:10 80 MG Clonazepam (Klonopin Tab) 2 mg BID PO 05/04/17 21:00 06/03/17 20:59 05/06/17 08:12 2 MG Donepezil HCl (Aricept Tab) 5 mg HS PO 05/04/17 21:00 06/03/17 20:59 05/05/17 20:32 5 MG Hydroxyzine HCl (Vistaril Tab) 25 mg TID PO 05/04/17 21:00 06/03/17 20:59 05/06/17 08:10 25 MG Pantoprazole Sodium (Protonix Tab) 40 mg BID PO 05/04/17 21:00 06/03/17 20:59 05/06/17 08:10 40 MG Ropinirole HCl (Requip Tab) 0.5 mg HS PO 05/04/17 21:00 06/03/17 20:59 05/05/17 20:33 0.5 MG Thiamine HCl (Vitamin B-1 Tab) 100 mg DAILY PO 05/05/17 09:00 06/04/17 08:59 05/06/17 08:10 100 MG Warfarin Sodium (Coumadin Tab) 1 mg HS PO 05/04/17 21:00 06/03/17 20:59 Future Hold 05/04/17 20:49 1 MG Sodium Chloride 1,000 ml @ 125 mls/hr Q8H IV 05/04/17 15:45 06/03/17 15:44 05/06/17 05:35 125 MLS/HR Albumin Human (Albumin 5%) 12.5 gm Q6 IV 05/05/17 06:00 05/08/17 05:59 05/06/17 05:34 12.5 GM Loperamide HCl (Imodium Cap) 2 mg Q6 PRN PO 05/06/17 10:00 06/05/17 09:59 Impression (1) Hyperkalemia (2) Acute renal failure (3) Diarrhea (4) Heart disease (5) Kidney stones Mr. 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 He presented with poor oral intake, diarrhea and symptomatic hypotension. BP is improving with IVF. Chronic hypotension is noted at baseline. Piña is draining clear urine. UA bland with granular and hyaline cast on microscopy. CT scan did not show obstruction. There is mild dilation of BL renal collecting systems. Bilateral dilation may be suggestive of some chronic retention associated with BPH. I would maintain Piña catheter as this time during renal recovery. BETY is consistent with prerenal azotemia and ATN. ATN likely secondary to hypotension/decreased EAV (volume mediated in setting of diarrhea and diuretic use with decreased oral intake) complicated by TEVIN use. Hyperkalemia associated with oral K citrate. Evaluation for etiology of diarrhea is ongoing. Recommendations ACUTE KIDNEY INJURY: -- Kidney function is improving following piña catheter placement and IV hydration -- Baseline creatinine has been1.5 -- Will change IVF to 0.45 NS due to mild hypernatremia and reduce rate to 100 cc/hr HYPERKALEMIA: -- Resolved. : -- h/o BPH. Abdominal CT shows mild collecting system dilation -- Followed by Dr. Mendez as outpatient -- Consider resuming Prazosin 5 mg daily prior to piña catheter removal DIARRHEA: -- Awaiting GI evaluation
[2017-05-06] MEDS: SODIUM CHLORIDE 0.45% 1000ML 1,000 ML IV SCH ×2 (13:28→22:59)
--- NOTE | 2017-05-06 14:16 | GASTROINTESTINAL CONSULTATION ---
DATE OF CONSULTATION: 05/06/2017 REASON FOR EVALUATION: Diarrhea. HISTORY OF PRESENT ILLNESS: The patient is a 62-year-old who presents with intermittent diarrhea over the last several months, it can sometimes be extremely watery and usually he is having bowel movements up to 7 times a day followed by periods where his stools are relatively normal. There is not really any associated abdominal pain and he has had no fever, nausea or vomiting. The patient suffering recurrent bout and became somewhat dehydrated and has been falling at home and very weak. He resisted coming to the hospital, but Finally his family was able to convince him to come in and he was found to be extremely dehydrated and hypotensive. He has been receiving some fluid resuscitation gently due to his renal failure, but he is responding and his laboratory markers are improving. Since he was hospitalized, he had a stool for C. diff which was negative, MRSA screen was negative, urine culture was no growth. Blood cultures are no growth so far. He had 5 stools recorded yesterday, but none so far today. 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 He had several GI bleeds, one this past fall which was severe and required transfer to [facility]. He has also had coronary disease and chronic atrial fibrillation and he has had a dual chamber pacemaker placed, he had a left anterior WA in November of 2016. He has got kidney stones. He has had a TIA and a stroke with residual left-sided hemiparesis. He continues to smoke. He has got renal failure. MEDICATIONS: Per list. ALLERGIES: PENICILLIN. SOCIAL HISTORY: The patient is and lives with his family. He continues to smoke about a pack a day. FAMILY HISTORY: Positive for diabetes, heart disease and cancer. REVIEW OF SYSTEMS: Positive for some fatigue, weakness, diarrhea, balance problems, left-sided weakness. PHYSICAL EXAMINATION: GENERAL: The patient appears somewhat scruffy, but in no acute distress. VITAL SIGNS: Blood pressure is 96/57, pulse is 60. Room air oxygen saturation is 98%. NEUROLOGIC: Shows left-sided weakness. ABDOMEN: Shows some laparoscopic scars from his bypass surgery for his stomach. Bowel sounds are normal. There are no masses, tenderness, or hepatosplenomegaly. IMPRESSION AND PLAN: The patient is having intermittent diarrhea. Clostridium difficile is negative. I plan on getting a stool culture, stool for Giardia, stool for Norovirus and fecal leukocytes. Will continue to follow the patient and use Imodium for symptomatic relief in the meantime.
--- NOTE | 2017-05-06 14:28 | Progress Note ---
Subjective Date of Service: May 06, 2017. Subjective Pt evaluation today including: conversation w/ patient, physical exam, lab review, conversation w/ cleaning validation consultant, review of inpatient medication list Pain: no pain PO Intake: tolerating clears, hungry for food Voiding: piña catheter in place patient feels well, had two loose BM since last night no chest pain, no dyspnea reviewed labs, Cr improved to 1.7 no growth on blood or urine culture, C diff negative discussed with Dr. Heck, will check stool cultures, Giardia, parasites imodium for symptom relief Problem List Medical Problems: (1) CVA (cerebral vascular accident) Status: Acute (2) Epigastric abdominal pain Status: Acute (3) Hypotension Status: Acute (4) Metabolic acidosis Status: Acute (5) Pneumonia Status: Acute (6) Substernal chest pain Status: Acute (7) Upper gastrointestinal bleed Status: Acute Review of Systems Constitutional: + weakness, + fatigue Abdomen: + diarrhea All Other Systems: Reviewed and Negative Medications Current Inpatient Medications Medications (Trade) Dose Ordered Sig/Karissa Route Start Time Stop Time Status Last Admin Dose Admin Acetaminophen (Tylenol Tab) 650 mg Q4H PRN PO 05/04/17 15:30 06/03/17 15:29 Miscellaneous Information ([facility] Protocol For Hyperglycemia) 1 ea PRN PRN N/A 05/04/17 15:30 05/06/17 15:29 Aspirin (Ecotrin Tab) 81 mg DAILY PO 05/05/17 09:00 06/04/17 08:59 Future Hold Atorvastatin Calcium (Lipitor Tab) 80 mg DAILY PO 05/05/17 09:00 06/04/17 08:59 05/06/17 08:10 80 MG Clonazepam (Klonopin Tab) 2 mg BID PO 05/04/17 21:00 06/03/17 20:59 05/06/17 08:12 2 MG Donepezil HCl (Aricept Tab) 5 mg HS PO 05/04/17 21:00 06/03/17 20:59 05/05/17 20:32 5 MG Hydroxyzine HCl (Vistaril Tab) 25 mg TID PO 05/04/17 21:00 06/03/17 20:59 05/06/17 08:10 25 MG Pantoprazole Sodium (Protonix Tab) 40 mg BID PO 05/04/17 21:00 06/03/17 20:59 05/06/17 08:10 40 MG Ropinirole HCl (Requip Tab) 0.5 mg HS PO 05/04/17 21:00 06/03/17 20:59 05/05/17 20:33 0.5 MG Thiamine HCl (Vitamin B-1 Tab) 100 mg DAILY PO 05/05/17 09:00 06/04/17 08:59 05/06/17 08:10 100 MG Warfarin Sodium (Coumadin Tab) 1 mg HS PO 05/04/17 21:00 06/03/17 20:59 Future Hold 05/04/17 20:49 1 MG Albumin Human (Albumin 5%) 12.5 gm Q6 IV 05/05/17 06:00 05/08/17 05:59 05/06/17 13:28 12.5 GM Loperamide HCl (Imodium Cap) 2 mg Q6 PRN PO 05/06/17 10:00 06/05/17 09:59 Sodium Chloride 1,000 ml @ 100 mls/hr Q10H IV 05/06/17 13:00 06/05/17 12:59 05/06/17 13:28 100 MLS/HR Objective Vital Signs Date Time Temp Pulse Resp B/P (MAP) Pulse Ox O2 Delivery O2 Flow Rate FiO2 05/06/17 12:00 Room Air 05/06/17 11:36 36.9 60 18 112/69 (83) 96 Room Air 05/06/17 08:00 Room Air 05/06/17 07:39 36.4 63 18 95/54 (68) 96 Room Air 05/06/17 05:54 106/53 (70) 05/06/17 05:30 98/53 (68) 05/06/17 04:00 Room Air 05/06/17 03:51 37.3 61 18 103/49 (67) 91 Room Air 05/06/17 00:01 Room Air 05/05/17 23:47 113/65 (81) 05/05/17 23:27 37.0 61 18 102/52 (69) 95 Room Air 05/05/17 20:00 Room Air 05/05/17 18:51 36.7 60 18 101/65 (77) 96 Room Air 05/05/17 16:00 Nasal Cannula 2.0 05/05/17 16:00 36.4 60 16 99/63 (75) 100 Nasal Cannula 2.0 Physical Exam General Appearance: WD/WN, no apparent distress Eyes: normal inspection, EOMI, sclerae normal ENT: hearing grossly normal, + pertinent finding (poor dentition, no teeth) Neck: supple, no adenopathy, no JVD, trachea midline Respiratory/Chest: chest non-tender, lungs clear, normal breath sounds, no respiratory distress, no accessory muscle use Cardiovascular: regular rate, rhythm, no edema, no gallop, no JVD, no murmur Abdomen: normal bowel sounds, non tender, soft, no organomegaly Extremities: normal range of motion, non-tender, normal inspection, no pedal edema, no calf tenderness, pelvis stable 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, no motor/sensory deficits, alert, normal mood/affect, oriented x 3 Skin: normal color, warm/dry, no rash Laboratory Results Last 24 Hours Test 05/05/17 19:02 05/06/17 08:35 Sodium Level 145 mmol/L 146 mmol/L Potassium Level 4.5 mmol/L 4.4 mmol/L Chloride Level 115 mmol/L 117 mmol/L Carbon Dioxide Level 28 mmol/L 25 mmol/L Anion Gap 2.0 mmol/L 5.0 mmol/L Blood Urea Nitrogen 30 mg/dl 21 mg/dl Creatinine 2.29 mg/dl 1.78 mg/dl Est Creatinine Clear Calc Drug Dose 33.6 ml/min 47.0 ml/min Estimated GFR () 33.7 45.7 Estimated GFR (Non- 29.1 39.4 BUN/Creatinine Ratio 13.1 12.0 Random Glucose 103 mg/dl 91 mg/dl Calcium Level 8.1 mg/dl 8.3 mg/dl Phosphorus Level 2.7 mg/dl Albumin 3.3 gm/dl 3.4 gm/dl White Blood Count 10.04 K/uL Red Blood Count 2.94 M/uL Hemoglobin 9.4 g/dL Hematocrit 28.6 % Mean Corpuscular Volume 97.3 fL Mean Corpuscular Hemoglobin 32.0 pg Mean Corpuscular Hemoglobin Concent 32.9 g/dl Platelet Count 163 K/uL Mean Platelet Volume 9.1 fL Neutrophils (%) (Auto) 54.0 % Lymphocytes (%) (Auto) 31.4 % Monocytes (%) (Auto) 10.5 % Eosinophils (%) (Auto) 3.6 % Basophils (%) (Auto) 0.3 % Neutrophils # (Auto) 5.43 K/uL Lymphocytes # (Auto) 3.15 K/uL Monocytes # (Auto) 1.05 K/uL Eosinophils # (Auto) 0.36 K/uL Basophils # (Auto) 0.03 K/uL RDW Standard Deviation 51.7 fL RDW Coefficient of Variation 14.6 % Immature Granulocyte % (Auto) 0.2 % Immature Granulocyte # (Auto) 0.02 K/uL Prothrombin Time 28.1 SECONDS Prothromb Time International Ratio 2.7 Magnesium Level 1.4 mg/dl Total Bilirubin 0.7 mg/dl Direct Bilirubin 0.2 mg/dl Aspartate Amino Transf (AST/SGOT) 10 U/L Alanine Aminotransferase (ALT/SGPT) 15 U/L Alkaline Phosphatase 73 U/L Total Protein 6.2 gm/dl Assessment and Plan BETY, prerenal azotemia, possible component of ATN Cr continues to respond well to fluids, down to 1.7 today continue NSS at 100cc/hr today, reassess need for fluids tomorrow holding nephrotoxins (was on Lasix and lisinopril) nephrology following, appreciate recommendations Hyperkalemia resolved with fluids, with resolving renal function continue to monitor on tele Hypotension - resolved due to profound dehydration, no evidence of shock BP stable after IV resuscitation per cardiology, pressures typically low normal in the office Afib: paced rhythm continue metoprolol, on Coumadin, INR 2.7 Diarrhea: two loose stools since last night appreciate GI consult, checking stool culture, Giardia, ova/parasites Imodium for symptoms C diff negative keep on tele today
[2017-05-06] MEDS: DONEPEZIL HCL 5 MG TAB PO SCH (21:16)
[2017-05-06] MEDS: ROPINIROLE HCL 1 MG TAB PO SCH (21:16)
[2017-05-07] VITALS (12 sets, daily range): BP systolic 105–128; BP diastolic 58–79; PULSE 59–158; TEMP 36.5–36.8; O2SAT 79–98
[2017-05-07] MEDS ORDERED: METOPROLOL SUCC 50MG EXT REL TAB PO STA (02:57)
[2017-05-07 03:23] LABS: BASO % 0.4 %; BASO ABS # 0.04 K/uL (0-0.2); EOS % 4.1 %; EOS ABS # 0.45 K/uL (0-0.5); HEMATOCRIT 28.8 % (42-52); HEMOGLOBIN 9.5 g/dL (14.0-18.0); IG# 0.02 K/uL (0.00-0.02); LYMPH ABS # 3.63 K/uL (1.2-3.4); MEAN CELL VOLUME 96.3 fL (80-100); MEAN CORPUSCULAR HEMOGLOBIN 31.8 pg (25-34); MEAN PLATELET VOLUME 8.9 fL (7.4-10.4); MONO % 11.7 %; MONO ABS # 1.29 K/uL (0.11-0.59); NEUT % 50.6 %; NEUT ABS # 5.56 K/uL (1.4-6.5); PLATELET COUNT 158 K/uL (130-400); RED CELL DISTRIBUTION WIDTH CV 14.3 % (11.5-14.5); RED CELL DISTRIBUTION WIDTH SD 50.2 fL (36.4-46.3); WHITE BLOOD COUNT 10.99 K/uL (4.8-10.8)
[2017-05-07 03:51] LABS: ALBUMIN 3.4 gm/dl (3.4-5.0); CALCIUM 8.4 mg/dl (8.5-10.1); CREATININE 1.37 mg/dl (0.60-1.40); POTASSIUM 3.7 mmol/L (3.5-5.1); TOTAL PROTEIN 6.1 gm/dl (6.4-8.2)
[2017-05-07] MEDS ORDERED: NURSING VERBAL MED ORDER ONE (04:15)
[2017-05-07] MEDS: MAGNESIUM SULFATE 1GM / D5W 1 GM in PREMIXED IN D5W 100 ML IV SCH ×2 (04:19→05:24)
[2017-05-07] MEDS: POTASSIUM CHLR 10 MEQ / WTR 10 MEQ in PREMIXED WATER 100 ML IV SCH ×2 (04:21→05:24)
[2017-05-07] MEDS ORDERED: POTASSIUM CHLORIDE 20 MEQ TABCR PO ONE (04:30)
[2017-05-07] MEDS ORDERED: MAGNESIUM OXIDE 400 MG TAB PO ONE (04:30)
[2017-05-07 05:43] LABS: INR 1.7 (0.9-1.1)
[2017-05-07 05:52] LABS: CALCIUM 8.4 mg/dl (8.5-10.1); CREATININE 1.48 mg/dl (0.60-1.40); POTASSIUM 4.4 mmol/L (3.5-5.1)
[2017-05-07] MEDS: ALBUMIN HUMAN 5% 12.5 GM/250 ML VIAL IV SCH (06:19)
--- NOTE | 2017-05-07 08:59 | Progress Note ---
Subjective Date of Service: May 07, 2017. Subjective Pt evaluation today including: conversation w/ patient, physical exam, lab review, review of inpatient medication list Pain: no pain today PO Intake: poor, ate a 1/3 of breakfast Voiding: piña catheter in place patient had afib with RVR overnight, possible run of V tach given Toprol 50mg x 1 that was being held previously due to hypotension converted back to NSR after some time in NSR this AM, no chest pain or pressure, breathing well still with diarrhea, waiting on reference labs and stool culture labs reviewed, Cr down to 1.4, adequate UO K is 4.4, Hb 9.5 Problem List Medical Problems: (1) CVA (cerebral vascular accident) Status: Acute (2) Epigastric abdominal pain Status: Acute (3) Hypotension Status: Acute (4) Metabolic acidosis Status: Acute (5) Pneumonia Status: Acute (6) Substernal chest pain Status: Acute (7) Upper gastrointestinal bleed Status: Acute Review of Systems Constitutional: + weakness, + fatigue Abdomen: + diarrhea All Other Systems: Reviewed and Negative Medications Current Inpatient Medications Medications (Trade) Dose Ordered Sig/Karissa Route Start Time Stop Time Status Last Admin Dose Admin Acetaminophen (Tylenol Tab) 650 mg Q4H PRN PO 05/04/17 15:30 06/03/17 15:29 Aspirin (Ecotrin Tab) 81 mg DAILY PO 05/05/17 09:00 06/04/17 08:59 Future Hold Atorvastatin Calcium (Lipitor Tab) 80 mg DAILY PO 05/05/17 09:00 06/04/17 08:59 05/06/17 08:10 80 MG Clonazepam (Klonopin Tab) 2 mg BID PO 05/04/17 21:00 06/03/17 20:59 05/06/17 21:14 2 MG Donepezil HCl (Aricept Tab) 5 mg HS PO 05/04/17 21:00 06/03/17 20:59 05/06/17 21:16 5 MG Hydroxyzine HCl (Vistaril Tab) 25 mg TID PO 05/04/17 21:00 06/03/17 20:59 05/06/17 21:16 25 MG Pantoprazole Sodium (Protonix Tab) 40 mg BID PO 05/04/17 21:00 06/03/17 20:59 05/06/17 21:16 40 MG Ropinirole HCl (Requip Tab) 0.5 mg HS PO 05/04/17 21:00 06/03/17 20:59 05/06/17 21:16 0.5 MG Thiamine HCl (Vitamin B-1 Tab) 100 mg DAILY PO 05/05/17 09:00 06/04/17 08:59 05/06/17 08:10 100 MG Warfarin Sodium (Coumadin Tab) 1 mg HS PO 05/04/17 21:00 06/03/17 20:59 Future hold 05/04/17 20:49 1 MG Loperamide HCl (Imodium Cap) 2 mg Q6 PRN PO 05/06/17 10:00 06/05/17 09:59 Sodium Chloride 1,000 ml @ 100 mls/hr Q10H IV 05/06/17 13:00 06/05/17 12:59 05/06/17 22:59 100 MLS/HR Doxazosin Mesylate (Cardura Tab) 2 mg HS PO 05/07/17 21:00 06/06/17 20:59 Objective Vital Signs Date Time Temp Pulse Resp B/P (MAP) Pulse Ox O2 Delivery O2 Flow Rate FiO2 05/07/17 07:49 36.7 62 19 118/72 (87) 98 Room Air 05/07/17 06:27 36.7 64 20 124/78 (93) 98 Room Air 05/07/17 06:19 36.7 62 20 126/75 (92) 98 Room Air 05/07/17 04:15 24 112/74 (87) 05/07/17 04:15 105/70 (82) 05/07/17 04:08 79 Room Air 05/07/17 04:00 Room Air 05/07/17 03:29 36.8 122 18 125/79 (94) 94 Room Air 05/07/17 02:46 36.6 158 16 128/72 (90) 95 Room Air 05/07/17 00:06 36.7 64 16 111/61 (78) 93 Room Air 05/07/17 00:00 36.8 67 18 114/58 (76) 93 Room Air 05/07/17 00:00 Room Air 05/06/17 20:00 Room Air 05/06/17 18:53 36.9 68 18 114/61 (78) 95 Room Air 05/06/17 16:00 Room Air 05/06/17 15:08 36.8 62 19 102/57 (72) 98 Room Air 05/06/17 12:00 Room Air 05/06/17 11:36 36.9 60 18 112/69 (83) 96 Room Air Physical Exam General Appearance: WD/WN, no apparent distress Eyes: normal inspection, EOMI ENT: normal ENT inspection, hearing grossly normal, pharynx normal Neck: supple, no adenopathy, no JVD, trachea midline Respiratory/Chest: chest non-tender, lungs clear, normal breath sounds, no respiratory distress, no accessory muscle use Cardiovascular: regular rate, rhythm, no edema, no gallop, no JVD, no murmur Abdomen: normal bowel sounds, non tender, soft, no organomegaly Extremities: normal range of motion, non-tender, normal inspection, no pedal edema, no calf tenderness, pelvis stable 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, alert, normal mood/affect, oriented x 3, + motor weakness (generalized) Skin: normal color, warm/dry, no rash Laboratory Results Last 24 Hours Test 05/07/17 03:07 05/07/17 05:17 White Blood Count 10.99 K/uL Red Blood Count 2.99 M/uL Hemoglobin 9.5 g/dL Hematocrit 28.8 % Mean Corpuscular Volume 96.3 fL Mean Corpuscular Hemoglobin 31.8 pg Mean Corpuscular Hemoglobin Concent 33.0 g/dl Platelet Count 158 K/uL Mean Platelet Volume 8.9 fL Neutrophils (%) (Auto) 50.6 % Lymphocytes (%) (Auto) 33.0 % Monocytes (%) (Auto) 11.7 % Eosinophils (%) (Auto) 4.1 % Basophils (%) (Auto) 0.4 % Neutrophils # (Auto) 5.56 K/uL Lymphocytes # (Auto) 3.63 K/uL Monocytes # (Auto) 1.29 K/uL Eosinophils # (Auto) 0.45 K/uL Basophils # (Auto) 0.04 K/uL RDW Standard Deviation 50.2 fL RDW Coefficient of Variation 14.3 % Immature Granulocyte % (Auto) 0.2 % Immature Granulocyte # (Auto) 0.02 K/uL Sodium Level 142 mmol/L 143 mmol/L Potassium Level 3.7 mmol/L 4.4 mmol/L Chloride Level 115 mmol/L 116 mmol/L Carbon Dioxide Level 20 mmol/L 22 mmol/L Anion Gap 7.0 mmol/L 5.0 mmol/L Blood Urea Nitrogen 14 mg/dl 13 mg/dl Creatinine 1.37 mg/dl 1.48 mg/dl Est Creatinine Clear Calc Drug Dose 61.1 ml/min 56.6 ml/min Estimated GFR () 62.7 57.1 Estimated GFR (Non- 54.1 49.3 BUN/Creatinine Ratio 10.1 8.6 Random Glucose 85 mg/dl 114 mg/dl Calcium Level 8.4 mg/dl 8.4 mg/dl Magnesium Level 1.3 mg/dl 1.7 mg/dl Total Bilirubin 0.8 mg/dl Direct Bilirubin 0.3 mg/dl Aspartate Amino Transf (AST/SGOT) 11 U/L Alanine Aminotransferase (ALT/SGPT) 13 U/L Alkaline Phosphatase 70 U/L Total Protein 6.1 gm/dl Albumin 3.4 gm/dl Prothrombin Time 17.8 SECONDS Prothromb Time International Ratio 1.7 Assessment and Plan BETY, prerenal azotemia, possible component of ATN Cr continues to respond well to fluids, down to 1.4 today, adequate UO currently on 03/14 NSS due to hypernatremia, Na 143 today holding nephrotoxins (was on Lasix and lisinopril) nephrology following, appreciate recommendations, defer fluid management to them Hyperkalemia resolved with fluids, with resolving renal function continue to monitor on tele, had V tach overnight and Afib RVR K is 4.4 today Afib with RVR, run of V tach on 05/07 converted to NSR overnight with Toprol 50mg PO resume daily Toprol now that BP better K and Mg replaced overnight INR 1.7, Coumadin resumed Hypomagnesemia 1.7 this AM, will give additional 1gm IV today Hypotension - resolved due to profound dehydration, no evidence of shock BP stable after IV resuscitation per cardiology, pressures typically low normal in the office stop IV Albumin Diarrhea: continues to have loose stools appreciate GI consult, checking stool culture, Giardia, ova/parasites, Norovirus Imodium for symptoms C diff negative keep on tele today due to afib RVR and V tach
[2017-05-07] MEDS ORDERED: MAGNESIUM SULFATE 1GM / D5W 1 GM in PREMIXED IN D5W 100 ML IV ONE (09:15)
[2017-05-07] MEDS: SODIUM CHLORIDE 0.45% 1000ML 1,000 ML IV SCH (09:36)
[2017-05-07] MEDS: CLONAZEPAM 1 MG TAB PO SCH ×2 (09:36→21:50)
[2017-05-07] MEDS: PANTOprazole SOD 40 MG TAB PO SCH ×2 (09:37→21:47)
[2017-05-07] MEDS: ATORVASTATIN 40 MG TAB PO SCH (09:37)
[2017-05-07] MEDS: hydrOXYzine HCL 25 MG TAB PO SCH ×3 (09:37→21:47)
[2017-05-07] MEDS: THIAMINE HCL 100 MG TAB PO SCH (09:37)
[2017-05-07] MEDS: METOPROLOL SUCC 50MG EXT REL TAB PO SCH (09:38)
--- NOTE | 2017-05-07 10:40 | PROGRESS NOTE ---
DATE: 05/07/2017 The patient reports he did have a stool yesterday and anticipates having another one soon this morning. So far, stool culture and stool for fecal leukocytes have been uncollected, also ordered stool for Giardia as well as norovirus. Obviously, he is not having profuse diarrhea at this time and he continues to use Imodium as needed for symptomatic relief. IMPRESSION: The patient's diarrhea seems to be somewhat sporadic. He is currently not having a lot of diarrhea and we are awaiting stool cultures. We will continue to monitor his progress and await these results.
--- NOTE | 2017-05-07 11:02 | Nephrology Progress Note ---
Nephrology Progress Note Date of Service May 07, 2017. Chief Complaint BETY, dehydration, BPH Subjective Mr. Moore was seen & examined in his hospital room this morning. He continues to have loose bowel movements. He denies fever, abdominal pain or uremic symptoms. Review of Systems Constitutional: No fever Cardiovascular: No chest pain Abdomen: + diarrhea, No pain, No nausea, No vomiting Extremities: No leg edema A complete review of systems was performed. Pertinent positives are noted above. All other systems are negative. Vital Signs Last 8 Hrs Date Time Temp Pulse Resp B/P (MAP) Pulse Ox O2 Delivery O2 Flow Rate FiO2 05/07/17 07:49 36.7 62 19 118/72 (87) 98 Room Air 05/07/17 06:27 36.7 64 20 124/78 (93) 98 Room Air 05/07/17 06:19 36.7 62 20 126/75 (92) 98 Room Air 05/07/17 04:15 24 112/74 (87) 05/07/17 04:15 105/70 (82) 05/07/17 04:08 79 Room Air 05/07/17 04:00 Room Air 05/07/17 03:29 36.8 122 18 125/79 (94) 94 Room Air Last Recorded Weight Weight (Kilograms): 91.200 Physical Exam General Appearance: no apparent distress Head: normocephalic, atraumatic Eyes: PERRL, EOMI Neck: no adenopathy Respiratory/Chest: lungs clear, no respiratory distress Cardiovascular: regular rate, rhythm Abdomen/GI: normal bowel sounds, non tender, soft Genitourinary - Male: + pertinent finding (piña catheter in place draining clear yellow urine) Extremities/Musculoskelatal: no pedal edema Neurologic/Psych: alert, oriented x 3 Family History Cancer Diabetes mellitus Heart disease Social History Smoking Status: Current every day smoker Drug Use: none Marital Status: Housing Status: lives with family Occupation: retired Laboratory Results Past 24 Hours 05/07/17 03:07 Red Blood Count 2.99, Mean Corpuscular Volume 96.3, Mean Corpuscular Hemoglobin 31.8, Mean Corpuscular Hemoglobin Concent 33.0, Mean Platelet Volume 8.9, Neutrophils (%) (Auto) 50.6, Lymphocytes (%) (Auto) 33.0, Monocytes (%) (Auto) 11.7, Eosinophils (%) (Auto) 4.1, Basophils (%) (Auto) 0.4, Neutrophils # (Auto ) 5.56, Lymphocytes # (Auto) 3.63, Monocytes # (Auto) 1.29, Eosinophils # (Auto ) 0.45, Basophils # (Auto) 0.04 05/07/17 03:07 05/07/17 05:17 Test 05/07/17 03:07 05/07/17 05:17 05/07/17 10:45 White Blood Count 10.99 K/uL (4.8-10.8) Red Blood Count 2.99 M/uL (4.7-6.1) Hemoglobin 9.5 g/dL (14.0-18.0) Hematocrit 28.8 % (42-52) Mean Corpuscular Volume 96.3 fL (80-100) Mean Corpuscular Hemoglobin 31.8 pg (25-34) Mean Corpuscular Hemoglobin Concent 33.0 g/dl (32-36) Platelet Count 158 K/uL (130-400) Mean Platelet Volume 8.9 fL (7.4-10.4) Neutrophils (%) (Auto) 50.6 % Lymphocytes (%) (Auto) 33.0 % Monocytes (%) (Auto) 11.7 % Eosinophils (%) (Auto) 4.1 % Basophils (%) (Auto) 0.4 % Neutrophils # (Auto) 5.56 K/uL (1.4-6.5) Lymphocytes # (Auto) 3.63 K/uL (1.2-3.4) Monocytes # (Auto) 1.29 K/uL (0.11-0.59) Eosinophils # (Auto) 0.45 K/uL (0-0.5) Basophils # (Auto) 0.04 K/uL (0-0.2) RDW Standard Deviation 50.2 fL (36.4-46.3) RDW Coefficient of Variation 14.3 % (11.5-14.5) Immature Granulocyte % (Auto) 0.2 % Immature Granulocyte # (Auto) 0.02 K/uL (0.00-0.02) Anion Gap 7.0 mmol/L (3-11) 5.0 mmol/L (3-11) Est Creatinine Clear Calc Drug Dose 61.1 ml/min 56.6 ml/min Estimated GFR () 62.7 57.1 Estimated GFR (Non- 54.1 49.3 BUN/Creatinine Ratio 10.1 (10-20) 8.6 (10-20) Calcium Level 8.4 mg/dl (8.5-10.1) 8.4 mg/dl (8.5-10.1) Magnesium Level 1.3 mg/dl (1.8-2.4) 1.7 mg/dl (1.8-2.4) Total Bilirubin 0.8 mg/dl (0.2-1) Direct Bilirubin 0.3 mg/dl (0-0.2) Aspartate Amino Transf (AST/SGOT) 11 U/L (15-37) Alanine Aminotransferase (ALT/SGPT) 13 U/L (12-78) Alkaline Phosphatase 70 U/L (45-117) Total Protein 6.1 gm/dl (6.4-8.2) Albumin 3.4 gm/dl (3.4-5.0) Prothrombin Time 17.8 SECONDS (9.0-12.0) Prothromb Time International Ratio 1.7 (0.9-1.1) Allergies Coded Allergies: Penicillins (Verified Allergy, Severe, SWELLING AND RASH OF HANDS; HAS TOLERATED ANCEF & ROCEPHIN, 05/04/17) Medications Current Inpatient Medications Medications (Trade) Dose Ordered Sig/Karissa Route Start Time Stop Time Status Last Admin Dose Admin Acetaminophen (Tylenol Tab) 650 mg Q4H PRN PO 05/04/17 15:30 06/03/17 15:29 Aspirin (Ecotrin Tab) 81 mg DAILY PO 05/05/17 09:00 06/04/17 08:59 Future Hold Atorvastatin Calcium (Lipitor Tab) 80 mg DAILY PO 05/05/17 09:00 06/04/17 08:59 05/07/17 09:37 80 MG Clonazepam (Klonopin Tab) 2 mg BID PO 05/04/17 21:00 06/03/17 20:59 05/07/17 09:36 2 MG Donepezil HCl (Aricept Tab) 5 mg HS PO 05/04/17 21:00 06/03/17 20:59 05/06/17 21:16 5 MG Hydroxyzine HCl (Vistaril Tab) 25 mg TID PO 05/04/17 21:00 06/03/17 20:59 05/07/17 09:37 25 MG Pantoprazole Sodium (Protonix Tab) 40 mg BID PO 05/04/17 21:00 06/03/17 20:59 05/07/17 09:37 40 MG Ropinirole HCl (Requip Tab) 0.5 mg HS PO 05/04/17 21:00 06/03/17 20:59 05/06/17 21:16 0.5 MG Thiamine HCl (Vitamin B-1 Tab) 100 mg DAILY PO 05/05/17 09:00 06/04/17 08:59 05/07/17 09:37 100 MG Warfarin Sodium (Coumadin Tab) 1 mg HS PO 05/04/17 21:00 06/03/17 20:59 Future hold 05/04/17 20:49 1 MG Loperamide HCl (Imodium Cap) 2 mg Q6 PRN PO 05/06/17 10:00 06/05/17 09:59 Sodium Chloride 1,000 ml @ 100 mls/hr Q10H IV 05/06/17 13:00 06/05/17 12:59 05/07/17 09:36 100 MLS/HR Doxazosin Mesylate (Cardura Tab) 2 mg HS PO 05/07/17 21:00 06/06/17 20:59 Metoprolol Succinate (Toprol Xl Tab) 50 mg QAM PO 05/07/17 09:00 06/06/17 08:59 05/07/17 09:38 50 MG Impression (1) Hyperkalemia (2) Acute renal failure (3) Diarrhea (4) Heart disease (5) Kidney stones Mr. Chow H is significant for early dementia, CAD, history of CVA with residual left sided weakness, history of Blaine-en-Y gastric bypass surgery, BPH, history of nephrolithiasis, history of GI bleed, atrial fibrillation with SSS and pacer. He was admitted with hypotension, acute kidney injury and severe hyperkalemia with EKG changes. He presented with poor oral intake, diarrhea and symptomatic hypotension. His blood pressure typically runs 90 - 100 mm HG Piña is draining clear urine. UA bland with granular and hyaline cast on microscopy. CT scan did not show obstruction. There is mild dilation of BL renal collecting systems. Bilateral dilation may be suggestive of some chronic retention associated with BPH. BETY is c/w prerenal azotemia and ATN. ATN likely secondary to hypotension/ decreased EAV (volume mediated in setting of diarrhea and diuretic use with decreased oral intake) complicated by TEVIN use. Hyperkalemia was due to oral K citrate. Evaluation for etiology of diarrhea is ongoing. Recommendations ACUTE KIDNEY INJURY: -- Kidney function is improving following piña catheter placement and IV hydration -- Baseline creatinine has been 1.5 -- Patient is now clinically euvolemic. Kidney function has recovered. Will stop IVF HYPERKALEMIA: -- Resolved. : -- h/o BPH. Abdominal CT shows mild collecting system dilation -- Followed by Dr. Mendez as outpatient -- Resume alpha isamar therapy and monitor bp closely DIARRHEA: -- GI notes reviewed today. Patient is undergoing evaluation for possible infectious etiologies
--- NOTE | 2017-05-07 12:11 | ECHOCARDIOGRAM REPORT ---
*NOTICE TO RECEIVING REPUBLICAN AGENCY This information is strictly Confidential and protected under [place] law. [place] law prohibits you from making any further disclosure of this information unless further disclosure is expressly permitted by the written consent of the person to whom it pertains or is authorized by law. A general authorization for the release of medical or other information is not sufficient for this purpose. Hospital accepts no responsibility if the information is made available to any other person, INCLUDING THE PATIENT. Interpretation Summary * Conclusions -- * 1. Normal left ventricular size with mildly reduced systolic function. EF 45-50%. Large aneurysmal apex. Mild left ventricular hypertrophy. Type 3 diastolic dysfunction suggested. * 2. Mildly dilated right ventricle with normal systolic function. * 3. There is mild mitral regurgitation. * 4. Normal estimated right ventricular systolic pressure; 32mmHg. * 5. Compared to prior transthoracic study on 11/10/2009, LV systolic function is now mildly reduced and aneurysmal apex is present. Procedure Details * A complete two-dimensional transthoracic echocardiogram was performed (2D, M-mode, Doppler and color flow Doppler). Left Ventricle * Normal left ventricular size with mildly reduced systolic function. EF 45-50%. Large aneurysmal apex. Mild left ventricular hypertrophy. Type 3 diastolic dysfunction suggested. Right Ventricle * Mildly dilated right ventricle with normal systolic function. * The right ventricular systolic function is normal as assessed by tricuspid annular plane systolic excursion (TAPSE) (normal >1.5 cm). Atria * The left atrial size is normal. * Right atrial size is normal. * There is no evidence of atrial septal defect, but resolution does not allow assessment for a patent foramen ovale. * The atrial septum is aneurysmal. Mitral Valve * The mitral valve is grossly normal. * There is no mitral valve stenosis. * There is mild mitral regurgitation. Tricuspid Valve * The tricuspid valve is not well visualized. * There is no tricuspid stenosis. * There is mild tricuspid regurgitation. Aortic Valve * The aortic valve is not well visualized. * No hemodynamically significant valvular aortic stenosis. * There is no significant aortic regurgitation. Pulmonic Valve * The pulmonary valve is inadequately visualized, but the Doppler data is adequate for interpretation. * There is no pulmonic valvular stenosis. * There is no significant pulmonary regurgitation. Great Vessels * The aortic root is normal size. Pericardium/Pleural * There is no pericardial effusion. Great Vessels * Normal inferior vena cava size and collapsability with sniff indicates a normal right atrial pressure of 3 mmHg MMode 2D Measurements and Calculations IVSd 1.3 cm IVSs 2.0 cm LVIDd 4.2 cm LVPWd 1.1 cm LVPWs 1.6 cm IVS/LVPW 1.1 EDV(Teich) 80.6 ml EDV(cubed) 76.5 ml % IVS thick 56.9 % % LVPW thick 35.6 % LV mass(C)d 184.8 grams LV mass(C)dI 89.5 grams/m\S\2 Ao root diam 3.8 cm Ao root area 11.5 cm\S\2 LA dimension 4.2 cm LA/Ao 1.1 LVOT diam 2.0 cm LVOT area 3.1 cm\S\2 LVAd ap4 34.7 cm\S\2 LVLd ap4 8.2 cm EDV(MOD-sp4) 125.5 ml EDV(sp4-el) 124.1 ml LVAs ap4 24.6 cm\S\2 LVLs ap4 7.9 cm ESV(MOD-sp4) 63.7 ml ESV(sp4-el) 65.1 ml EF(MOD-sp4) 49.2 % EF(sp4-el) 47.6 % LVAd ap2 37.5 cm\S\2 LVLd ap2 8.6 cm EDV(MOD-sp2) 138.6 ml EDV(sp2-el) 139.1 ml LVAs ap2 25.0 cm\S\2 LVLs ap2 7.8 cm ESV(MOD-sp2) 66.3 ml ESV(sp2-el) 68.2 ml EF(MOD-sp2) 52.2 % EF(sp2-el) 51.0 % LVLd %diff 0.25 % EDV(MOD-bp) 137.5 ml LVLs %diff -5.78 % ESV(MOD-bp) 58.4 ml EF(MOD-bp) 57.5 % SV(MOD-sp4) 61.8 ml SI(MOD-sp4) 29.9 ml/m\S\2 SV(MOD-sp2) 72.3 ml SI(MOD-sp2) 35.0 ml/m\S\2 SV(MOD-bp) 79.1 ml SI(MOD-bp) 38.3 ml/m\S\2 SV(sp4-el) 59.0 ml SI(sp4-el) 28.6 ml/m\S\2 SV(sp2-el) 70.9 ml SI(sp2-el) 34.3 ml/m\S\2 Doppler Measurements and Calculations MV E max placido 114.9 cm/sec MV A max placido 35.6 cm/sec MV E/A 3.2 MV P1/2t max placido 120.8 cm/sec MV P1/2t 53.6 msec MVA(P1/2t) 4.1 cm\S\2 MV dec slope 659.4 cm/sec\S\2 MV dec time 0.14 sec Ao V2 max 100.6 cm/sec Ao max PG 4.0 mmHg Ao max PG (full) 2.6 mmHg DEBI(V,A) 1.9 cm\S\2 DEBI(V,D) 1.9 cm\S\2 LV V1 max PG 1.5 mmHg LV V1 max 60.4 cm/sec MR max placido 512.3 cm/sec MR max PG 105.0 mmHg PA V2 max 77.6 cm/sec PA max PG 2.4 mmHg TR max placido 270.9 cm/sec RVSP(TR) 32.4 mmHg RAP systole 3.0 mmHg
[2017-05-07] MEDS: WARFARIN SOD 1 MG TAB PO SCH (21:46)
[2017-05-07] MEDS: DOXAZosin MESYLATE TAB 2 MG TAB PO SCH (21:46)
[2017-05-07] MEDS: DONEPEZIL HCL 5 MG TAB PO SCH (21:46)
[2017-05-07] MEDS: ROPINIROLE HCL 1 MG TAB PO SCH (21:47)
[2017-05-08] VITALS (9 sets, daily range): BP systolic 91–135; BP diastolic 49–70; PULSE 58–62; TEMP 36.3–37.1; O2SAT 92–97
[2017-05-08 07:48] LABS: BASO % 0.3 %; BASO ABS # 0.03 K/uL (0-0.2); EOS % 5.2 %; EOS ABS # 0.47 K/uL (0-0.5); HEMOGLOBIN 9.8 g/dL (14.0-18.0); IG# 0.01 K/uL (0.00-0.02); LYMPH % 33.6 %; LYMPH ABS # 3.04 K/uL (1.2-3.4); MEAN CELL VOLUME 95.8 fL (80-100); MEAN CORPUSCULAR HEMOGLOBIN 31.3 pg (25-34); MEAN CORPUSCULAR HGB CONC 32.7 g/dl (32-36); MEAN PLATELET VOLUME 9.4 fL (7.4-10.4); MONO % 11.5 %; MONO ABS # 1.04 K/uL (0.11-0.59); NEUT % 49.3 %; NEUT ABS # 4.46 K/uL (1.4-6.5); PLATELET COUNT 172 K/uL (130-400); RED CELL DISTRIBUTION WIDTH CV 13.9 % (11.5-14.5); RED CELL DISTRIBUTION WIDTH SD 47.5 fL (36.4-46.3); WHITE BLOOD COUNT 9.05 K/uL (4.8-10.8)
[2017-05-08] MEDS: THIAMINE HCL 100 MG TAB PO SCH (07:49)
[2017-05-08] MEDS: PANTOprazole SOD 40 MG TAB PO SCH ×2 (07:49→21:07)
[2017-05-08] MEDS: CLONAZEPAM 1 MG TAB PO SCH ×2 (07:49→21:05)
[2017-05-08] MEDS: ATORVASTATIN 40 MG TAB PO SCH (07:49)
[2017-05-08] MEDS: hydrOXYzine HCL 25 MG TAB PO SCH ×3 (07:49→21:07)
[2017-05-08] MEDS: METOPROLOL SUCC 50MG EXT REL TAB PO SCH (07:50)
[2017-05-08 07:56] LABS: INR 1.2 (0.9-1.1)
[2017-05-08 08:18] LABS: ALBUMIN 3.2 gm/dl (3.4-5.0); CALCIUM 8.5 mg/dl (8.5-10.1); CREATININE 1.31 mg/dl (0.60-1.40); POTASSIUM 4.1 mmol/L (3.5-5.1)
[2017-05-08 08:21] LABS: TOTAL PROTEIN 6.2 gm/dl (6.4-8.2)
[2017-05-08] MEDS ORDERED: MAGNESIUM SULFATE 1GM / D5W 1 GM in PREMIXED IN D5W 100 ML IV STA (09:13)
--- NOTE | 2017-05-08 09:29 | Cardiology Follow-Up ---
Subjective General Date of Service: May 08, 2017. Pt evaluation today including: conversation w/ patient, chart review, lab review, review of studies History of Present Illness The patient is a 62 year old male Allergies Coded Allergies: Penicillins (Verified Allergy, Severe, SWELLING AND RASH OF HANDS; HAS TOLERATED ANCEF & ROCEPHIN, 05/04/17) Social History Smoking Status: Never Smoker Hx Tobacco Use In Past Year?: Yes Hx Alcohol Use - Type And Amou: No Hx Substance Use - Type And Am: No Problem List Medical Problems: (1) CVA (cerebral vascular accident) Status: Acute (2) Epigastric abdominal pain Status: Acute (3) Hypotension Status: Acute (4) Metabolic acidosis Status: Acute (5) Pneumonia Status: Acute (6) Substernal chest pain Status: Acute (7) Upper gastrointestinal bleed Status: Acute Review of Systems Respiratory: No shortness of breath, No dyspnea at rest Cardiac: No chest pain, No edema, No palpitations Additional ROS Details: Feels well, OOB to chair Physical Exam Vital Signs Last Vital Signs Documentation Date Time Temp Pulse Resp B/P (MAP) Pulse Ox O2 Delivery O2 Flow Rate FiO2 05/08/17 07:27 36.4 58 18 107/63 (78) 94 Room Air 05/05/17 16:00 2.0 Physical Exam Constitutional: Level of Distress: NAD, chronically ill Lungs: Respiratory effort: no dyspnea Auscultation: breath sounds normal, no wheezing, no rales/crackles, no rhonchi Cardiovascular: Heart Auscultation: RRR, no murmurs, no rubs, no gallops Abdomen: Bowel Sounds: normal Inspection & Palpation: soft, non-distended, no tenderness, guarding & rebound Extremities: no edema Assessment and Plan Assessment and Plan IMPRESSION: 1. Chronic changes of a previous anterior and inferior myocardial infarction in Fall 2016. 2. No evidence of acute coronary syndrome with chronic ST elevation on his echocardiogram consistent with aneurysmal formation. 3. Mild left ventricular dysfunction secondary to ischemic cardiomyopathy. 4. Extensive left anterior descending coronary artery infarct, treated medically Fall 2016. 5. Stroke involving the right middle cerebral artery territory - Fall 2016. 6. History of extensive gastrointestinal bleeds. 7. Status post dual chamber pacemaker secondary to bradycardia. 8. Acute kidney injury on chronic kidney disease secondary to excessive dehydration and the use of diuretics. 9. Hx of Apical aneurysm and Thrombus 10. Afib with RVR Monday into Monday Agree with BB; If hypotension then at least 25mg daily especially with old OH and LV dysfunction Restart coumadin with Hx CVA and prior mural thrombus and Afib when stable Aldactone and lisinopril and lasix on hold for now for ICM--will at least need PRN lasix and instructions for use with before discharge I can not explain why his device did not mode switch out of Afib with RVR the other night. We can interrogate as an outpt. Laboratory Results Last 24 Hours Test 05/07/17 10:45 05/08/17 07:16 White Blood Count 9.05 K/uL Red Blood Count 3.13 M/uL Hemoglobin 9.8 g/dL Hematocrit 30.0 % Mean Corpuscular Volume 95.8 fL Mean Corpuscular Hemoglobin 31.3 pg Mean Corpuscular Hemoglobin Concent 32.7 g/dl Platelet Count 172 K/uL Mean Platelet Volume 9.4 fL Neutrophils (%) (Auto) 49.3 % Lymphocytes (%) (Auto) 33.6 % Monocytes (%) (Auto) 11.5 % Eosinophils (%) (Auto) 5.2 % Basophils (%) (Auto) 0.3 % Neutrophils # (Auto) 4.46 K/uL Lymphocytes # (Auto) 3.04 K/uL Monocytes # (Auto) 1.04 K/uL Eosinophils # (Auto) 0.47 K/uL Basophils # (Auto) 0.03 K/uL RDW Standard Deviation 47.5 fL RDW Coefficient of Variation 13.9 % Immature Granulocyte % (Auto) 0.1 % Immature Granulocyte # (Auto) 0.01 K/uL Prothrombin Time 12.9 SECONDS Prothromb Time International Ratio 1.2 Sodium Level 141 mmol/L Potassium Level 4.1 mmol/L Chloride Level 112 mmol/L Carbon Dioxide Level 22 mmol/L Anion Gap 7.0 mmol/L Blood Urea Nitrogen 9 mg/dl Creatinine 1.31 mg/dl Est Creatinine Clear Calc Drug Dose 64.4 ml/min Estimated GFR () 66.2 Estimated GFR (Non- 57.1 BUN/Creatinine Ratio 6.8 Random Glucose 103 mg/dl Calcium Level 8.5 mg/dl Magnesium Level 1.7 mg/dl Total Bilirubin 0.8 mg/dl Direct Bilirubin 0.2 mg/dl Aspartate Amino Transf (AST/SGOT) 9 U/L Alanine Aminotransferase (ALT/SGPT) 12 U/L Alkaline Phosphatase 69 U/L Total Protein 6.2 gm/dl Albumin 3.2 gm/dl
--- NOTE | 2017-05-08 10:08 | Nephrology Progress Note ---
Nephrology Progress Note Date of Service May 08, 2017. Chief Complaint BETY, dehydration, BPH Subjective Mr. Moore was seen & examined in his hospital room this morning. He had continued diarrhea overnight. Mr. Moore denied fever, abdominal pain. His piña catheter remains in place. He was started back on alpha isamar therapy yesterday. He voices no new medical concerns. Review of Systems Constitutional: No fever Cardiovascular: No chest pain Respiratory: No dyspnea at rest Abdomen: + diarrhea, No pain, No nausea Extremities: No leg edema A complete review of systems was performed. Pertinent positives are noted above. All other systems are negative. Vital Signs Last 8 Hrs Date Time Temp Pulse Resp B/P (MAP) Pulse Ox O2 Delivery O2 Flow Rate FiO2 05/08/17 07:27 36.4 58 18 107/63 (78) 94 Room Air 05/08/17 04:42 36.8 60 16 103/49 (67) 92 05/08/17 04:00 Room Air Last Recorded Weight Weight (Kilograms): 90.300 Physical Exam General Appearance: no apparent distress Head: normocephalic, atraumatic Eyes: PERRL, EOMI Neck: no adenopathy Respiratory/Chest: lungs clear Cardiovascular: regular rate, rhythm Abdomen/GI: non tender, soft Extremities/Musculoskelatal: no pedal edema Neurologic/Psych: alert, oriented x 3 Family History Cancer Diabetes mellitus Heart disease Social History Smoking Status: Current every day smoker Drug Use: none Marital Status: Housing Status: lives with family Occupation: retired Laboratory Results Past 24 Hours 05/08/17 07:16 Red Blood Count 3.13, Mean Corpuscular Volume 95.8, Mean Corpuscular Hemoglobin 31.3, Mean Corpuscular Hemoglobin Concent 32.7, Mean Platelet Volume 9.4, Neutrophils (%) (Auto) 49.3, Lymphocytes (%) (Auto) 33.6, Monocytes (%) (Auto) 11.5, Eosinophils (%) (Auto) 5.2, Basophils (%) (Auto) 0.3, Neutrophils # (Auto ) 4.46, Lymphocytes # (Auto) 3.04, Monocytes # (Auto) 1.04, Eosinophils # (Auto ) 0.47, Basophils # (Auto) 0.03 05/08/17 07:16 Test 05/07/17 10:45 05/08/17 07:16 White Blood Count 9.05 K/uL (4.8-10.8) Red Blood Count 3.13 M/uL (4.7-6.1) Hemoglobin 9.8 g/dL (14.0-18.0) Hematocrit 30.0 % (42-52) Mean Corpuscular Volume 95.8 fL (80-100) Mean Corpuscular Hemoglobin 31.3 pg (25-34) Mean Corpuscular Hemoglobin Concent 32.7 g/dl (32-36) Platelet Count 172 K/uL (130-400) Mean Platelet Volume 9.4 fL (7.4-10.4) Neutrophils (%) (Auto) 49.3 % Lymphocytes (%) (Auto) 33.6 % Monocytes (%) (Auto) 11.5 % Eosinophils (%) (Auto) 5.2 % Basophils (%) (Auto) 0.3 % Neutrophils # (Auto) 4.46 K/uL (1.4-6.5) Lymphocytes # (Auto) 3.04 K/uL (1.2-3.4) Monocytes # (Auto) 1.04 K/uL (0.11-0.59) Eosinophils # (Auto) 0.47 K/uL (0-0.5) Basophils # (Auto) 0.03 K/uL (0-0.2) RDW Standard Deviation 47.5 fL (36.4-46.3) RDW Coefficient of Variation 13.9 % (11.5-14.5) Immature Granulocyte % (Auto) 0.1 % Immature Granulocyte # (Auto) 0.01 K/uL (0.00-0.02) Prothrombin Time 12.9 SECONDS (9.0-12.0) Prothromb Time International Ratio 1.2 (0.9-1.1) Anion Gap 7.0 mmol/L (3-11) Est Creatinine Clear Calc Drug Dose 64.4 ml/min Estimated GFR () 66.2 Estimated GFR (Non- 57.1 BUN/Creatinine Ratio 6.8 (10-20) Calcium Level 8.5 mg/dl (8.5-10.1) Magnesium Level 1.7 mg/dl (1.8-2.4) Total Bilirubin 0.8 mg/dl (0.2-1) Direct Bilirubin 0.2 mg/dl (0-0.2) Aspartate Amino Transf (AST/SGOT) 9 U/L (15-37) Alanine Aminotransferase (ALT/SGPT) 12 U/L (12-78) Alkaline Phosphatase 69 U/L (45-117) Total Protein 6.2 gm/dl (6.4-8.2) Albumin 3.2 gm/dl (3.4-5.0) Allergies Coded Allergies: Penicillins (Verified Allergy, Severe, SWELLING AND RASH OF HANDS; HAS TOLERATED ANCEF & ROCEPHIN, 05/04/17) Medications Current Inpatient Medications Medications (Trade) Dose Ordered Sig/Karissa Route Start Time Stop Time Status Last Admin Dose Admin Acetaminophen (Tylenol Tab) 650 mg Q4H PRN PO 05/04/17 15:30 06/03/17 15:29 Aspirin (Ecotrin Tab) 81 mg DAILY PO 05/05/17 09:00 06/04/17 08:59 Future Hold Atorvastatin Calcium (Lipitor Tab) 80 mg DAILY PO 05/05/17 09:00 06/04/17 08:59 05/08/17 07:49 80 MG Clonazepam (Klonopin Tab) 2 mg BID PO 05/04/17 21:00 06/03/17 20:59 05/08/17 07:49 2 MG Donepezil HCl (Aricept Tab) 5 mg HS PO 05/04/17 21:00 06/03/17 20:59 05/07/17 21:46 5 MG Hydroxyzine HCl (Vistaril Tab) 25 mg TID PO 05/04/17 21:00 06/03/17 20:59 05/08/17 07:49 25 MG Pantoprazole Sodium (Protonix Tab) 40 mg BID PO 05/04/17 21:00 06/03/17 20:59 05/08/17 07:49 40 MG Ropinirole HCl (Requip Tab) 0.5 mg HS PO 05/04/17 21:00 06/03/17 20:59 05/07/17 21:47 0.5 MG Thiamine HCl (Vitamin B-1 Tab) 100 mg DAILY PO 05/05/17 09:00 06/04/17 08:59 05/08/17 07:49 100 MG Warfarin Sodium (Coumadin Tab) 1 mg HS PO 05/04/17 21:00 06/03/17 20:59 Future hold 05/07/17 21:46 1 MG Loperamide HCl (Imodium Cap) 2 mg Q6 PRN PO 05/06/17 10:00 06/05/17 09:59 Doxazosin Mesylate (Cardura Tab) 2 mg HS PO 05/07/17 21:00 06/06/17 20:59 05/07/17 21:46 2 MG Metoprolol Succinate (Toprol Xl Tab) 50 mg QAM PO 05/07/17 09:00 06/06/17 08:59 05/08/17 07:50 50 MG Magnesium Sulfate 1 gm/Prmx 100 ml @ 100 mls/hr NOW STAT IV 05/08/17 09:13 05/08/17 10:12 05/08/17 09:28 100 MLS/HR Impression (1) Hyperkalemia (2) Acute renal failure (3) Diarrhea (4) Heart disease (5) Kidney stones Mr. Moore's PMH is significant for early dementia, CAD, history of CVA with residual left sided weakness, history of Blaine-en-Y gastric bypass surgery, BPH, history of nephrolithiasis, history of GI bleed, atrial fibrillation with SSS and pacer. He was admitted with hypotension, acute kidney injury and severe hyperkalemia with EKG changes. He presented with poor oral intake, diarrhea and symptomatic hypotension. His blood pressure typically runs 90 - 100 mm HG Piña is draining clear urine. UA bland with granular and hyaline cast on microscopy. CT scan did not show obstruction. There is mild dilation of BL renal collecting systems. Bilateral dilation may be suggestive of some chronic retention associated with BPH. BETY is c/w prerenal azotemia and ATN. ATN likely secondary to hypotension/ decreased EAV (volume mediated in setting of diarrhea and diuretic use with decreased oral intake) complicated by TEVIN use. Hyperkalemia was due to oral K citrate. Evaluation for etiology of diarrhea is ongoing. Recommendations ACUTE KIDNEY INJURY: -- Kidney function has recovered following piña catheter placement and IV hydration -- Baseline creatinine has been 1.5 -- Patient is now clinically euvolemic. Kidney function has recovered. Will sign off. Please call if further Nephrology assistance is needed. HYPERKALEMIA: -- Resolved. : -- h/o BPH. Abdominal CT shows mild collecting system dilation -- Followed by Dr. Mendez as outpatient -- Alpha isamar therapy has been restarted. Patient will require voiding trial prior to discharge from the hospital DIARRHEA: -- GI notes reviewed today. Patient is undergoing evaluation for possible infectious etiologies. Stool cultures are pending
--- NOTE | 2017-05-08 16:45 | GASTROENTEROLOGY PROGRESS NOTE ---
DATE: 05/08/2017 The patient still had a loose stool today and 1 during the night. So far, stool for bacterial pathogens, C. diff and fecal leukocytes were all negative. Stool for Giardia and norovirus are still pending. OBJECTIVE: VITAL SIGNS: Blood pressure is 111/68, pulse 62, and temperature is 36.8. White count is 9.05, hemoglobin 9.8, and platelets are 172. IMPRESSION: The patient continues to have some loose stools. Stools so far negative. Fecal leukocytes are negative, which is important indicating that there is no evidence of bacterial or parasitic infection or inflammatory bowel disease. He could still have a viral infection or functional disease. We will await these results that are still pending and we may need to consider a colonoscopy. Plan on checking our office records to find out when he had his last exam. We will continue to follow the patient.
--- NOTE | 2017-05-08 17:24 | Progress Note ---
Subjective Date of Service: May 08, 2017. Subjective Pt evaluation today including: conversation w/ patient, physical exam Patient reports feeling better. Patient would like to be discharged today. Patient however is continuing to have loose stools and had 5 bowel movements. His is at bedside and states that this is more than his usual. She also states that he does not appear to be back to his baseline as he continues to relatively weak. Problem List Medical Problems: (1) CVA (cerebral vascular accident) Status: Acute (2) Epigastric abdominal pain Status: Acute (3) Hypotension Status: Acute (4) Metabolic acidosis Status: Acute (5) Pneumonia Status: Acute (6) Substernal chest pain Status: Acute (7) Upper gastrointestinal bleed Status: Acute Review of Systems Constitutional: No fever, No chills Eyes: No worsening of vision ENT: No hearing loss Respiratory: No cough Cardiac: No chest pain Abdomen: No pain Musculoskeletal: No joint pain Neurologic: No memory loss Psychiatric: No depression symptoms Heme: No abnormal bleeding/bruising Endo: No fatigue Skin: No rash All Other Systems: Reviewed and Negative Medications Current Inpatient Medications Medications (Trade) Dose Ordered Sig/Karissa Route Start Time Stop Time Status Last Admin Dose Admin Acetaminophen (Tylenol Tab) 650 mg Q4H PRN PO 05/04/17 15:30 06/03/17 15:29 Aspirin (Ecotrin Tab) 81 mg DAILY PO 05/05/17 09:00 06/04/17 08:59 Future Hold Atorvastatin Calcium (Lipitor Tab) 80 mg DAILY PO 05/05/17 09:00 06/04/17 08:59 05/08/17 07:49 80 MG Clonazepam (Klonopin Tab) 2 mg BID PO 05/04/17 21:00 06/03/17 20:59 05/08/17 21:05 2 MG Donepezil HCl (Aricept Tab) 5 mg HS PO 05/04/17 21:00 06/03/17 20:59 05/08/17 21:07 5 MG Hydroxyzine HCl (Vistaril Tab) 25 mg TID PO 05/04/17 21:00 06/03/17 20:59 05/08/17 21:07 25 MG Pantoprazole Sodium (Protonix Tab) 40 mg BID PO 05/04/17 21:00 06/03/17 20:59 05/08/17 21:07 40 MG Ropinirole HCl (Requip Tab) 0.5 mg HS PO 05/04/17 21:00 06/03/17 20:59 05/08/17 21:07 0.5 MG Thiamine HCl (Vitamin B-1 Tab) 100 mg DAILY PO 05/05/17 09:00 06/04/17 08:59 05/08/17 07:49 100 MG Warfarin Sodium (Coumadin Tab) 1 mg HS PO 05/04/17 21:00 06/03/17 20:59 Future hold 05/08/17 21:06 1 MG Loperamide HCl (Imodium Cap) 2 mg Q6 PRN PO 05/06/17 10:00 06/05/17 09:59 Doxazosin Mesylate (Cardura Tab) 2 mg HS PO 05/07/17 21:00 06/06/17 20:59 05/08/17 21:05 2 MG Metoprolol Succinate (Toprol Xl Tab) 50 mg QAM PO 05/07/17 09:00 06/06/17 08:59 05/08/17 07:50 50 MG Objective Vital Signs Date Time Temp Pulse Resp B/P (MAP) Pulse Ox O2 Delivery O2 Flow Rate FiO2 05/08/17 15:14 36.8 62 18 111/68 (82) 96 Room Air 05/08/17 14:27 60 97 05/08/17 12:00 Room Air 05/08/17 11:43 36.3 60 19 116/70 (85) 96 Room Air 05/08/17 08:00 Room Air 05/08/17 07:27 36.4 58 18 107/63 (78) 94 Room Air 05/08/17 04:42 36.8 60 16 103/49 (67) 92 05/08/17 04:00 Room Air 05/08/17 00:04 36.6 60 16 107/62 (77) 92 Room Air 05/07/17 23:59 Room Air 05/07/17 20:00 Room Air 05/07/17 19:15 36.5 59 20 116/74 (88) 93 Room Air Physical Exam Comments: General Appearance: WD/WN, no apparent distress Eyes: normal inspection, EOMI ENT: normal ENT inspection, hearing grossly normal, pharynx normal Neck: supple, no adenopathy, no JVD, trachea midline Respiratory/Chest: chest non-tender, lungs clear, normal breath sounds, no respiratory distress, no accessory muscle use Cardiovascular: regular rate, rhythm, no edema, no gallop, no JVD, no murmur Abdomen: normal bowel sounds, non tender, soft, no organomegaly Extremities: normal range of motion, non-tender, normal inspection, no pedal edema, no calf tenderness, pelvis stable Neurologic/Psychiatric: retread technician II-XII nml as tested, alert, normal mood/affect, oriented x 3, + motor weakness (generalized) Skin: normal color, warm/dry, no rash Laboratory Results Last 24 Hours Test 05/08/17 07:16 White Blood Count 9.05 K/uL Red Blood Count 3.13 M/uL Hemoglobin 9.8 g/dL Hematocrit 30.0 % Mean Corpuscular Volume 95.8 fL Mean Corpuscular Hemoglobin 31.3 pg Mean Corpuscular Hemoglobin Concent 32.7 g/dl Platelet Count 172 K/uL Mean Platelet Volume 9.4 fL Neutrophils (%) (Auto) 49.3 % Lymphocytes (%) (Auto) 33.6 % Monocytes (%) (Auto) 11.5 % Eosinophils (%) (Auto) 5.2 % Basophils (%) (Auto) 0.3 % Neutrophils # (Auto) 4.46 K/uL Lymphocytes # (Auto) 3.04 K/uL Monocytes # (Auto) 1.04 K/uL Eosinophils # (Auto) 0.47 K/uL Basophils # (Auto) 0.03 K/uL RDW Standard Deviation 47.5 fL RDW Coefficient of Variation 13.9 % Immature Granulocyte % (Auto) 0.1 % Immature Granulocyte # (Auto) 0.01 K/uL Prothrombin Time 12.9 SECONDS Prothromb Time International Ratio 1.2 Sodium Level 141 mmol/L Potassium Level 4.1 mmol/L Chloride Level 112 mmol/L Carbon Dioxide Level 22 mmol/L Anion Gap 7.0 mmol/L Blood Urea Nitrogen 9 mg/dl Creatinine 1.31 mg/dl Est Creatinine Clear Calc Drug Dose 64.4 ml/min Estimated GFR () 66.2 Estimated GFR (Non- 57.1 BUN/Creatinine Ratio 6.8 Random Glucose 103 mg/dl Calcium Level 8.5 mg/dl Magnesium Level 1.7 mg/dl Total Bilirubin 0.8 mg/dl Direct Bilirubin 0.2 mg/dl Aspartate Amino Transf (AST/SGOT) 9 U/L Alanine Aminotransferase (ALT/SGPT) 12 U/L Alkaline Phosphatase 69 U/L Total Protein 6.2 gm/dl Albumin 3.2 gm/dl Assessment and Plan BETY, prerenal azotemia, possible component of ATN Cr continues to respond well to fluids, down to 1.31 today, adequate UO currently Na 141 today, no longer on IV fluids holding nephrotoxins (was on Lasix and lisinopril) nephrology following, appreciate recommendations. They have signed off case as this appears to have resolved. Hyperkalemia resolved with fluids, with resolving renal function continue to monitor on tele. Afib with RVR, run of V tach on 05/07 converted to NSR with Toprol 50mg PO continue daily Toprol now that BP better INR remains subtherapeutic. will continue home dose of Coumadin, Hypomagnesemia 1.7 this AM, will give additional 1gm IV today Hypotension - resolved due to profound dehydration, no evidence of shock BP stable after IV resuscitation per cardiology, pressures typically low normal in the office stop IV Albumin Diarrhea: continues to have loose stools appreciate GI consult, checking stool culture, Giardia, ova/parasites, Norovirus Imodium for symptoms C diff negative Awaiting test results. As patient continues to have symptoms today of loose stools, and this is likely the culprit to his BETY. will continue to monitor his diarrhea. Will maintain on tele as patient recently returned to NSR to monitor if he returns to A. fib. Continued [facility] stay due to: abnormal vital signs, inadequate po fluid intake Discharge planning: home
[2017-05-08] MEDS: DOXAZosin MESYLATE TAB 2 MG TAB PO SCH (21:05)
[2017-05-08] MEDS: WARFARIN SOD 1 MG TAB PO SCH (21:06)
[2017-05-08] MEDS: ROPINIROLE HCL 1 MG TAB PO SCH (21:07)
[2017-05-08] MEDS: DONEPEZIL HCL 5 MG TAB PO SCH (21:07)
[2017-05-09 03:11] VITALS: BP 98/56; PULSE 62; TEMP 37.8; O2SAT 92
[2017-05-09 04:00] VITALS: O2SAT 92
[2017-05-09 07:46] LABS: BASO % 0.4 %; BASO ABS # 0.04 K/uL (0-0.2); EOS % 5.7 %; EOS ABS # 0.53 K/uL (0-0.5); HEMATOCRIT 31.2 % (42-52); HEMOGLOBIN 10.3 g/dL (14.0-18.0); IG# 0.02 K/uL (0.00-0.02); LYMPH % 31.6 %; LYMPH ABS # 2.93 K/uL (1.2-3.4); MEAN CELL VOLUME 94.8 fL (80-100); MEAN CORPUSCULAR HEMOGLOBIN 31.3 pg (25-34); MEAN PLATELET VOLUME 9.6 fL (7.4-10.4); MONO % 11.7 %; MONO ABS # 1.08 K/uL (0.11-0.59); NEUT % 50.4 %; NEUT ABS # 4.66 K/uL (1.4-6.5); PLATELET COUNT 186 K/uL (130-400); RED CELL DISTRIBUTION WIDTH CV 13.8 % (11.5-14.5); RED CELL DISTRIBUTION WIDTH SD 47.5 fL (36.4-46.3); WHITE BLOOD COUNT 9.26 K/uL (4.8-10.8)
[2017-05-09 07:47] VITALS: BP 95/58; PULSE 59; TEMP 36.6; O2SAT 92
[2017-05-09] MEDS: hydrOXYzine HCL 25 MG TAB PO SCH ×2 (07:56→14:21)
[2017-05-09] MEDS: PANTOprazole SOD 40 MG TAB PO SCH (07:56)
[2017-05-09] MEDS: METOPROLOL SUCC 50MG EXT REL TAB PO SCH (07:56)
[2017-05-09] MEDS: CLONAZEPAM 1 MG TAB PO SCH (07:56)
[2017-05-09] MEDS: ATORVASTATIN 40 MG TAB PO SCH (07:57)
[2017-05-09] MEDS: THIAMINE HCL 100 MG TAB PO SCH (07:57)
[2017-05-09 08:14] LABS: ALBUMIN 3.1 gm/dl (3.4-5.0); CALCIUM 8.4 mg/dl (8.5-10.1); CREATININE 1.28 mg/dl (0.60-1.40); POTASSIUM 3.6 mmol/L (3.5-5.1)
[2017-05-09 08:17] LABS: TOTAL PROTEIN 6.3 gm/dl (6.4-8.2)
[2017-05-09] MEDS ORDERED: POTASSIUM CHLORIDE 10 MEQ TABCR PO STA (10:53)
[2017-05-09 11:52] VITALS: BP 105/62; TEMP 37; O2SAT 18
[2017-05-09] MEDS ORDERED: LSX20 PO (14:11)
--- NOTE | 2017-05-09 14:14 | Discharge Instructions ---
Discharge Instructions Date of Service May 09, 2017. Admission Reason for Admission: Acute Renal Failure, Hyperkalemia Discharge Discharge Diagnosis / Problem: Acute renal failure Discharge Goals Goal(s): Decrease discomfort, Improve function Activity Recommendations Activity Limitations: as noted below Lifting Limitations: gradually increase as tolerated . Instructions / Follow-Up Instructions / Follow-Up Follow up with PCP in 1 week Obtain INR for Monday.Continue on warfarin 1mg PO daily Patient was here for dehydration which caused renal failure. will stop lisinopril and daily diuretic. Will monitor function and have patient followup shortly with PCP Current Hospital Diet Patient's current hospital diet: Renal Diet Discharge Diet Recommended Diet: Renal Diet Pending Studies Studies pending at discharge: no Medical Emergencies . Who to Call and When: Medical Emergencies: If at any time you feel your situation is an emergency, please call 911 immediately. . Non-Emergent Contact Non-Emergency issues call your: Primary Care Provider Call Non-Emergent contact if: you have any medication questions . . "Provider Documentation" section prepared by Jj Miranda. . VTE Core Measure Inpt VTE Proph given/why not?: Warfarin (Coumadin)
[2017-05-09 14:22] VITALS: BP 105/62; PULSE 59; TEMP 37; O2SAT 18
[2017-05-09] MEDS ORDERED: MAGNESIUM OXIDE 400 MG TAB PO SCH (21:00)
--- NOTE | 2017-05-11 09:52 | Discharge Summary ---
Discharge Summary Date of Service May 09, 2017. Discharge Summary Admission Date: May 04, 2017 at 16:15 Discharge Date: May 09, 2017 Discharge Disposition: Home Principal Diagnosis: Acute kidney injury cabrera prerrenal/ mulitfactorial Immunizations: Have You Had Influenza Vaccine: N/A Influenza Vaccine Date: Dec 24, 2007 History of Tetanus Vaccine?: Yes History of Pneumococcal: No History of Hepatitis B Vaccine: No Consultations: Nephro Cardio Gastro Medication Reconciliation New Medications: Furosemide (Furosemide) 20 Mg Tab 1 TAB PO DAILY for SWELLING for 30 Days, #30 TAB 1 Refill Continued Medications: Aspirin (Aspirin Ec) 81 Mg Tab 81 MG PO DAILY Atorvastatin (Lipitor) 80 Mg Tab 1 TAB PO DAILY Clonazepam (Klonopin) 2 Mg Tab 1 TAB PO BID Cyanocobalamin (B-12) 50 Mcg Tab 1 TAB PO DAILY Donepezil HCl (Donepezil HCl) 5 Mg Tab 1 TAB PO HS Duloxetine HCl (Duloxetine HCl) 60 Mg Cap 2 CAP PO DAILY Hydroxyzine HCl (Hydroxyzine HCl) 25 Mg Tab 1 TAB PO TID Metoprolol Succ (Toprol Xl) (Toprol-Xl) 50 Mg Tabcr 1 TAB PO DAILY Pantoprazole (Pantoprazole Sodium) 40 Mg Tab 1 TAB PO BID Ropinirole Hydrochloride (Requip) 0.5 Mg Tab 1 TAB PO HS Thiamine Hcl (Vitamin B-1) 100 Mg Tab 100 MG PO DAILY, TAB Warfarin Sod (Warfarin Sodium) 1 Mg Tab 1 TAB PO HS Discontinued Medications: Furosemide (Furosemide) 20 Mg Tab 1 TAB PO DAILY Lisinopril (Lisinopril) 5 Mg Tab 1 TAB PO DAILY Nitroglycerin (Nitrostat) 0.4 Mg Tab 0.4 MG UT PRN, BTL Potassium Citrate (Alkalinizer (Potassium Citrate ER) 1,080 Mg Tab 1 TAB PO TID Spironolactone (Spironolactone) 25 Mg Tab 0.5 TAB PO DAILY Discharge Exam ROS Constitutional: No fever, No chills Eyes: No worsening of vision ENT: No hearing loss Respiratory: No cough Cardiac: No chest pain Abdomen: No pain Musculoskeletal: No joint pain Neurologic: No memory loss Psychiatric: No depression symptoms Heme: No abnormal bleeding/bruising Endo: No fatigue Skin: No rash All Other Systems: Reviewed and Negative Physical Exam Comments: General Appearance: WD/WN, no apparent distress Eyes: normal inspection, EOMI ENT: normal ENT inspection, hearing grossly normal, pharynx normal Neck: supple, no adenopathy, no JVD, trachea midline Respiratory/Chest: chest non-tender, lungs clear, normal breath sounds, no respiratory distress, no accessory muscle use Cardiovascular: regular rate, rhythm, no edema, no gallop, no JVD, no murmur Abdomen: normal bowel sounds, non tender, soft, no organomegaly Extremities: normal range of motion, non-tender, normal inspection, no pedal edema, no calf tenderness, pelvis stable 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 Patient also was weak. Cr responded well to fluids, down to below 1.3 today, adequate UO currently Na 141 today, no longer on IV fluids holding nephrotoxins (was on Lasix and lisinopril) nephrology following, appreciate recommendations. They have signed off case as this appears to have resolved. May recommend continuing in the outpatient setting if his numbers are maintained but for now will hold. Hyperkalemia resolved with fluids, with resolving renal function Improved after IV fluids were given. Afib with RVR, run of V tach on 05/07 converted to NSR with Toprol 50mg PO continue daily Toprol now that BP better INR remains subtherapeutic. will continue home dose of Coumadin, Hypomagnesemia Was low and required multiple dosages of mag during hospital stay Hypotension - resolved due to profound dehydration, no evidence of shock BP stable after IV resuscitation per cardiology, pressures typically low normal in the office stop IV Albumin Diarrhea: continues to have loose stools appreciate GI consult, checking stool culture, Giardia, ova/parasites, Norovirus Imodium for symptoms C diff negative Awaiting test results. As patient continues to have symptoms today of loose stools, and this is likely the culprit to his BETY. Tests so far have been negative. Patient will f/u with gastro as an outpatient. No need to continue keeping patient in hopital as his main issue has resolved (acute kidney injury) This was discussed with gastro. Total Time Spent: Greater than 30 minutes This includes examination of the patient, discharge planning, medication reconciliation, and communication with other providers. Discharge Instructions Please refer to the electronic Patient Visit Report (Discharge Instructions) for additional information. Follow-Up Follow up with PCP in 1 week Obtain INR for Monday.Continue on warfarin 1mg PO daily Patient was here for dehydration which caused renal failure. will stop lisinopril and daily diuretic. Will monitor function and have patient followup shortly with PCP Gastro will schedule followup with patient. Additional Copies To Sharri Holbrook.
== END 2017-05-09 14:59 | disposition home or self-care (01) | DRG 391 ==
LOC: C.EDB 10:55 → ENRESERV 15:41 → C.MSICU 16:15 → ENRESERV 05-05 17:53 → C.2T 05-05 18:34
PROVIDERS: ADMIT Internal Medicine; ATTEND Internal Medicine Sports Medicine
PROC: 0T9B70Z Drainage of Bladder with Drainage Device, Via Natural or Artificial Opening (ICD-10-PCS; principal; 2017-05-04)
DX: R19.7 Diarrhea, unspecified (principal); N17.0 Acute kidney failure with tubular necrosis; I69.354 Hemiplegia and hemiparesis following cerebral infarction affecting left non-dominant side; E86.0 Dehydration; E87.5 Hyperkalemia; I95.9 Hypotension, unspecified; R94.31 Abnormal electrocardiogram [ECG] [EKG]; E83.42 Hypomagnesemia; R29.6 Repeated falls; N18.9 Chronic kidney disease, unspecified; I48.2 Chronic atrial fibrillation; I25.10 Atherosclerotic heart disease of native coronary artery without angina pectoris; I25.5 Ischemic cardiomyopathy; E78.5 Hyperlipidemia, unspecified; F03.90 Unspecified dementia, unspecified severity, without behavioral disturbance, psychotic disturbance, mood disturbance, and anxiety; F17.200 Nicotine dependence, unspecified, uncomplicated; Z95.0 Presence of cardiac pacemaker; Z98.84 Bariatric surgery status; I25.2 Old myocardial infarction; Z86.79 Personal history of other diseases of the circulatory system; Z87.19 Personal history of other diseases of the digestive system; Z87.442 Personal history of urinary calculi; Z96.659 Presence of unspecified artificial knee joint; Z98.890 Other specified postprocedural states; Z79.01 Long term (current) use of anticoagulants; Z79.82 Long term (current) use of aspirin; Z79.899 Other long term (current) drug therapy; Z88.0 Allergy status to penicillin; Z82.49 Family history of ischemic heart disease and other diseases of the circulatory system; Z83.3 Family history of diabetes mellitus

== ENCOUNTER 2017-07-08 07:45 | Inpatient (IN) | payer BC, OTHER ==
[~2017-07-08] VITALS: Ht 177.8 cm; Wt 87.4 kg
[~2017-07-08 07:45] MED LIST changes: -ALPR1TAB3 PO; -ALPR2TAB2 PO; +ARC5 PO; -ASPCH81X PO; +ASPI81TA28 PO; +ATOR-26 PO; +ATR25 PO; -CHOL200027 PO; -CHOL4POW6 PO; +CLON2TAB3 PO; -CYAN10005 SL; +CYAN1TAB PO; +CYM60 PO; -DIPH-416 PO; -DONE1TAB11 PO; -FLM4 PO; -FLV400 PO; -GLUCTAB18 PO; +LSX20 PO; -METO25TA3 PO; +METO50TA8 PO; -MULTLIQ26 PO; -NXM/40 PO; -ONDA8TAB7 PO; -OXYC20TA50 PO; +PANT40TA2 PO; -POTA1080 PO; -PRAZ1CAP10 PO; -PROM25TA9 PO; +ROPI0.5T PO; -ROPI0.5T15 PO; +THIA100T11 PO; +WARF-298 PO
[2017-07-08 10:22] VITALS: BP 143/71; PULSE 61; TEMP 37; O2SAT 92; Ht 177.8 cm; Wt 87.4 kg
[2017-07-08] MEDS ORDERED: MAGNESIUM HYDROXIDE SUSP 30 ML UDC PO PRN ×2 (10:30)
[2017-07-08] MEDS ORDERED: NALOXONE HCL 0.4 MG/1 ML VIAL/CARP IV PRN (10:30)
[2017-07-08] MEDS ORDERED: BISACODYL 10 MG SUPP PR PRN (10:30)
[2017-07-08] MEDS ORDERED: SOD PHOSPHATE/SOD BIPHOSPHATE ENEMA 132 ML BTL PR PRN (10:30)
[2017-07-08] MEDS ORDERED: ONDANSETRON INJ 2 MG/ML 2 ML VIAL IV PRN (10:30)
[2017-07-08] MEDS ORDERED: POLYETHYLENE (MIRALAX) 17 GM PACK PO PRN ×2 (10:30)
[2017-07-08] MEDS ORDERED: ALUMINUM/MAGNESIUM/SIMETH (MAALOX MAX) 30 ML UDC PO PRN (10:30)
[2017-07-08 10:32] VITALS: BP 143/71; PULSE 61; TEMP 37; O2SAT 92
--- NOTE | 2017-07-08 10:53 | History and Physical ---
History & Physical Date & Time of Service: Jul 08, 2017 at 10:36 Chief Complaint: Hip Fracture Primary Care Physician: Sharri Holbrook History of Present Illness Source: patient, family, clinic records, hospital records Patient is a pleasant 62 y/o male, with PMHx of CVA w/ L deficits, KS, a.fib on chronic Coumadin, combined systolic/diastolic CHF, s/p pacemaker, HLD, PUD, GI bleed x3, and depression, who was a direct admit to [facility] for L hip fracture from [facility]. Patient requested transfer due to seeing [facility] ortho in the past. Pain is currently well controlled. He went to the fridge this AM for a drink when his socks slipped on the wood floor and he fell, landing on L side. He denies any syncope, LOC, lightheadedness, dizziness. CT of head was completed in Prim w/ no acute findings. Does have a h/o KS, but states it occurred the day after CVA and no intervention was done- denies cardiac cath. Significant h/o GI bleed x3- 1 episode required 21 u of blood. + chronic L sided weakness. Patient denies any fever, chills, sweats, lightheadedness, dizziness, vision changes, CP, palpitations, edema, SOB, wheezing, cough, abdominal pain, nausea, vomiting, diarrhea, urinary symptoms, melena, numbness/tingling, anxiety/depression, active bleeding, or new skin discoloration/changes. Past Medical/Surgical History Medical Problems: CVA w/ L deficits KS a.fib on chronic Coumadin combined systolic/diastolic CHF HLD PUD GI bleed x3 depression h/o kidney stones PSH: s/p pacemaker for bradycardia Pericardial window for large pericardial effusion 12/2016 L knee surgery gastric bypass h/o hernia repair lithotripsy Family History Cancer Diabetes mellitus Heart disease Social History Smoking Status: Former Smoker (quit 12/2016) Drug Use: none Marital Status: Housing status: lives with family Occupational Status: retired Immunizations History of Influenza Vaccine: N/A Influenza Vaccine Date: Dec 24, 2007 History of Tetanus Vaccine?: Yes History of Pneumococcal: No History of Hepatitis B Vaccine: No Allergies Coded Allergies: Penicillins (Verified Allergy, Severe, SWELLING AND RASH OF HANDS; HAS TOLERATED ANCEF & ROCEPHIN, 05/04/17) Home Medications Scheduled Aspirin (Aspirin Ec), 81 MG PO DAILY Atorvastatin (Lipitor), 1 TAB PO DAILY Clonazepam (Klonopin), 1 TAB PO BID Cyanocobalamin (B-12), 1 TAB PO DAILY Donepezil HCl (Donepezil HCl), 1 TAB PO HS Duloxetine HCl (Duloxetine HCl), 2 CAP PO DAILY Furosemide (Furosemide), 1 TAB PO DAILY Hydroxyzine HCl (Hydroxyzine HCl), 1 TAB PO TID Metoprolol Succ (Toprol Xl) (Toprol-Xl), 1 TAB PO DAILY Pantoprazole (Pantoprazole Sodium), 1 TAB PO BID Ropinirole Hydrochloride (Requip), 1 TAB PO HS Thiamine Hcl (Vitamin B-1), 100 MG PO DAILY Warfarin Sod (Warfarin Sodium), 1 TAB PO HS Review of Systems Constitutional: No fever, No chills Eyes: No problem reported ENT: No problem reported Respiratory: No shortness of breath Cardiovascular: No chest pain (and he is able to normally go up and down a flight of stairs without chest pain) Abdomen: No pain, No GI bleeding Musculoskeletal: + joint pain (Left hip, no other joint pains) Genitourinary - Male: No problem reported Neurologic: + paralysis (Chronic left hemiparesis since stroke in 12/2016) Psychiatric: No problem reported Endocrine: No problem reported Hematologic / Lymphatic: + problem reported (History of multiple GI bleeds, none since being on Coumadin and aspirin in the fall 2016) Integumentary: + itch (Since his stroke in 12/2016, he has had multiple excoriated lesions all over his body-psychiatrist that may be related to quitting smoking, has seen dermatology and was prescribed some sort of cream, is also on hydroxyzine), + new/changing skin lesions Allergic / Immunologic: No problem reported Physical Exam General Appearance: no apparent distress, + pertinent finding (multiple lesions to face- healed over, no surrounding erythema or drainage) Head: normocephalic, atraumatic Eyes: PERRL ENT: hearing grossly normal Neck: supple Respiratory/Chest: lungs clear, no respiratory distress, no accessory muscle use Cardiovascular: regular rate, rhythm Abdomen/GI: normal bowel sounds, non tender, soft Extremities/Musculoskelatal: no calf tenderness, no pedal edema, + pertinent finding (multiple lesions to LUE- healed over, no surrounding erythema or drainage) Neurologic/Psych: alert, normal mood/affect, oriented x 3, + motor weakness (L side- chronic ), + sensory deficit (L side- chronic ) Skin: normal color, warm/dry, no rash Impression Assessment and Plan Patient is a pleasant 62 y/o male, with PMHx of CVA w/ L deficits, KS, chronic a.fib on chronic Coumadin, combined systolic/diastolic CHF, s/p pacemaker, HLD, PUD, GI bleed x3, and depression, who was a direct admit to [facility] for L hip fracture from [facility]. L hip fracture from mechanical fall: - Admit to med/surg - Check Vitamin D level - Obtain baseline EKG - Tylenol PRN, Percocet PRN, IV Morphine PRN for pain management - Orthopedics consulted- discussed w/ Dr. Birch- no surgery today; likely Monday, obtain L hip x-ray, may feed at this time - Consulted cardiology for preop clearance - CBC, PRP pending A.fib on chronic Coumadin, h/o KS, HLD, combined systolic/diastolic CHF, s/p pacemaker- follows w/ Dr. Yarbrough: - Hold Coumadin due to upcoming procedure- follow PT/INR- 1.9 today - Continue Metoprolol 25 mg daily, Lipitor 80 mg daily, ASA 81 mg daily, Lasix 20 mg daily - Monitor I&Os and daily weights - ECHO from 04/2017 w/ EF of 45-50%, grade III diastolic dysfunction CVA w/ L deficits: Continue Lipitor, Requip 1 mg HS, ASA Depression: Continue Cymbalta 120 mg daily, Klonopin 2 mg BID, Remeron 30 mg HS Itching: Continue Triamcinolone PRN and Hydroxyzine TID h/o PUD, h/o GI bleed x3, GI prophylaxis: Protonix BID DVT prophylaxis: TEDs/SCDs; hold chemical anticoagulation due to upcoming procedure Code status: LEVEL I, FULL Dispo: From home, lives w/ - CM consulted; PT/OT once OK by orthopedics Resuscitation Status LEVEL I, FULL VTE Prophylaxis Will order VTE Prophylaxis: Yes Reviewed: Pt Seen/Exam by Me History 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 Discussed with PELON Ibarra and agree with findings and plan as documented in the note. Any exceptions or clarifications are listed here: Patient is a 62-year-old male who is a direct transfer from [facility] after a mechanical fall walking with his walker today. He fractured his left hip. 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 Also with long history of smoking and a pericardial window for pericardial effusion during his hospitalization for stroke. He is currently comfortable after receiving pain medication for the left hip. His reports his speech has changed recently, but he is also not been able to wear his dentures due to dental work and has no teeth, but he does not report any worsening of his weakness associated with his fall. No headache or chest pain. He is able to climb up and down flight of stairs without chest pain. History and ROS otherwise as per the PA's note Vitals reviewed Gen: AAOx3, NAD HEENT: anicteric sclerae, EOMI, edentulous, mild left-sided facial droop which is chronic CV: RRR no mgr nl S1S2 Pulm: CTAB no wcr Abd: +BS soft NT ND no masses or hernias Ext: Left lower extremity shortened and externally rotated, mild edema over the left hip, no peripheral edema otherwise, 1+ dorsalis pedis pulses bilaterally Skin: Multiple excoriated 1 cm lesions diffusely on left arm and face, as well as bilateral legs, warm/dry Neuro: 5 out of 5 strength in the right upper and lower extremities, left lower extremity strength not tested due to hip fracture, left upper extremity with 4 out of 5 strength throughout Patient is a 62-year-old male with history as above, here with mechanical fall and left hip fracture. -Appreciate orthopedics consult-his surgery may be delayed until Monday -Follow hemoglobin closely given coagulopathy and hip fracture -Consult cardiology given extensive cardiac history-repeat ECG here with a review of ECG from [facility] today shows atrial paced rhythm without ischemic changes -Holding Coumadin, will continue baby aspirin for now if okay with orthopedic surgery given severe CAD and history of CVA -Follow INR and if still elevated prior to surgery, will give FFP or vitamin K p.o. -Continue beta-isamar, statin in the perioperative period Documented By: Samara Landa
[2017-07-08 11:16] LABS: HEMATOCRIT 33.6 % (42-52); HEMOGLOBIN 10.8 g/dL (14.0-18.0); MEAN CELL VOLUME 96.6 fL (80-100); MEAN CORPUSCULAR HGB CONC 32.1 g/dl (32-36); PLATELET COUNT 298 K/uL (130-400); RED CELL DISTRIBUTION WIDTH CV 13.8 % (11.5-14.5); RED CELL DISTRIBUTION WIDTH SD 48.6 fL (36.4-46.3); WHITE BLOOD COUNT 10.76 K/uL (4.8-10.8)
[2017-07-08 11:19] LABS: INR 1.9 (0.9-1.1)
[2017-07-08 11:41] LABS: CALCIUM 8.3 mg/dl (8.5-10.1); CREATININE 1.02 mg/dl (0.60-1.40); POTASSIUM 3.6 mmol/L (3.5-5.1)
--- NOTE | 2017-07-08 11:48 | DIAGNOSTIC IMAGING REPORT ---
L HIP UNILATERAL 2 VIEWS CLINICAL HISTORY: l hip fracture trauma COMPARISON: None. Discussion: Angled intertrochanteric fracture left hip. No evidence dislocation. No evidence for acetabular protrusion. Avulsion of the lesser trochanter. IMPRESSION: Intertrochanteric fracture left hip. The above report was generated using voice recognition software. It may contain grammatical, syntax or spelling errors. Electronically signed by: Troy Tolliver M.D. 07/08/2017 11:47 AM Dictated Date/Time: 07/08/2017 11:47 AM
[2017-07-08] MEDS: MoRPHine SULFATE 2 MG/ML CARP IV PRN ×3 (12:27→21:18)
[2017-07-08] MEDS: hydrOXYzine HCL 25 MG TAB PO SCH ×2 (14:08→22:21)
[2017-07-08 14:58] VITALS: BP 123/77; PULSE 61; TEMP 37.5; O2SAT 93
[2017-07-08] MEDS: OXYCODONE/ACETAMINOPHEN 5-325 TAB PO PRN (17:20)
[2017-07-08] MEDS: TRIAMCINOLONE ACET 0.1% CR 15 GM TUBE EXT PRN (17:20)
--- NOTE | 2017-07-08 17:22 | Cardiology Consultation ---
Cardiology Consultation Date of Consultation: Jul 08, 2017. Requesting Physician: Syeda Reason for Consultation: History of CAD Pt evaluation today including: conversation w/ patient, conversation w/ family , physical exam, chart review, lab review, review of studies, review of inpatient medication list History of Present Illness The patient is a 62-year-old gentleman with an extensive history of cardiac and cerebral vascular disease who suffered a recent fall and associated hip fracture. It appears that the patient commonly ambulates with a walker. He suffered a mechanical fall and fractured his hip. He was recently taken to [facility] but concerns over his comorbidities and the patient's request to be transferred to [facility] resulted in his admission here. Patient is an active individual with a walker. He did suffer a stroke several months ago which resulted in some left-sided weakness. He reports having had a pericardial effusion and myocardial infarction at the same time he suffered this stroke. The details of that admission are not currently available. He appears to have a longstanding history of congestive heart failure reduced LV systolic function as well. He also had a remote history of syncope and pacemaker placement in is known to have paroxysmal atrial arrhythmias. While he is limited by his neurologic disease, he is ambulatory and does not report limiting symptoms of dyspnea or chest discomfort. He is not reporting orthopnea or paroxysmal nocturnal dyspnea. He feels that his weight has been stable. He has not report swelling in his lower extremities recently. He cannot recall any palpitations or tachycardia recently. He has not suffered syncope since implantation of his pacemaker. Past Medical/Surgical History Coronary artery disease status post anterior wall myocardial infarction 2017 Ischemic cardiomyopathy with ejection fraction 30 35% Embolic stroke 2017 Pericardial tamponade status post pericardial window 2017 Multiple gastrointestinal hemorrhage Symptomatic bradycardia status post dual-chamber [employer]onic pacemaker Syncope Multi-infarct dementia Past surgical history: Pericardial window 2017 Gastric bypass Family History Cancer Diabetes mellitus Heart disease Noncontributory given his current comorbidities Social History Smoking Status: Former Smoker (quit 12/2016) History of Alcohol Use: No Currently lives with his . Previously employed at [employer] Review of Systems Per HPI. All Other Systems: Reviewed and Negative Allergies Coded Allergies: Penicillins (Verified Allergy, Severe, SWELLING AND RASH OF HANDS; HAS TOLERATED ANCEF & ROCEPHIN, 05/04/17) Medications Current Inpatient Medications Medications (Trade) Dose Ordered Sig/Karissa Route Start Time Stop Time Status Last Admin Dose Admin Acetaminophen (Tylenol Tab) 650 mg Q4H PRN PO 07/08/17 10:30 08/07/17 10:29 Al Hydrox/Mg Hydrox/Simethicone (Maalox Max Susp) 15 ml Q4H PRN PO 07/08/17 10:30 08/07/17 10:29 Magnesium Hydroxide (Milk Of Magnesia Susp) 30 ml Q6H PRN PO 07/08/17 10:30 08/07/17 10:29 Polyethylene (Miralax Powder Packet) 17 gm DAILY PRN PO 07/08/17 10:30 08/07/17 10:29 Ondansetron HCl (Zofran Inj) 4 mg Q6H PRN IV 07/08/17 10:30 08/07/17 10:29 Atorvastatin Calcium (Lipitor Tab) 80 mg DAILY PO 07/09/17 09:00 08/08/17 08:59 Clonazepam (Klonopin Tab) 2 mg BID PO 07/08/17 21:00 08/07/17 20:59 Donepezil HCl (Aricept Tab) 5 mg HS PO 07/08/17 21:00 08/07/17 20:59 Duloxetine HCl (Cymbalta Cap) 120 mg DAILY PO 07/09/17 09:00 08/08/17 08:59 Hydroxyzine HCl (Vistaril Tab) 25 mg TID PO 07/08/17 14:00 08/07/17 13:59 07/08/17 14:08 25 MG Pantoprazole Sodium (Protonix Tab) 40 mg BID PO 07/08/17 21:00 08/07/17 20:59 Ropinirole HCl (Requip Tab) 0.5 mg HS PO 07/08/17 21:00 08/07/17 20:59 Thiamine HCl (Vitamin B-1 Tab) 100 mg DAILY PO 07/09/17 09:00 08/08/17 08:59 Oxycodone/ Acetaminophen (Percocet 5-325mg Tab) 1 tab Q4H PRN PO 07/08/17 10:30 07/22/17 10:29 Morphine Sulfate (MoRPHine SULFATE INJ) 1 mg Q3H PRN IV 07/08/17 10:30 07/22/17 10:29 07/08/17 16:07 1 MG Clindamycin Phosphate 900 mg/ Dextrose 106 ml @ 106 mls/hr PREOP IV 07/09/17 06:00 07/10/17 05:59 Naloxone HCl (Narcan Inj) 0.1 mg PRN PRN IV 07/08/17 10:30 08/07/17 10:29 Senna/Docusate Sodium (Senokot S Tab) 2 tab HS PO 07/08/17 21:00 08/07/17 20:59 Magnesium Hydroxide (Milk Of Magnesia Susp) 30 ml DAILY PRN PO 07/08/17 10:30 08/07/17 10:29 Bisacodyl (Dulcolax Supp) 10 mg DAILY PRN MN 07/08/17 10:30 08/07/17 10:29 Sodium Biphosphate/ Sodium Phosphate (Fleet Enema) 132 ml PRN PRN MN 07/08/17 10:30 Triamcinolone Acetonide (Kenalog 0.1% Cream) 1 appln TID PRN EXT 07/08/17 10:30 08/07/17 10:29 Metoprolol Succinate (Toprol Xl Tab) 25 mg DAILY PO 07/09/17 09:00 08/08/17 08:59 Mirtazapine (Remeron Tab) 30 mg HS PO 07/08/17 21:00 08/07/17 20:59 Aspirin (Ecotrin Tab) 81 mg QAM PO 07/09/17 09:00 08/08/17 08:59 Furosemide (Lasix Tab) 20 mg DAILY PO 07/09/17 09:00 08/08/17 08:59 Potassium Chloride/Sodium Chloride 1,000 ml @ 50 mls/hr Q20H IV 07/08/17 17:00 08/07/17 16:59 Physical Exam Vital Signs Past 12 Hours Date Time Temp Pulse Resp B/P (MAP) Pulse Ox O2 Delivery O2 Flow Rate FiO2 07/08/17 14:58 37.5 61 16 123/77 (92) 93 Room Air 07/08/17 10:32 37.0 61 18 143/71 (95) 92 Room Air 07/08/17 10:22 37.0 61 18 143/71 92 Room Air The patient is alert and oriented. Mood and affect appeared normal. He answered all questions appropriately. Mild expressive dysarthria HEENT: Pupils are equal and reactive to light and accommodation. Extraocular movements are intact. The sclerae are anicteric. Neck: Patient's neck is supple. He has palpable carotid pulses bilaterally without bruits on auscultation. There is no evidence of jugular venous distention. The thyroid is not enlarged. Lungs: Clear to auscultation bilaterally. He has good air movement without use of accessory muscles. No rales wheezes or rhonchi. Chest: Well-healed pacemaker implant in the left upper pectoral area Cardiac: Heart demonstrates a regular rate and rhythm. Normal S1 and S2. No murmurs on examination. Pulses: The patient has palpable radial pulses bilaterally that are equal in intensity Extremities: There was no evidence of hypoperfusion. There is no cyanosis or clubbing. There is no edema. Skin: I did not appreciate any rashes on examination today. Data Laboratory Results: Last 24 Hours Test 07/08/17 10:28 07/08/17 10:47 White Blood Count 10.76 K/uL Red Blood Count 3.48 M/uL Hemoglobin 10.8 g/dL Hematocrit 33.6 % Mean Corpuscular Volume 96.6 fL Mean Corpuscular Hemoglobin 31.0 pg Mean Corpuscular Hemoglobin Concent 32.1 g/dl RDW Standard Deviation 48.6 fL RDW Coefficient of Variation 13.8 % Platelet Count 298 K/uL Mean Platelet Volume 9.0 fL Prothrombin Time 19.4 SECONDS Prothromb Time International Ratio 1.9 Sodium Level 137 mmol/L Potassium Level 3.6 mmol/L Chloride Level 110 mmol/L Carbon Dioxide Level 25 mmol/L Anion Gap 2.0 mmol/L Blood Urea Nitrogen 7 mg/dl Creatinine 1.02 mg/dl Est Creatinine Clear Calc Drug Dose 75.5 ml/min Estimated GFR () 89.6 Estimated GFR (Non- 77.3 BUN/Creatinine Ratio 6.7 Random Glucose 114 mg/dl Calcium Level 8.3 mg/dl 25-Hydroxy Vitamin D Total 19.8 ng/ml Imaging: Plain films revealed left hip fracture EKG: Atrial paced rhythm with evidence of old anterior myocardial infarction ( from [facility]) 0 Assessment & Plan 1. Coronary artery disease: The details of the patient's myocardial infarction 2017 are not available. However, this did appear to be in the setting of his stroke. Seems he also had a history of hemorrhage and despite anterior infarction no intervention was performed. He is not appear to have symptoms currently of angina or coronary insufficiency. He has been maintained on aggressive secondary prevention including aspirin, beta-isamar and high-dose atorvastatin 2. Ischemic cardiomyopathy: Currently appears to be well compensated. History of left ventricular thrombus. Currently on anticoagulation. 3. Symptomatic bradycardia: Normally functioning dual-chamber permanent pacemaker. No current symptoms of bradycardia. 4. Pericardial tamponade: Unclear etiology. Patient did undergo pericardial window.
--- NOTE | 2017-07-08 17:25 | HISTORY & PHYSICAL EXAMINATION ---
DATE OF ADMISSION: 07/08/2017 CHIEF COMPLAINT: Left hip pain. HISTORY OF PRESENT ILLNESS: Memo is a delightful, 62, meeting him for the first time. We actually went to the same high school, graduated few years apart. He has left hip pain. He has an intertrochanteric fracture of the left hip. He has been treated for some fairly elaborate knee procedures with Dr. Garcia here in [place]. He has also had a stroke. He is on AFib, he is on Coumadin, he had some serious GI bleeds in the past as well. Needless to say he has a lot of comorbidities. He fell, injured his hip, went to [facility] late last evening, transferred to [facility] today. PAST MEDICAL HISTORY: CVA, NH, atrial fib, peptic ulcer disease, depression, GI bleeds. PAST SURGICAL HISTORY: Gastric bypass, knee surgery, hernia repair, lithotripsy. FAMILY HISTORY: Cancer, diabetes, heart disease. SOCIAL HISTORY: Nonsmoker, nondrug user. , lives with family, retired. MEDICATIONS: Numerous. They are reviewed including warfarin sodium 1 tab at bedtime. PHYSICAL EXAMINATION: GENERAL: He is alert, oriented. He communicates well. No severe distress. HEENT: Normal. VITAL SIGNS: Blood pressure 130/80, pulse 80. His pulse was regular at time of my examination, sinus rhythm. NECK: Supple. LUNGS: Clear. ABDOMEN: Soft, nontender. IMPRESSION: Intertrochanteric fracture of the hip. Multiple other medical comorbidities. PLAN: 1. Medicine has admitted our patient here today. I am very thankful for that. 2. We will get him medically optimized over the next 24-48 hours. I will put him on the operative schedule for Monday. The time on Monday will be approximately 4 o'clock in the afternoon. It will be an IM rodding of the left hip. I would suggest holding off on the Coumadin, repeat coags tomorrow and even on the , planning on surgery again on Monday. We will feed him, we will hydrate him and not keep him n.p.o. until 07/09/2017 at midnight.
[2017-07-08] MEDS: SODIUM CHLOR 0.45% + 20MEQ KCL 1,000 ML IV SCH (18:33)
[2017-07-08] MEDS ORDERED: WARFARIN SOD 1 MG TAB PO SCH (21:00)
[2017-07-08] MEDS: DONEPEZIL HCL 5 MG TAB PO SCH (22:21)
[2017-07-08] MEDS: MIRTAZAPINE TAB 15 MG TAB PO SCH (22:21)
[2017-07-08] MEDS: CLONAZEPAM 1 MG TAB PO SCH (22:21)
[2017-07-08] MEDS: ROPINIROLE HCL 0.25 MG TAB PO SCH (22:22)
[2017-07-08] MEDS: PANTOprazole SOD 40 MG TAB PO SCH (22:22)
[2017-07-08] MEDS: DOCUSATE SODIUM/SENNA 50/8.6MG TAB PO SCH (22:22)
--- NOTE | 2017-07-08 22:29 | DIAGNOSTIC IMAGING REPORT ---
L KNEE 1 OR 2 VIEWS ROUTINE CLINICAL HISTORY: surgery pain COMPARISON: None. DISCUSSION: Total knee arthroplasty. Old healed fracture distal femur. No acute bony abnormality. There is no evidence for soft tissue swelling. IMPRESSION: Total knee arthroplasty. Old healed fracture distal femur. The above report was generated using voice recognition software. It may contain grammatical, syntax or spelling errors. Electronically signed by: Troy Tolliver M.D. 07/08/2017 10:27 PM Dictated Date/Time: 07/08/2017 10:26 PM
[2017-07-08 23:03] VITALS: BP 137/67; PULSE 83; TEMP 37.3; O2SAT 93
[2017-07-09] MEDS: OXYCODONE/ACETAMINOPHEN 5-325 TAB PO PRN ×4 (02:31→20:14)
[2017-07-09] MEDS: MoRPHine SULFATE 2 MG/ML CARP IV PRN ×6 (02:32→21:29)
[2017-07-09 05:54] LABS: HEMATOCRIT 32.6 % (42-52); HEMOGLOBIN 10.4 g/dL (14.0-18.0); MEAN CORPUSCULAR HGB CONC 31.9 g/dl (32-36); MEAN PLATELET VOLUME 8.8 fL (7.4-10.4); PLATELET COUNT 248 K/uL (130-400); RED CELL DISTRIBUTION WIDTH CV 13.8 % (11.5-14.5); RED CELL DISTRIBUTION WIDTH SD 48.6 fL (36.4-46.3); WHITE BLOOD COUNT 10.81 K/uL (4.8-10.8)
[2017-07-09] MEDS ORDERED: CLINDAMYCIN IV 900 MG in DEXTROSE 5% 100ML 100 ML IV SCH (06:00)
[2017-07-09 06:01] LABS: INR 1.7 (0.9-1.1)
[2017-07-09 06:23] LABS: CREATININE 1.16 mg/dl (0.60-1.40); POTASSIUM 3.7 mmol/L (3.5-5.1)
[2017-07-09 06:58] VITALS: BP 151/72; PULSE 75; TEMP 37.7; O2SAT 90
[2017-07-09 08:00] VITALS: O2SAT 93
[2017-07-09] MEDS: PANTOprazole SOD 40 MG TAB PO SCH ×2 (08:15→21:32)
[2017-07-09] MEDS: FUROSEMIDE 20 MG TAB PO SCH (08:15)
[2017-07-09] MEDS: CLONAZEPAM 1 MG TAB PO SCH ×2 (08:15→21:38)
[2017-07-09] MEDS: THIAMINE HCL 100 MG TAB PO SCH (08:16)
[2017-07-09] MEDS: METOPROLOL SUCC 25MG EXT REL TAB PO SCH (08:16)
[2017-07-09] MEDS: ASPIRIN 81 MG ECTAB PO SCH (08:16)
[2017-07-09] MEDS: DULOXETINE HCL 60 MG CAP PO SCH (08:16)
[2017-07-09] MEDS: hydrOXYzine HCL 25 MG TAB PO SCH ×3 (08:16→21:33)
[2017-07-09] MEDS: ATORVASTATIN 40 MG TAB PO SCH (08:17)
[2017-07-09] MEDS ORDERED: CHOLECALCIFEROL 1000 INTER.UNIT TAB PO SCH (09:00)
[2017-07-09] MEDS ORDERED: METOPROLOL SUCC 50MG EXT REL TAB PO SCH (09:00)
--- NOTE | 2017-07-09 10:02 | ORTHOPEDICS PROGRESS NOTE ---
DATE: 07/09/2017 SUBJECTIVE: Moderate complaints of pain. Alert, oriented. No chest pain, shortness of breath. No calf tenderness. No abdominal distention. OBJECTIVE: Vital signs are stable. Hemoglobin stable. INR slightly elevated. His left leg is significantly shortened secondary to the fracture and secondary to his other pathology in around the knee region. ASSESSMENT: Includes that of an intertrochanteric fracture of the left hip in a severely compromised individual. PLAN: We will feed him today, make him n.p.o. after midnight. We should get to his hip fracture tomorrow afternoon around 3:00, will be an open reduction and internal fixation thereof. I estimate the blood loss to be approximately 200 mL, be under general or spinal anesthetic and then will start the rehab process.
--- NOTE | 2017-07-09 11:46 | Hospitalist Progress Note ---
Hospitalist Progress Note Date of Service Jul 09, 2017. (Vera Ibarra ., PA-C) Subjective Pt evaluation today including: conversation w/ patient, conversation w/ family ( at bedside), physical exam, lab review, review of studies, review of inpatient medication list Voiding: piña catheter in place Patient resting in bed. Feeling well. Pain has been well controlled but currently worse due to lots of movement with CNAs. Eating and drinking OK. Was placed on O2 supplement due to hypoxia with pain medication/sleep. Removed O2, remained of RA for >5 mins at sats >96%. RN aware O2 removed and will continue to monitor. +weakness. Patient denies any fever, chills, sweats, lightheadedness, dizziness, vision changes, CP, palpitations, edema, SOB, wheezing, cough, abdominal pain, nausea, vomiting, diarrhea, urinary symptoms, melena, numbness/tingling, anxiety/ depression, active bleeding, or new skin discoloration/changes. (Vera Ibarra ., PA-C) Medications Current Inpatient Medications Medications (Trade) Dose Ordered Sig/Karissa Route Start Time Stop Time Status Last Admin Dose Admin Acetaminophen (Tylenol Tab) 650 mg Q4H PRN PO 07/08/17 10:30 08/07/17 10:29 Al Hydrox/Mg Hydrox/Simethicone (Maalox Max Susp) 15 ml Q4H PRN PO 07/08/17 10:30 08/07/17 10:29 Magnesium Hydroxide (Milk Of Magnesia Susp) 30 ml Q6H PRN PO 07/08/17 10:30 08/07/17 10:29 Polyethylene (Miralax Powder Packet) 17 gm DAILY PRN PO 07/08/17 10:30 08/07/17 10:29 Ondansetron HCl (Zofran Inj) 4 mg Q6H PRN IV 07/08/17 10:30 08/07/17 10:29 Atorvastatin Calcium (Lipitor Tab) 80 mg DAILY PO 07/09/17 09:00 08/08/17 08:59 07/09/17 08:17 80 MG Clonazepam (Klonopin Tab) 2 mg BID PO 07/08/17 21:00 08/07/17 20:59 07/09/17 08:15 2 MG Donepezil HCl (Aricept Tab) 5 mg HS PO 07/08/17 21:00 08/07/17 20:59 07/08/17 22:21 5 MG Duloxetine HCl (Cymbalta Cap) 120 mg DAILY PO 07/09/17 09:00 08/08/17 08:59 07/09/17 08:16 120 MG Hydroxyzine HCl (Vistaril Tab) 25 mg TID PO 07/08/17 14:00 08/07/17 13:59 07/09/17 08:16 25 MG Pantoprazole Sodium (Protonix Tab) 40 mg BID PO 07/08/17 21:00 08/07/17 20:59 07/09/17 08:15 40 MG Ropinirole HCl (Requip Tab) 0.5 mg HS PO 07/08/17 21:00 08/07/17 20:59 07/08/17 22:22 0.5 MG Thiamine HCl (Vitamin B-1 Tab) 100 mg DAILY PO 07/09/17 09:00 08/08/17 08:59 07/09/17 08:16 100 MG Oxycodone/ Acetaminophen (Percocet 5-325mg Tab) 1 tab Q4H PRN PO 07/08/17 10:30 07/22/17 10:29 07/09/17 08:14 1 TAB Morphine Sulfate (MoRPHine SULFATE INJ) 1 mg Q3H PRN IV 07/08/17 10:30 07/22/17 10:29 07/09/17 05:53 1 MG Clindamycin Phosphate 900 mg/ Dextrose 106 ml @ 106 mls/hr PREOP IV 07/09/17 06:00 07/10/17 05:59 Naloxone HCl (Narcan Inj) 0.1 mg PRN PRN IV 07/08/17 10:30 08/07/17 10:29 Senna/Docusate Sodium (Senokot S Tab) 2 tab HS PO 07/08/17 21:00 08/07/17 20:59 07/08/17 22:22 2 TAB Magnesium Hydroxide (Milk Of Magnesia Susp) 30 ml DAILY PRN PO 07/08/17 10:30 08/07/17 10:29 Bisacodyl (Dulcolax Supp) 10 mg DAILY PRN AR 07/08/17 10:30 08/07/17 10:29 Sodium Biphosphate/ Sodium Phosphate (Fleet Enema) 132 ml PRN PRN AR 07/08/17 10:30 Triamcinolone Acetonide (Kenalog 0.1% Cream) 1 appln TID PRN EXT 07/08/17 10:30 08/07/17 10:29 07/08/17 17:20 1 APPLN Metoprolol Succinate (Toprol Xl Tab) 25 mg DAILY PO 07/09/17 09:00 08/08/17 08:59 07/09/17 08:16 25 MG Mirtazapine (Remeron Tab) 30 mg HS PO 07/08/17 21:00 08/07/17 20:59 07/08/17 22:21 30 MG Aspirin (Ecotrin Tab) 81 mg QAM PO 07/09/17 09:00 08/08/17 08:59 07/09/17 08:16 81 MG Furosemide (Lasix Tab) 20 mg DAILY PO 07/09/17 09:00 08/08/17 08:59 07/09/17 08:15 20 MG Potassium Chloride/Sodium Chloride 1,000 ml @ 50 mls/hr Q20H IV 07/08/17 17:00 08/07/17 16:59 07/08/17 18:33 50 MLS/HR Cholecalciferol (Vitamin D Tab) 1,000 inter.unit QAM PO 07/09/17 09:00 08/08/17 08:59 07/09/17 09:50 1,000 INTER.UNIT (Vera Ibarra, PA-C) Objective Vital Signs Date Time Temp Pulse Resp B/P (MAP) Pulse Ox O2 Delivery O2 Flow Rate FiO2 07/09/17 08:00 93 Nasal Cannula 2.0 07/09/17 06:58 37.7 75 22 151/72 (98) 90 2.0 07/09/17 00:45 Room Air 07/08/17 23:03 37.3 83 20 137/67 (90) 93 Room Air 07/08/17 16:30 Room Air 07/08/17 14:58 37.5 61 16 123/77 (92) 93 Room Air (Vera Ibarra, PA-C) Physical Exam General Appearance: no apparent distress Eyes: normal inspection, PERRL ENT: hearing grossly normal Neck: supple Respiratory/Chest: lungs clear, no respiratory distress, no accessory muscle use Cardiovascular: regular rate, rhythm Abdomen: normal bowel sounds, non tender, soft Extremities: no pedal edema, no calf tenderness, + pertinent finding (SCDs on ) Neurologic/Psychiatric: alert, normal mood/affect, oriented x 3, + motor weakness (chronic, L-side), + sensory deficit (chronic, L-side ) Skin: normal color, warm/dry, no rash (Vera Ibarra ., PA-C) Laboratory Results Last 24 Hours Test 07/08/17 19:50 07/09/17 05:29 Urine Color YELLOW Urine Appearance CLEAR Urine pH 5.5 Urine Specific [place] 1.016 Urine Protein TRACE Urine Glucose (UA) NEG Urine Ketones NEG Urine Occult Blood TRACE Urine Nitrite NEG Urine Bilirubin NEG Urine Urobilinogen NEG Urine Leukocyte Esterase TRACE Urine WBC (Auto) 10-30 /hpf Urine RBC (Auto) 5-10 /hpf Urine Hyaline Casts (Auto) 10-30 /lpf Urine Epithelial Cells (Auto) 10-20 /lpf Urine Bacteria (Auto) NEG Urine Renal Epithelial Cells 0-5 /lpf White Blood Count 10.81 K/uL Red Blood Count 3.36 M/uL Hemoglobin 10.4 g/dL Hematocrit 32.6 % Mean Corpuscular Volume 97.0 fL Mean Corpuscular Hemoglobin 31.0 pg Mean Corpuscular Hemoglobin Concent 31.9 g/dl RDW Standard Deviation 48.6 fL RDW Coefficient of Variation 13.8 % Platelet Count 248 K/uL Mean Platelet Volume 8.8 fL Prothrombin Time 17.3 SECONDS Prothromb Time International Ratio 1.7 Sodium Level 137 mmol/L Potassium Level 3.7 mmol/L Chloride Level 107 mmol/L Carbon Dioxide Level 25 mmol/L Anion Gap 5.0 mmol/L Blood Urea Nitrogen 9 mg/dl Creatinine 1.16 mg/dl Est Creatinine Clear Calc Drug Dose 66.4 ml/min Estimated GFR () 76.7 Estimated GFR (Non- 66.2 BUN/Creatinine Ratio 7.8 Random Glucose 122 mg/dl Calcium Level 8.0 mg/dl Magnesium Level 1.8 mg/dl (Vera Ibarra ., PA-C) Assessment and Plan Patient is a pleasant 62 y/o male, with PMHx of CVA w/ L deficits, OR, chronic a.fib on chronic Coumadin, combined systolic/diastolic CHF, s/p pacemaker, HLD, PUD, GI bleed x3, and depression, who was a direct admit to [facility] for L hip fracture from [facility]. L hip fracture from mechanical fall- STABLE: - Admit to med/surg - Vitamin D level- 19.8, start 50,000 IU weekly Vitamin D supplement today ( Monday, 07/09) - Tylenol PRN, Percocet PRN, IV Morphine PRN for pain management - Orthopedics consulted- surgery likely tomorrow, made NPO after midnight and IVF to start when NPO - Consulted cardiology for preop clearance, appreciate recommendations A.fib on chronic Coumadin, h/o OR, HLD, combined systolic/diastolic CHF, s/p pacemaker, h/o pericardial effusion- follows w/ Dr. Yarbrough- STABLE: - Hold Coumadin due to upcoming procedure- follow PT/INR- 1.7 today, will repeat this PM and possible low dose Vitamin K treatment to get INR < 1.5 for surgery - Continue Metoprolol 25 mg daily, Lipitor 80 mg daily, ASA 81 mg daily, Lasix 20 mg daily - Monitor I&Os and daily weights - ECHO from 04/2017 w/ EF of 45-50%, grade III diastolic dysfunction Abnormal UA: UCx pending- asymptomatic, no abx treatment at this time CVA w/ L-sided deficits: Continue Lipitor, Requip 1 mg HS, ASA Depression: Continue Cymbalta 120 mg daily, Klonopin 2 mg BID, Remeron 30 mg HS Itching: Continue Triamcinolone PRN and Hydroxyzine TID h/o PUD, h/o GI bleed x3, GI prophylaxis: Protonix BID DVT prophylaxis: TEDs/SCDs; hold chemical anticoagulation due to upcoming procedure Code status: LEVEL I, FULL Dispo: From home, lives w/ - CM consulted; PT/OT once OK by orthopedics (Vera Ibarra PA-C) Reviewed: Pt Seen/Exam by Me (Samara Landa MD) History Physician Group Chief Operator supervision Note: I interviewed and examined the patient. Discussed with PELON Ibarra and agree with findings and plan as documented in the note. Any exceptions or clarifications are listed here: Patient is a 62-year-old male who is a direct transfer from [facility] after a mechanical fall walking with his walker today. He fractured his left hip. 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 Also with long history of smoking and a pericardial window for pericardial effusion during his hospitalization for stroke. Prior to his fall, he is able to climb up and down flight of stairs without chest pain. Discussed the case with field placement director and orthopedic surgeon today. Vitals reviewed Gen: AAOx3, NAD HEENT: anicteric sclerae, EOMI, edentulous, mild left-sided facial droop which is chronic CV: RRR no mgr nl S1S2 Pulm: CTAB no wcr Abd: +BS soft NT ND no masses or hernias Ext: Left lower extremity shortened and externally rotated, mild edema over the left hip, no peripheral edema otherwise, 1+ dorsalis pedis pulses bilaterally Skin: Multiple excoriated 1 cm lesions diffusely on left arm and face, as well as bilateral legs, warm/dry Patient is a 62-year-old male with history as above, here with mechanical fall and left hip fracture. -Appreciate orthopedics consult-his surgery may be delayed until Monday -Follow hemoglobin closely given coagulopathy and hip fracture-stable today -Consult cardiology given extensive cardiac history-repeat ECG here with a review of ECG from [facility] today shows atrial paced rhythm without ischemic changes-pacemaker interrogated just now and he is not pacer dependent, no other significant issues as per cardiology -Holding Coumadin, will continue baby aspirin for now if okay with orthopedic surgery given severe CAD and history of CVA -Follow INR and if still elevated prior to surgery, will give FFP or vitamin K p.o.-checking INR again today at 1800 -Discussed with cardiology about bridging given his high chads vascular score- we will give 1 dose of Lovenox 1 valorie per KG 1 now as his surgery will not be till tomorrow afternoon, he may need bridging after the surgery as well- discussed with orthopedic surgery who is okay with the Lovenox -Continue beta-isamar, statin in the perioperative period Documented By: Samara Landa (Samara Landa MD)
[2017-07-09] MEDS ORDERED: ERGOCALCIFEROL 50,000 INTER.UNIT CAP PO SCH (12:00)
[2017-07-09 14:55] VITALS: BP 131/62; PULSE 59; TEMP 37; O2SAT 94
[2017-07-09] MEDS ORDERED: ENOXAPARIN 100 MG/1ML SYR SQ STA (15:51)
--- NOTE | 2017-07-09 16:57 | Cardiology Follow-Up ---
Subjective Date of Service: Jul 09, 2017. Pt evaluation today including: conversation w/ patient, physical exam, chart review, lab review, review of studies, review of inpatient medication list, conversation w/ attending History of Present Illness Patient's main complaint this afternoon is hip discomfort. He denies any breathing difficulty. He denies any chest pain. He appears to have tolerated his dye throughout the course of the day. Social History Smoking Status: Former Smoker (quit 12/2016) History of Alcohol Use: No Review of Systems Per HPI. Objective Vital Signs Past 12 Hours Date Time Temp Pulse Resp B/P (MAP) Pulse Ox O2 Delivery O2 Flow Rate FiO2 07/09/17 14:55 37.0 59 18 131/62 (85) 94 Room Air 07/09/17 08:00 93 Nasal Cannula 2.0 07/09/17 06:58 37.7 75 22 151/72 (98) 90 2.0 Last Recorded Weight-Kilograms: 87.400 Intake & Output 8-Hour Column 07/09/17 07/09/17 07/10/17 15:59 23:59 07:59 Intake Total 836 ml Output Total 550 ml Balance 286 ml 24-Hour Column 07/10/17 07:59 Intake Total 836 ml Output Total 550 ml Balance 286 ml Physical Exam The patient is alert and oriented. Mood and affect appeared normal. He answered all questions appropriately. Mild expressive dysarthria HEENT: Pupils are equal and reactive to light and accommodation. Extraocular movements are intact. The sclerae are anicteric. Neck: Patient's neck is supple. He has palpable carotid pulses bilaterally without bruits on auscultation. There is no evidence of jugular venous distention. The thyroid is not enlarged. Lungs: Clear to auscultation bilaterally. He has good air movement without use of accessory muscles. No rales wheezes or rhonchi. Chest: Well-healed pacemaker implant in the left upper pectoral area Cardiac: Heart demonstrates a regular rate and rhythm. Normal S1 and S2. No murmurs on examination. Pulses: The patient has palpable radial pulses bilaterally that are equal in intensity Extremities: There was no evidence of hypoperfusion. There is no cyanosis or clubbing. There is no edema. Skin: Multiple excoriations on his face. Data Laboratory Results: Last 24 Hours Test 07/08/17 19:50 07/09/17 05:29 Urine Color YELLOW Urine Appearance CLEAR Urine pH 5.5 Urine Specific [place] 1.016 Urine Protein TRACE Urine Glucose (UA) NEG Urine Ketones NEG Urine Occult Blood TRACE Urine Nitrite NEG Urine Bilirubin NEG Urine Urobilinogen NEG Urine Leukocyte Esterase TRACE Urine WBC (Auto) 10-30 /hpf Urine RBC (Auto) 5-10 /hpf Urine Hyaline Casts (Auto) 10-30 /lpf Urine Epithelial Cells (Auto) 10-20 /lpf Urine Bacteria (Auto) NEG Urine Renal Epithelial Cells 0-5 /lpf White Blood Count 10.81 K/uL Red Blood Count 3.36 M/uL Hemoglobin 10.4 g/dL Hematocrit 32.6 % Mean Corpuscular Volume 97.0 fL Mean Corpuscular Hemoglobin 31.0 pg Mean Corpuscular Hemoglobin Concent 31.9 g/dl RDW Standard Deviation 48.6 fL RDW Coefficient of Variation 13.8 % Platelet Count 248 K/uL Mean Platelet Volume 8.8 fL Prothrombin Time 17.3 SECONDS Prothromb Time International Ratio 1.7 Sodium Level 137 mmol/L Potassium Level 3.7 mmol/L Chloride Level 107 mmol/L Carbon Dioxide Level 25 mmol/L Anion Gap 5.0 mmol/L Blood Urea Nitrogen 9 mg/dl Creatinine 1.16 mg/dl Est Creatinine Clear Calc Drug Dose 66.4 ml/min Estimated GFR () 76.7 Estimated GFR (Non- 66.2 BUN/Creatinine Ratio 7.8 Random Glucose 122 mg/dl Calcium Level 8.0 mg/dl Magnesium Level 1.8 mg/dl EKG: Intermittent atrial pacing. Old anterior myocardial infarction I have performed a complete device interrogation of the patient's dual-chamber Medtronic pacemaker. Normal function of both the atrial and ventricular leads. Mostly atrial pacing. He is not pacemaker dependent. Assessment and Plan 1. Preoperative evaluation: The patient appears to be an appropriate candidate for the intended procedure. He is not at high risk for cardiovascular events as he is not manifest any acute symptoms decompensated heart failure, unstable coronary syndromes or malignant arrhythmia. While he does have a history of coronary artery disease and ischemic cardiomyopathy he appears to be well compensated currently. His beta-blockade can be continued in the perioperative period. He was subtherapeutic with respect anticoagulation at the time admission. There is some debate as to whether he would require bridging. Appears his indication for anticoagulation is his history of embolic strokes and left ventricular thrombus. Did decide to administer 1 dose of Lovenox this evening. Additional bridging or anticoagulation can be discussed subsequent to his operation. Attention should be paid to maintaining good oxygenation, avoiding significant hypo or hypertension. Avoiding significant anemia and blood loss and avoiding significant tachycardia. Patient has a dual-chamber pacemaker but is not pacemaker dependent. No reprogramming or precautions are required for his operation.
--- NOTE | 2017-07-09 18:03 | Progress Note ---
Progress Note Date of Service Jul 09, 2017. Progress Note The patient is a 62 year old who had a mechanical fall fracturing his hip. He is scheduled for IM rodding tomorrow. He has multiple comorbidities which include hypertension, atrial fibrillation an AR and CVA both 11/2016. He has a left hemiparesis and walks with a walker. He is status post UPPP and gastric bypass which caused him to lose about 160 lb. He takes warfarin and stated his last dose was last Monday. His INR today was 1.7. Regardless, he is adamant that he will not have spinal anesthesia. The EKG is showing inferior and anterolateral infarct on or before April 2017. A cardiology consult has been ordered.
[2017-07-09] MEDS: TRIAMCINOLONE ACET 0.1% CR 15 GM TUBE EXT PRN ×2 (18:22→19:56)
[2017-07-09 18:23] LABS: INR 1.5 (0.9-1.1)
[2017-07-09] MEDS: MIRTAZAPINE TAB 15 MG TAB PO SCH (21:31)
[2017-07-09] MEDS: DONEPEZIL HCL 5 MG TAB PO SCH (21:32)
[2017-07-09] MEDS: DOCUSATE SODIUM/SENNA 50/8.6MG TAB PO SCH (21:32)
[2017-07-09] MEDS: ROPINIROLE HCL 0.25 MG TAB PO SCH (21:32)
[2017-07-09 23:11] VITALS: BP 122/74; PULSE 71; TEMP 37.4; O2SAT 90
[2017-07-10] VITALS (8 sets, daily range): BP systolic 117–157; BP diastolic 62–78; PULSE 61–73; TEMP 36.5–37.3; O2SAT 91–100
[2017-07-10] MEDS: SODIUM CHLOR 0.45% + 20MEQ KCL 1,000 ML IV SCH (00:11)
[2017-07-10] MEDS: OXYCODONE/ACETAMINOPHEN 5-325 TAB PO PRN ×2 (02:56→12:18)
[2017-07-10] MEDS: MoRPHine SULFATE 2 MG/ML CARP IV PRN ×5 (04:37→14:33)
[2017-07-10] MEDS: TRIAMCINOLONE ACET 0.1% CR 15 GM TUBE EXT PRN (05:48)
[2017-07-10] MEDS ORDERED: CLINDAMYCIN IV 900 MG in DEXTROSE 5% 100ML 100 ML IV SCH (06:00)
[2017-07-10 06:15] LABS: HEMATOCRIT 29.5 % (42-52); HEMOGLOBIN 9.6 g/dL (14.0-18.0); MEAN CELL VOLUME 96.7 fL (80-100); MEAN CORPUSCULAR HEMOGLOBIN 31.5 pg (25-34); MEAN CORPUSCULAR HGB CONC 32.5 g/dl (32-36); MEAN PLATELET VOLUME 9.1 fL (7.4-10.4); PLATELET COUNT 242 K/uL (130-400); RED CELL DISTRIBUTION WIDTH CV 13.4 % (11.5-14.5); RED CELL DISTRIBUTION WIDTH SD 47.1 fL (36.4-46.3); WHITE BLOOD COUNT 12.36 K/uL (4.8-10.8)
[2017-07-10 06:26] LABS: INR 1.3 (0.9-1.1)
[2017-07-10 06:53] LABS: CALCIUM 8.1 mg/dl (8.5-10.1); CREATININE 1.17 mg/dl (0.60-1.40); POTASSIUM 3.8 mmol/L (3.5-5.1)
[2017-07-10] MEDS: hydrOXYzine HCL 25 MG TAB PO SCH ×3 (09:00→20:58)
[2017-07-10] MEDS: THIAMINE HCL 100 MG TAB PO SCH (09:00)
[2017-07-10] MEDS: ATORVASTATIN 40 MG TAB PO SCH (09:00)
[2017-07-10] MEDS: ASPIRIN 81 MG ECTAB PO SCH (09:00)
--- NOTE | 2017-07-10 09:16 | Hospitalist Progress Note ---
Hospitalist Progress Note Date of Service Jul 10, 2017. (Reina Ordaz PA-C) Subjective Pt evaluation today including: conversation w/ patient, physical exam, chart review, lab review, review of studies Pain: Left hip, rated 9/10 PO Intake: NPO Voiding: piña catheter in place The patient was seen and examined this morning. Pt reports doing ok other than having some left sided hip pain. He reports having decreased sensation down into his lower leg/foot but notes this is due to his previous CVA, and not new s /p fall. He denies any paresthesias or cramping/spasm. Plan for surgery this afternoon with Dr. Birch after 3pm today. Continue NPO. Constitutional: No fever, No chills, No sweats, No fatigue Eyes: No redness, No diplopia ENT: No nasal symptoms, No trouble swallowing Respiratory: No cough, No shortness of breath Cardiovascular: No chest pain, No palpitations Abdomen: No pain, No nausea, No vomiting, No diarrhea, No constipation Musculoskeletal: + see HPI Male : + problem reported (piña catheter in place) Neurologic: + see HPI, No weakness Psychiatric: No depression symptoms, No anxiety Endo: No fatigue Skin: + problem reported (tendency of picking skin on face and upper extremties. ) (Reina Ordaz PA-C) Objective Vital Signs Date Time Temp Pulse Resp B/P (MAP) Pulse Ox O2 Delivery O2 Flow Rate FiO2 07/10/17 06:45 36.9 69 18 122/62 (82) 91 Nasal Cannula 2.0 07/10/17 00:00 92 Nasal Cannula 2.0 07/09/17 23:11 37.4 71 18 122/74 (90) 90 Nasal Cannula 2.0 07/09/17 19:45 Room Air 07/09/17 15:15 Room Air 07/09/17 14:55 37.0 59 18 131/62 (85) 94 Room Air (Reina Ordaz PA-C) Physical Exam General Appearance: WD/WN, no apparent distress Eyes: PERRL, EOMI ENT: hearing grossly normal, pharynx normal, + pertinent finding (endentulous, MMM, + old Left sided facial droop) Neck: supple, thyroid normal Respiratory/Chest: lungs clear, no respiratory distress, no accessory muscle use, + pertinent finding (on RA) Cardiovascular: regular rate, rhythm, + pertinent finding (paced) Abdomen: normal bowel sounds, non tender, soft Extremities: non-tender, no pedal edema, no calf tenderness, + pertinent finding (LLE elevated on pillow, externally rotated, shortened.) Neurologic/Psychiatric: alert, oriented x 3 Skin: normal color, warm/dry (Reina Ordaz PA-C) Laboratory Results Last 24 Hours Test 07/09/17 18:05 07/10/17 05:28 Prothrombin Time 15.6 SECONDS 13.2 SECONDS Prothromb Time International Ratio 1.5 1.3 White Blood Count 12.36 K/uL Red Blood Count 3.05 M/uL Hemoglobin 9.6 g/dL Hematocrit 29.5 % Mean Corpuscular Volume 96.7 fL Mean Corpuscular Hemoglobin 31.5 pg Mean Corpuscular Hemoglobin Concent 32.5 g/dl RDW Standard Deviation 47.1 fL RDW Coefficient of Variation 13.4 % Platelet Count 242 K/uL Mean Platelet Volume 9.1 fL Sodium Level 138 mmol/L Potassium Level 3.8 mmol/L Chloride Level 107 mmol/L Carbon Dioxide Level 26 mmol/L Anion Gap 5.0 mmol/L Blood Urea Nitrogen 10 mg/dl Creatinine 1.17 mg/dl Est Creatinine Clear Calc Drug Dose 65.9 ml/min Estimated GFR () 75.9 Estimated GFR (Non- 65.5 BUN/Creatinine Ratio 8.7 Random Glucose 125 mg/dl Calcium Level 8.1 mg/dl (Reina Ordaz PA-C) Assessment and Plan Patient is a pleasant 62 y/o male, with PMHx of CVA w/ L deficits, CA, chronic a.fib on chronic Coumadin, combined systolic/diastolic CHF, s/p pacemaker, HLD, gastric bypass surgery, PUD, GI bleed x3, and depression, who was a direct admit to [facility] for L hip fracture from [facility]. L hip fracture from mechanical fall: - Admit to med/surg - Vitamin D level low 19.8 - add supplementation - Tylenol PRN, Percocet PRN, IV Morphine PRN for pain management - Orthopedics consulted- planned for surgery today with Dr. Birch Atrial tachycardia/ possible atrial flutter on chronic Coumadin also for mural thrombus, h/o CA, HLD, combined systolic/diastolic CHF, s/p pacemaker - follows w/ Dr. Yarbrough - pacemaker report reviewed - Hold Coumadin due to upcoming procedure- given 1 dose of lovenox last night, follow PT/INR- 1.3 today - Consulted cardiology for preop clearance - appreciate recs -At intermediate risk of cardiac complications for the OR: Continue BB in periop period Will need to start AC after sx when the risk of bleeding is acceptable. - known old mural Thrombus - should reduce his risk of stroke but not eliminate it Concern w hx of ssignificant bleeding with Lovenox post sx at a therapeutic dose. - consider heparin without a bolus and use low dose protocol (stroke protocol) - Continue Metoprolol 25 mg daily, Lipitor 80 mg daily, ASA 81 mg daily, Lasix 20 mg daily - Monitor I&Os and daily weights - ECHO from 04/2017 w/ EF of 45-50%, grade III diastolic dysfunction CVA w/ L deficits - Continue Lipitor, Requip 1 mg HS, ASA Depression - Continue Cymbalta 120 mg daily, Klonopin 2 mg BID, Remeron 30 mg HS Itching - Continue Triamcinolone PRN and Hydroxyzine TID h/o PUD, h/o GI bleed x3, GI prophylaxis: Protonix BID DVT prophylaxis: TEDs/SCDs; given 1 dose of lovenox last night - await start of further anticoagulation when bleeding risk decreases per surg team. Code status: LEVEL I, FULL Dispo: From home, lives w/ - CM consulted; PT/OT after surg (Reina Ordaz PA-C) Reviewed: Pt Seen/Exam by Me (Samara Landa MD) History Physician Email Developer supervision Note: I interviewed and examined the patient. Discussed with PELON Ordaz and agree with findings and plan as documented in the note. Any exceptions or clarifications are listed here: Patient is a 62-year-old male who is a direct transfer from [facility] after a mechanical fall walking with his walker today. He fractured his left hip. 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 Also with long history of smoking and a pericardial window for pericardial effusion with tamponade during his hospitalization for stroke. I saw the patient just after he returned from the PACU. He is doing fairly well and has no complaints. There were no reported complications in the immediate postoperative period. Vitals reviewed Gen: AAOx3, NAD HEENT: anicteric sclerae, EOMI, edentulous, mild left-sided facial droop which is chronic CV: RRR no mgr nl S1S2 Pulm: CTAB no wcr Abd: +BS soft NT ND no masses or hernias Ext: Left hip with dressing and ice pack in place Skin: Multiple excoriated 1 cm lesions diffusely on left arm and face, as well as bilateral legs, warm/dry Patient is a 62-year-old male with history as above, here with mechanical fall and left hip fracture. -Appreciate orthopedics consult-postoperative management as per Orth O -Follow hemoglobin closely given coagulopathy and hip fracture-stable to slightly lower today -Consult cardiology given extensive cardiac history-repeat ECG here with a review of ECG from [facility] today shows atrial paced rhythm without ischemic changes-pacemaker interrogated just now and he is not pacer dependent -Holding Coumadin, will continue baby aspirin given severe CAD and history of CVA -We will start low-dose heparin drip protocol without bolus as bridging and restart Coumadin at approximately the 24 hour postoperative anjelica if okay with orthopedic surgery -Follow PT/INR -Continue beta-isamar, statin in the perioperative period Documented By: Samara Landa (Samara Landa MD)
--- NOTE | 2017-07-10 09:17 | Cardiology Follow-Up ---
Subjective General Date of Service: Jul 10, 2017. Pt evaluation today including: conversation w/ patient, chart review, lab review, review of studies History of Present Illness The patient is a 62 year old male with hip Fx Allergies Coded Allergies: Penicillins (Verified Allergy, Severe, SWELLING AND RASH OF HANDS; HAS TOLERATED ANCEF & ROCEPHIN, 05/04/17) Social History Smoking Status: Former Smoker (quit 12/2016) Hx Tobacco Use In Past Year?: Yes Hx Alcohol Use - Type And Amou: No Hx Substance Use - Type And Am: No Problem List Medical Problems: (1) Epigastric abdominal pain Status: Acute (2) Hypotension Status: Acute (3) Substernal chest pain Status: Acute (4) Upper gastrointestinal bleed Status: Acute Review of Systems Respiratory: No cough, No shortness of breath, No dyspnea at rest Cardiac: No chest pain, No edema, No palpitations Additional ROS Details: Significant hip and leg pain Rest of ROS negative Physical Exam Vital Signs Last Vital Signs Documentation Date Time Temp Pulse Resp B/P (MAP) Pulse Ox O2 Delivery O2 Flow Rate FiO2 07/10/17 06:45 36.9 69 18 122/62 (82) 91 Nasal Cannula 2.0 Physical Exam Constitutional: Level of Distress: NAD, chronically ill Psychiatric: Mental Status: active & alert, depressed Lungs: Respiratory effort: no dyspnea Auscultation: breath sounds normal, no wheezing, no rales/crackles, no rhonchi Cardiovascular: Heart Auscultation: RRR, no murmurs, no rubs, no gallops Abdomen: Bowel Sounds: normal Inspection & Palpation: soft, non-distended, no tenderness, guarding & rebound Extremities: no edema Assessment and Plan Assessment and Plan Echo 04/2017 n Conclusions -- n 1. Normal left ventricular size with mildly reduced systolic function. EF 45-50%. Large aneurysmal apex. Mild left ventricular hypertrophy. Type 3 diastolic dysfunction suggested. n 2. Mildly dilated right ventricle with normal systolic function. n 3. There is mild mitral regurgitation. n 4. Normal estimated right ventricular systolic pressure; 32mmHg. n 5. Compared to prior transthoracic study on 11/10/2009, LV systolic function is now mildly reduced and aneurysmal apex is present. Impressions: 1A. Hip Fx S/P Mechanical Fall for repair today 1B. Extensive GI bleed - Fall of 2016. 2. Subsequent stroke with an acute right MCA stroke affecting his left side at [facility] in Fall 2016. 3. LAD anterior wall infarction, treated medically with mild left ventricular dysfunction which is an improvement over his EF in the fall with an LVEF April 2017 of 45%. 4. Chronic mural apical thrombus. 5. Chronic systolic heart failure. 6. History or cardiac tamponade, status post pericardial window - Fall 2016. 7. History of extensive GI bleeds in the past, currently on Coumadin for his LV thrombus. 8. Status post dual chamber pacemaker secondary to bradycardia. 9. History of multiinfarct dementia. At intermediate risk of cardiac complications for the OR Continue BB in periop period If concern with pacer and cautery may place magnet and change to DOO mode or have reps reprogram before and after sx Will need to start AC after sx when the risk of bleeding is acceptable. He has known mural Thrombus which is old at this point which should reduce his risk of stroke but not eliminate it Concern over significant bleeding with Lovenox post sx at a therapeutic dose. may need to consider heparin without a bolus and use low dose protocol (stroke protocol) All this was d/w the patient. Laboratory Results Last 24 Hours Test 07/09/17 18:05 07/10/17 05:28 Prothrombin Time 15.6 SECONDS 13.2 SECONDS Prothromb Time International Ratio 1.5 1.3 White Blood Count 12.36 K/uL Red Blood Count 3.05 M/uL Hemoglobin 9.6 g/dL Hematocrit 29.5 % Mean Corpuscular Volume 96.7 fL Mean Corpuscular Hemoglobin 31.5 pg Mean Corpuscular Hemoglobin Concent 32.5 g/dl RDW Standard Deviation 47.1 fL RDW Coefficient of Variation 13.4 % Platelet Count 242 K/uL Mean Platelet Volume 9.1 fL Sodium Level 138 mmol/L Potassium Level 3.8 mmol/L Chloride Level 107 mmol/L Carbon Dioxide Level 26 mmol/L Anion Gap 5.0 mmol/L Blood Urea Nitrogen 10 mg/dl Creatinine 1.17 mg/dl Est Creatinine Clear Calc Drug Dose 65.9 ml/min Estimated GFR () 75.9 Estimated GFR (Non- 65.5 BUN/Creatinine Ratio 8.7 Random Glucose 125 mg/dl Calcium Level 8.1 mg/dl
[2017-07-10] MEDS: DULOXETINE HCL 60 MG CAP PO SCH (10:39)
[2017-07-10] MEDS: CLONAZEPAM 1 MG TAB PO SCH ×2 (10:39→20:58)
[2017-07-10] MEDS: PANTOprazole SOD 40 MG TAB PO SCH ×2 (10:39→20:58)
[2017-07-10] MEDS: FUROSEMIDE 20 MG TAB PO SCH (10:39)
[2017-07-10] MEDS: METOPROLOL SUCC 25MG EXT REL TAB PO SCH (10:40)
[2017-07-10] MEDS ORDERED: BUPIVACAINE/EPINEPHRINE 0.5% MPF 1:200,000 30 ML VIAL ONE (14:33)
[2017-07-10] MEDS ORDERED: DEXAMETHASONE SOD INJ 4 MG/ML VIAL ONE (15:43)
[2017-07-10] MEDS ORDERED: ONDANSETRON INJ 2 MG/ML 2 ML VIAL ONE (15:43)
[2017-07-10] MEDS ORDERED: LIDOCAINE HCL 2% 2 ML VIAL (20MG/ML) ONE (15:43)
[2017-07-10] MEDS ORDERED: FENTANYL CITRATE INJ 50 MCG/1 ML 2 ML VIAL ONE (15:43)
[2017-07-10] MEDS ORDERED: PROPOFOL IV EMULSION 10 MG/ML 20 ML VIAL ONE (15:43)
[2017-07-10] MEDS ORDERED: MIDAZOLAM HCL 1 MG/ML 2ML VIAL ONE (15:43)
--- NOTE | 2017-07-10 16:06 | History & Physical Bridge Note ---
H&P Re-Evaluation Bridge Note: I have examined the patient, reviewed the History & Physical and in the interval since the performance of the History & Physical I have noted the following changes of clinical significance: No changes noted
[2017-07-10] MEDS ORDERED: ATROPINE SULFATE 0.1 MG/ML 5ML SYR IV PRN (16:30)
[2017-07-10] MEDS ORDERED: FENTANYL CITRATE INJ 50 MCG/1 ML 2 ML VIAL IV PRN (16:30)
[2017-07-10] MEDS ORDERED: EpHEDrine SULFATE INJ 50 MG/ML AMP IV PRN (16:30)
[2017-07-10] MEDS ORDERED: PROMETHAZINE HCL INJ 6.25 MG in SODIUM CHLORIDE 0.9% 50ML 50 ML IV PRN (16:30)
[2017-07-10] MEDS ORDERED: ONDANSETRON INJ 2 MG/ML 2 ML VIAL IV PRN ×2 (16:30→18:15)
[2017-07-10] MEDS ORDERED: EpHEDrine SULFATE 50MG/5ML SYR ONE (17:49)
--- NOTE | 2017-07-10 18:08 | DIAGNOSTIC IMAGING REPORT ---
L HIP OR FILMS CLINICAL HISTORY: LT TROCH NAIL COMPARISON STUDY: 07/08/2017 FLUOROSCOPY TIME: 1 minute 17 seconds. FINDINGS: Left hip nailing procedure. Image intensifier films show generally anatomic alignment. IMPRESSION: Left hip nailing procedure. The above report was generated using voice recognition software. It may contain grammatical, syntax or spelling errors. Electronically signed by: Troy Tolliver M.D. 07/10/2017 6:07 PM Dictated Date/Time: 07/10/2017 6:06 PM
[2017-07-10] MEDS ORDERED: OXYCODONE HCL IR 5 MG TAB (IMMEDIATE RELEASE) PO PRN (18:15)
[2017-07-10] MEDS ORDERED: MAGNESIUM HYDROXIDE SUSP 30 ML UDC PO PRN (18:15)
[2017-07-10] MEDS ORDERED: BISACODYL 10 MG SUPP PR PRN (18:15)
[2017-07-10] MEDS ORDERED: HYDROmorphone INJ 0.5 MG/0.5 ML SYR IV PRN (18:15)
--- NOTE | 2017-07-10 18:15 | [facility] Post Operative Brief Note ---
Immediate Operative Summary Operative Date Jul 10, 2017. Pre-Operative Diagnosis Intertrochanteric fracture of the left hip Post-Operative Diagnosis Intertrochanteric fracture of the left hip Procedure(s) Performed Left hip Trochanteric Femoral Nail Fixation Surgeon Dr. Birch Morgue Librarian Surgeon(s) Valeriano Nolen Estimated Blood Loss 200ml Findings Consistent with Post-Op Diagnosis Specimens none per surgeon Drains None Anesthesia Type General
--- NOTE | 2017-07-10 18:56 | Anesthesiology Progress Note ---
Anesthesia Post Op Note Date & Time Jul 10, 2017 at 18:55 Vital Signs Pain Intensity: 0 Vital Signs Past 12 Hours Date Time Temp Pulse Resp B/P (MAP) Pulse Ox O2 Delivery O2 Flow Rate FiO2 07/10/17 18:45 70 20 140/78 97 Nasal Cannula 2 07/10/17 18:35 37.2 70 12 138/67 97 Nasal Cannula 2 07/10/17 18:25 68 12 156/78 99 Oxymask 10 07/10/17 18:15 69 12 156/70 99 Oxymask 10 07/10/17 18:08 37.4 68 12 146/66 100 Oxymask 10 07/10/17 08:00 Room Air Notes Mental Status: alert / awake / arousable, participated in evaluation Pt Amnestic to Procedure: Yes Nausea / Vomiting: adequately controlled Pain: adequately controlled Airway Patency, RR, SpO2: stable & adequate BP & HR: stable & adequate Hydration State: stable & adequate Anesthetic Complications: no major complications apparent
[2017-07-10] MEDS: SODIUM CHLORIDE 0.9% 1000ML 1,000 ML IV SCH (19:45)
[2017-07-10] MEDS: CLINDAMYCIN IV 600 MG in DEXTROSE 5% 50ML 50 ML IV SCH (19:45)
[2017-07-10] MEDS: OXYCODONE HCL IR 5 MG TAB (IMMEDIATE RELEASE) PO PRN (19:53)
[2017-07-10] MEDS: ASPIRIN/ALUM/MAGNES/CAL CARB 325 MG TAB PO SCH (20:57)
[2017-07-10] MEDS: ROPINIROLE HCL 0.25 MG TAB PO SCH (20:58)
[2017-07-10] MEDS: DOCUSATE SODIUM/SENNA 50/8.6MG TAB PO SCH (20:58)
[2017-07-10] MEDS: DONEPEZIL HCL 5 MG TAB PO SCH (20:58)
[2017-07-10] MEDS: MIRTAZAPINE TAB 15 MG TAB PO SCH (20:58)
[2017-07-11] VITALS (8 sets, daily range): BP systolic 112–154; BP diastolic 52–69; PULSE 63–80; TEMP 36.6–37.6; O2SAT 77–98
[2017-07-11] MEDS: MoRPHine SULFATE 2 MG/ML CARP IV PRN ×5 (01:30→23:41)
[2017-07-11] MEDS: CLINDAMYCIN IV 600 MG in DEXTROSE 5% 50ML 50 ML IV SCH (04:15)
[2017-07-11 06:57] LABS: HEMATOCRIT 31.7 % (42-52); HEMOGLOBIN 10.1 g/dL (14.0-18.0); MEAN CELL VOLUME 98.1 fL (80-100); MEAN CORPUSCULAR HEMOGLOBIN 31.3 pg (25-34); MEAN CORPUSCULAR HGB CONC 31.9 g/dl (32-36); MEAN PLATELET VOLUME 9.2 fL (7.4-10.4); PLATELET COUNT 258 K/uL (130-400); RED CELL DISTRIBUTION WIDTH CV 13.5 % (11.5-14.5); RED CELL DISTRIBUTION WIDTH SD 48.6 fL (36.4-46.3); WHITE BLOOD COUNT 12.14 K/uL (4.8-10.8)
[2017-07-11 07:05] LABS: INR 1.1 (0.9-1.1)
[2017-07-11 07:29] LABS: CALCIUM 8.3 mg/dl (8.5-10.1); CREATININE 1.27 mg/dl (0.60-1.40); POTASSIUM 3.6 mmol/L (3.5-5.1)
[2017-07-11] MEDS: SODIUM CHLORIDE 0.9% 1000ML 1,000 ML IV SCH (07:30)
--- NOTE | 2017-07-11 07:42 | ORTHOPEDICS PROGRESS NOTE ---
DATE: 07/11/2017 SUBJECTIVE: He is alert, oriented. He looks stable. Moderate complaints of pain. OBJECTIVE: Vital signs stable including temperature, blood pressure. LABORATORY DATA: 10.1 hemoglobin this morning, 31.7 hematocrit. White cell count elevated. PHYSICAL EXAMINATION: Wound is clean, protected. IMPRESSION: Status post open reduction and internal fixation of the left hip performed last evening. He is a very compromised human being. PLAN: We will keep him in the hospital next couple of days. We will get physical therapy, occupational therapy. He will definitely need some sort of rehab-type placement in my opinion, [facility] or other similar situation. Even a nursing facility for 2-5 weeks might be appropriate.
[2017-07-11] MEDS: OXYCODONE HCL IR 5 MG TAB (IMMEDIATE RELEASE) PO PRN ×3 (07:43→18:18)
--- NOTE | 2017-07-11 07:57 | OPERATIVE REPORT ---
DATE OF OPERATION: 08/09/2017 PREOPERATIVE DIAGNOSIS: Intertrochanteric fracture, left hip. POSTOPERATIVE DIAGNOSIS: Intertrochanteric fracture, left hip. PROCEDURE: TFN nail, left hip. COMPLICATIONS: Zero. ANESTHETIC: General LMA. BLOOD LOSS: 200. DESCRIPTION OF PROCEDURE: The patient was taken to the operating room, and general intubated anesthetic provided to the patient. His left lower extremity, placed traction. Anatomic reduction obtained. We scrubbed him first with Betadine, alcohol prep with ChloraPrep. We draped him sterile, made a skin incision and fascial incision. We engaged the trochanter with a guidewire, reamed and then selected the appropriate nail, 12 mm short nail from the [employer] [facility]. This was locked proximally and distally. The reduction was near anatomic. We irrigated and closed in layers. Sterile dressings applied. The patient returned to PACU improved and stable. Sponge and needle counts correct. I attest to the content of the Intraoperative Record and any orders documented therein. Any exception s are noted below.
[2017-07-11] MEDS: hydrOXYzine HCL 25 MG TAB PO SCH ×3 (08:49→20:16)
[2017-07-11] MEDS: DULOXETINE HCL 60 MG CAP PO SCH (08:49)
[2017-07-11] MEDS: CHOLECALCIFEROL 1000 INTER.UNIT TAB PO SCH (08:49)
[2017-07-11] MEDS: FUROSEMIDE 20 MG TAB PO SCH (08:50)
[2017-07-11] MEDS: ASPIRIN/ALUM/MAGNES/CAL CARB 325 MG TAB PO SCH (08:50)
[2017-07-11] MEDS: ATORVASTATIN 40 MG TAB PO SCH (08:50)
[2017-07-11] MEDS: METOPROLOL SUCC 25MG EXT REL TAB PO SCH (08:51)
[2017-07-11] MEDS: THIAMINE HCL 100 MG TAB PO SCH (08:51)
[2017-07-11] MEDS: PANTOprazole SOD 40 MG TAB PO SCH ×2 (08:51→20:17)
[2017-07-11] MEDS: CLONAZEPAM 1 MG TAB PO SCH ×2 (08:56→20:19)
--- NOTE | 2017-07-11 09:32 | Cardiology Follow-Up ---
Subjective General Date of Service: July 11, 2017. Pt evaluation today including: conversation w/ patient, chart review, lab review, review of studies History of Present Illness The patient is a 62 year old male Allergies Coded Allergies: Penicillins (Verified Allergy, Severe, SWELLING AND RASH OF HANDS; HAS TOLERATED ANCEF & ROCEPHIN, 05/04/17) Social History Smoking Status: Former Smoker (quit 12/2016) Hx Tobacco Use In Past Year?: Yes Hx Alcohol Use - Type And Amou: No Hx Substance Use - Type And Am: No Problem List Medical Problems: (1) Epigastric abdominal pain Status: Acute (2) Hypotension Status: Acute (3) Substernal chest pain Status: Acute (4) Upper gastrointestinal bleed Status: Acute Review of Systems Respiratory: No cough, No shortness of breath, No dyspnea at rest Cardiac: No chest pain, No edema, No palpitations Additional ROS Details: Still with left hip pain Physical Exam Vital Signs Last Vital Signs Documentation Date Time Temp Pulse Resp B/P (MAP) Pulse Ox O2 Delivery O2 Flow Rate FiO2 07/11/17 08:06 37.2 80 16 154/56 (88) 93 Room Air 07/10/17 22:56 2.0 Physical Exam Constitutional: Level of Distress: NAD, chronically ill Psychiatric: Mental Status: active & alert, depressed Lungs: Respiratory effort: no dyspnea Auscultation: breath sounds normal, no wheezing, no rales/crackles, no rhonchi Cardiovascular: Heart Auscultation: RRR, no murmurs, no rubs, no gallops Abdomen: Bowel Sounds: normal Inspection & Palpation: soft, non-distended, no tenderness, guarding & rebound Extremities: no edema Assessment and Plan Assessment and Plan Echo 04/2017 n Conclusions -- n 1. Normal left ventricular size with mildly reduced systolic function. EF 45-50%. Large aneurysmal apex. Mild left ventricular hypertrophy. Type 3 diastolic dysfunction suggested. n 2. Mildly dilated right ventricle with normal systolic function. n 3. There is mild mitral regurgitation. n 4. Normal estimated right ventricular systolic pressure; 32mmHg. n 5. Compared to prior transthoracic study on 11/10/2009, LV systolic function is now mildly reduced and aneurysmal apex is present. Impressions: 1A. Hip Fx S/P Mechanical Fall--POD #1 Repair 1B. Extensive GI bleed - Fall of 2017. 2. Subsequent stroke with an acute right MCA stroke affecting his left side at [facility] in Fall 2016. 3. LAD anterior wall infarction, treated medically with mild left ventricular dysfunction which is an improvement over his EF in the fall with an LVEF April 2017 of 45%. 4. Chronic mural apical thrombus. 5. Chronic systolic heart failure. 6. History or cardiac tamponade, status post pericardial window - Fall 2016. 7. History of extensive GI bleeds in the past, currently on Coumadin for his LV thrombus. 8. Status post dual chamber pacemaker secondary to bradycardia. 9. History of multiinfarct dementia. No angina or CHF sx's BP and HR ok Continue BB Will need to start AC when the risk of bleeding is acceptable. He has known mural Thrombus which is old at this point which should reduce his risk of stroke but not eliminate it Concern over significant bleeding with Lovenox post sx at a therapeutic dose; therefore heparin without a bolus and use low dose protocol (stroke protocol) All this was d/w the patient and primary service. Laboratory Results Last 24 Hours Test 07/11/17 06:32 White Blood Count 12.14 K/uL Red Blood Count 3.23 M/uL Hemoglobin 10.1 g/dL Hematocrit 31.7 % Mean Corpuscular Volume 98.1 fL Mean Corpuscular Hemoglobin 31.3 pg Mean Corpuscular Hemoglobin Concent 31.9 g/dl RDW Standard Deviation 48.6 fL RDW Coefficient of Variation 13.5 % Platelet Count 258 K/uL Mean Platelet Volume 9.2 fL Prothrombin Time 11.7 SECONDS Prothromb Time International Ratio 1.1 Sodium Level 134 mmol/L Potassium Level 3.6 mmol/L Chloride Level 102 mmol/L Carbon Dioxide Level 26 mmol/L Anion Gap 6.0 mmol/L Blood Urea Nitrogen 11 mg/dl Creatinine 1.27 mg/dl Est Creatinine Clear Calc Drug Dose 60.7 ml/min Estimated GFR () 68.7 Estimated GFR (Non- 59.3 BUN/Creatinine Ratio 8.7 Random Glucose 188 mg/dl Calcium Level 8.3 mg/dl
--- NOTE | 2017-07-11 11:26 | Hospitalist Progress Note ---
Hospitalist Progress Note Date of Service July 11, 2017. (Reina Ordaz PA-C) Subjective Pt evaluation today including: conversation w/ patient, conversation w/ family , physical exam, chart review, lab review, review of studies Pain: L hip pain with movement PO Intake: Good Voiding: no voiding problems The patient was seen and examined this morning. Pt reports doing well today but has complaints of left hip pain with movement. He is tolerating a diet without difficulty. Pt has been working with PT/OT. Pts Gissel and sister Berna were present at bedside. His notes to me outside the room that the patient has had issues with addiction to pain medications at least 3 different times in his life. The most recent was 1 year ago after knee surgery where he was slowly weaned off. Additional Comments: Constitutional: No fever, No chills, No sweats, No fatigue Eyes: No redness, No diplopia ENT: No nasal symptoms, No trouble swallowing Respiratory: No cough, No shortness of breath Cardiovascular: No chest pain, No palpitations Abdomen: No pain, No nausea, No vomiting, No diarrhea, No constipation Musculoskeletal: + see HPI Neurologic: + see HPI, No weakness Psychiatric: No depression symptoms, No anxiety Skin: + problem reported (tendency of picking skin on face and upper extremities.) (Reina Ordaz PA-C) Objective Vital Signs Date Time Temp Pulse Resp B/P (MAP) Pulse Ox O2 Delivery O2 Flow Rate FiO2 07/11/17 10:30 93 Room Air 07/11/17 08:06 37.2 80 16 154/56 (88) 93 Room Air 07/11/17 07:33 Room Air 07/11/17 03:38 37.0 63 16 136/69 (91) 93 Room Air 07/11/17 01:35 98 Room Air 07/11/17 01:20 Room Air 07/10/17 22:56 36.8 61 16 117/67 (84) 96 Nasal Cannula 2.0 07/10/17 22:08 36.5 64 18 130/78 (95) 92 Nasal Cannula 2.0 07/10/17 21:07 36.6 73 18 121/72 (88) 95 Nasal Cannula 2.0 07/10/17 20:04 36.7 68 14 148/72 (97) 97 Nasal Cannula 2.0 07/10/17 19:36 36.7 62 18 157/66 (96) 100 Nasal Cannula 2.0 07/10/17 19:05 37.3 65 18 151/71 (97) 97 Nasal Cannula 2.0 07/10/17 19:05 97 Nasal Cannula 2.0 07/10/17 19:05 97 Nasal Cannula 2.0 07/10/17 19:05 37.3 68 16 151/71 (97) 97 Nasal Cannula 2.0 07/10/17 18:45 70 20 140/78 97 Nasal Cannula 2 07/10/17 18:35 37.2 70 12 138/67 97 Nasal Cannula 2 07/10/17 18:25 68 12 156/78 99 Oxymask 10 07/10/17 18:15 69 12 156/70 99 Oxymask 10 07/10/17 18:08 37.4 68 12 146/66 100 Oxymask 10 (Reina Ordaz PA-C) Physical Exam Notes: General Appearance: WD/WN, no apparent distress Eyes: PERRL, EOMI ENT: hearing grossly normal, pharynx normal, + pertinent finding (endentulous, MMM, + old Left sided facial droop) Neck: supple, thyroid normal Respiratory/Chest: lungs clear, no respiratory distress, no accessory muscle use, + pertinent finding (on RA) Cardiovascular: regular rate, rhythm, + pertinent finding (paced) Abdomen: normal bowel sounds, non tender, soft Extremities: non-tender, no pedal edema, no calf tenderness, + pertinent finding (LLE elevated on pillow, dressing over L hip c/d/i, ice pack in place) Neurologic/Psychiatric: alert, oriented x 3 Skin: normal color, warm/dry (Reina Ordaz PA-C) Laboratory Results Last 24 Hours Test 07/11/17 06:32 White Blood Count 12.14 K/uL Red Blood Count 3.23 M/uL Hemoglobin 10.1 g/dL Hematocrit 31.7 % Mean Corpuscular Volume 98.1 fL Mean Corpuscular Hemoglobin 31.3 pg Mean Corpuscular Hemoglobin Concent 31.9 g/dl RDW Standard Deviation 48.6 fL RDW Coefficient of Variation 13.5 % Platelet Count 258 K/uL Mean Platelet Volume 9.2 fL Prothrombin Time 11.7 SECONDS Prothromb Time International Ratio 1.1 Sodium Level 134 mmol/L Potassium Level 3.6 mmol/L Chloride Level 102 mmol/L Carbon Dioxide Level 26 mmol/L Anion Gap 6.0 mmol/L Blood Urea Nitrogen 11 mg/dl Creatinine 1.27 mg/dl Est Creatinine Clear Calc Drug Dose 60.7 ml/min Estimated GFR () 68.7 Estimated GFR (Non- 59.3 BUN/Creatinine Ratio 8.7 Random Glucose 188 mg/dl Calcium Level 8.3 mg/dl (Reina Ordaz PA-C) Assessment and Plan Patient is a pleasant 62 y/o male, with PMHx of CVA w/ L deficits, [place], chronic a.fib on chronic Coumadin, combined systolic/diastolic CHF, s/p pacemaker, HLD, gastric bypass surgery, PUD, GI bleed x3, and depression, who was a direct admit to [facility] for L hip fracture from [facility]. L hip fracture from mechanical fall: s/p L hip fx fixation by Dr. Birch on 07/09 - Admit to med/surg - Vitamin D level low 19.8 - add supplementation - Tylenol PRN, Percocet PRN, IV Morphine PRN for pain management - attempt to wean off IV morphine today if possible Pt has hx of addiction to narcotic pain medication. Would limit supply at time of dc. Atrial tachycardia/ possible atrial flutter on chronic Coumadin also for mural thrombus, h/o RI, HLD, combined systolic/diastolic CHF, s/p pacemaker - follows w/ Dr. Yarbrough - pacemaker report reviewed - Anticoagulation: Hold Coumadin- given 1 dose of lovenox 07/09 prior to surg, then was started on low dose heparin gtt low dose no bolus after surg. - follow PT/INR- 1.1 today - Cardiology on board- appreciate recs - Continue Metoprolol 25 mg daily, Lipitor 80 mg daily, ASA 81 mg daily, Lasix 20 mg daily - Monitor I&Os and daily weights - ECHO from 04/2017 w/ EF of 45-50%, grade III diastolic dysfunction CVA w/ L deficits - Continue Lipitor, Requip 1 mg HS, ASA Depression - Continue Cymbalta 120 mg daily, Klonopin 2 mg BID, Remeron 30 mg HS Itching - Continue Triamcinolone PRN and Hydroxyzine TID h/o PUD, h/o GI bleed x3, GI prophylaxis: Protonix BID DVT prophylaxis: TEDs/SCDs; started on heparin gtt low dose on 07/09 after surg Code status: LEVEL I, FULL Dispo: From home, lives w/ - CM consulted; PT/OT (Reina Ordaz, FLAKITO) Reviewed: Pt Seen/Exam by Me (Samara Landa MD) History Physician Whitewasher supervision Note: I interviewed and examined the patient. Discussed with PELON Ordaz and agree with findings and plan as documented in the note. Any exceptions or clarifications are listed here: Patient is a 62-year-old male who is a direct transfer from [facility] after a mechanical fall walking with his walker today. He fractured his left hip. 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 Also with long history of smoking and a pericardial window for pericardial effusion with tamponade during his hospitalization for stroke. Patient seems a little more confused this evening and he has been receiving frequent doses of oxycodone. His reports to me on the phone that he has had issues with opioid abuse in the past. Vitals reviewed Gen: AAOx3, NAD HEENT: anicteric sclerae, EOMI, edentulous, mild left-sided facial droop which is chronic CV: RRR no mgr nl S1S2 Pulm: CTAB no wcr Abd: +BS soft NT ND no masses or hernias Ext: Left hip with dressing and ice pack in place, some edema down through the thigh into the knee Skin: Multiple excoriated 1 cm lesions diffusely on left arm and face, as well as bilateral legs, warm/dry Patient is a 62-year-old male with history as above, here with mechanical fall and left hip fracture. -Appreciate orthopedics consult-postoperative management as per Ortho-try to wean off of opioids as soon as possible given history of abuse -Hemoglobin is stable, follow CBC closely given history of GI bleeding and going back on anticoagulants -Consult cardiology given extensive cardiac history-repeat ECG here with a review of ECG from [facility] today shows atrial paced rhythm without ischemic changes-pacemaker interrogated just now and he is not pacer dependent -Discussed with orthopedics and cardiology-okay to resume Coumadin, will continue baby aspirin given severe CAD and history of CVA -We will start low-dose heparin drip protocol without bolus as bridging this evening -Follow PT/INR -Continue beta-isamar, statin in the perioperative period -Expect discharge to rehab in the next 1-2 days -Acute delirium-mild and likely secondary to opioid medication use-try to limit as above Documented By: Samara Landa (Samara Landa MD)
--- NOTE | 2017-07-11 15:21 | ORTHOPEDICS PROGRESS NOTE ---
DATE: 07/11/2017 SUBJECTIVE: Moderate complaints of pain. Alert, oriented. No chest pain, shortness of breath. PHYSICAL EXAMINATION: Wound clean, dry, protected. IMPRESSION: Status post repair, left hip. PLAN: Includes up with therapy, touch only on the left. He will need in-house rehab placement.
[2017-07-11] MEDS ORDERED: NURSING VERBAL MED ORDER ONE (16:30)
[2017-07-11] MEDS ORDERED: HEPARIN IV LOW DOSE NO BOLUS SCH (17:28)
[2017-07-11] MEDS ORDERED: WARFARIN SOD 1 MG TAB PO ONE (17:30)
[2017-07-11] MEDS: HEPARIN 25,000 UNIT/500ML D5W 500 ML IV SCH ×3 (18:12→23:04)
[2017-07-11] MEDS: TRIAMCINOLONE ACET 0.1% CR 15 GM TUBE EXT PRN (18:18)
[2017-07-11 18:19] LABS: BASO % 0.2 %; BASO ABS # 0.02 K/uL (0-0.2); EOS % 3.6 %; EOS ABS # 0.42 K/uL (0-0.5); HEMATOCRIT 30.2 % (42-52); HEMOGLOBIN 9.8 g/dL (14.0-18.0); IG# 0.03 K/uL (0.00-0.02); LYMPH ABS # 2.34 K/uL (1.2-3.4); MEAN CELL VOLUME 95.6 fL (80-100); MEAN PLATELET VOLUME 8.9 fL (7.4-10.4); MONO % 11.8 %; MONO ABS # 1.38 K/uL (0.11-0.59); NEUT % 64.1 %; NEUT ABS # 7.53 K/uL (1.4-6.5); PLATELET COUNT 292 K/uL (130-400); RED CELL DISTRIBUTION WIDTH CV 13.3 % (11.5-14.5); RED CELL DISTRIBUTION WIDTH SD 46.7 fL (36.4-46.3); WHITE BLOOD COUNT 11.72 K/uL (4.8-10.8)
[2017-07-11 18:28] LABS: MEAN CORPUSCULAR HGB CONC 32.5 g/dl (32-36)
[2017-07-11 18:29] LABS: INR 1.2 (0.9-1.1)
[2017-07-11] MEDS: DONEPEZIL HCL 5 MG TAB PO SCH (20:17)
[2017-07-11] MEDS: ROPINIROLE HCL 0.25 MG TAB PO SCH (20:17)
[2017-07-11] MEDS: DOCUSATE SODIUM/SENNA 50/8.6MG TAB PO SCH (20:18)
[2017-07-11] MEDS: MIRTAZAPINE TAB 15 MG TAB PO SCH (20:18)
[2017-07-12 01:02] LABS: PTT PATIENT 51.8 SECONDS (21.0-31.0)
[2017-07-12] MEDS: OXYCODONE HCL IR 5 MG TAB (IMMEDIATE RELEASE) PO PRN ×5 (04:53→22:32)
[2017-07-12 05:04] LABS: HEMATOCRIT 26.3 % (42-52); HEMOGLOBIN 8.6 g/dL (14.0-18.0); MEAN CELL VOLUME 95.6 fL (80-100); MEAN CORPUSCULAR HEMOGLOBIN 31.3 pg (25-34); MEAN CORPUSCULAR HGB CONC 32.7 g/dl (32-36); MEAN PLATELET VOLUME 8.7 fL (7.4-10.4); PLATELET COUNT 282 K/uL (130-400); RED CELL DISTRIBUTION WIDTH CV 13.5 % (11.5-14.5); RED CELL DISTRIBUTION WIDTH SD 47.4 fL (36.4-46.3); WHITE BLOOD COUNT 13.69 K/uL (4.8-10.8)
[2017-07-12 05:20] LABS: INR 1.1 (0.9-1.1)
[2017-07-12 05:21] LABS: PTT PATIENT 47.4 SECONDS (21.0-31.0)
[2017-07-12 05:30] LABS: CREATININE 1.36 mg/dl (0.60-1.40); POTASSIUM 3.6 mmol/L (3.5-5.1)
[2017-07-12] MEDS: HEPARIN 25,000 UNIT/500ML D5W 500 ML IV SCH ×4 (06:58→22:50)
[2017-07-12 07:53] VITALS: BP 116/52; PULSE 62; TEMP 37.3; O2SAT 90
[2017-07-12] MEDS: CLONAZEPAM 1 MG TAB PO SCH ×2 (08:22→21:23)
[2017-07-12] MEDS: THIAMINE HCL 100 MG TAB PO SCH (08:23)
[2017-07-12] MEDS: FUROSEMIDE 20 MG TAB PO SCH (08:23)
[2017-07-12] MEDS: ASPIRIN 81 MG ECTAB PO SCH (08:23)
[2017-07-12] MEDS: ATORVASTATIN 40 MG TAB PO SCH (08:23)
[2017-07-12] MEDS: PANTOprazole SOD 40 MG TAB PO SCH ×2 (08:23→21:27)
[2017-07-12] MEDS: METOPROLOL SUCC 25MG EXT REL TAB PO SCH (08:24)
[2017-07-12] MEDS: CHOLECALCIFEROL 1000 INTER.UNIT TAB PO SCH (08:24)
[2017-07-12] MEDS: hydrOXYzine HCL 25 MG TAB PO SCH ×3 (08:24→21:25)
[2017-07-12] MEDS: DULOXETINE HCL 60 MG CAP PO SCH (08:24)
--- NOTE | 2017-07-12 08:38 | Cardiology Follow-Up ---
Subjective General Date of Service: July 12, 2017. Pt evaluation today including: conversation w/ patient, chart review, lab review History of Present Illness The patient is a 62 year old male Allergies Coded Allergies: Penicillins (Verified Allergy, Severe, SWELLING AND RASH OF HANDS; HAS TOLERATED ANCEF & ROCEPHIN, 05/04/17) Social History Smoking Status: Former Smoker (quit 12/2016) Hx Tobacco Use In Past Year?: Yes Hx Alcohol Use - Type And Amou: No Hx Substance Use - Type And Am: No Problem List Medical Problems: (1) Epigastric abdominal pain Status: Acute (2) Hypotension Status: Acute (3) Substernal chest pain Status: Acute (4) Upper gastrointestinal bleed Status: Acute Review of Systems Respiratory: No shortness of breath, No dyspnea at rest Cardiac: No chest pain, No edema, No palpitations Additional ROS Details: 10/20 left hip pain Physical Exam Vital Signs Last Vital Signs Documentation Date Time Temp Pulse Resp B/P (MAP) Pulse Ox O2 Delivery O2 Flow Rate FiO2 07/12/17 07:53 37.3 62 14 116/52 (73) 90 Room Air 07/11/17 23:40 2.0 Physical Exam Constitutional: Level of Distress: NAD, chronically ill Psychiatric: Mental Status: active & alert, depressed Lungs: Respiratory effort: no dyspnea Auscultation: breath sounds normal, no wheezing, no rales/crackles, no rhonchi Cardiovascular: Heart Auscultation: RRR, no murmurs, no rubs, no gallops Abdomen: Bowel Sounds: normal Inspection & Palpation: soft, non-distended, no tenderness, guarding & rebound Extremities: no edema Assessment and Plan Assessment and Plan Echo 04/2017 n Conclusions -- n 1. Normal left ventricular size with mildly reduced systolic function. EF 45-50%. Large aneurysmal apex. Mild left ventricular hypertrophy. Type 3 diastolic dysfunction suggested. n 2. Mildly dilated right ventricle with normal systolic function. n 3. There is mild mitral regurgitation. n 4. Normal estimated right ventricular systolic pressure; 32mmHg. n 5. Compared to prior transthoracic study on 11/10/2009, LV systolic function is now mildly reduced and aneurysmal apex is present. Impressions: 1A. Hip Fx S/P Mechanical Fall--POD #1 Repair 1B. Extensive GI bleed - Fall of 2017. 2. Subsequent stroke with an acute right MCA stroke affecting his left side at [facility] in Fall 2016. 3. LAD anterior wall infarction, treated medically with mild left ventricular dysfunction which is an improvement over his EF in the fall with an LVEF April 2017 of 45%. 4. Chronic mural apical thrombus. 5. Chronic systolic heart failure. 6. History or cardiac tamponade, status post pericardial window - Fall 2016. 7. History of extensive GI bleeds in the past, currently on Coumadin for his LV thrombus. 8. Status post dual chamber pacemaker secondary to bradycardia. 9. History of multiinfarct dementia. No angina or CHF sx's BP and HR ok Continue BB and statin Heparin (low dose) to coumadin with goal INR2-3 Hgb dropped 1gm from yesterday; will need to watch closely Watch serum Na too Laboratory Results Last 24 Hours Test 07/11/17 18:10 07/12/17 00:22 07/12/17 04:46 White Blood Count 11.72 K/uL 13.69 K/uL Red Blood Count 3.16 M/uL 2.75 M/uL Hemoglobin 9.8 g/dL 8.6 g/dL Hematocrit 30.2 % 26.3 % Mean Corpuscular Volume 95.6 fL 95.6 fL Mean Corpuscular Hemoglobin 31.0 pg 31.3 pg Mean Corpuscular Hemoglobin Concent 32.5 g/dl 32.7 g/dl Platelet Count 292 K/uL 282 K/uL Mean Platelet Volume 8.9 fL 8.7 fL Neutrophils (%) (Auto) 64.1 % Lymphocytes (%) (Auto) 20.0 % Monocytes (%) (Auto) 11.8 % Eosinophils (%) (Auto) 3.6 % Basophils (%) (Auto) 0.2 % Neutrophils # (Auto) 7.53 K/uL Lymphocytes # (Auto) 2.34 K/uL Monocytes # (Auto) 1.38 K/uL Eosinophils # (Auto) 0.42 K/uL Basophils # (Auto) 0.02 K/uL RDW Standard Deviation 46.7 fL 47.4 fL RDW Coefficient of Variation 13.3 % 13.5 % Immature Granulocyte % (Auto) 0.3 % Immature Granulocyte # (Auto) 0.03 K/uL Prothrombin Time 12.4 SECONDS 11.7 SECONDS Prothromb Time International Ratio 1.2 1.1 Activated Partial Thromboplast Time 33.0 SECONDS 51.8 SECONDS 47.4 SECONDS Partial Thromboplastin Ratio 1.3 2.0 1.8 Sodium Level 134 mmol/L Potassium Level 3.6 mmol/L Chloride Level 101 mmol/L Carbon Dioxide Level 30 mmol/L Anion Gap 3.0 mmol/L Blood Urea Nitrogen 12 mg/dl Creatinine 1.36 mg/dl Est Creatinine Clear Calc Drug Dose 56.7 ml/min Estimated GFR () 63.3 Estimated GFR (Non- 54.6 BUN/Creatinine Ratio 8.8 Random Glucose 129 mg/dl Calcium Level 8.0 mg/dl
--- NOTE | 2017-07-12 08:41 | Hospitalist Progress Note ---
Hospitalist Progress Note Date of Service July 12, 2017. (Reina Ordaz PA-C) Subjective Pt evaluation today including: conversation w/ patient, physical exam, chart review, lab review, review of studies Pain: Mild L hip pain PO Intake: None Voiding: no voiding problems The patient was seen and examined this morning. His is present at bedside. Pt notes he has been up to stand at bedside with his walker but had not attempted to take steps at this point. Pt is tolerating diet and but has not had a BM since admission. Discussion was held regarding reducing narcotics and he is agreeable to this currently. Additional Comments: Constitutional: No fever, No chills, No sweats, No fatigue Eyes: No redness, No diplopia ENT: No nasal symptoms, No trouble swallowing Respiratory: No cough, No shortness of breath Cardiovascular: No chest pain, No palpitations Abdomen: No pain, No nausea, No vomiting, No diarrhea, No constipation Musculoskeletal: + see HPI Neurologic: + see HPI, No weakness, numbness or tingling. Psychiatric: No depression symptoms, No anxiety Skin: + problem reported (tendency of picking skin on face and upper extremities.) (Reina Ordaz PA-C) Objective Vital Signs Date Time Temp Pulse Resp B/P (MAP) Pulse Ox O2 Delivery O2 Flow Rate FiO2 07/12/17 07:53 37.3 62 14 116/52 (73) 90 Room Air 07/11/17 23:40 Nasal Cannula 2.0 07/11/17 23:10 94 Nasal Cannula 2.0 07/11/17 23:08 37.6 73 15 124/58 (80) 77 Room Air 07/11/17 20:00 Room Air 07/11/17 15:05 36.6 70 16 112/62 (79) 95 Room Air 07/11/17 12:30 37.2 66 16 118/52 (74) 92 Room Air 07/11/17 10:30 93 Room Air (Reina Ordaz PA-C) Physical Exam Notes: General Appearance: WD/WN, no apparent distress Eyes: PERRL, EOMI ENT: hearing grossly normal, pharynx normal, + pertinent finding (endentulous, MMM, + old Left sided facial droop) Neck: supple, thyroid normal Respiratory/Chest: lungs with faint crackles at bases, no respiratory distress , no accessory muscle use, + pertinent finding (on RA) Cardiovascular: regular rate, rhythm, + pertinent finding (paced) Abdomen: normal bowel sounds, non tender, soft Extremities: non-tender, no pedal edema, no calf tenderness, + pertinent finding (LLE elevated on pillow, dressing over L hip c/d/i) Neurologic/Psychiatric: alert, oriented x 3 Skin: normal color, warm/dry (Reina Ordaz, FLAKITO) Laboratory Results Last 24 Hours Test 07/11/17 18:10 07/12/17 00:22 07/12/17 04:46 White Blood Count 11.72 K/uL 13.69 K/uL Red Blood Count 3.16 M/uL 2.75 M/uL Hemoglobin 9.8 g/dL 8.6 g/dL Hematocrit 30.2 % 26.3 % Mean Corpuscular Volume 95.6 fL 95.6 fL Mean Corpuscular Hemoglobin 31.0 pg 31.3 pg Mean Corpuscular Hemoglobin Concent 32.5 g/dl 32.7 g/dl Platelet Count 292 K/uL 282 K/uL Mean Platelet Volume 8.9 fL 8.7 fL Neutrophils (%) (Auto) 64.1 % Lymphocytes (%) (Auto) 20.0 % Monocytes (%) (Auto) 11.8 % Eosinophils (%) (Auto) 3.6 % Basophils (%) (Auto) 0.2 % Neutrophils # (Auto) 7.53 K/uL Lymphocytes # (Auto) 2.34 K/uL Monocytes # (Auto) 1.38 K/uL Eosinophils # (Auto) 0.42 K/uL Basophils # (Auto) 0.02 K/uL RDW Standard Deviation 46.7 fL 47.4 fL RDW Coefficient of Variation 13.3 % 13.5 % Immature Granulocyte % (Auto) 0.3 % Immature Granulocyte # (Auto) 0.03 K/uL Prothrombin Time 12.4 SECONDS 11.7 SECONDS Prothromb Time International Ratio 1.2 1.1 Activated Partial Thromboplast Time 33.0 SECONDS 51.8 SECONDS 47.4 SECONDS Partial Thromboplastin Ratio 1.3 2.0 1.8 Sodium Level 134 mmol/L Potassium Level 3.6 mmol/L Chloride Level 101 mmol/L Carbon Dioxide Level 30 mmol/L Anion Gap 3.0 mmol/L Blood Urea Nitrogen 12 mg/dl Creatinine 1.36 mg/dl Est Creatinine Clear Calc Drug Dose 56.7 ml/min Estimated GFR () 63.3 Estimated GFR (Non- 54.6 BUN/Creatinine Ratio 8.8 Random Glucose 129 mg/dl Calcium Level 8.0 mg/dl (Reina Ordaz, FLAKITO) Assessment and Plan Patient is a pleasant 62 y/o male, with PMHx of CVA w/ L deficits, [place], chronic a.fib on chronic Coumadin, combined systolic/diastolic CHF, s/p pacemaker, HLD, gastric bypass surgery, PUD, GI bleed x3, and depression, who was a direct admit to [facility] for L hip fracture from [facility]. L hip fracture from mechanical fall: s/p L hip fx fixation by Dr. Birch on 07/09 - Admit to med/surg - Vitamin D level low 19.8 - add supplementation - Tylenol PRN, Percocet PRN - dc IV Morphine PRN today Pt has hx of addiction to narcotic pain medication. Would limit supply at time of dc. No bowel movement since admission - will order miralax daily and dulcolax suppository for today. Atrial tachycardia/ possible atrial flutter on chronic Coumadin also for mural thrombus, h/o [place], HLD, combined systolic/diastolic CHF, s/p pacemaker - follows w/ Dr. Yarbrough - pacemaker report reviewed - Anticoagulation-Discussed with orthopedics and cardiology- resume Coumadin, will continue baby aspirin given severe CAD and history of CVA - start low-dose heparin drip protocol without bolus as bridging on 07/11 - follow PT/INR- 1.1 today - Cardiology on board- appreciate recs - Continue Metoprolol 25 mg daily, Lipitor 80 mg daily, ASA 81 mg daily, Lasix 20 mg daily - Monitor I&Os and daily weights - ECHO from 04/2017 w/ EF of 45-50%, grade III diastolic dysfunction h/o PUD, h/o GI bleed x3, GI prophylaxis: Protonix BID - Hgb dropped to 8.6 this morning and on recheck was 8.4 - will heme check stools today and follow cbc with am labs - Follow with significant hx of GI bleeding in past. CVA w/ L deficits - Continue Lipitor, Requip 1 mg HS, ASA - PT/OT on board Depression - Continue Cymbalta 120 mg daily, Klonopin 2 mg BID, Remeron 30 mg HS Itching - Continue Triamcinolone PRN and Hydroxyzine TID DVT prophylaxis: TEDs/SCDs; started on heparin gtt low dose on 07/09 after surg for bridge to coumadin Code status: Full Dispo: From home, lives w/ - CM consulted; PT/OT, Referral to [facility] (Reina Ordaz PA-C) Attending Attestation - Pt seen/examined, chart reviewed, care plan d/w PELON Ordaz. I agree w/ the matthews components of her documentation. Pt states that he scratches his skin due to feeling "like there are bugs on it. " He c/o pruritis. Denies abd pain, chest pain, dyspnea at rest. He asks for pain meds for the left leg. VSS no fever gen - nad, looks older than stated age skin - numerous ulcerations on face (mainly left side), left arm, left scalp ( slight extension to right scalp) heart - RRR lungs - CTA b/l abd - soft, mildly distended, BS+ ext - left thigh w/ swelling, donny intact left thigh A/P: 1. s/p ORIF of left hip fracture, POD # 1 2. chronic systolic/diastolic CHF - appears compensated 3. acute blood loss anemia - H/H 1.5 gm lower than yesterday; repeat similar given his h/o GI bleeding need to be concerned about such hemoccult the stool; CBC am 4. h/o LV thrombus - on heparin drip/coumadin 5. 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
--- NOTE | 2017-07-12 08:56 | ORTHOPEDICS PROGRESS NOTE ---
DATE: 07/12/2017 SUBJECTIVE: He is alert, oriented, moderate complaints of pain, no confusion. No chest pain, shortness of breath. ASSESSMENT: Delightful gentleman with multiple medical problems, multiple comorbidities status post hip repair done 2 days ago. PLAN: Up and going with some therapy, touch weightbearing only on the left. Hopefully, discharge planning and continued medical management.
[2017-07-12 10:09] VITALS: O2SAT 90
[2017-07-12 11:48] VITALS: BP_SYST 108; BP_DIAS 36; BP_DIAS 56; PULSE 68; TEMP 37.2; O2SAT 90
[2017-07-12 11:58] LABS: HEMOGLOBIN 8.4 g/dL (14.0-18.0); MEAN CELL VOLUME 95.6 fL (80-100); MEAN CORPUSCULAR HEMOGLOBIN 30.9 pg (25-34); MEAN CORPUSCULAR HGB CONC 32.3 g/dl (32-36); MEAN PLATELET VOLUME 8.6 fL (7.4-10.4); PLATELET COUNT 278 K/uL (130-400); RED CELL DISTRIBUTION WIDTH CV 13.6 % (11.5-14.5); WHITE BLOOD COUNT 11.69 K/uL (4.8-10.8)
[2017-07-12] MEDS ORDERED: BISACODYL 10 MG SUPP PR STA (13:45)
[2017-07-12] MEDS ORDERED: POLYETHYLENE (MIRALAX) 17 GM PACK PO STA (13:56)
[2017-07-12 15:07] VITALS: BP 110/65; PULSE 62; TEMP 36.8; O2SAT 95
[2017-07-12] MEDS: ACETAMINOPHEN 325 MG TAB PO PRN (16:23)
[2017-07-12] MEDS: WARFARIN SOD 1 MG TAB PO SCH (16:25)
[2017-07-12] MEDS: TRIAMCINOLONE ACET 0.1% CR 15 GM TUBE EXT PRN (19:24)
[2017-07-12] MEDS: DOCUSATE SODIUM/SENNA 50/8.6MG TAB PO SCH (21:23)
[2017-07-12] MEDS: ROPINIROLE HCL 0.25 MG TAB PO SCH (21:24)
[2017-07-12] MEDS: DONEPEZIL HCL 5 MG TAB PO SCH (21:25)
[2017-07-12] MEDS: MIRTAZAPINE TAB 15 MG TAB PO SCH (21:26)
[2017-07-12 23:11] VITALS: O2SAT 81
[2017-07-12 23:12] VITALS: BP 128/64; PULSE 94; TEMP 37.1; O2SAT 95
[2017-07-13 00:20] VITALS: O2SAT 92
[2017-07-13 04:21] LABS: HEMATOCRIT 25.2 % (42-52); HEMOGLOBIN 8.2 g/dL (14.0-18.0); MEAN CELL VOLUME 94.7 fL (80-100); MEAN CORPUSCULAR HEMOGLOBIN 30.8 pg (25-34); MEAN PLATELET VOLUME 8.6 fL (7.4-10.4); PLATELET COUNT 277 K/uL (130-400); RED CELL DISTRIBUTION WIDTH CV 13.5 % (11.5-14.5); RED CELL DISTRIBUTION WIDTH SD 46.8 fL (36.4-46.3); WHITE BLOOD COUNT 11.24 K/uL (4.8-10.8)
[2017-07-13 04:24] LABS: MEAN CORPUSCULAR HGB CONC 32.5 g/dl (32-36)
[2017-07-13 04:37] LABS: PTT PATIENT 48.3 SECONDS (21.0-31.0)
[2017-07-13 04:45] LABS: CALCIUM 8.1 mg/dl (8.5-10.1); CREATININE 1.35 mg/dl (0.60-1.40); POTASSIUM 3.3 mmol/L (3.5-5.1)
[2017-07-13] MEDS: HEPARIN 25,000 UNIT/500ML D5W 500 ML IV SCH ×4 (06:55→22:46)
[2017-07-13] MEDS: OXYCODONE/ACETAMINOPHEN 5-325 TAB PO PRN (07:40)
[2017-07-13 07:44] VITALS: BP 110/60; PULSE 62; TEMP 36.8; O2SAT 98
[2017-07-13] MEDS: ASPIRIN 81 MG ECTAB PO SCH (08:40)
[2017-07-13] MEDS: DULOXETINE HCL 60 MG CAP PO SCH (08:40)
[2017-07-13] MEDS: CLONAZEPAM 1 MG TAB PO SCH ×2 (08:40→20:41)
[2017-07-13] MEDS: PANTOprazole SOD 40 MG TAB PO SCH ×2 (08:42→20:43)
[2017-07-13] MEDS: ATORVASTATIN 40 MG TAB PO SCH (08:42)
[2017-07-13] MEDS: FUROSEMIDE 20 MG TAB PO SCH (08:42)
[2017-07-13] MEDS: CHOLECALCIFEROL 1000 INTER.UNIT TAB PO SCH (08:43)
[2017-07-13] MEDS: THIAMINE HCL 100 MG TAB PO SCH (08:43)
[2017-07-13] MEDS: METOPROLOL SUCC 25MG EXT REL TAB PO SCH (08:43)
[2017-07-13] MEDS: hydrOXYzine HCL 25 MG TAB PO SCH ×3 (08:43→20:43)
[2017-07-13] MEDS ORDERED: POTASSIUM CHLORIDE 20 MEQ TABCR PO ONE (09:00)
[2017-07-13] MEDS ORDERED: BISACODYL 10 MG SUPP PR STA (12:24)
[2017-07-13] MEDS: POLYETHYLENE (MIRALAX) 17 GM PACK PO SCH (12:27)
--- NOTE | 2017-07-13 12:37 | Hospitalist Progress Note ---
Hospitalist Progress Note Date of Service July 13, 2017. (Reina Ordaz PA-C) Subjective Pt evaluation today including: conversation w/ patient, physical exam, chart review, lab review, review of studies Pain: L hip only with movement PO Intake: Good Voiding: no voiding problems The patient was seen and examined this morning. Pt reports doing well overall. He is picking the left side of his face which is bleeding when I walked into the room. He has been up and sitting in the bedside chair today. Working with PT /OT but has not ambulated more than a few steps. No BM yet despite dulcolax suppository yesterday. Additional Comments: Constitutional: No fever, No chills, No sweats, No fatigue Eyes: No redness, No diplopia ENT: No nasal symptoms, No trouble swallowing Respiratory: No cough, No shortness of breath Cardiovascular: No chest pain, No palpitations Abdomen: No pain, No nausea, No vomiting, No diarrhea, No constipation Musculoskeletal: + see HPI Neurologic: + see HPI, No weakness, numbness or tingling. Psychiatric: No depression symptoms, No anxiety Skin: + problem reported (tendency of picking skin on face and upper extremities.) (Reina Ordaz PA-C) Objective Vital Signs Date Time Temp Pulse Resp B/P (MAP) Pulse Ox O2 Delivery O2 Flow Rate FiO2 07/13/17 07:44 36.8 62 16 110/60 (77) 98 2.0 07/13/17 07:20 Nasal Cannula 2.0 07/13/17 00:20 92 Nasal Cannula 2.0 07/12/17 23:12 37.1 94 18 128/64 (85) 95 Nasal Cannula 2.0 07/12/17 23:11 81 Room Air 07/12/17 15:07 36.8 62 18 110/65 (80) 95 Room Air 07/12/17 15:00 Room Air (Reina Ordaz PA-C) Physical Exam Notes: General Appearance: WD/WN, no apparent distress, + multiple facial lesions bleeding currently due to pt picking his face Eyes: PERRL, EOMI ENT: hearing grossly normal, pharynx normal, + pertinent finding (endentulous, MMM, + old Left sided facial droop) Neck: supple, thyroid normal Respiratory/Chest: on RA, lungs with improved aeration today, no crackles, no respiratory distress, no accessory muscle use Cardiovascular: regular rate, rhythm, + pertinent finding (paced) Abdomen: normal bowel sounds, non tender, soft, no guarding or tenderness Extremities: non-tender, no pedal edema, no calf tenderness, LLE elevated on pillow, wound healing well, donny intact, no signs of surrounding erythema, ice pack in place Neurologic/Psychiatric: alert, oriented x 3 Skin: normal color, warm/dry (Reina Ordaz PA-C) Laboratory Results Last 24 Hours Test 07/13/17 04:15 White Blood Count 11.24 K/uL Red Blood Count 2.66 M/uL Hemoglobin 8.2 g/dL Hematocrit 25.2 % Mean Corpuscular Volume 94.7 fL Mean Corpuscular Hemoglobin 30.8 pg Mean Corpuscular Hemoglobin Concent 32.5 g/dl RDW Standard Deviation 46.8 fL RDW Coefficient of Variation 13.5 % Platelet Count 277 K/uL Mean Platelet Volume 8.6 fL Activated Partial Thromboplast Time 48.3 SECONDS Partial Thromboplastin Ratio 1.9 Sodium Level 134 mmol/L Potassium Level 3.3 mmol/L Chloride Level 98 mmol/L Carbon Dioxide Level 32 mmol/L Anion Gap 4.0 mmol/L Blood Urea Nitrogen 14 mg/dl Creatinine 1.35 mg/dl Est Creatinine Clear Calc Drug Dose 57.1 ml/min Estimated GFR () 63.9 Estimated GFR (Non- 55.1 BUN/Creatinine Ratio 10.3 Random Glucose 138 mg/dl Calcium Level 8.1 mg/dl (Reina Ordaz PA-C) Assessment and Plan Patient is a pleasant 62 y/o male, with PMHx of CVA w/ L deficits, AL, chronic a.fib on chronic Coumadin, combined systolic/diastolic CHF, s/p pacemaker, HLD, gastric bypass surgery, PUD, GI bleed x3, and depression, who was a direct admit to [facility] for L hip fracture from [facility]. L hip fracture from mechanical fall: s/p L hip fx fixation by Dr. Birch on 07/09 - Admit to med/surg - Vitamin D level low 19.8 - cont supplementation - Tylenol PRN, Percocet PRN - dc IV Morphine on 07/12 - pain well controlled at this time Pt has hx of addiction to narcotic pain medication. Would limit supply at time of dc. No bowel movement since admission - will order miralax daily and dulcolax suppository again today. Heme check stools with dropping hgb. Atrial tachycardia/ possible atrial flutter on chronic Coumadin also for mural thrombus, h/o AL, HLD, combined systolic/diastolic CHF, s/p pacemaker - follows w/ Dr. Yarbrough - pacemaker report reviewed - Anticoagulation-Discussed with orthopedics and cardiology- resume Coumadin, will continue baby aspirin given severe CAD and history of CVA - start low-dose heparin drip protocol without bolus as bridging on 07/11 - follow PT/INR- 1.1 on 07/12 - recheck today - Cardiology on board- appreciate recs - Continue Metoprolol 25 mg daily, Lipitor 80 mg daily, ASA 81 mg daily, Lasix 20 mg daily - Monitor I&Os and daily weights - ECHO from 04/2017 w/ EF of 45-50%, grade III diastolic dysfunction h/o PUD, h/o GI bleed x3, GI prophylaxis: Protonix BID - Hgb dropped to 8.2 - no BM yet, will heme check stools today after dulcolax supp and follow cbc with am labs - Follow with significant hx of GI bleeding in past. CVA w/ L deficits - Continue Lipitor, Requip 1 mg HS, ASA - PT/OT on board Depression - Continue Cymbalta 120 mg daily, Klonopin 2 mg BID, Remeron 30 mg HS Itching - Continue Triamcinolone PRN and Hydroxyzine TID DVT prophylaxis: TEDs/SCDs; started on heparin gtt low dose on 07/09 after surg for bridge to coumadin Code status: Full Dispo: From home, lives w/ - CM consulted; PT/OT, Referral to [facility], follow cbc (Reina Ordaz PA-C) Attending Attestation - Pt seen/examined, chart reviewed, care plan d/w PELON Ordaz. I agree w/ the matthews components of her documentation. Pt's at bedside. she reports that his skin picking has been ongoing for years (since his prior stroke). pt still w/o bowel movement VSS no fever gen - nad skin - numerous ulcerations on face (mainly left side), left arm, left scalp ( slight extension to right scalp) - no major change from yesterday's exam heart - RRR lungs - CTA b/l abd - soft, BS+. MT ext - left thigh w/ swelling, donny intact left thigh without erythema or drainage A/P: 1. s/p ORIF of left hip fracture, POD # 2 2. chronic systolic/diastolic CHF - compensated 3. acute blood loss anemia - H/H stable today, and hemoccult negative for blood ; cbc in am for stability 4. h/o LV thrombus - on heparin drip/coumadin; daily PTT, INR 5. extensive pruritis and skin lesions - atarax TID, triamcinolone cream TID prn, MRSA swab neg consider nocturnal doxepin 6. constipation - finally had large bowel movement later in the day; cont bowel regimen updated [facility] tomorrow?? Carleen CHARLES MD (Finn Charles MD)
[2017-07-13 13:05] LABS: INR 1.1 (0.9-1.1)
[2017-07-13] MEDS: OXYCODONE HCL IR 5 MG TAB (IMMEDIATE RELEASE) PO PRN ×2 (15:10→20:42)
[2017-07-13] MEDS: WARFARIN SOD 1 MG TAB PO SCH (15:11)
[2017-07-13 15:15] VITALS: BP 117/61; PULSE 63; TEMP 36.8; O2SAT 95
[2017-07-13] MEDS ORDERED: MILK AND MOLASSES ENEMA PR ONE (20:00)
[2017-07-13] MEDS: DOCUSATE SODIUM/SENNA 50/8.6MG TAB PO SCH (20:43)
[2017-07-13] MEDS: ROPINIROLE HCL 0.25 MG TAB PO SCH (20:43)
[2017-07-13] MEDS: MIRTAZAPINE TAB 15 MG TAB PO SCH (20:44)
[2017-07-13] MEDS: DONEPEZIL HCL 5 MG TAB PO SCH (20:46)
[2017-07-13 22:50] VITALS: BP 127/62; PULSE 65; TEMP 37.3; O2SAT 93
[2017-07-14] MEDS: OXYCODONE HCL IR 5 MG TAB (IMMEDIATE RELEASE) PO PRN ×3 (01:11→14:16)
[2017-07-14 05:00] LABS: HEMATOCRIT 25.6 % (42-52); HEMOGLOBIN 8.3 g/dL (14.0-18.0); MEAN CELL VOLUME 95.5 fL (80-100); MEAN CORPUSCULAR HGB CONC 32.4 g/dl (32-36); PLATELET COUNT 331 K/uL (130-400); RED CELL DISTRIBUTION WIDTH CV 13.4 % (11.5-14.5); RED CELL DISTRIBUTION WIDTH SD 46.8 fL (36.4-46.3); WHITE BLOOD COUNT 11.42 K/uL (4.8-10.8)
[2017-07-14 05:11] LABS: INR 1.1 (0.9-1.1); PTT PATIENT 36.1 SECONDS (21.0-31.0)
[2017-07-14 05:17] LABS: CALCIUM 8.1 mg/dl (8.5-10.1); CREATININE 1.36 mg/dl (0.60-1.40); POTASSIUM 3.1 mmol/L (3.5-5.1)
[2017-07-14] MEDS ORDERED: HEPARIN IV BOLUS 4,500 UNIT in SYRINGE 0 ML IV ONE (06:00)
[2017-07-14] MEDS: HEPARIN 25,000 UNIT/500ML D5W 500 ML IV SCH ×2 (06:00→06:57)
[2017-07-14 07:02] VITALS: BP 104/56; PULSE 61; TEMP 37.1; O2SAT 91
--- NOTE | 2017-07-14 08:08 | Discharge Instructions ---
Discharge Instructions Date of Service July 14, 2017. Admission Reason for Admission: Hip Fracture Discharge Discharge Diagnosis / Problem: same Discharge Goals Goal(s): Improve function Activity Recommendations Activity Limitations: as noted below Lifting Limitations: no more than 5 pounds Exercise/Sports Limitations: until after follow-up appointment Weightbearing Status: Right partial . Instructions / Follow-Up Instructions / Follow-Up partial weight on left. donny removal June 23. follow up with dr. pennington 3 weeks Current Hospital Diet Patient's current hospital diet: AHA Diet (Heart Healthy) Procedures Procedures Performed: Left hip Trochanteric Femoral Nail Fixation Medical Emergencies . Who to Call and When: Medical Emergencies: If at any time you feel your situation is an emergency, please call 911 immediately. . . "Provider Documentation" section prepared by Humberto Pennington. .
[2017-07-14] MEDS: CLONAZEPAM 1 MG TAB PO SCH (08:42)
[2017-07-14] MEDS: THIAMINE HCL 100 MG TAB PO SCH (08:43)
[2017-07-14] MEDS: PANTOprazole SOD 40 MG TAB PO SCH (08:43)
[2017-07-14] MEDS: POLYETHYLENE (MIRALAX) 17 GM PACK PO SCH (08:44)
[2017-07-14] MEDS: CHOLECALCIFEROL 1000 INTER.UNIT TAB PO SCH (08:44)
[2017-07-14] MEDS: METOPROLOL SUCC 25MG EXT REL TAB PO SCH (08:44)
[2017-07-14] MEDS: ASPIRIN 81 MG ECTAB PO SCH (08:44)
[2017-07-14] MEDS: FUROSEMIDE 20 MG TAB PO SCH (08:44)
[2017-07-14] MEDS: hydrOXYzine HCL 25 MG TAB PO SCH ×2 (08:44→14:11)
[2017-07-14] MEDS: DULOXETINE HCL 60 MG CAP PO SCH (08:45)
[2017-07-14] MEDS: ATORVASTATIN 40 MG TAB PO SCH (08:45)
[2017-07-14] MEDS ORDERED: POTASSIUM CHLORIDE 20 MEQ TABCR PO SCH (09:00)
[2017-07-14] MEDS: POTASSIUM CHLR 10 MEQ / WTR 100 ML IV SCH ×2 (09:14→10:38)
[2017-07-14] MEDS: OXYCODONE/ACETAMINOPHEN 5-325 TAB PO PRN (12:01)
[2017-07-14 12:33] LABS: PTT PATIENT 49.5 SECONDS (21.0-31.0)
--- NOTE | 2017-07-14 12:47 | Hospitalist Progress Note ---
Hospitalist Progress Note Date of Service July 14, 2017. (Reina Ordaz PA-C) Subjective Pt evaluation today including: conversation w/ patient, physical exam, chart review, lab review, review of studies Pain: Mild L hip pain PO Intake: Good Voiding: no voiding problems The patient was seen and examined this morning. Pt reports doing well today, only pain is with movement. He notes overall though feels comfortable. Pt has had 3 bms since being given fleets enema and dulcolax suppository yesterday. He denies any abdominal pain, cramping, bloating or distension and is tolerating an oral diet well. Pt notes no fever, chills or sweats. Negative heme stool check. He denies any lightheadedness or dizziness. Additional Comments: Constitutional: No fever, No chills, No sweats, No fatigue Eyes: No redness, No diplopia ENT: No nasal symptoms, No trouble swallowing Respiratory: No cough, No shortness of breath Cardiovascular: No chest pain, No palpitations Abdomen: No pain, No nausea, No vomiting - BM x 3 in past 24 hours. Musculoskeletal: + see HPI Neurologic: + see HPI, No weakness, numbness or tingling. Psychiatric: No depression symptoms, No anxiety Skin: + problem reported (tendency of picking skin on face and upper extremities.) (Reina Ordaz, FLAKITO) Objective Vital Signs Date Time Temp Pulse Resp B/P (MAP) Pulse Ox O2 Delivery O2 Flow Rate FiO2 07/14/17 08:00 Room Air 07/14/17 07:02 37.1 61 16 104/56 (72) 91 Room Air 07/14/17 00:20 Room Air 07/13/17 22:50 37.3 65 16 127/62 (83) 93 Room Air 07/13/17 15:15 36.8 63 18 117/61 (79) 95 Room Air 07/13/17 15:00 Room Air (Reina Ordaz, FLAKITO) Physical Exam Notes: General Appearance: WD/WN, no apparent distress, + multiple facial lesions healing, no active bleed Eyes: PERRL, EOMI ENT: hearing grossly normal, pharynx normal, + pertinent finding (endentulous, MMM, + old Left sided facial droop) Neck: supple, thyroid normal Respiratory/Chest: on RA, lungs with improved aeration today, very faint crackles in bases bilaterally, no respiratory distress, no accessory muscle use Cardiovascular: regular rate, rhythm, + pertinent finding (paced) Abdomen: normal bowel sounds, non tender, soft, no guarding or tenderness Extremities: non-tender, no pedal edema, no calf tenderness, LLE elevated on pillow, wound healing well, donny intact, no signs of surrounding erythema Neurologic/Psychiatric: alert, oriented x 3 Skin: normal color, warm/dry (Reina Ordaz PA-C) Laboratory Results Last 24 Hours Test 07/13/17 20:27 07/14/17 04:44 07/14/17 12:02 Stool Occult Blood NEGATIVE White Blood Count 11.42 K/uL Red Blood Count 2.68 M/uL Hemoglobin 8.3 g/dL Hematocrit 25.6 % Mean Corpuscular Volume 95.5 fL Mean Corpuscular Hemoglobin 31.0 pg Mean Corpuscular Hemoglobin Concent 32.4 g/dl RDW Standard Deviation 46.8 fL RDW Coefficient of Variation 13.4 % Platelet Count 331 K/uL Mean Platelet Volume 9.0 fL Prothrombin Time 11.9 SECONDS Prothromb Time International Ratio 1.1 Activated Partial Thromboplast Time 36.1 SECONDS 49.5 SECONDS Partial Thromboplastin Ratio 1.4 1.9 Sodium Level 134 mmol/L Potassium Level 3.1 mmol/L Chloride Level 99 mmol/L Carbon Dioxide Level 32 mmol/L Anion Gap 3.0 mmol/L Blood Urea Nitrogen 12 mg/dl Creatinine 1.36 mg/dl Est Creatinine Clear Calc Drug Dose 56.7 ml/min Estimated GFR () 63.3 Estimated GFR (Non- 54.6 BUN/Creatinine Ratio 8.8 Random Glucose 185 mg/dl Calcium Level 8.1 mg/dl Magnesium Level 1.9 mg/dl (Reina Ordaz PA-C) Assessment and Plan Patient is a pleasant 62 y/o male, with PMHx of CVA w/ L deficits, [place], chronic a.fib on chronic Coumadin, combined systolic/diastolic CHF, s/p pacemaker, HLD, gastric bypass surgery, PUD, GI bleed x3, and depression, who was a direct admit to [facility] for L hip fracture from [facility]. L hip fracture from mechanical fall: s/p L hip fx fixation by Dr. Birch on 07/09 - Admit to med/surg - Vitamin D level low 19.8 - cont supplementation - Tylenol PRN, Percocet PRN - dc IV Morphine on 07/12 - pain well controlled at this time Pt has hx of addiction to narcotic pain medication. Limit at time of dc BM x 3 with enema, dulcolax suppository and miralax daily. Heme check stools are negative. Hgb stable today around 8.3 Atrial tachycardia/ possible atrial flutter on chronic Coumadin also for mural thrombus, h/o NH, HLD, combined systolic/diastolic CHF, s/p pacemaker - follows w/ Dr. Yarbrough - pacemaker report reviewed - Anticoagulation-Discussed with orthopedics and cardiology- resume Coumadin, will continue baby aspirin given severe CAD and history of CVA - start low-dose heparin drip protocol without bolus as bridging on 07/11, coumadin 1 mg PO daily - follow PT/INR- 1.1 - Cardiology on board- appreciate recs - Continue Metoprolol 25 mg daily, Lipitor 80 mg daily, ASA 81 mg daily, Lasix 20 mg daily - Monitor I&Os and daily weights - ECHO from 04/2017 w/ EF of 45-50%, grade III diastolic dysfunction h/o PUD, h/o GI bleed x3, GI prophylaxis: Protonix BID - Hgb dropped to 8.2 - no BM yet, will heme check stools today after dulcolax supp and follow cbc with am labs - Follow with significant hx of GI bleeding in past. CVA w/ L deficits - Continue Lipitor, Requip 1 mg HS, ASA - PT/OT on board Depression - Continue Cymbalta 120 mg daily, Klonopin 2 mg BID, Remeron 30 mg HS Itching - Continue Triamcinolone PRN and Hydroxyzine TID DVT prophylaxis: TEDs/SCDs; started on heparin gtt low dose on 07/09 after surg for bridge to coumadin Code status: Full Dispo: From home, lives w/ - CM consulted; PT/OT, Referral to [facility], follow cbc, possible dc within 1days pending therapeutic INR. (Reina Ordaz, PAJackie) Attending Attestation - Pt seen/examined, chart reviewed, care plan d/w PA Michell Ordaz. I agree w/ the matthews components of her documentation. Please see my separate attestation on the d/c summary from the same date of . Carleen CHARLES MD (Finn Charles MD)
--- NOTE | 2017-07-14 13:26 | Discharge Instructions ---
Discharge Instructions Date of Service July 14, 2017. Admission Reason for Admission: Hip Fracture Discharge Discharge Diagnosis / Problem: Left hip fracture Discharge Goals Goal(s): Decrease discomfort, Improve function, Increase independence, Improve disease control Activity Recommendations Activity Level: Up [place] (with assistance) Therapies: Physical Therapy, Occupational Therapy Weightbearing Status: Left partial Lifting Limitations: no more than 5 pounds, gradually increase as tolerated Exercise/Sports Limitations: rest today, gradually increase as tolerated Shower/Bathe: no limitations (with assistance) . Additional Information Patient informed of condition: Yes Advance Directives: Yes DNR: No Level of Care: Acute Rehab Communicable Disease: No Prognosis: Stable Saunders Catheter: No Instructions / Follow-Up Instructions / Follow-Up You were admitted to [facility] with left hip fracture and diagnosed with the same. During your stay here you were treated with intravenous fluids, antibiotics, pain medications and were followed by physical/occupational therapy. You underwent Left hip fixation by Dr. Birch on 07/09/17. Your donny will need to be removed in 10 days, on 07/23. Please have nursing at [facility] remove donny if you are still staying at this facility. If you are discharged prior to this, please call Dr. Guerrero office to schedule staple removal and routine follow up after the staple removal. Medications: You should continue to take lovenox injections until your INR is between 2-3. INR at time of discharge was 1.1. Have INR drawn daily until therapeutic. Continue taking your medications as prescribed. You have been given pain medications for left hip fracture. Continue taking bowel regimen while on pain medications to prevent constipation. Appointments: Follow up with PCP within 1 week. Follow up with Dr. Birch within 2-3 weeks at time of discharge. [place] should be removed on 07/23. Current Hospital Diet Patient's current hospital diet: AHA Diet (Heart Healthy) Discharge Diet Recommended Diet: AHA Diet (Heart Healthy) Procedures Procedures Performed: Left hip Trochanteric Femoral Nail Fixation Pending Studies Studies pending at discharge: no Medical Emergencies . Who to Call and When: Medical Emergencies: If at any time you feel your situation is an emergency, please call 911 immediately. . Non-Emergent Contact Non-Emergency issues call your: Primary Care Provider, Surgeon Call Non-Emergent contact if: you have a fever, temperature is above 100.5, your pain is not controlled, your pain is worsening, your pain is unusual for you, your pain is concerning you, you have any medication questions other concerns with your health. Call 911 or go directly to the Emergency Department if you experience any of the following: Chest pain, chest tightness, shortness of breath, abdominal pain , lightheadedness, dizziness, gastrointestinal bleeding, or have any other concerns regarding your health. . Past History Medical & Surgical History: (1) Closed left hip fracture . "Provider Documentation" section prepared by Michell Ordaz. . Core Measure Problem Core Measures: None [place] Drug Monitoring Program Search Results: patient reviewed within database
[2017-07-14] MEDS ORDERED: ENOXAPARIN 1 MG/KG SQ SCH (13:30)
[2017-07-14] MEDS ORDERED: DLCS PR (13:37)
[2017-07-14] MEDS ORDERED: RMR15 PO (13:37)
[2017-07-14] MEDS ORDERED: TRMCR115 EXT (13:37)
[2017-07-14] MEDS ORDERED: MRLP17 PO (13:37)
[2017-07-14] MEDS ORDERED: ERGO500011 PO (13:37)
[2017-07-14] MEDS ORDERED: SENN8.6T7 PO (13:37)
[2017-07-14] MEDS ORDERED: OXYC-57 PO ×2 (13:39→13:41)
[2017-07-14] MEDS ORDERED: ENOX100I SQ (13:52)
[2017-07-14] MEDS ORDERED: ENOXAPARIN 100 MG/1ML SYR SQ SCH (14:00)
[2017-07-14 15:15] VITALS: BP 110/65; PULSE 77; TEMP 37.3; O2SAT 93
[2017-07-14] MEDS: WARFARIN SOD 1 MG TAB PO SCH (15:27)
[2017-07-14] MEDS: ACETAMINOPHEN 325 MG TAB PO PRN (15:32)
[2017-07-14 15:33] VITALS: BP 110/65; PULSE 77; TEMP 37.3; O2SAT 93
--- NOTE | 2017-07-14 15:47 | Discharge Summary ---
Discharge Summary Date of Service July 14, 2017. Discharge Summary Admission Date: Jul 08, 2017 at 09:57 Discharge Date: July 14, 2017 Discharge Disposition: Rehab Principal Diagnosis: Left Hip fracture Problems/Secondary Diagnoses: Hx CVA w/ L deficits OH chronic a.fib on chronic Coumadin combined systolic/diastolic CHF s/p pacemaker HLD gastric bypass surgery PUD GI bleed x3 depression Immunizations: Have You Had Influenza Vaccine: N/A Influenza Vaccine Date: Dec 24, 2007 History of Tetanus Vaccine?: Yes History of Pneumococcal: No History of Hepatitis B Vaccine: No Procedures: L HIP UNILATERAL 2 VIEWS 07/08/17 IMPRESSION: Intertrochanteric fracture left hip. L KNEE 1 OR 2 VIEWS ROUTINE 07/08/17 IMPRESSION: Total knee arthroplasty. Old healed fracture distal femur. L HIP OR FILMS 07/08/17 FINDINGS: Left hip nailing procedure. Image intensifier films show generally anatomic alignment. IMPRESSION: Left hip nailing procedure. Consultations: Cardiology Orthopedics Medication Reconciliation New Medications: Enoxaparin (Lovenox) 100 Mg/Ml Inj 90 MG SQ Q12 for 5 Days, #10 DOSE Oxycodone/Acetaminophen 5MG/325MG (Percocet 5MG/325MG) Tab 1 TABLET PO Q6H PRN for Pain, #30 TAB 0 Refills Bisacodyl (Bisac-Evac) 10 Mg Supp 10 MG W[place] DAILY PRN for Constipation for 30 Days, #30 SUPP Ergocalciferol (Vitamin D 52099 Unit) 50,000 Unit Cap 44032 INTERUNIT PO Tran@1200 for 4 Days, #4 CAP Mirtazapine (Mirtazapine) 15 Mg Tab 30 MG PO HS for 14 Days, #28 TAB Polyethylene (Miralax) 17 Gm Pow 17 GM PO DAILY for 30 Days, #30 DOSE Sennosides-Docusate Sodium (Senokot S) 1 Tab Tab 2 TAB PO HS for 30 Days, #60 TAB Triamcinolone Acet (Triamcinolone Acetonide) 45 Appln/15 Gm Cr 1 APPLN EXT TID PRN for Itching for 30 Days, #90 DOSE Continued Medications: Aspirin (Aspirin Ec) 81 Mg Tab 81 MG PO DAILY Atorvastatin (Lipitor) 80 Mg Tab 1 TAB PO DAILY Clonazepam (Klonopin) 2 Mg Tab 1 TAB PO BID Cyanocobalamin (B-12) 50 Mcg Tab 1 TAB PO DAILY Donepezil HCl (Donepezil HCl) 5 Mg Tab 1 TAB PO HS Duloxetine HCl (Duloxetine HCl) 60 Mg Cap 2 CAP PO DAILY Furosemide (Furosemide) 20 Mg Tab 1 TAB PO DAILY for SWELLING for 30 Days, #30 TAB 1 Refill Hydroxyzine HCl (Hydroxyzine HCl) 25 Mg Tab 1 TAB PO TID Metoprolol Succ (Toprol Xl) (Toprol-Xl) 50 Mg Tabcr 1 TAB PO DAILY Pantoprazole (Pantoprazole Sodium) 40 Mg Tab 1 TAB PO BID Ropinirole Hydrochloride (Requip) 0.5 Mg Tab 1 TAB PO HS Thiamine Hcl (Vitamin B-1) 100 Mg Tab 100 MG PO DAILY, TAB Warfarin Sod (Warfarin Sodium) 1 Mg Tab 1 TAB PO HS Discharge Exam Subjective Pt evaluation today including: conversation w/ patient, physical exam, chart review, lab review, review of studies Pain: Mild L hip pain PO Intake: Good Voiding: no voiding problems The patient was seen and examined this morning. Pt reports doing well today, only pain is with movement. He notes overall though feels comfortable. Pt has had 3 bms since being given fleets enema and dulcolax suppository yesterday. He denies any abdominal pain, cramping, bloating or distension and is tolerating an oral diet well. Pt notes no fever, chills or sweats. Negative heme stool check. He denies any lightheadedness or dizziness. Additional Comments: Constitutional: No fever, No chills, No sweats, No fatigue Eyes: No redness, No diplopia ENT: No nasal symptoms, No trouble swallowing Respiratory: No cough, No shortness of breath Cardiovascular: No chest pain, No palpitations Abdomen: No pain, No nausea, No vomiting - BM x 3 in past 24 hours. Musculoskeletal: + see HPI Neurologic: + see HPI, No weakness, numbness or tingling. Psychiatric: No depression symptoms, No anxiety Skin: + problem reported (tendency of picking skin on face and upper extremities.) Objective Vital Signs Date Time Temp Pulse Resp B/P (MAP) Pulse Ox O2 Delivery O2 Flow Rate FiO2 07/14/17 08:00 Room Air 07/14/17 07:02 37.1 61 16 104/56 (72) 91 Room Air 07/14/17 00:20 Room Air 07/13/17 22:50 37.3 65 16 127/62 (83) 93 Room Air 07/13/17 15:15 36.8 63 18 117/61 (79) 95 Room Air 07/13/17 15:00 Room Air Physical Exam Notes: General Appearance: WD/WN, no apparent distress, + multiple facial lesions healing, no active bleed Eyes: PERRL, EOMI ENT: hearing grossly normal, pharynx normal, + pertinent finding (endentulous, MMM, + old Left sided facial droop) Neck: supple, thyroid normal Respiratory/Chest: on RA, lungs with improved aeration today, very faint crackles in bases bilaterally, no respiratory distress, no accessory muscle use Cardiovascular: regular rate, rhythm, + pertinent finding (paced) Abdomen: normal bowel sounds, non tender, soft, no guarding or tenderness Extremities: non-tender, no pedal edema, no calf tenderness, LLE elevated on pillow, wound healing well, donny intact, no signs of surrounding erythema Neurologic/Psychiatric: alert, oriented x 3 Skin: normal color, warm/dry Hospital Course Patient is a pleasant 62 y/o male, with PMHx of CVA w/ L deficits, OH, chronic a.fib on chronic Coumadin, combined systolic/diastolic CHF, s/p pacemaker, HLD, gastric bypass surgery, PUD, GI bleed x3, and depression, who was a direct admit to [facility] for L hip fracture from [facility]. L hip fracture from mechanical fall: s/p L hip fx fixation by Dr. Birch on 07/09 - Admit to med/surg - Vitamin D level low 19.8 - cont supplementation - Tylenol PRN, Percocet PRN - dc IV Morphine on 07/12 - pain well controlled at this time Pt has hx of addiction to narcotic pain medication. Limit at time of dc BM x 3 with enema, dulcolax suppository and miralax daily. Heme check stools are negative. Hgb stable today around 8.3 - follow cbc with INR checks at rehab - [place] to come out on 06/23 and then follow up with Dr. Birch in 3 wks. Atrial tachycardia/ possible atrial flutter on chronic Coumadin also for mural thrombus, h/o OH, HLD, combined systolic/diastolic CHF, s/p pacemaker - follows w/ Dr. Yarbrough - pacemaker report reviewed - Anticoagulation-Discussed with orthopedics and cardiology- resume Coumadin, will continue baby aspirin given severe CAD and history of CVA - start low-dose heparin drip protocol without bolus as bridging on 07/11, coumadin 1 mg PO daily - follow PT/INR- 1.1 - will need recheck upon discharge at rehab - Cardiology on board- appreciate recs - Continue Metoprolol 25 mg daily, Lipitor 80 mg daily, ASA 81 mg daily, Lasix 20 mg daily - Monitor I&Os and daily weights - ECHO from 04/2017 w/ EF of 45-50%, grade III diastolic dysfunction h/o PUD, h/o GI bleed x3, GI prophylaxis: Protonix BID - Hgb dropped to 8.2 - no BM yet, will heme check stools today after dulcolax supp and follow cbc with am labs - Follow with significant hx of GI bleeding in past. CVA w/ L deficits - Continue Lipitor, Requip 1 mg HS, ASA - PT/OT on board Depression - Continue Cymbalta 120 mg daily, Klonopin 2 mg BID, Remeron 30 mg HS Itching - Continue Triamcinolone PRN and Hydroxyzine TID DVT prophylaxis: TEDs/SCDs; lovenox bridge to coumadin Code status: Full Dispo: From home, lives w/ - CM consulted; PT/OT, Referral to [facility], follow cbc, d/c today Total Time Spent: Greater than 30 minutes This includes examination of the patient, discharge planning, medication reconciliation, and communication with other providers. Discharge Instructions Please refer to the electronic Patient Visit Report (Discharge Instructions) for additional information. Follow-Up Follow up with your Primary Care Provider within 1 week. Follow up with orthopedics within [address] Birch. Additional Copies To Sharri Holbrook
== END 2017-07-14 16:22 | DRG 481 ==
LOC: C.MSN 09:57
PROVIDERS: ADMIT Internal Medicine Sports Medicine; ATTEND Internal Medicine
PROC: 0QS706Z Reposition Left Upper Femur with Intramedullary Internal Fixation Device, Open Approach (ICD-10-PCS; principal; 2017-07-10 07:30)
DX: S72.142A Displaced intertrochanteric fracture of left femur, initial encounter for closed fracture (principal); I50.42 Chronic combined systolic (congestive) and diastolic (congestive) heart failure; I69.954 Hemiplegia and hemiparesis following unspecified cerebrovascular disease affecting left non-dominant side; I48.92 Unspecified atrial flutter; I48.91 Unspecified atrial fibrillation; L29.9 Pruritus, unspecified; K59.00 Constipation, unspecified; F32.9 Major depressive disorder, single episode, unspecified; E78.5 Hyperlipidemia, unspecified; Z87.11 Personal history of peptic ulcer disease; Z79.01 Long term (current) use of anticoagulants; Z95.0 Presence of cardiac pacemaker; Z87.442 Personal history of urinary calculi; Z98.84 Bariatric surgery status; Z87.891 Personal history of nicotine dependence; Z88.0 Allergy status to penicillin; Z79.82 Long term (current) use of aspirin; I25.2 Old myocardial infarction; Z82.49 Family history of ischemic heart disease and other diseases of the circulatory system; Z83.3 Family history of diabetes mellitus; Z80.9 Family history of malignant neoplasm, unspecified; W01.0XXA Fall on same level from slipping, tripping and stumbling without subsequent striking against object, initial encounter

== ENCOUNTER 2017-10-06 22:26 | Emergency (ER) | payer BC, OTHER ==
[~2017-10-06] VITALS: Ht 177.8 cm; Wt 84.0 kg
[2017-10-06 22:26] VITALS: Ht 177.8 cm; Wt 84.0 kg
[~2017-10-06 22:26] MED LIST changes: -CLON2TAB3 PO; +CLON2TAB9 PO; +DLCS PR; +ERGO500011 PO; +FRRG PO; +MRLP17 PO; +OXYC-57 PO; +RMR15 PO; +SENN8.6T7 PO; +THIA100T10 PO; -THIA100T11 PO; +TRMCR115 EXT
--- NOTE | 2017-10-06 23:32 | EMERGENCY ROOM VISIT NOTE ---
History Report prepared by [facility]: Diego Wang Under the Supervision of: Dr. Maddy Machuca D.O. First contact with patient: 23:09 Chief Complaint: MENTAL HEALTH EVALUATION Stated Complaint: MHID History of Present Illness The patient is a 62 year old male who presents to the Emergency Room with complaints of multiple episodes of suicidal ideations beginning two days ago. The patient states that he was involuntarily brought in by state police [employer]. He notes that his called police but he reports that he is unsure why she called the police. The patient states that his and his daughter's boyfriend held him down today until police arrived. He notes that his legs and hip hurt from being held down. He reports that he has a history of depression The patient states that he sees a psychiatrist and notes that he takes medication for his psych issues. He notes that he made threats to hurt himself a few weeks ago but he reports that he has not done so within the last week. The patient states that he has stayed in an inpatient mental health unit once before, and he notes that he came in voluntarily at that time. He denies threatening himself or others, and he reports that he does not have a past history of suicide attempts. Per nurse, the patient threatened to jump down a flight of stairs today. She states that the patient also opened the door to a moving vehicle yesterday and threatened to jump out. The patient notes that he only threatened to jump out of the vehicle to make his mad. He reports that he does not believe that he needs to be admitted for psychiatric help today. The patient states that he has scratches on his skin and he notes that he picks at his wounds as a habit. He denies any alcohol and drug use. Per nurse , the patient has a previous history of a CVA last year and has had multiple TIAs since that time. Source of History: patient, nursing staff Onset: two days ago Position: head Quality: other (suicidal ideations) Timing: other (two episodes ) Note: The patient also complains of leg pain, hip pain, and scratches on his skin. Review of Systems See HPI for pertinent positives & negatives. A total of 10 systems reviewed and were otherwise negative. Past Medical & Surgical Medical Problems: (1) Abdominal pain (2) Acute renal failure (3) Anxiety (4) Anxiety (5) CHF (congestive heart failure) (6) Closed left hip fracture (7) Depression (8) Depression (9) Diarrhea (10) Failed fixation of fracture (11) gastric bypass (12) Heart disease (13) Hx of blood clots (14) Hyperkalemia (15) Implantation of cardiac pacemaker (16) Kidney stone (17) Kidney stones (18) Left Hip Fracture (19) Lithotripsy (20) Pacemaker (21) PERSONAL HX OF TIA,& CEREBRAL INFARCTION W/OUT RES DEFICITS (22) Shortness of breath (23) Stroke (24) TIA (transient ischemic attack) Surgical Problems: (1) H/O gastric bypass (2) H/O hernia repair (3) Total knee replacement status Family History Cancer Diabetes mellitus Heart disease Social History Smoking Status: Former Smoker Alcohol Use: none Drug Use: other Marital Status: Housing Status: lives with family Occupation Status: retired Current/Historical Medications Scheduled Aspirin (Aspirin Ec), 81 MG PO DAILY Atorvastatin (Lipitor), 1 TAB PO DAILY Clonazepam (Klonopin), 1 TAB PO BID Cyanocobalamin (B-12), 1 TAB PO DAILY Donepezil HCl (Donepezil HCl), 1 TAB PO HS Duloxetine HCl (Duloxetine HCl), 2 CAP PO DAILY Gabapentin (Gabapentin), 100 MG PO TID Metoprolol Succ (Toprol Xl) (Toprol-Xl), 1 TAB PO DAILY Mirtazapine (Mirtazapine), 45 MG PO HS Pantoprazole (Pantoprazole Sodium), 1 TAB PO BID Ropinirole Hydrochloride (Requip), 1 TAB PO HS Thiamine Hcl (Vitamin B-1), 100 MG PO DAILY Warfarin Sod (Warfarin Sodium), 1 TAB PO HS Allergies Coded Allergies: Penicillins (Verified Allergy, Severe, SWELLING AND RASH OF HANDS; HAS TOLERATED ANCEF & ROCEPHIN, 10/07/17) Physical Exam Vital Signs Date Time Temp Pulse Resp B/P (MAP) Pulse Ox O2 Delivery O2 Flow Rate FiO2 10/07/17 01:17 61 16 140/67 96 Room Air 10/06/17 22:26 36.7 60 18 130/59 96 Room Air Physical Exam HEENT: Head - normocephalic and atraumatic Pupils are equal, round, and reactive to light. Extraocular eye muscles are intact, and sclera are anicteric. Nose - moist nasal mucosa without discharge. Mouth - moist buccal mucosa. Oropharynx is nonerythematous and there is no tonsillar exudate or edema noted. Neck: Supple; no JVD, nuchal rigidity, cervical lymphadenopathy. Heart: Regular rate and rhythm. There is a normal S1 and S2 with no murmurs, clicks, or gallops appreciated. Lungs: Clear to auscultation bilaterally with no wheezes, rales, or rhonchi. Abdomen: Soft, completely nontender, nondistended, with good bowel sounds. There are no palpable pulsatile masses or hepatosplenomegaly. There is no guarding, rigidity, or rebound noted. Extremities: No evidence of cyanosis, clubbing, or edema. There are easily palpable peripheral pulses. Skin: warm and dry with good turgor and no rashes. Multiple areas of excoriation on arms, legs, and forehead. Psych: Avoids eye contact, flat affect, denies suicidal ideations at this time. Medical Decision & Procedures ER Provider Diagnostic Interpretation: Radiology results as stated below per my review and the radiologist's interpretation: CT HEAD: Old infarct of the righty parietal lobe. No acute infarct. No intracranial hemorrhage. No midline shift. No acute fracture. Soft tissues are normal. Radiologist: Suzanna Rodríguez MD. Laboratory Results 10/06/17 23:36 10/06/17 23:36 Test 10/06/17 23:36 10/07/17 00:01 Red Blood Count 4.21 M/uL (4.7-6.1) Mean Corpuscular Volume 94.5 fL (80-100) Mean Corpuscular Hemoglobin 29.5 pg (25-34) Mean Corpuscular Hemoglobin Concent 31.2 g/dl (32-36) RDW Standard Deviation 59.1 fL (36.4-46.3) RDW Coefficient of Variation 17.1 % (11.5-14.5) Mean Platelet Volume 9.1 fL (7.4-10.4) Prothrombin Time 14.0 SECONDS (9.0-12.0) Prothromb Time International Ratio 1.3 (0.9-1.1) Activated Partial Thromboplast Time 30.0 SECONDS (21.0-31.0) Partial Thromboplastin Ratio 1.2 Anion Gap 7.0 mmol/L (3-11) Est Creatinine Clear Calc Drug Dose 63.7 ml/min Estimated GFR () 72.9 Estimated GFR (Non- 62.9 BUN/Creatinine Ratio 7.0 (10-20) Calcium Level 8.0 mg/dl (8.5-10.1) Total Bilirubin 0.3 mg/dl (0.2-1) Direct Bilirubin < 0.1 mg/dl (0-0.2) Aspartate Amino Transf (AST/SGOT) 27 U/L (15-37) Alanine Aminotransferase (ALT/SGPT) 19 U/L (12-78) Alkaline Phosphatase 168 U/L (45-117) Total Protein 7.2 gm/dl (6.4-8.2) Albumin 2.8 gm/dl (3.4-5.0) Thyroid Stimulating Hormone (TSH) 2.380 uIu/ml (0.300-4.500) Salicylates Level < 1.7 mg/dl (2.8-20) Urine Opiates Screen NEG (NEG) Urine Methadone, Qualitative NEG (NEG) Acetaminophen Level < 2 ug/ml (10-30) Urine Barbiturates NEG (NEG) Urine Phencyclidine (PCP) Level NEG (NEG) Ur Amphetamine/Methamphetamine NEG (NEG) MDMA (Ecstasy) Screen NEG (NEG) Urine Benzodiazepines Screen NEG (NEG) Urine Cocaine Metabolite NEG (NEG) Urine Marijuana (THC) NEG (NEG) Ethyl Alcohol mg/dL < 3.0 mg/dl (0-3) Laboratory results per my review. ED Course 2316: Past medical records reviewed. The patient was evaluated in room A7. A complete history and physical exam was performed. Labs were drawn as above. The 302 was reviewed. The patient went for CT scan of the brain. 0322: The patient was evaluated by staff from [facility] who feel as though he needs admission. 0638: The patient agreed to sign himself in voluntarily. 0645: The patient was signed out to Dr. Rosenthal at the change of shift. Medical Decision The patient is a 62 year old male who presents to the Emergency Room with complaints of multiple episodes of suicidal ideations beginning two days ago. Differential diagnoses include: thought disorder, mood disorder, suicide attempt , and self mutilation. Lab Results Show: Normal WBC. Hemoglobin 12.4. Normal renal function. Glucose 105. Normal TSH. Negative alcohol, Tylenol, and Aspirin. Negative Tox screen. INR 1.3. This is a 62-year-old male patient presents to the emergency department after making suicidal statements at home. The patient's had to restrain him from leaving the home. The police spoke with the patient and he agreed to come with them voluntarily to the emergency department for evaluation. Upon evaluation here in the emergency department, there was multiple areas of excoriation about the patient's face and extremities. These were cleansed and dressed with antibiotic ointment and sterile dressings. The patient picks at his skin. Initially, the patient did not feel as if he required inpatient psychiatric care. However, the patient's is very concerned for his safety. After some discussion with the psychiatric adult protective caseworker, he was willing to sign himself in voluntarily for inpatient psychiatric care. Medication Reconcilliation Current Medication List: was personally reviewed by me Blood Pressure Screening Patient's blood pressure: Normal blood pressure Blood pressure disposition: Did not require urgent referral Impression Primary Impression: Suicidal ideation Additional Impression: Self-mutilation Scribe Attestation The scribe's documentation has been prepared under my direction and personally reviewed by me in its entirety. I confirm that the note above accurately reflects all work, treatment, procedures, and medical decision making performed by me. Departure Information Dispostion Still a Patient Referrals Sharri Holbrook (PCP) Patient Instructions My [facility] Problem Qualifiers
[2017-10-07 00:10] LABS: HEMATOCRIT 39.8 % (42-52); HEMOGLOBIN 12.4 g/dL (14.0-18.0); MEAN CELL VOLUME 94.5 fL (80-100); MEAN CORPUSCULAR HEMOGLOBIN 29.5 pg (25-34); MEAN CORPUSCULAR HGB CONC 31.2 g/dl (32-36); MEAN PLATELET VOLUME 9.1 fL (7.4-10.4); PLATELET COUNT 342 K/uL (130-400); RED CELL DISTRIBUTION WIDTH CV 17.1 % (11.5-14.5); RED CELL DISTRIBUTION WIDTH SD 59.1 fL (36.4-46.3)
[2017-10-07 00:15] LABS: INR 1.3 (0.9-1.1)
[2017-10-07 00:40] LABS: ALBUMIN 2.8 gm/dl (3.4-5.0); ALKALINE PHOSPHATASE 168 U/L (45-117); ALT/SGPT 19 U/L (12-78); AST/SGOT 27 U/L (15-37); BLOOD UREA NITROGEN 8 mg/dl (7-18); CARBON DIOXIDE 28 mmol/L (21-32); CREATININE 1.21 mg/dl (0.60-1.40); GLUCOSE 105 mg/dl (70-99); POTASSIUM 3.2 mmol/L (3.5-5.1); SODIUM 140 mmol/L (136-145); TOTAL PROTEIN 7.2 gm/dl (6.4-8.2)
[2017-10-07] MEDS ORDERED: NRN100 PO (01:56)
[2017-10-07] MEDS ORDERED: RMRS/45 PO (01:56)
--- NOTE | 2017-10-07 07:06 | EMERGENCY ROOM VISIT NOTE ---
ED Visit Note This patient was signed out to me by Dr. Machuca at shift change. The patient has been medically cleared and was awaiting psychiatric evaluation/placement. There was a 302 petition however the the patient apparently is willing to sign in voluntarily and voluntary placement is pending. The patient has been accepted at [facility]. I did write him for his normal morning medications the exception being Toprol as his heart rate was 60. He did receive Cymbalta 120 mg, Klonopin 2 mg, gabapentin 200 mg which are normal dosage for him. The patient was sent to [facility] for further inpatient treatment and evaluation.
--- NOTE | 2017-10-07 07:51 | DIAGNOSTIC IMAGING REPORT ---
CT HEAD WITHOUT CONTRAST (CT) CLINICAL HISTORY: Head pain status post trauma COMPARISON STUDY: April 2017 TECHNIQUE: Axial CT of the brain is performed from the vertex to the skull base. IV contrast was not administered for this examination. A dose lowering technique was utilized adhering to the principles of ALARA. CT DOSE: 614.27 mGy.cm FINDINGS: No intra or extra-axial mass lesions are visualized. There is no CT evidence of acute cortical infarction. There is no evidence of midline shift. There is no acute hemorrhage. No calvarial fractures are visualized. There are patchy white matter hypodensities likely on a small vessel basis. There is an old right middle cerebral artery territory infarct. There is no evidence of pathologic ventricular dilatation. There is mild mucosal thickening. There are postsurgical changes of prior medial antrectomies. IMPRESSION: 1. Old right MCA territory infarct 2. No acute intracranial findings Electronically signed by: Phil Deshpande M.D. 10/07/2017 7:49 AM Dictated Date/Time: 10/07/2017 7:48 AM
[2017-10-07] MEDS ORDERED: GABAPENTIN 100 MG CAP PO STA ×3 (10:37→12:26)
[2017-10-07] MEDS ORDERED: CLONAZEPAM 0.5 MG TAB PO STA (10:37)
[2017-10-07] MEDS ORDERED: DULOXETINE HCL 60 MG CAP PO STA (11:45)
[2017-10-07] MEDS ORDERED: WARFARIN SOD 2 MG TAB PO STA (11:45)
[2017-10-07] MEDS ORDERED: WARF2TAB8 PO (12:07)
[2017-10-07] MEDS ORDERED: FERR1TAB13 PO (12:07)
[2017-10-07 13:00] VITALS: BP 139/81; PULSE 69; TEMP 36.9; O2SAT 97
== END 2017-10-07 12:50 ==
LOC: EDBD 22:26 → C.EDA 22:27
DX: R45.851 Suicidal ideations (principal); Z91.5 Personal history of self-harm; M79.604 Pain in right leg; M79.605 Pain in left leg; M25.559 Pain in unspecified hip; F41.8 Other specified anxiety disorders; I50.9 Heart failure, unspecified; Z86.73 Personal history of transient ischemic attack (TIA), and cerebral infarction without residual deficits; Z87.891 Personal history of nicotine dependence; Z95.0 Presence of cardiac pacemaker; Z79.82 Long term (current) use of aspirin; Z79.01 Long term (current) use of anticoagulants; Z79.899 Other long term (current) drug therapy; Z88.0 Allergy status to penicillin

== ENCOUNTER → 2017-11-02 | Outpatient (CLI) | payer BC ==
[~2017-11-02] MED LIST changes: -ATR25 PO; -DLCS PR; -ERGO500011 PO; +FERR1TAB13 PO; -FRRG PO; -LSX20 PO; -MRLP17 PO; +NRN100 PO; -OXYC-57 PO; -RMR15 PO; +RMRS/45 PO; -SENN8.6T7 PO; -THIA100T10 PO; -TRMCR115 EXT; +WARF2TAB8 PO
== END | disposition home or self-care (01) ==
LOC: C.LABMFLN 14:09
PROVIDERS: ATTEND Psychiatry & Neurology Child & Adolescent Psychiatry
DX: F32.9 Major depressive disorder, single episode, unspecified (principal)